=== PATIENT | male | born 1955 | race Caucasian/White ===

== ENCOUNTER 2017-07-08 09:36 | Emergency (ER) | payer OTHER, SELFPAY ==
[2017-07-08 09:37] VITALS: BP 140/77; PULSE 91; RESP 17; TEMP 36.9; O2SAT 95; BMI 25.0
--- NOTE | 2017-07-08 09:54 | ED.VISSUMM ---
- ER Visit Summary Date of Service: 07/08/17 Chief Complaint: [Swelling to right side of face] History of Present Illness: The patient is a 62 M [presents to the emergency department with complaint of for 5 day history of swelling to the right side of his face. Patient does have a easton and states that initially he started with what he thought was a pimple. Patient tried to express it and since that time is had just small amount of drainage from the wound. Yesterday started having increased swelling and today presents for evaluation. Patient's had no fevers.] Physical Examination: [HEENT-PERRLA, EOMI. Cranial nerves II through XII grossly intact. TMs clear. Mucous membranes moist. No adenopathy. Patient has right-sided swelling to his cheek an area approximately 3 x 2 cm with surrounding erythema. Area is slightly firm without fluctuance. Central portion is excoriated and small amount of serous material is oozing. Cardiovascular-regular rate and rhythm without murmur or ectopy Lungs-clear to auscultation, chest wall stable without crepitus or subcu emphysema Abdomen-normoactive bowel sounds, soft, nontender, no rebound or rigidity, no peritoneal signs. Extremities-intact ?4, normal range of motion, normal pulses, atraumatic] Test Results: [None indicated] Emergency Department Course and Treatment: [I offered to attempt an incision and drainage although given that this area is not very fluctuant I thought it may be more of an inflammatory process at this point however the patient did want me to attempt I&D the suspected early abscess. The area was cleansed with an alcohol prep and a 18-gauge needle was used to stab and then in size the suspected abscess with only small amount of blood extruding despite significant pressure am unable to obtain any significant purulence.] Treatment Plan: [Patient will be started on Keflex and Bactrim and advised to follow-up with ENT on-call Dr. Scottie Espinoza within the next 3-5 days. Patient to return if fever, increased swelling, or condition should worsen in any way.] Disposition: [Discharged to home in stable condition.] Impression: [Right sided facial cellulitis/early abscess] This note was generated with [employer] software. It may contain incorrect words, spelling, and punctuation that were not noted in review of the chart prior to signing ED Disposition - Plan for ED Patient: Chief Complaint: Abscess Referrals: Kavitha Tidwell MD [Primary Care Provider] -
--- NOTE | 2017-07-08 09:58 | ED.DEP ---
ED Disposition - Plan for ED Patient: Chief Complaint: Abscess Instructions: ED Cellulitis Facial, ED Abscess IandD Prescriptions: Cephalexin [Keflex] 500 mg PO Q6 #40 cap Smz/Tmp Ds [Bactrim Ds] 2 tab PO BID #28 tab Referrals: Kavitha Tidwell MD [Primary Care Provider] - Scottie Espinoza MD [STAFF PHYSICIAN] - 3-5 Days
[2017-07-08] MEDS: Cephalexin 250 MG Capsule 500 MG PO (10:09)
[2017-07-08] MEDS: Smz/Tmp Ds Tablet 1 TABLET PO (10:09)
== END 2017-07-08 10:14 | disposition home or self-care (01) ==
LOC: ED 09:58
PROVIDERS: Emergency Provider Emergency Medicine; Family Provider Internal Medicine; PCP Internal Medicine
DX: L02.01 Cutaneous abscess of face (principal); L03.211 Cellulitis of face; Z72.0 Tobacco use
CPT/HCPCS: 10060; 99283

== ENCOUNTER 2017-08-23 09:38 | Emergency (ER) | payer OTHER, SELFPAY ==
[2017-08-23 09:39] VITALS: BP 143/76; PULSE 76; RESP 17; TEMP 36.8; O2SAT 96; BMI 24.9
--- NOTE | 2017-08-23 10:14 | ED.VISSUMM ---
- ER Visit Summary Date of Service: 08/23/17 Chief Complaint: Pain and swelling. History of Present Illness: The patient is a 62 M Coumadin for a blood clot in his heart. Patient states he is right-hand dominant. For the last 2-3 days she had atraumatic right wrist pain and swelling. No history of gout. No history of fever. No trauma. Denies any redness. He [facility] They did x-rays which showed degenerative changes but no acute process. They did I did not actually see the films. He did not want additional x-rays taken. The Coumadin level which is 3.1 and adjusted his Coumadin to decrease his level. He says never had anything like this before. 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 Physical Examination: Stable afebrile. He is in no acute distress. HEENT exam unremarkable. Neck nontender. Lungs clear to auscultation bilaterally. Heart regular rhythm no murmur. Abdomen soft nontender. Extremities moving all 4. Neurovascular intact. Specifically right shoulder right elbow nontender nonswollen normal range of motion. His right wrist distal forearm is symmetrically swollen. There is no redness or warmth. He is a strong radial pulse. He is able to wiggle his fingers. There is swelling also on his right hand. He has increased pain in his right wrist with range of motion. There is no signs of a septic joint other than the pain. There is no epitrochlear or axillary lymphadenopathy. There is no signs of compartment syndrome. No signs of trauma. Neurologic exam is normal. Test Results: Ordered from the [facility] states he has degenerative changes of his right wrist but no fracture or dislocation. Again I did not see the films myself. Emergency Department Course and Treatment: She was placed in a AP splint to immobilize his right wrist. No continue to ice and elevate. Prednisone for inflammation. Clinically he has never had gout that is a possibility. Treatment Plan: Prednisone 40 g a day for 10 days. Ice and elevate. Close follow-up to ensure this is improving. And to ensure there is no signs of infection develop. Disposition: Discharge Impression: Traumatic right wrist pain and swelling secondary to arthritis. Anticoagulated on Coumadin. Forearm AP splint made by ER physician. This note was generated with [employer] dictation software. It may contain incorrect words, spelling, and punctuation that were not noted in review of the chart prior to signing ED Disposition - Plan for ED Patient: Chief Complaint: Upper Extremity Injury Referrals: Kavitha Tidwell MD [Primary Care Provider] -
--- NOTE | 2017-08-23 10:19 | ED.DEP ---
ED Disposition - Plan for ED Patient: Disposition: Home or Assisted Living Chief Complaint: Upper Extremity Injury Prescriptions: Prednisone [Deltasone] 40 mg PO DAILY 9 Days tab Referrals: Kavitha Tidwell MD [Primary Care Provider] - 3-5 Days Additional Instructions: Ice and elevate right wrist to decrease inflammation and pain. Prednisone 40 mg once a day for the next 9 days she worked already given a dose today in the ER. Call and follow-up with Dr. Tidwell this week to have your wrist rechecked. Return to ER immediately if you develop a fever or redness. Loosen the Basil wrap as needed if it feels too tight.
[2017-08-23] MEDS: predniSONE 20 MG Tablet 40 MG PO (10:21)
== END 2017-08-23 10:37 | disposition home or self-care (01) ==
PROVIDERS: Emergency Provider Emergency Medicine; Family Provider Internal Medicine; PCP Internal Medicine
DX: M19.131 Post-traumatic osteoarthritis, right wrist (principal); M25.531 Pain in right wrist; M25.431 Effusion, right wrist; I25.2 Old myocardial infarction; Z86.79 Personal history of other diseases of the circulatory system; Z72.0 Tobacco use; Z79.01 Long term (current) use of anticoagulants; Z79.82 Long term (current) use of aspirin; Z79.899 Other long term (current) drug therapy
CPT/HCPCS: 29125; 99282

== ENCOUNTER 2017-10-16 12:50 | Emergency (ER) | payer OTHER, SELFPAY ==
--- NOTE | 2017-10-16 12:50 | DT_ITS ---
This patient was seen during an EMR downtime October 11, 2017 - October 18, 2017. This patient may have a combination of paper and electronic documentation or all paper documentation. All documentation is viewable within the e-chart portion of [facility] for each patient visit.
--- NOTE | 2017-10-16 13:00 | RAD_ITS ---
STUDY: X-RAY - PELVIS AND RIGHT HIP REASON FOR EXAM: Male, 59 years old. Unable to bear weight. Pain TECHNIQUE: Radiological exam, hip, unilateral, with pelvis when performed; 2 or 3 views. COMPARISON: None. FINDINGS: No definite evidence for an acute fracture. Degenerative changes in the sacroiliac joints. Degenerative changes in the lower lumbar spine. Bony pelvic ring appears intact. Pelvic phleboliths. Superior and inferior pubic rami are intact IMPRESSION: No evidence for acute fractures seen Electronically Signed: Randall Piedra, at 14:04 EDT Tel , Service support , RAD/Hip 2-3 Views with Pelvis
== END 2017-10-16 14:40 | disposition home or self-care (01) ==
LOC: ED 10-17 13:26
PROVIDERS: Emergency Provider Emergency Medicine; Family Provider Internal Medicine; PCP Internal Medicine
DX: M79.651 Pain in right thigh (principal); S79.921A Unspecified injury of right thigh, initial encounter; I25.2 Old myocardial infarction; Z79.01 Long term (current) use of anticoagulants; Z79.899 Other long term (current) drug therapy; X58.XXXA Exposure to other specified factors, initial encounter; Y93.89 Activity, other specified; Y92.89 Other specified places as the place of occurrence of the external cause; Y99.8 Other external cause status
CPT/HCPCS: 73502; 99283

== ENCOUNTER 2017-11-23 06:59 | Day surgery (SDC) | payer OTHER, SELFPAY ==
[2017-11-22 09:06] VITALS: BMI 24.8
[2017-11-23 07:16] LABS: Prothrombin Time Fingerstick 11.3 SEC (11.9-14.4)
--- NOTE | 2017-11-23 08:53 | CASEMGMT ---
Addendum entered by Kyle Matamoros 11/23/17 08:58: Addendum- [facility] also [facility]. Original Note: Insurance review for [facility] using [employer] Website and PPO designation per card. [facility], [facility], [facility], [facility], [facility], [facility] ([facility]), [facility].
--- NOTE | 2017-11-23 08:56 | CL.D_ITS ---
Patient Name: JANE KIM Study Date: 11/23/2017 Performing: Roger Lyons MD Ht: 70.07 inches 178 cm : 1955 Wt: 171.96 lbs 78 kg Age: 62 Gender: male BSA: 1.96 PROCEDURE(S) PERFORMED [id number] CLINICAL PROFILE AND INDICATIONS Indications: Suspected CAD, Cardiomyopathy, LV Dysfunction Heart Failure: NYHA Class: 1, Newly Diagnosed: Yes, Heart Failure Type: Systolic Stress/Imaging Stress Test w/SPECT MPI: Yes Result: Positive Intermediate RiskStress Test with SP ECT MPI: Positive Intermediate Risk Angina Classification Anginal Classification w/in 2 Weeks: No symptoms CAD Presentations: No Sxs, no angina. Comorbidities/Risk Factors: Current/Recent Smoker (< 1year) Hypertension Dyslipidemia CONCLUSIONS RECOMMENDATIONS ASA Indefinitely Management as per referring Director Of Neurology Surgery consult for coronary revascularization Will d/w Dr Lawrence DESCRIPTION OF PROCEDURE The patient arrived to the procedure lab. The risks and benefits of the procedure as well as a full d escription of our services here and current unavailability of surgical backup were fully explained to the patient and/or their significant other prior to the catheterization. The Timeout was completed, verifying the correct patient and procedure. The patient's procedural site was prepped and draped in the usual fashion. Local anesthetic was given subcutaneously to right groin region with Lidocaine 2%. Using a modified Seldinger technique, arterial access was obtained via the right femoral artery, a 4 Fr sheath was inserted Left Coronary Artery selective angiography was performed in multiple views us ing a 4 Fr. JL5 catheter. Right Coronary Artery selective angiography was then performed in multiple views using a 4 Fr. 3DRC catheter.The arterial sheath was pulled and manual compression applied until hemostasis is achieved. CORONARY ANGIOGRAPHY DOMINANCE: Right Dominant LEFT HEART ASSESSMENT Left Ventricular Ejection Fraction: Not assessed LV wall motion not assessed LEFT MAIN: Angiographically normal LEFT ANTERIOR DECENDING ARTERY: MID LAD: 75 % Stenosis CIRCUMFLEX ARTERY: PROX CIRC: 85 % Stenosis RIGHT CORONARY ARTERY: MID RCA: 99 % Stenosis COLLATERAL FLOW: Collateral flow from Left to Right COMPLICATIONS No Complications PROCEDURE MEDICATIONS Baby Aspirin (81mg) 1 Tabs PO @ 11/23/2017 08:25:47 IV Bolus: .9 NaCl ml total 11/23/2017 08:42:48 SUMMARY OF HEMODYNAMIC DATA Time AIR REST ECG 07:32:09 AO 99/56 (74) SA 08:42:37 Signed By Roger Lyons MD On 11/23/2017 08:55:59 Roger Lyons MD
== END 2017-11-23 13:30 ==
PROVIDERS: Family Provider Internal Medicine; PCP Internal Medicine; Visit Provider Internal Medicine Cardiovascular Disease
DX: I25.5 Ischemic cardiomyopathy (principal); I51.9 Heart disease, unspecified; I25.10 Atherosclerotic heart disease of native coronary artery without angina pectoris; I10 Essential (primary) hypertension; E78.5 Hyperlipidemia, unspecified; I25.2 Old myocardial infarction; F17.210 Nicotine dependence, cigarettes, uncomplicated; Z79.01 Long term (current) use of anticoagulants; Z79.82 Long term (current) use of aspirin; Z79.899 Other long term (current) drug therapy
CPT/HCPCS: 36416; 85610; 93454; J7040; Q9967; C1769; C1894

== ENCOUNTER → 2018-03-15 08:17 | Outpatient (CLI) | payer OTHER, SELFPAY ==
--- NOTE | 2018-03-15 09:56 | PCM.CR.ITP ---
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 Maintain the individual as the primary focus of care. 2. To improve the patient's quality of life. 3. Identification of cardiac risk factors and provide cardiac risk factor management. 4. Enhance the psychosocial status of the patient. 5. Reconditioning enough to allow the patient to resume customary activities. 6. Control symptoms of cardiac disease Scale for measuring improvement of personal goals: Enter appropriate number in Comments. 2 = Unchanged. 3 = Slightly Better. 4 = Moderate Improvement. 5 = Met my Goal Personal Goals: Initial Assessment: Improve energy level, Get back to work, or to resume activities faster, Improve muscle strength and endurance, Control risk factors (learn risk factor modification) Exercise - Initial Assessment - Visit Date of Eval: 03/15/18 - Starting CR on 03/21/2018 Session #:: 0 - Stages of Change Stages of Change:: Contemplate - Exercise Prescription Mode:: Treadmill, Airdyne, NuStep Angina with exercise?: No Target Heart Rate:: [id number] - Hypertension Do any of the following apply?: No Resting Blood Pressure:: 100/50 - Intervention Home Exercise/Activity Goal:: Moderate Exercise 30 min/day x 5 days/wk - Education Goals:: Warm-up, RPE SAHIL Scale, S/S, Safe Exercise, Self-Monitoring - Exercise Program Goals Exercise Program Goals: Aerobic Activity >30 min Nutrition - Initial Assessment - Program Goals Nutrition Program Goals: LDL <70. Total Cholesterol <200. HDL >45. Triglycerides <150. HgbA1C <7%. BMI <25 - Visit Date of Assessment:: 03/15/18 - Stages of Change Stages of Change:: Contemplate - Diabetes Diabetes:: No - Weight Management Height: 5 ft 10 in Weight:: 169 lb Body Fat %:: 24.2 - Intervention Referral to dietitian:: No Referral to Diabetic Clinic:: No Will attend diet classes:: Yes - Education Gave educational materials for:: Healthy eating Tobacco - Initial Assessment - Program Goals Tobacco Program Goals: Complete smoking cessation. Attend education classes. Improve Knowledge Test score - Stage of Change Stages of Change:: Contemplate - Learning Barriers Learning Barriers: Vision, Cognitive - difficulty understanding medical terminology - Family Support Do you have family support?: Yes - Tobacco Use Tobacco Use: Cigarettes How many cigarettes do you smoke per day?: 20 - NO desire to quit; nobody's business if I smoke or don't smoke after 50 years. Years Smokin Do you use smokeless tobacco?: No - Intervention Smoking Cessation Referral:: No - Patient refused Individual Education/Counseling:: No Education Schedule Given:: Yes - Education Gave educational material for:: Tobacco triggers, Coronary artery disease, Risk factors, Sexuality, Medical compliance, Cardiac A&P, Angina signs & symptoms Psychosocial - Initial Assess - Target Goals Target Goals: Assess presence or absence of depression. Using a valid screening tool, maximizes coping skills. Positive support system - Stages of Change Stages of Change:: Contemplate - Psychosocial Test Tool Used:: HANDS Depression Questionnaire - Intervention PS - Interventions: Yes Attend Stress Management Classes, No Referral to Mental Health, No Referral to [facility] Case Management, No Referral to Physician, No Uses Stress Management Skills - Education Gave educational materials for:: Coping techniques, Signs & symptoms of depression, Stress management, Relaxation techniques - Patient/Program Goal Preventative Medication(s):: Aspirin, Clopidogrel, Beta yun - Assistive Devices Assistive Devices:: None Fall Risk Assessed:: Yes Patient Health Questionnaire Initial Assessment 1. Little interest or pleasure in doing things: Not at all 2. Feeling down, depressed, or hopeless: Not at all 3. Trouble falling or staying asleep, or sleeping too much: More than half the days 4. Feeling tired or having little energy: Several days 5. Poor appetite or overeating: Not at all 6. Feeling bad about yourself -- or that you are a failure or have let yourself or your family down: Not at all 7. Trouble concentrating on things, such as reading the newspaper or watching television: Not at all 8. Moving or speaking so slowly that other people could have noticed. Or the opposite - being so fidgety or restless that you have been moving around a lot more than usual: Not at all 9. Thoughts that you would be better off , or of hurting yourself in some way: Not at all How difficult have these problems made it for you to do your work, take care of things at home, or get along with other people?: Not difficult at all Total Score: 3 MIGEL-Q SV Test - Statements CAD is a disease of the arteries in the heart: I Don't Know Examples of risk factors for heart disease: I Don't Know Angina is chest pain or discomfort: I Don't Know The benefits of resistance training include: True Eating more meat and dairy products: I Don't Know Anti-platelet medications such as aspirin are important: True The only effective way to manage stress: False An exercise warm-up slowly increases heart rate: I Don't Know Prepared, processed foods usually have high sodium: True Depression is common after a heart attack: I Don't Know The statin medications lower cholesterol: I Don't Know To control blood pressure, lower the amount of sodium: I Don't Know If someone gets chest discomfort during walking: False Transfats are partially hydrogenated vegetable oils: I Don't Know Sleep apnea that is not treated increases the risk: I Don't Know To control cholesterol, one should become a vegetarian: I Don't Know Someone knows if he/she is exercising at the right level: True Diabetes cannot be prevented with exercise & health eating: False Stress is a large risk for heart attack: True A diet that can help lower blood pressure is rich in: I Don't Know - Total Score Total Correct Responses: 8 Self-Efficacy Initial Assessment We would like to know how confident you are in doing certain activities. Please select your confidence level for:: Select your confidence level for the following using the scale 1-10 where 1 is not at all confident and 10 is totally confident. Your score is the average of all 6 responses. Fatigue: How confident are you that you can keep the fatigue caused by your disease from interfering with the things you want to do? Select Number: 6 Physical Discomfort or Pain: How confident are you that you can keep the physical discomfort or pain of your disease from interfering with the things you want to do? Select Number: 9 Emotional Distress: How confident are you that you can keep the emotional distress caused by your disease from interfering with the things you want to do? Select Number: 9 Other Symptoms or Health Problems: How confident are you that you can keep other symptoms or health problems from interfering with the things you want to do? Select Number: 9 Different Tasks and Activities: How confident are you that you can do the different tasks and activities needed to manage your health condition so as to reduce your need to see a doctor? Select Number: 7 Medication: How confident are you that you can do things other than just taking medication to reduce how much your illness affects your everyday life? Select Number: 10 Total Score:: 8 Nutrition Survey - Nutrition Survey Instructions Scoring Instructions: Scoring is as follows: Yes = 1 points. No = 0 point. Patient score that is >/=12 is considered to be at potential nutritional risk and could benefit from a referral to a registered dietitian. - Nutrition Survey Initial Have you lost >10 lbs over the past 2 months without trying?: No Are you following a special diet at home for diabetes, low fat, or low salt?: No Are you interested in meeting with a dietitian for help understanding your diet?: Yes Do you eat less than 3 meals a day?: Yes Do you eat fatty meats (la, sausage, ribs, etc), fried foods, desserts, large amounts of salad dressings, margarine, butter, or cheese most days?: No Do you have food allergies? [Enter types in comment field]: No Do you eat in restaurants more than 3 times a week?: Yes Do you season food with salt, seasoning salt, or garlic salt?: No Do you used canned, boxed, frozen meals, or soups, seasoning packets?: Yes Total Score:: 4
--- NOTE | 2018-03-15 09:57 | PCM.CR.HP2 ---
CR - History & Physical - General Arrival date:: 03/15/18 Arrival time:: 09:30 Date of Referral:: 03/08/18 Date of CR Evaluation:: 03/15/18 Referring Physician: cali Primary Diagnosis: CABG - History of Present Cardiac Event Onset Date: Enter Onset Date of cardiac illnesses in Comment field below Coronary Artery Bypass Graft:: Yes - 01/25/2018 @ [facility] Interventions with present event:: heart cath, echocardiogram, Coronary artery bypass - Medications Home Medications: Ambulatory Orders Medication Instructions Recorded atorvastatin 40 mg tablet 40 mg PO DAILY 03/07/18 metoprolol tartrate 50 mg tablet 50 mg PO BID 03/07/18 aspirin 81 mg chewable tablet 162 mg PO QHS tab 03/08/18 - Allergies Allergies/Adverse Reactions: Allergies No Known Allergies Allergy (Verified 03/08/18 08:51) - Sleep Disorder Evaluation Hx of Sleep Apnea: No Do you snore loudly (louder than talking or can be heard through closed doors)?: No Do you often feel tired/ fatigued/ sleepy during daytime?: Yes Has anyone observed you stop breathing during sleep?: No History of Hypertension (for STOP score): No STOP Results: Negative Advanced Directives - Advanced Directives Power of Student Financial Aid Manager: Yes - sister in law Chiquita Franco. Living Will: No Advance Directives Information Provided: No - not interested Advance Directives on File: No DNR Order?:: No - MOLST See MOLST form: No Past Medical History - Past Medical Illness Medical History: Past Medical History (Last Updated 03/08/18 @ 08:56 by RELL Dowling) Hyperlipidemia (Chronic) E78.5 Leg edema (Chronic) R60.0 History of tobacco abuse (Chronic) Z87.891 Ischemic cardiomyopathy (Chronic) I25.5 EF 35-40% per echo done @ [facility]07/11/2017; 50% per pre-op EFRAIN done @ [facility] 01/25/18 History of DE (myocardial infarction) (Chronic) I25.2 Left ventricular scar, markie infart ischemia, left ventricular thrombus per echo 12/15/2017 @ [facility] Atherosclerotic heart disease of [place] coronary artery without angina pectoris (Chronic) I25.10 MARTINES to LAD, free JANEEN to PDA, SVG to Diagonal, SVG to OM, SVG to right Posterior lateral per Dr. Augustin [facility] - Past Surgical History Surgical History: Past Surgical History (Last Reviewed 03/08/18 @ 08:40 by Taty Montoya) S/P CABG x 5 (Chronic) Onset Date: 01/25/18 Z95.1 MARTINES to LAD, free JANEEN to PDA, SVG to Diagonal, SVG to OM, SVG to right Posterior lateral per Dr. Augustin NINA History of colonoscopy with polypectomy Onset Date: 05/15/03 Z98.890, Z86.[address] Dillon History of right inguinal hernia repair Onset Date: 03/23/16 Z98.890, Z87.[address] Dillon Incarcerated right inguinal hernia (Resolved) K40.30 Surgical History: herniorrhaphy - right inguinal x 2, - - facial surgery summer, amputated left ring finger 1993 - Family History Summary Family History: Family History (Last Reviewed 03/08/18 @ 08:40 by Taty Montoya) Brother CAD (coronary artery disease) Brother CAD (coronary artery disease) Mother Cancer Father Cancer Sister Cancer Social History - Smoking History Smoking Status: Current every day smoker Years Smokin Packs Smoked per Day: 1 Hx Smoking Cessation Date: Been smoking 50 years, no body's business if I smoke or quit. 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 Left click = Reports ([place]) Review of Present Symptoms: Reports: Shortness of Breath with Exertion - depends on what I am doing, occasionally get short of breath. Frustrated because noone has told me waht I can do or not do since my surgery., Operative Discomfort, Fatigue, Appetite - Normal, Sleep - Normal - varies, sometimes awake after 3-4 hours of sleep thatn can be wide awake.. Denies: Dizziness/Lightheadedness - Pain Pain Level: 2/10 - morning getting up chest incision feels 100% by the end of the day can be a lttile ache level of 1-2 pain scale. Risk Factor Assessment - Chief Complaint Chief Complaint: Patient is a 62/male of Dr. Roger Lyons who presents to cardiac rehab today following a recent CABG on 01/25/2018 at [facility]. He previously had a nuclear stress test which sugested a large infarct with ischemia, an echocardiogram at the time indicated an EF of 35-40% which is now back to a normal of 58% post bypass. - Vital Signs Temperature: 98.7 F Respiratory Rate: 16 Pulse Ox: 95 Blood Pressure: 100/50 Nailbeds:: pink,tar/nicotine stained - Pulse Pulse Rate: 44 Pulse Rhythm: Regular - Hypertension Blood Pressure Sitting - Left Arm: 100/50 - Obesity Height: 5 ft 10 in Weight:: 169 lb Weight in Pounds: 169.0 lbs Weight Source: Standing Scale Body Mass Index (BMI): 24.2 Nutritional Referral for Obesity: No - Physical Inactivity Physical Inactivity: None - hasn't done - Risk Stratification Risk Guidelines: Lowest Risk: Risk Factor for Diabetes, Risk Factor for Obesity, Risk Factor for Hypertension, Risk Factor for Sedentary Lifestyle, Risk Factor for Depression, Moderate Risk: Risk Factor for Dyslipidemia, Highest Risk: Risk Factor for Smoking - For Smoking Smoking Risk Guidelines: Smoking Low Risk: None or quit greater than 6 months ago. Smoking Moderate Risk: Smoker or quit 6 months or less ago. Smoking High Risk: Smoker - For Dyslipidemia Dyslipidemia Risk Guidelines: Low Risk: Moderate Risk: High Risk: 15-25% fat 25.1-29% fat >/= 30% fat. <7% sat fat 7-9% sat fat >9% sat fat. <150 mg chol 150-299 mg chol >/= 300 mg chol. LDL <100 LDL 100-129 LDL >/= 130. Chol/HDL ratio <5.0 Chol/HDL ratio 5.0-6.0 Chol/HDL ratio >6.0. Triglycerides <100 Triglycerides 100-149 Triglycerides >/= 150 - For Diabetes Mellitus Diabetes Risk Guidelines: Diabetes Low Risk: HgA1c <6.5% and/or FBG <120. Diabetes Moderate Risk: HgA1c 6.6-7.9% and/or FBG 120-180. Diabetes High Risk: HgA1c >/= 8% and/or FBG >180 - For Obesity/Overweight Obesity/Overweight Risk Guidelines: Obesity Low Risk: BMI <25.0. Obesity Moderate Risk: BMI 25-29.9. Obesity High Risk: BMI >/= 30.0 - For Hypertension Hypertension Risk Guidelines: Hypertension Low Risk: Systolic <120 and Diastolic <80. Hypertension Moderate Risk: Systolic 120-139 and Diastolic 80-89. Hypertension High Risk: Systolic >/= 140 and Diastolic >/= 90 - For Sedentary Lifestyle Sedentary Lifestyle Risk Guidelines: Sedentary Lifestyle Low Risk: >/= 1,500 kcal/week. Sedentary Lifestyle Moderate Risk: 700-1,499 kcal/week. Sedentary Lifestyle High Risk: < 700 kcal/week - For Depression Depression Risk Guidelines: Depression Low Risk: Not clinically depressed. Depression Moderate Risk: Mildly depressed. Depression High Risk: Clinically depressed - Family History Family History: Family History (Last Reviewed 03/08/18 @ 08:40 by Taty Montoya) Brother CAD (coronary artery disease) Brother CAD (coronary artery disease) Mother Cancer Father Cancer Sister Cancer Motivation - Motivation to Participate On a scale of 1 to 10, how prepared are you to commit to attending program?: 7 - angry, frustrated. if what I have to do its what I will do. What do you see as barriers to successfully being able to complete the program?: none What do you see as the benefits of succesfully completing the program? In other words, what do you hope to get out of participating in the program?: being able to do what I did before, Are there issues you are dealing with that will interfere with completing the program?: no Do you have a spouse or signficant other, family or friends who will help support you to complete the program?: yes
--- NOTE | 2018-03-15 10:02 | CR.HP_ITS ---
CR - History & Physical - General Arrival date:: 03/15/18 Arrival time:: 09:30 Date of Referral:: 03/08/18 Date of CR Evaluation:: 03/15/18 Referring Physician: cali Primary Diagnosis: CABG - History of Present Cardiac Event Onset Date: Enter Onset Date of cardiac illnesses in Comment field below Coronary Artery Bypass Graft:: Yes - 01/25/2018 @ [facility] Interventions with present event:: heart cath, echocardiogram, Coronary artery bypass - Medications Home Medications: Ambulatory Orders Medication Instructions Recorded atorvastatin 40 mg tablet 40 mg PO DAILY 03/07/18 metoprolol tartrate 50 mg tablet 50 mg PO BID 03/07/18 aspirin 81 mg chewable tablet 162 mg PO QHS tab 03/08/18 - Allergies Allergies/Adverse Reactions: Allergies No Known Allergies Allergy (Verified 03/08/18 08:51) - Sleep Disorder Evaluation Hx of Sleep Apnea: No Do you snore loudly (louder than talking or can be heard through closed doors)?: No Do you often feel tired/ fatigued/ sleepy during daytime?: Yes Has anyone observed you stop breathing during sleep?: No History of Hypertension (for STOP score): No STOP Results: Negative Advanced Directives - Advanced Directives Power of Lead Database Administrator: Yes - sister in law Chiquita Franco. Living Will: No Advance Directives Information Provided: No - not interested Advance Directives on File: No DNR Order?:: No - MOLST See MOLST form: No Past Medical History - Past Medical Illness Medical History: Past Medical History (Last Updated 03/08/18 @ 08:56 by RELL Dowling) Hyperlipidemia (Chronic) E78.5 Leg edema (Chronic) R60.0 History of tobacco abuse (Chronic) Z87.891 Ischemic cardiomyopathy (Chronic) I25.5 EF 35-40% per echo done @ [facility]07/11/2017; 50% per pre-op EFRAIN done @ [facility] 01/25/18 History of [place] (myocardial infarction) (Chronic) I25.2 Left ventricular scar, markie infart ischemia, left ventricular thrombus per echo 12/15/2017 @ [facility] Atherosclerotic heart disease of [place] coronary artery without angina pectoris (Chronic) I25.10 MARTINES to LAD, free JANEEN to PDA, SVG to Diagonal, SVG to OM, SVG to right Posterior lateral per Dr. Augustin [facility] - Past Surgical History Surgical History: Past Surgical History (Last Reviewed 03/08/18 @ 08:40 by Taty Montoya) S/P CABG x 5 (Chronic) Onset Date: 01/25/18 Z95.1 MARTINES to LAD, free JANEEN to PDA, SVG to Diagonal, SVG to OM, SVG to right Posterior lateral per Dr. Augustin NINA History of colonoscopy with polypectomy Onset Date: 05/15/03 Z98.890, Z86.[address] Dillon History of right inguinal hernia repair Onset Date: 03/23/16 Z98.890, Z87.[address] Dillon Incarcerated right inguinal hernia (Resolved) K40.30 Surgical History: herniorrhaphy - right inguinal x 2, - - facial surgery summer, amputated left ring finger 1993 - Family History Summary Family History: Family History (Last Reviewed 03/08/18 @ 08:40 by Taty Montoya) Brother CAD (coronary artery disease) Brother CAD (coronary artery disease) Mother Cancer Father Cancer Sister Cancer Social History - Smoking History Smoking Status: Current every day smoker Years Smokin Packs Smoked per Day: 1 Hx Smoking Cessation Date: Been smoking 50 years, no body's business if I smoke or quit. 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 Left click = Reports ([place]) Review of Present Symptoms: Reports: Shortness of Breath with Exertion - depends on what I am doing, occasionally get short of breath. Frustrated because noone has told me waht I can do or not do since my surgery., Operative Discomfort, Fatigue, Appetite - Normal, Sleep - Normal - varies, sometimes awake after 3-4 hours of sleep thatn can be wide awake.. Denies: Dizziness/Lightheadedness - Pain Pain Level: 2/10 - morning getting up chest incision feels 100% by the end of the day can be a lttile ache level of 1-2 pain scale. Risk Factor Assessment - Chief Complaint Chief Complaint: Patient is a 62/male of Dr. Roger Lyons who presents to cardiac rehab today following a recent CABG on 01/25/2018 at [facility]. He previously had a nuclear stress test which sugested a large infarct with ischemia, an echocardiogram at the time indicated an EF of 35-40% which is now back to a normal of 58% post bypass. - Vital Signs Temperature: 98.7 F Respiratory Rate: 16 Pulse Ox: 95 Blood Pressure: 100/50 Nailbeds:: pink,tar/nicotine stained - Pulse Pulse Rate: 44 Pulse Rhythm: Regular - Hypertension Blood Pressure Sitting - Left Arm: 100/50 - Obesity Height: 5 ft 10 in Weight:: 169 lb Weight in Pounds: 169.0 lbs Weight Source: Standing Scale Body Mass Index (BMI): 24.2 Nutritional Referral for Obesity: No - Physical Inactivity Physical Inactivity: None - hasn't done - Risk Stratification Risk Guidelines: Lowest Risk: Risk Factor for Diabetes, Risk Factor for Obesity, Risk Factor for Hypertension, Risk Factor for Sedentary Lifestyle, Risk Factor for Depression, Moderate Risk: Risk Factor for Dyslipidemia, Highest Risk: Risk Factor for Smoking - For Smoking Smoking Risk Guidelines: Smoking Low Risk: None or quit greater than 6 months ago. Smoking Moderate Risk: Smoker or quit 6 months or less ago. Smoking High Risk: Smoker - For Dyslipidemia Dyslipidemia Risk Guidelines: Low Risk: Moderate Risk: High Risk: 15-25% fat 25.1-29% fat >/= 30% fat. <7% sat fat 7-9% sat fat >9% sat fat. <150 mg chol 150-299 mg chol >/= 300 mg chol. LDL <100 LDL 100-129 LDL >/= 130. Chol/HDL ratio <5.0 Chol/HDL ratio 5.0-6.0 Chol/HDL ratio >6.0. Triglycerides <100 Triglycerides 100-149 Triglycerides >/= 150 - For Diabetes Mellitus Diabetes Risk Guidelines: Diabetes Low Risk: HgA1c <6.5% and/or FBG <120. Diabetes Moderate Risk: HgA1c 6.6-7.9% and/or FBG 120-180. Diabetes High Risk: HgA1c >/= 8% and/or FBG >180 - For Obesity/Overweight Obesity/Overweight Risk Guidelines: Obesity Low Risk: BMI <25.0. Obesity Moderate Risk: BMI 25-29.9. Obesity High Risk: BMI >/= 30.0 - For Hypertension Hypertension Risk Guidelines: Hypertension Low Risk: Systolic <120 and Diastolic <80. Hypertension Moderate Risk: Systolic 120-139 and Diastolic 80-89. Hypertension High Risk: Systolic >/= 140 and Diastolic >/= 90 - For Sedentary Lifestyle Sedentary Lifestyle Risk Guidelines: Sedentary Lifestyle Low Risk: >/= 1,500 kcal/week. Sedentary Lifestyle Moderate Risk: 700-1,499 kcal/week. Sedentary Lifestyle High Risk: < 700 kcal/week - For Depression Depression Risk Guidelines: Depression Low Risk: Not clinically depressed. Depression Moderate Risk: Mildly depressed. Depression High Risk: Clinically depressed - Family History Family History: Family History (Last Reviewed 03/08/18 @ 08:40 by Taty Montoya) Brother CAD (coronary artery disease) Brother CAD (coronary artery disease) Mother Cancer Father Cancer Sister Cancer Motivation - Motivation to Participate On a scale of 1 to 10, how prepared are you to commit to attending program?: 7 - angry, frustrated. if what I have to do its what I will do. What do you see as barriers to successfully being able to complete the program?: none What do you see as the benefits of succesfully completing the program? In other words, what do you hope to get out of participating in the program?: being able to do what I did before, Are there issues you are dealing with that will interfere with completing the program?: no Do you have a spouse or signficant other, family or friends who will help support you to complete the program?: yes
[2018-03-15 10:41] VITALS: BP 100/50; PULSE 44; RESP 16; TEMP 37.1; O2SAT 95; BMI 24.2
[2018-03-15 10:57] VITALS: BP 100/50
== END ==
PROVIDERS: Family Provider Internal Medicine; PCP Internal Medicine; Referring Provider Internal Medicine Cardiovascular Disease; Visit Provider Internal Medicine Cardiovascular Disease
DX: Z95.1 Presence of aortocoronary bypass graft (principal)

== ENCOUNTER 2018-04-08 08:00 | Outpatient (RCR) | payer OTHER, SELFPAY | END 2018-04-08 23:59 | LOC: CR 08:00 | PROVIDERS: Family Provider Internal Medicine; PCP Internal Medicine; Referring Provider Internal Medicine Cardiovascular Disease; Visit Provider Internal Medicine Cardiovascular Disease | DX: I25.2 Old myocardial infarction (principal); Z95.1 Presence of aortocoronary bypass graft | CPT/HCPCS: 93798 ==

== ENCOUNTER → 2018-04-18 09:05 | Outpatient (CLI) | payer OTHER, SELFPAY ==
[2018-03-15 10:41] VITALS: BMI 24.2
[2018-04-18 10:59] LABS: AST(SGOT) 19 U/L (15-37); Alanine Aminotransfer ALT/SGPT 25 U/L (16-61); Albumin, Serum 3.6 g/dL (3.2-5.0); Alkaline Phosphatase 88 U/L (45-117); Bilirubin, Direct 0.16 mg/dL (0.00-0.30); Cholesterol 122 mg/dL (200); Globulin 3.3 g/dL (2.2-4.2); High Density Lipoprotein 42 mg/dL; Protein, Total 6.9 g/dL (6.4-8.2); Triglycerides 76 mg/dL; Very Low Density Lipoprotein 15 mg/dL (5-40)
== END ==
PROVIDERS: Family Provider Internal Medicine; PCP Internal Medicine; Visit Provider Physician Assistant Medical
DX: I25.10 Atherosclerotic heart disease of native coronary artery without angina pectoris (principal); E78.00 Pure hypercholesterolemia, unspecified
CPT/HCPCS: 36415; 80061; 80076

== ENCOUNTER 2018-05-04 08:00 | Outpatient (RCR) | payer OTHER, SELFPAY ==
[2018-03-15 10:41] VITALS: BMI 24.2
== END 2018-05-09 23:59 ==
LOC: CR 08:00
PROVIDERS: Family Provider Internal Medicine; PCP Internal Medicine; Referring Provider Internal Medicine Cardiovascular Disease; Visit Provider Internal Medicine Cardiovascular Disease
DX: I25.2 Old myocardial infarction (principal); Z95.1 Presence of aortocoronary bypass graft
CPT/HCPCS: 93798

== ENCOUNTER 2018-08-02 11:54 | Emergency (ER) | payer OTHER, SELFPAY ==
[2018-04-21 11:24] VITALS: BMI 24.7
[2018-08-02 11:55] VITALS: BP 153/87; PULSE 69; RESP 20; TEMP 36.6; O2SAT 99; BMI 26.2
--- NOTE | 2018-08-02 12:03 | EKG12_ITS ---
Test Reason : SOB Blood Pressure : / mmHG Vent. Rate : 068 BPM Atrial Rate : 068 BPM P-R Int : 202 ms QRS Dur : 088 ms QT Int : 400 ms P-R-T Axes : 044 -08 055 degrees QTc Int : 425 ms Normal sinus rhythm Cannot rule out Inferior infarct , age undetermined Abnormal ECG Confirmed by JORGE A PALMER, KASSANDRA ([id number]), editorial clerk MIKE ALATORRE ([id number]) on 08/04/2018 12:48:26 PM Referred By: MARY Confirmed By:KASSANDRA JULES MD
--- NOTE | 2018-08-02 12:05 | ED.VISSUMM ---
- ER Visit Summary Date of Service: 08/02/18 Chief Complaint: Cough, shortness of breath History of Present Illness: The patient is a 63 M with long-standing history of smoking and 5 vessel bypass in January presents with cough and shortness of breath. Patient states over the past 3 days, he had a cough with some scant productive sputum. She is also been feeling dyspneic. He denies orthopnea or leg swelling. He denies any fevers or chills. He states that he has had pelvic this before when he had fluid on my lungs. He states that he has been on Lasix intermittently since the surgery. He denies leg swelling. He denies any recent sick contacts. He has not found anything has improved the symptoms. Physical Examination: Vital signs reviewed General: Well-nourished, well-developed Head: Normocephalic, atraumatic Eyes: Pupils equal and reactive, extraocular muscles intact Neck, supple, no lymphadenopathy Heart: Regular rate and rhythm Respiratory: No distress, scant wheezes in the bases Abdomen: Soft, nontender, nondistended, no peritoneal signs Back: Nontender Extremities: Nontender, no edema, no cords Skin: Normal color no rash Neuro: Alert and oriented, no focal or lateralizing deficits Test Results: [] Emergency Department Course and Treatment: Patient presents to the emergency department cough and dyspnea. EKG was obtained. It was sinus rhythm without acute ischemia. He had the symptoms for 3 days. X-ray shows no evidence of volume overload, but there is scant questionable early infiltrate in the left retrocardiac area. Blood counts were unremarkable. EKG was unremarkable. Cardiac enzymes are normal. With the breathing treatment, the patient's aeration is improved. At this time, I do feel that he safe for outpatient therapy. He is not hypoxic. He has no tachypnea. Doxycycline and prednisone. He is counseled concerning symptoms and reasons to return. He will be discharged home. Treatment Plan: [] Disposition: Discharge Impression: 1. Acute bronchitis This note was generated with [employer] dictation software. It may contain incorrect words, spelling, and punctuation that were not noted in review of the chart prior to signing ED Disposition - Plan for ED Patient: Instructions: ED Upper Resp Infec Abx Tx Prescriptions: Albuterol Inhaler [Ventolin Hfa] 2 puff INHALATION Q4H PRN PRN #1 inhaler PRN Reason: Wheezing Prednisone [Deltasone] 40 mg PO DAILY #10 tab Doxycycline 100 mg PO BID #20 cap Referrals: NOT,DEFINED [NON-STAFF] -
[2018-08-02 12:15] VITALS: BP 128/81; PULSE 68; RESP 24; O2SAT 96
[2018-08-02 12:16] VITALS: O2SAT 96
[2018-08-02] MEDS: Ipratropium/Albuterol Sulfate 3 ML AMPUL.NEB INHALATION (12:23)
[2018-08-02 12:24] VITALS: PULSE 65; RESP 20
--- NOTE | 2018-08-02 12:25 | RAD_ITS ---
STUDY: X-RAY CHEST REASON FOR EXAM: Male, 63 years old. Chest pain with persistent cough. TECHNIQUE: PA and lateral chest COMPARISON: March 23, 2016. FINDINGS: Median sternotomy and CABG. Visible in the lateral view only there is slightly increased conspicuity of the pulmonary interstitium overlying the lower thoracic vertebral bodies and the posterior lower lobe, possibly normal bronchovascular markings, not a dense infiltrate. Lungs otherwise clear. Normal cardiomediastinal silhouette, fredo and pleural margins. No acute osseous or upper abdominal process. RAD/Chest PA and Lateral IMPRESSION: Questionable subsegmental infiltrate posterior inferior lung, indeterminate side. Seen on the lateral view Correlate clinically for any symptoms of lower lobe pneumonia. [facility]rientos images saved to the PACS archive. Electronically Signed: Blake Gardner MD at 12:50 EDT Tel , Service support ,
[2018-08-02 12:39] LABS: Absolute Lymphocyte Count 2.05 X10^3/ul (0.83-4.51); Absolute Neutrophil Count 5.6 X10^3/uL (2.0-7.7); Basophil# 0.05 X10^3/uL; Basophil% 0.6 % (0-1); Eosinophil# 0.26 X10^3/uL; Eosinophils% 2.9 % (0-5); Hematocrit 39.9 % (40-54); Hemoglobin 13.9 g/dl (13.0-16.5); Lymphocyte # 2.05 X10^3/ul (4.0); Lymphocyte % 22.6 % (19-41); Mean Corp Hgb Conc 34.8 g/gl (32-36); Mean Corpuscular Hgb 30.4 pg (27.0-32.0); Mean Corpuscular Volume 87.3 fL (80-94); Mean Platelet Vol. 9.5 fl (6.2-12.0); Monocyte# 0.97 X10^3/uL; Monocyte% 10.7 % (0-10); Neutrophil # 5.59 X10^3/uL (2.7-7.7); Neutrophil % 61.3 % (47-70); Platelet Count 169 K/mm3 (150-450); RBC Distribution Width CV 13.4 % (11.6-14.6); RBC Distribution Width SD 42.4 fl (35.1-43.9); Red Blood Count 4.57 M/mm3 (4.6-6.2); White Blood Count 9.1 K/mm3 (4.4-11.0)
[2018-08-02 12:43] LABS: POSITIVE COUNT NO; POSITIVE DIFFERENTIAL NO; POSITIVE MORPHOLOGY NO
[2018-08-02 12:53] LABS: Anion Gap 7 (5-15); BUN 15 mg/dL (7-18); BUN/Creat Ratio 18.5 RATIO (10-20); Calcium,Total 8.9 mg/dL (8.5-10.1); Chloride 107 mmol/L (98-107); Creatinine, Serum 0.81 mg/dL (0.70-1.30); EST Glomerular Filtration Rate 102 mL/min (>60); Est Glom Filt Rate - Afr Amer 123 mL/min (>60); Estimated Creatinine Clearance 95.13 ml/min; Glucose 130 mg/dL (74-106); Potassium 3.8 mmol/L (3.5-5.1); Sodium Level 140 mmol/L (136-145)
[2018-08-02 13:07] LABS: BNP,B-Type NATRIURETIC PEPTIDE 72.4 pg/mL (0-100)
[2018-08-02 13:24] VITALS: BP 117/80; PULSE 79; RESP 18; O2SAT 98
== END 2018-08-02 13:26 | disposition home or self-care (01) ==
LOC: ED 12:11
PROVIDERS: Emergency Provider Emergency Medicine
DX: J20.9 Acute bronchitis, unspecified (principal); J18.9 Pneumonia, unspecified organism; R06.00 Dyspnea, unspecified; I25.10 Atherosclerotic heart disease of native coronary artery without angina pectoris; J44.9 Chronic obstructive pulmonary disease, unspecified; Z95.1 Presence of aortocoronary bypass graft; Z72.0 Tobacco use; Z79.82 Long term (current) use of aspirin
CPT/HCPCS: 71046; 80048; 83880; 84484; 85025; 93005; 94640; 99284; A4216

== ENCOUNTER → 2018-11-14 | Outpatient (CLI) | payer OTHER, SELFPAY ==
[2018-11-14 15:13] LABS: AST(SGOT) 22 U/L (15-37); Alanine Aminotransfer ALT/SGPT 26 U/L (16-61); Albumin, Serum 3.6 g/dL (3.2-5.0); Alkaline Phosphatase 99 U/L (45-117); Bilirubin, Direct 0.13 mg/dL (0.00-0.30); Cholesterol 116 mg/dL (200); Globulin 3.2 g/dL (2.2-4.2); High Density Lipoprotein 37 mg/dL; Protein, Total 6.8 g/dL (6.4-8.2); Triglycerides 104 mg/dL; Very Low Density Lipoprotein 21 mg/dL (5-40)
== END | disposition home or self-care (01) ==
LOC: LAB 13:25
PROVIDERS: Physician Assistant Medical; Referring Provider Internal Medicine Cardiovascular Disease; Visit Provider Internal Medicine Cardiovascular Disease
DX: E78.5 Hyperlipidemia, unspecified (principal)
CPT/HCPCS: 36415; 80061; 80076

== ENCOUNTER → 2018-12-01 | Outpatient (CLI) | payer OTHER, SELFPAY ==
[2018-11-14 14:19] VITALS: BMI 24.8
--- NOTE | 2018-12-01 12:38 | ECHOCS_ITS ---
Reason For Study: CAD Procedure This was a 2D Doppler, Color Flow transthoracic echocardiogram. Exam performed in department. Left Ventricle Normal size and thickness. The estimated ejection fraction is 60 %. Stage 1 diastolic dysfunction. Anterior [place] : Mildly hypokinetic. Right Ventricle Normal size and thickness. Normal systolic function. Atria Normal left atrium. Normal right atrium. Hypermobile atrial septum. Bubble contrast study negative for right to left interatrial shunt. Mitral Valve The mitral valve is structurally normal. No prolapse or stenosis seen. Mild (1+) posteriorly directed mitral valve insufficiency. Tricuspid Valve Normal tricuspid valve. Trivial tricuspid valve insufficiency. Right ventricular systolic pressure estimated to be 34 mmHg. Aortic Valve Trisinus/trileaflet aortic valve. Normal aortic valve. Pulmonic Valve Normal pulmonic valve. Mild (1+) pulmonic valve insufficiency. Great Vessels Normal aortic root. Normal arch. Normal inferior vena cava. Inferior vena cava collapse with sniff. Pericardium/Pleural No pericardial effusion. Medication 22 gauge I.V. with prn adaptor inserted into right arm. Performed a rapid injection of agitated mix of 9 cc saline and 1cc air to assess for atrial septal defect. Diluted definity 6ml given slow IV push to enhance endocardial definition. MMode/2D Measurements & Calculations LVIDd: 4.8 cm IVSd: 1.1 cm Ao root diam: 3.7 cm LVIDs: 3.2 cm LVPWd: 1.1 cm RVDd: 3.7 cm FS: 33.9 % LAV(MOD-bp): 41.2 ml LA A4 area: 14.4 cm2 LA dimension(2D): 4.0 cm LAV(MOD-bp) Indexed: 21.0 ml/m2 LAV(MOD-sp2): 54.9 ml LAV(MOD-sp4): 29.7 ml RA A4 area: 19.1 cm2 Doppler Measurements & Calculations MV E max junaid: 88.0 cm/sec Lat Peak E' Junaid: 10.4 cm/sec Med Peak E' Junaid: 6.5 cm/sec MV A max junaid: 88.0 cm/sec E/E' lat: 8.5 E/E' med: 13.5 MV E/A: 1.0 Ao V2 max: 103.4 cm/sec LV V1 max: 83.0 cm/sec PA V2 max: 79.7 cm/sec Ao max P.3 mmHg LV V1 max P.8 mmHg TR max junaid: 268.5 cm/sec TR max P.8 mmHg Interpretation Summary The estimated ejection fraction is 60 %. Stage 1 diastolic dysfunction. Anterior [place] : Mildly hypokinetic Hypermobile atrial septum. Bubble contrast study negative for right to left interatrial shunt. Mild (1+) posteriorly directed mitral valve insufficiency. Trivial tricuspid valve insufficiency. Right ventricular systolic pressure estimated to be 34 mmHg. The study was technically difficult. There is no comparison study available. Contrast injection was performed. Ordering Physician: Roger Lyons Referring Physician: Kavitha Tidwell M.D. Performed By: Darcie Gutierrez RDCS
== END | disposition home or self-care (01) ==
LOC: CVS 12:36
PROVIDERS: Family Provider Internal Medicine; PCP Internal Medicine; Referring Provider Internal Medicine Cardiovascular Disease; Visit Provider Internal Medicine Cardiovascular Disease
DX: I25.10 Atherosclerotic heart disease of native coronary artery without angina pectoris (principal); I25.5 Ischemic cardiomyopathy; I25.2 Old myocardial infarction; Z95.1 Presence of aortocoronary bypass graft
CPT/HCPCS: 0399T; 93306; Q9957; A4216; C8929

== ENCOUNTER 2019-01-02 12:06 | Day surgery (SDC) | payer OTHER, SELFPAY ==
[2018-11-14 14:19] VITALS: BMI 24.8
--- NOTE | 2019-01-01 20:33 | PCM.HP.BLA ---
History and Physical Date of Admission: 01/02/19 HISTORY AND PHYSICAL ? Amador Franco 1955 ? REFERRING PHYSICIAN: Kavitha Tidwell MD ? CHIEF COMPLAINT: colon consult ? HPI: The patient is a 63 year old male referred for endoscopy. Amador notes no colon complaints. Patient denies any change in bowel habits, weight changes, blood in stools, black tarry stools or abdominal pain. Denies family history of colon issues. The patient notes no upper GI complaints. ? Amador has undergone prior endoscopy in 2003 with removal of adenomatous polyp at that time. ? Patient's past medical history is significant for past MA, s/p CABG x5, coronary artery disease, bradycardia, chronic systolic CHF, ischemic cardiomyopathy, tobacco use. Patient follows with Dr. Tidwell for his chronic medical conditions. Denies chest pain, shortness of breath or recent hospitalizations. Denies problems with sedation in the past. ?? PAST?MEDICAL?HISTORY ? Bradycardia ? ? CAD (coronary artery disease) ? ? Dizziness ? ? Dizziness ? ? Dyspnea ? ? Fatigue ? ? Hx of CABG 01/25/2018 x 2 ? Limb swelling ? ? MA (myocardial infarction) (HCC) ? ? Smoker ? PAST?SURGICAL?HISTORY ? COLONOSCOPY & POLYPECTOMY 05/15/03 ? [place] - tubular adenoma ? INGUINAL HERNIA REPAIR HX Right 03/23/16 ? PAST SURGICAL HISTORY OF 01/25/2018 ? CABG x5 ? CURRENT?MEDICATIONS aspirin 81 mg chewable tablet Take 1 tablet by mouth once daily. albuterol HFA (VENTOLIN HFA) 90 mcg/actuation inhaler Inhale 2 Puffs as instructed every 4 hours as needed for Wheezing/Shortness of Breath. acetaminophen (TYLENOL) 325 mg tablet Take 2 tablets by mouth every 6 hours as needed. atorvastatin (LIPITOR) 40 mg tablet Take 1 tablet by mouth daily at bedtime. metoprolol tartrate, short acting, (LOPRESSOR) 50 mg tablet Take 1 tablet by mouth every 12 hours. ? ? ALLERGIES: Patient has no known allergies. ? PERSONAL HISTORY: Marital status: Single Tobacco Use Smoking status: Current Some Day Smoker Packs/day: 1.00 Years: 40.00 Pack years: 40 Types: Cigarettes ? FAMILY?HISTORY ? Cancer Mother ? ? Cancer Father ? ? Cancer Sister? stomach ? Heart Brother? brothers x2 ? REVIEW OF SYSTEMS: General: The patient denies fatigue, denies weight loss, denies weight gain, denies feeling hot, and denies feelings of cold. Eyes: The patient denies glaucoma, denies eye injury/surgery, does not wear glasses or contacts. Ear/Nose/Throat: The patient denies allergies, denies hayfever, denies ear infections, and denies bloody noses. Cardiovascular: The patient denies chest pain, denies heart disease, denies high blood pressure,denies cardiac stent, denies prior heart attack, denies irregular heart beat, denies high cholesterol, denies poor circulation, denies heart failure, other cardiac issues, denies claudication, denies cold feet, denies peripheral arterial stent. Respiratory: The patient denies tuberculosis, denies pneumonia, denies frequent cough, denies pulmonary embolism, denies shortness of breath, and denies coughing up blood. Gastrointestinal: The patient denies difficulty swallowing, denies acid reflux, denies ulcers, denies vomiting, denies jaundice/hepatitis, denies gallbladder problems, denies black or tarry stools, denies hemorrhoids, denies bleeding from rectum, denies diverticulitis, denies constipation, denies diarrhea, denies loss of stool control, and denies hernias. Kidney/Bladder: The patient denies kidney stones, denies urine infections, and denies bloody urine. Skin: The patient denies a history of skin cancer, denies bleeding/changing moles, and denies a history of skin rash. Neurologic: The patient denies a history of epilepsy/convulsions, denies headaches, denies head/spinal injuries, and denies stroke/TIA. Psychiatric: The patient denies psychiatric medications, denies depression, and denies voices, denies substance abuse. Endocrine: The patient denies thyroid disorders, denies diabetes, and denies hormonal problems. Hematologic: The patient denies a history of bruising, denies bleeding, and denies anemia, denies blood clots. Infections: The patient denies a history of measles and mumps, denies rheumatic fever, and denies sexually transmitted diseases. Musculoskeletal: The patient denies back pain/injury, denies back problems, denies sciatica, denies knee/foot trouble, denies arthritis, or denies gout. ? ? PHYSICAL EXAMINATION: ? General: The patient is 63 year old male, well nourished, well hydrated in no acute distress. The patient is oriented to time, place, and person. ? VITALS: Blood pressure 138/68, pulse 71, temperature 36.4 ?C (97.5 ?F), temperature source Temporal Artery, resp. rate 16, height 177.8 cm (5' 10), weight 78.5 kg (173 lb), SpO2 97 %. Body mass index is 24.82 kg/m?. ? HEENT: Normal cephalic, ataumatic, pupils are equally round, sclera are anicteric, mucous membranes are moist, oropharynx is clear. Neck has no masses, asymmetry or lymphadenopathy. ? Respiratory: Clear to auscultation and percussion. Normal respiratory excursion and pattern. ? Cardiac: Examination is regular rate and rhythm. Normal S1/S2 ? Abdominal exam: Soft, nontender, with no palpable masses. No hepatosplenomegaly. No palpable hernias. ? Extremities: no clubbing, cyanosis or edema. No adenopathy. ? ? ? IMPRESSION: encounter for screening colonoscopy ? PLAN: I have reviewed my findings with the surgeon. Will plan for lower endoscopy. We discussed the risks and benefits of the planned endoscopy. I have informed the patient that complications can occur including failure to complete the endoscopy and perforation. The patient had the opportunity to ask questions concerning the planned endoscopy. My staff has also explained the procedure to the patient in understandable terms and has given the patient printed material concerning the procedure. The patient freely consents to surgery. ? I plan to use Golytely bowel preparation. He is to continue all of his regular medications for the procedure ? The patient has medical comorbidities for which we will plan for the procedure to be performed under Monitored Anesthetic Care. ? Patient verbalized understanding of all above and agreed with the plan. ? ? Diagnoses: (Z12.11) Encounter for screening for malignant neoplasm of colon (primary encounter diagnosis) (Z95.1) S/P CABG x 5 (I25.2) History of MA (myocardial infarction) (Z86.79) History of chronic heart failure ? ? Patricia Lugo PA-C
[2019-01-02 12:29] VITALS: BP 125/76; PULSE 68; RESP 18; TEMP 36.5; O2SAT 95; BMI 23.8
[2019-01-02] MEDS: Lactated Ringers 1,000 ML 75 ML IV (12:42)
--- NOTE | 2019-01-02 13:30 | COLBX_PTH ---
PATIENT: JANE KIM LOC: EN U#:[id number] AGE/SX: 63/M ROOM: RE01/02/[address]: Dr. Clarita Randall MD : 1955 BED: DIS: 01/02/2019 SPEC #: [id number] RECD: 01/02/19 14:53 STATUS: PRIYA REQ #: [id number] MEAGAN: 01/02/19 13:[address]: Clarita Randall DEPT: SURGICAL PATHOLOGY RECD BY: Eduar Alvarez ENTERED: 01/03/19 14:05 SP TYPE: COLON BX OTHR DR: Dr. Kavitha Tidwell MD Tissues: A - COLON BIOPSY B - Transverse colon C - Transverse colon Procedures: Surgery Specimen Level IV HEADER OPERATION: Colonoscopy (MAC) PRE-OP DIAGNOSIS: Screening TISSUE SUBMITTED: A. biopsies of hepatic flexure polyps, B. Biopsies of transverse colon polyps, C. Biopsies of transverse colon polyps and polypectomy MICROSCOPIC DIAGNOSIS A.Colonic polyps at hepatic flexure, biopsy: Fragments of tubular adenoma. B.Transverse colon polyps, biopsy: Fragments of tubular adenoma. C.Transverse colon polyps, biopsy: Fragments of tubular adenoma. AM:esperanza 01/04/19 MICROSCOPIC DESCRIPTION Slides are reviewed. GROSS DESCRIPTION A.Received is one container labeled with the patient name and designated biopsy of hepatic flexure. The specimen consists of multiple irregular fragments of light rosenberg soft tissue that in aggregate measure 1.8 x 0.5 x 0.1 cm. The specimen is totally submitted in one cassette. B.Received is one container labeled with the patient name and designated biopsy of transverse colon polyp. The specimen consists of multiple irregular fragments of light rosenberg soft tissue that in aggregate measure 0.3 x 0.3 x 0.1 cm. The specimen is totally submitted in one cassette. C. Received is one container labeled with the patient name and designated biopsy of transverse colon polyp. The specimen consists of multiple fragments of rosenberg soft tissue mixed with fecal material that in aggregate measure 2.5 x 0.6 x 0.2 cm. The specimen is totally submitted in one cassette. /LEON:esperanza 01/03/19 TC: 5 CPT: 77694 x3
[2019-01-02 14:38] VITALS: BP 125/76; BP 96/61; PULSE 69; RESP 16; TEMP 37.2; O2SAT 96
--- NOTE | 2019-01-02 14:40 | OP.ENDO_ITS ---
01/02/2019 Kavitha Tidwell [address] [place] [address] Re : Colonoscopy procedure for Amador Franco Dear Dr. Tidwell This procedure was performed on Wednesday, January 02, 2019. My impressions and recommendations are as follows: Impressions : - Diverticulosis in the sigmoid colon. - Non-bleeding internal hemorrhoids. - Three 5 mm polyps at the hepatic flexure, removed with a cold biopsy forceps. Resected and retrieved. - Nine 5 to 15 mm polyps in the transverse colon, removed with a hot snare. Resected and retrieved. Recommendations : - Repeat colonoscopy date to be determined after pending pathology results are reviewed for surveillance based on pathology results. - My office will telephone with pathology results in 1-2 weeks - Continue present medications. My findings are described in the full procedure note, which is enclosed. If I can be of further assistance, please feel free to contact me at Doctor phone number(s): , Work: . Sincerely, MD Clarita Olson MD 01/02/2019 2:40:06 PM This report has been signed electronically.
[2019-01-02 14:45] VITALS: BP 103/63; BP 125/76; PULSE 62; RESP 16; O2SAT 96
[2019-01-02 14:50] VITALS: BP 103/66; BP 125/76; PULSE 63; RESP 16; O2SAT 96
[2019-01-02 14:54] VITALS: BP 106/70; BP 125/76; PULSE 59; RESP 16; TEMP 36.8; O2SAT 97
[2019-01-02 15:05] VITALS: BP 125/76
== END 2019-01-02 15:18 | disposition home or self-care (01) ==
LOC: EN 12:07 → AC 12:08
PROVIDERS: Family Provider Internal Medicine; PCP Internal Medicine; Referring Provider Internal Medicine; Visit Provider Surgery
PROC: 0DJD8ZZ Inspection of Lower Intestinal Tract, Via Natural or Artificial Opening Endoscopic (ICD-10-PCS; CPT 45378; principal; 2019-01-02 13:25)
DX: Z12.11 Encounter for screening for malignant neoplasm of colon (principal); D12.3 Benign neoplasm of transverse colon; K57.30 Diverticulosis of large intestine without perforation or abscess without bleeding; K64.8 Other hemorrhoids; I25.2 Old myocardial infarction; I50.22 Chronic systolic (congestive) heart failure; I25.5 Ischemic cardiomyopathy; I25.10 Atherosclerotic heart disease of native coronary artery without angina pectoris; F17.210 Nicotine dependence, cigarettes, uncomplicated; Z95.1 Presence of aortocoronary bypass graft; Z79.82 Long term (current) use of aspirin; Z79.899 Other long term (current) drug therapy
CPT/HCPCS: 45380; 88305; J7120; J2405

== ENCOUNTER 2019-03-13 04:23 | Inpatient (IN) | payer OTHER, SELFPAY ==
[2019-03-13] VITALS (8 sets, daily range): BP systolic 125–142; BP diastolic 64–85; PULSE 62–96; RESP 16–20; TEMP 36.4–37.4; O2SAT 95–98; BMI 24.6; BMI 24.0; BMI 24.1
--- NOTE | 2019-03-13 04:35 | CT_ITS ---
STUDY: CT ABDOMEN AND PELVIS WITH CONTRAST REASON FOR EXAM: Male, 63 years old. Abdominal pain RADIATION DOSAGE (If Supplied By Facility): CTDIvol = ( 16.16 ) mGy, DLP = ( 847.70 ) mGycm TECHNIQUE: Transaxial images were obtained from the dome of the diaphragm to the symphysis pubis without oral contrast. IV 100mL [id number]-300 100ML was administered. Sagittal and coronal images were reconstructed. Individualized dose optimization techniques were used for this CT. COMPARISON: None. FINDINGS: The visualized portions of the heart are within normal limits. Normal liver. There is significant distention gallbladder. There are multiple gallstones.. Normal spleen. There is 1.4 cm hypodensity in the region of the uncinate process of the pancreas and duodenum. Normal bilateral adrenal glands. Normal right kidney. Normal left kidney. There is a small hiatal hernia. There are sternal wires from prior cardiothoracic surgery. There are mild hypoventilatory changes within the lung bases. Normal small intestine. There are scattered colonic diverticula most significant within the sigmoid colon. There is sigmoid colon wall thickening. There are no adjacent inflammatory changes. The appendix is visualized and appears normal. Normal abdominal aorta. Normal inferior vena cava. Normal retroperitoneum. There is stranding adjacent to the right groin and within the inguinal canal. There are mild degenerative changes of the SI joints. There are osteophytes, sclerosis and subchondral geodes. Normal abdominal wall. There is lumbar spinal levoscoliosis multilevel significant degenerative changes most severe at L2-L3. CT/Abdomen/Pelvis W IV Cont ONLY IMPRESSION: Significantly distended gallbladder, multiple gallstones suspicious for acute cholecystitis findings should be correlated with clinical history, physical exam findings and right upper quadrant ultrasound to exclude acute cholecystitis 1.4 cm hypodensity in the region of the uncinate process of the pancreas adjacent to the duodenum. This is suspicious for malignant pancreatic mass. The finding less likely to represent volume averaging with the duodenum or duodenal diverticulum. Necrotic lymph node is less likely. Multiphase thin section CT exam of the pancreas with intravenous and oral contrast would be recommended to further evaluate this finding Sigmoid colon diverticulosis no evidence for acute diverticulitis, there is mild wall thickening most likely due to the chronic diverticulosis follow-up colonoscopy is recommended to exclude pathologic wall thickening Small hiatal hernia Prior cardiothoracic surgery Findings secondary to prior right inguinal hernia surgery Bilateral sacroiliitis The results were called to and discussed with Physician: Dr. Santosh Hernandez immediately following mild review at approximately 6:27 AM 03/13/2019. N.B. : The above information has been verbally conveyed by Hai Mello to Dr. Santosh Hernandez;[id number], on 03/13/2019 06:30:55 (ET). Electronically Signed: Hai Mello, at 6:38 EST Tel , Service support ,
--- NOTE | 2019-03-13 04:36 | ED.DCSUM_ITS ---
- ER Visit Summary Date of Service: 03/13/19 Chief Complaint: Abdominal pain History of Present Illness: The patient is a 63 M history of prior CAD, GA, hypertension high cholesterol with cardiomyopathy with prior CABG, hernia repair and colonoscopy. Patient states on Wednesday evening he started developing a bdominal pain. He denied nausea and dry heaves. No melena. No diarrhea. Some mild constipation. No dysuria or fever. No trauma. No chest pain. No shortness of breath. No back pain. Physical Examination: Older male vital signs are stable. He is afebrile. He is actively nauseated. HEENT exam unremarkable neck nontender no lymphadenopathy. Lungs clear to auscultation. Heart regular rhythm no murmur. Abdomen is soft. Is not epigastric tenderness. No rebound, guarding or rigidity. No hernias or masses. No signs of obstruction. Both the right upper right lower quadrants are unremarkable. I do not feel any pulsatile mass. Positive bowel sounds. Patient is moving all 4 extremities. Neurovascular intact. Calves are nontender. Normal motor strength of the upper and lower extremities. Back nontender. Neurologically is awake and alert. Test Results: CBC shows an elevated white blood cell count 23,000. Normal hemoglobin 14. Chemistries normal. Normal creatinine gap. Liver enzymes normal. Lipase normal. UA normal. Troponin normal. EKG sinus rhythm rate of 64 no acute signs of ischemia. Due to his pain and elevated white count of CT abdomen pelvis was obtained with IV contrast which shows acute multiple gallbladder with stones. Distention of the gallbladder consistent with cholecystitis. There is also a questionable pancreatic mass. This could not be completely just defined at this time and will need additional imaging. I did discuss this with the radiologist. Emergency Department Course and Treatment: Older male with abdominal pain. Treated with IV morphine and Zofran. IV fluids. Screening labs and a CAT scan to be obtained. He was treated with a second dose of morphine and Zofran. Started on IV Zosyn for acute cholecystitis. Treatment Plan: Patient recently had endoscopy done by Dr. Clarita Randall, general surgery from the [facility]. I spoke with her, went over the case and she will admit the patient. Disposition: admission Impression: Acute abdominal pain secondary to acute cholecystitis with gallstones Leukocytosis Rule out pancreatic mass This note was generated with sabio labsation software. It may contain incorrect words, spelling, and punctuation that were not noted in review of the chart prior to signing ED Disposition - Plan for ED Patient: Referrals: Kavitha Tidwell MD [Primary Care Provider] -
--- NOTE | 2019-03-13 04:38 | EKG12_ITS ---
Test Reason : ABD PAIN Blood Pressure : / mmHG Vent. Rate : 064 BPM Atrial Rate : 064 BPM P-R Int : 198 ms QRS Dur : 084 ms QT Int : 420 ms P-R-T Axes : 033 -07 039 degrees QTc Int : 433 ms Normal sinus rhythm Normal ECG Confirmed by EMILIANO PALMER, DMITRI ([id number]), commissioning editor MIKE ALATORRE ([id number]) on 03/15/2019 10:59:22 AM Referred By: MAAME Confirmed By:DMITRI CUMMINGS MD
[2019-03-13] MEDS: 0.9% Normal Saline 1,000 ML 1000 ML IV (04:45)
[2019-03-13] MEDS: Ondansetron 4 MG/2 ML Vial IV ×2 (04:46→06:22)
[2019-03-13] MEDS: Morphine 4 MG/ML Syringe IV ×3 (04:46→09:04)
[2019-03-13 04:50] LABS: Differential Indicated MANUAL DIFF; Hematocrit 41.3 % (40-54); Mean Corp Hgb Conc 33.9 g/dL (32-36); Mean Corpuscular Hgb 29.8 pg (27.0-32.0); Mean Corpuscular Volume 87.9 fL (80-94); Mean Platelet Vol. 9.5 fl (6.2-12.0); POSITIVE COUNT YES; POSITIVE DIFFERENTIAL YES; POSITIVE MORPHOLOGY YES; Platelet Count 180 K/mm3 (150-450); RBC Distribution Width CV 13.2 % (11.6-14.6)
[2019-03-13 04:52] LABS: Bacteria 0 SEEN /hpf (None Seen); Red Blood Cells-Urine 0 SEEN /hpf (0-5); White Blood Cells 0 SEEN /hpf (0-5)
[2019-03-13 04:53] LABS: Color, Urine Yellow (Yellow); Glucose, Dipstick Normal (Normal); Ketone-Dipstick 5 mg/dl (Negative); Leukocyte Esterase-Dipstick Negative /ul (Negative); Nitrite-Dipstick Negative (Negative); Occult Blood-Urine 10 /ul (Negative); Protein-Dipstick Negative (Negative); Specific Gravity, Urine 1.025 (1.002-1.030); Urine Bilirubin Dipstick Negative (Negative); Urine Clarity Sl. Cloudy (Clear); Urine Urobilinogen 1 mg/dl (Normal)
[2019-03-13 05:05] LABS: AST(SGOT) 22 U/L (15-37); Alanine Aminotransfer ALT/SGPT 27 U/L (16-61); Albumin, Serum 3.7 g/dL (3.2-5.0); Alkaline Phosphatase 96 U/L (45-117); Anion Gap 8 (5-15); BUN 19 mg/dL (7-18); Bilirubin, Direct 0.17 mg/dL (0.00-0.30); Calcium,Total 8.9 mg/dL (8.5-10.1); Chloride 105 mmol/L (98-107); EST Glomerular Filtration Rate 90 mL/min (>60); Est Glom Filt Rate - Afr Amer 108 mL/min (>60); Estimated Creatinine Clearance 85.62 ml/min; Globulin 3.7 g/dL (2.2-4.2); Glucose 151 mg/dL (74-106); Lipase 131 U/L (73-393); Potassium 4.4 mmol/L (3.5-5.1); Protein, Total 7.4 g/dL (6.4-8.2); Sodium Level 138 mmol/L (136-145)
[2019-03-13 05:06] LABS: Mucous, Urine 3+ /hpf (<or=2+); Squamous Epithelial Cells - UA 5-10 SEEN /hpf (0-5)
[2019-03-13 05:17] LABS: Absolute Lymphocyte Count 2.99 X10^3/uL (0.83-4.51); Lymphocyte 13 % (19-41); Lymphocyte # 2.99 X10^3/ul (4.0); Metamyelocyte 2 % (0-1); Monocyte 9 % (0-10); Myelocyte 1 (0-0); Neutrophil-Band 2 % (0-5); Neutrophil-Segmented 73 % (47-70); Platelet Estimate ADEQUATE (ADEQ); Reactive Lymphocyte 2+; Red Cell Morphology NORM C+C NORMAL (NORM C&C); Total Cells Counted 100 (MANUAL DIFF)
[2019-03-13 05:18] LABS: Absolute Neutrophil Count 17.3 X10^3/uL (2.0-7.7); Neutrophil # 17.25 X10^3/uL (2.7-7.7)
--- NOTE | 2019-03-13 07:39 | NURSING ---
MED SURG DR ALLEN CHOLELITHIASIS, ABD PAIN
[2019-03-13] MEDS: 0.9% Normal Saline 1,000 ML 75 ML IV (08:57)
--- NOTE | 2019-03-13 10:02 | CON.PCM_ITS ---
Problem List (1) Acute calculous cholecystitis Status: Acute (2) Hyperlipidemia Status: Chronic Qualifiers: (3) History of tobacco abuse Status: Chronic (4) Ischemic cardiomyopathy Status: Chronic Comment: EF 35-40% per echo done @ [facility]07/11/2017; 50% per pre-op EFRAIN done @ [facility] 01/25/18 (5) Atherosclerotic heart disease of [place] coronary artery without angina pectoris Status: Chronic Qualifiers: Comment: MARTINES to LAD, free JANEEN to PDA, SVG to Diagonal, SVG to OM, SVG to right Posterior lateral per Dr. Charli TALAMANTES (6) S/P CABG x 5 Status: Chronic Comment: MARTINES to LAD, free JANEEN to PDA, SVG to Diagonal, SVG to OM, SVG to right Posterior lateral per Dr. Charli TALAMANTES Reason for Consult Date of Consultation: 03/13/19 Reason for Consultation: Abdominal pain, preoperative medical consultation. History of Present Illness: The patient is a 63 year old M patient with past medical history as mentioned above presented to the emergency room because of abdominal pain. His illness started last night while he was asleep, woke up complaining of abdominal pain, generalized abdominal pain, dull aching pain, 9 out of 10 in severity, associated with nausea and vomiting and without aggravating or relieving factors. Initially Pain was tolerable but got worse and he decided to come to the emergency department. He denies fever or chills. He denied chest pain or shortness of breath. In the emergency department, his vital signs were stable, was afebrile. Routine blood work was remarkable for significant leukocytosis, otherwise unremarkable. LFT and lipase were normal. EKG revealed normal sinus rhythm, normal GA interval, normal QRS, normal QTC, no acute ischemic changes. Troponin was negative. Urinalysis revealed dark urine, no evidence of infection. CT scan abdomen and pelvis with IV contrast revealed significantly distended gallbladder with multiple gallstones, there is 1.4 cm hypodensity in the region of the uncinate process of the pancreas. He was admitted by general surgery for laparoscopic cholecystectomy. Past Medical History Past Medical History (Chronic Problems): Chronic Problems (Last Reviewed 11/14/18 @ 08:25 by Taty Montoya) Hyperlipidemia (Chronic) History of tobacco abuse (Chronic) Ischemic cardiomyopathy (Chronic) EF 35-40% per echo done @ [facility]07/11/2017; 50% per pre-op EFRAIN done @ [facility] 01/25/18 History of ID (myocardial infarction) (Chronic) Left ventricular scar, markie infart ischemia, left ventricular thrombus per echo 12/15/2017 @ [facility] Atherosclerotic heart disease of [place] coronary artery without angina pectoris (Chronic) MARTINES to LAD, free JANEEN to PDA, SVG to Diagonal, SVG to OM, SVG to right Post erior lateral per Dr. 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 Augustin [facility] Medical History: Medical History (Last Reviewed 11/14/18 @ 08:25 by Taty Montoya) Hyperlipidemia (Chronic) E78.5 History of tobacco abuse (Chronic) Z87.891 Ischemic cardiomyopathy (Chronic) I25.5 EF 35-40% per echo done @ [facility]07/11/2017; 50% per pre-op EFRAIN done @ [facility] 01/25/18 History of ID (myocardial infarction) (Chronic) I25.2 Left ventricular scar, markie infart ischemia, left ventricular thrombus per echo 12/15/2017 @ [facility] Atherosclerotic heart disease of [place] coronary artery without angina pectoris (Chronic) I25.10 MARTINES to LAD, free JANEEN to PDA, SVG to Diagonal, SVG to OM, SVG to right Posterior lateral per Dr. Charli TALAMANTES Allergies No Known Allergies Allergy (Verified 03/13/19 04:27) Home Medications: Ambulatory Orders Medication Instructions Recorded metoprolol tartrate 50 mg tablet 50 mg PO BID #180 tab 03/29/18 atorvastatin 40 mg tablet 40 mg PO DAILY #90 tab 04/21/18 aspirin 81 mg chewable tablet 81 mg PO QHS tab 11/14/18 Surgical History: Surgical History (Last Reviewed 11/14/18 @ 08:25 by Taty Montoya) S/P CABG x 5 (Chronic) Onset Date: 01/25/18 Z95.1 MARTINES to LAD, free JANEEN to PDA, SVG to Diagonal, SVG to OM, SVG to right Posterior lateral per Dr. Augustin NINA History of colonoscopy with polypectomy Onset Date: 05/15/03 Z98.890, Z86.[address] Dillon History of right inguinal hernia repair Onset Date: 03/23/16 Z98.890, Z87.[address] Dillon Incarcerated right inguinal hernia (Inactive) K40.30 Surgical History: coronary bypass surgery, herniorrhaphy - right inguinal x 2, - - facial surgery summer, amputated left ring finger 1993 Psychiatric History: No pertinent psych hx Lives: Spouse/ Significant Other Smoking Status: Current every day smoker Tobacco Use: Cigars Alcohol: None Drugs: None - *Family History Maternal Family History: Family History (Last Reviewed 11/14/18 @ 08:25 by Taty Montoya) Brother CAD (coronary artery disease) Brother CAD (coronary artery disease) Mother Cancer Father Cancer Sister Cancer Paternal Family History: Family History (Last Reviewed 11/14/18 @ 08:25 by Taty Montoya) Brother CAD (coronary artery disease) Brother CAD (coronary artery disease) Mother Cancer Father Cancer Sister Cancer Review of Systems Constitutional: Denies: Anorexia, Chills, Fever, Weakness Eyes: Denies: Blurred vision, Double vision, Drainage, Redness HEENT: Denies: Difficulty Hearing, Ear Pain, Eye Pain, Nasal Congestion, Sore Throat Cardiovascular: Denies: Chest Pain, Chest Pressure, Heaviness, Light Headedness, Palpitations, Syncope Respiratory: Reports: Cough. Denies: Pleuritic Pain, Shortness of Breath, Sputum production, Wheezing Gastrointestinal: Reports: Constipation, Nausea, Vomiting. Denies: Abdominal Pain, Diarrhea, Hematochezia, Melena Genitourinary: Denies: Dysuria, Frequency, Hematuria Musculoskeletal: Denies: Arm Pain, Back Pain, Foot Pain Skin: Denies: Dryness, Jaundice, Rash Neurological: Denies: Balance problems, Double vision, Change in Speech, Confusion, Incoordination, Numbness, Tingling Psychiatric: Denies: Anxiety, Depression Endocrine: Denies: Change in Body Habitus, Polydipsia, Polyuria Patient Problems: Active and Suspected Problems (Last Updated 03/13/19 @ 10:08 by Dany Gomez MD) Acute calculous cholecystitis (Acute) - Physical Exam Vitals/I&O's: Vital Signs Temp Pulse Resp BP Pulse Ox 97.6 F L 67 18 130/73 H 97 03/13/19 08:26 03/13/19 08:26 03/13/19 08:26 03/13/19 08:26 03/13/19 08:26 Oxygen Delivery Method Room Air Weight: 167 lb 15.876 oz Body Mass Index (BMI) 24.0 Intake and Output for Last 24 Hours 03/12/19 03/12/19 03/13/19 00:59 23:59 23:59 Intake Total 1100 / 1100 Balance 1100 1099 General: Alert, Oriented x3, Cooperative, No apparent distress HEENT: Atraumatic, PERRLA, EOMI, Normocephalic Oral: Moist Mucosa, No Gingival or Mucosal Lesions/ Ulcerations Neck: Supple, No JVD, Negative Carotid Bruits, Trachea Midline, Thyroid Normal Size and Texture Lungs: Clear to auscultation, No wheeze, No rales, Diminished, Rhonchi Cardiovascular: Regular rate, Regular Rhythm, Normal S1, Normal S2, No murmurs, PMI Normal Abdomen: Bowel Sounds Present, No Hepato-splenomegaly, Distended, Tender - No guarding or rigidity, minimal right upper quadrant tenderness. Extremities: No clubbing, No cyanosis, No edema Skin: No rashes, No breakdown Lymphatic: No Cervical, Supraclavicular, or Inguinal Adenopathy Neurological: Cranial nerves II-XII grossly intact, Motor Exam 5/5 strength throughout Psych/Mental Status: Normal Affect, Appropriate, Alert and oriented to time, place, person, mood and affect Laboratory Results 03/13/19 04:40: WBC 23.0 H, RBC 4.70, Hgb 14.0, Hct 41.3, MCV 87.9, MCH 29.8, MCHC 33.9, RDW Std Deviation 43.0, RDW Coeff of Jluis 13.2, Plt Count 180, MPV 9.5, Neut % (Auto) Not Reportable, Absolute Neuts (auto) 17.3 H, Absolute Lymphs (auto) 2.99, Total Counted 100, Neutrophils % (Manual) 73 H, Band Neutrophils % 2, Lymphocytes % (Manual) 13 L, Monocytes % (Manual) 9, Metamyelocytes % 2 H, Myelocytes % 1 H, Diff Path Review May foll, Reactive Lymphocytes 2+, Platelet Estimate ADEQUATE, RBC Morphology NORM C+C 03/13/19 04:40: Sodium 138, Potassium 4.4, Chloride 105, Carbon Dioxide 25.0, Anion Gap 8, BUN 19 H, Creatinine 0.90, Estim Creat Clear Calc 85.62, Est GFR (MDRD) Af Amer 108, Est GFR (MDRD) Non-Af 90, BUN/Creatinine Ratio 21.0 H, Glucose 151 H, Calcium 8.9, Total Bilirubin 0.60, Direct Bilirubin 0.17, AST 22, ALT 27, Alkaline Phosphatase 96, Troponin I < 0.015, Total Protein 7.4, Albumin 3.7, Globulin 3.7, Lipase 131 03/13/19 04:45: Urine Color Yellow, Urine Clarity Sl. Cloudy, Urine pH 5.0, Ur Specific [place] 1.025, Urine Protein Negative, Urine Glucose (UA) Normal, Urine Ketones 5 H, Urine Occult Blood 10 H, Urine Nitrite Negative, Urine Bilirubin Negative, Urine Urobilinogen 1 H, Ur Leukocyte Esterase Negative, Urine RBC 0 SEEN, Urine WBC 0 SEEN, Ur Squamous Epith Cells 5-10 SEEN, Urine Bacteria 0 SEEN, Urine Mucus 3+ Clinical Impression(s) from Imaging Studies Abdomen/Pelvis CT 03/13/19 04:35 IMPRESSION: Significantly distended gallbladder, multiple gallstones suspicious for acute cholecystitis findings should be correlated with clinical history, physical exam findings and right upper quadrant ultrasound to exclude acute cholecystitis 1.4 cm hypodensity in the region of the uncinate process of the pancreas adjacent to the duodenum. This is suspicious for malignant pancreatic mass. The finding less likely to represent volume averaging with the duodenum or duodenal diverticulum. Necrotic lymph node is less likely. Multiphase thin section CT exam of the pancreas with intravenous and oral contrast would be recommended to further evaluate this finding Sigmoid colon diverticulosis no evidence for acute diverticulitis, there is mild wall thickening most likely due to the chronic diverticulosis follow-up colonoscopy is recommended to exclude pathologic wall thickening Small hiatal hernia Prior cardiothoracic surgery Findings secondary to prior right inguinal hernia surgery Bilateral sacroiliitis The results were called to and discussed with Physician: Dr. Santosh Hernandez immediately following mild review at approximately 6:27 AM 03/13/2019. N.B. : The above information has been verbally conveyed by Hai Mello to Dr. Santosh Hernandez;[id number], on 03/13/2019 06:30:55 (ET). Electronically Signed: Hai Mello, at 6:38 EST Tel , Service support , Current Medications Sodium Chloride () 1,000 mls @ 100 mls/hr IV .Q10H ALLISON Last Admin: 03/13/19 08:57 Dose: 75 mls/hr Documented by: Cefotetan Disodium 1 gm/ (Sodium Chloride) 50 mls @ 100 mls/hr IV Q12 ALLISON Sodium Chloride () 250 mls @ 15 mls/hr IV .[id number] PRN PRN Reason: Saline Flush Morphine Sulfate () 4 mg IV Q1H PRN PRN PRN Reason: Pain Score 6-10/10 Last Admin: 03/13/19 09:04 Dose: 4 mg Documented by: Ondansetron HCl (Zofran) 4 mg IV Q8 PRN PRN Reason: NAUSEA/VOMITING Sodium Chloride () 10 - 40 ml IV UD PRN PRN Reason: SALINE FLUSH Assessment/Plan All Active Problems (Last Updated 03/13/19 @ 10:08 by Dany Gomez MD) Acute calculous cholecystitis (Acute) This is a 63 years old male patient presented to the emergency room because of abdominal pain and he was found to have acute calculus cholecystitis admitted by general surgery for laparoscopic cholecystectomy and I am seeing this patient in consultation for preoperative medical evaluation and management. #1 acute calculus cholecystitis: CT scan abdomen reviewed as above. LFT and lipase were normal. No evidence of sepsis or severe sepsis. Vital signs are stable. Patient started on IV cefotetan, IV fluids and antiemetics as well as IV morphine PRN for pain. General surgery on the case. Plan: Increase IV fluids, start IV Pepcid, recommend repeat CBC and BMP tomorrow morning. #2 preoperative evaluation: 63 years old male patient with history of CAD status post CABG, hyperlipidemia, ischemic cardiomyopathy and tobacco abuse. He lives at home with girlfriend, active doing his daily activities without restrictions. He complains of chronic smoking cough, no chest pain or shortness of breath. EKG revealed normal sinus rhythm, normal QRS, normal QTC, no acute ischemic changes. Based on his age, functional status, past medical history and serum creatinine, his estimated risk for perioperative myocardial infarction or cardiac arrest is 0.13%. He is at low to moderate risk for surgery at this time and I would recommend chest x-ray and then we can proceed with surgery. No indication for further work-up. #3 CAD status post CABG: Stable, no complaints. EKG was unremarkable, troponin is negative. 2D echocardiogram on November, revealed ejection fraction of 60% as mentioned below. Plan to hold aspirin and statins, recommend to continue metoprolol. #4 ischemic cardiomyopathy: Clinically stable, compensated. No evidence of acute CHF. Ejection fraction was 35 to 40% on echocardiogram done at [facility] on July,. Patient had 2D echocardiogram on November, that revealed ejection fraction 60%, stage I diastolic dysfunction, RVSP of 34. Ejection fraction improved. Plan to continue beta-blockers for now. #5 hyperlipidemia: Hold statins. #6 tobacco abuse: NicoDerm patch if desired. #7 DVT prophylaxis: Recommend subcu Lovenox after surgery. This note was generated with [employer] dictation software. It may contain incorrect words, spelling, and punctuation that were not noted in checking the note before signing. Code Visit Inpatient E&M: 62465 Init Hosp L2
--- NOTE | 2019-03-13 10:17 | RAD_ITS ---
STUDY: X-RAY CHEST REASON FOR EXAM: Male, 63 years old. Preoperative evaluation. Cough. TECHNIQUE: PA and lateral views of the chest. COMPARISON: Comparison is made with prior study of August 02, 2018. FINDINGS: There now is evidence of mild degree of increased markings at the left lung base suggestive of either linear atelectasis and/or scarring There is no demonstrated pleural abnormality. Sternal cerclage wires and vascular clips are present from a prior sternotomy and coronary artery bypass graft procedure (CABG). Normal mediastinum and fredo. Normal visualized pulmonary arteries. There is atherosclerotic tortuosity of the aortic arch and descending thoracic aorta. Normal visualized thoracic spine. Normal visualized ribs, clavicles, and shoulders. I suspect an hiatal hernia. RAD/Chest PA and Lateral IMPRESSION: Mild degree of increased markings at the left lung base suggestive of underlying atelectasis and/or scarring. Electronically Signed: Haroon Watts, at 11:20 EST , Service support ,
--- NOTE | 2019-03-13 11:23 | HP.PCM_ITS ---
History and Physical Date of Admission: 03/13/19 Amador Franco 1955 ? PRIMARY PHYSICIAN: Kavitha Tidwell MD ? CHIEF COMPLAINT: abdominal pain ? HPI: The patient is a 63 year old male presents with abdominal pain. He states that he has had intermittent twinges of pain for years, but yesterday, had developed severe abdominal pain, and lasted to this morning. Had episode of nausea and emesis. Presented to the ED. Found to have a WBC of 23K. CT scan revealed distended gallbladder with stones. Denies icterus or jaundice. No gallbladder disease known in family. LFTs normal. ? ? PAST?MEDICAL?HISTORY ? Bradycardia ? ? CAD (coronary artery disease) ? ? Dizziness ? ? Dizziness ? ? Dyspnea ? ? Fatigue ? ? Hx of CABG 01/25/2018 ? x 2 ? Limb swelling ? ? SC (myocardial infarction) (HCC) ? ? Smoker ? ? PAST?SURGICAL?HISTORY ? COLONOSCOPY & POLYPECTOMY ? 05/15/03 ? Santana - tubular adenoma ? INGUINAL HERNIA REPAIR HX Right 03/23/16 ? PAST SURGICAL HISTORY OF ? 01/25/2018 ? CABG x5 ? CURRENT?MEDICATIONS aspirin 81 mg chewable tablet Take 1 tablet by mouth once daily. albuterol HFA (VENTOLIN HFA) 90 mcg/actuation inhaler Inhale 2 Puffs as instructed every 4 hours as needed for Wheezing/Shortness of Breath. acetaminophen (TYLENOL) 325 mg tablet Take 2 tablets by mouth every 6 hours as needed. atorvastatin (LIPITOR) 40 mg tablet Take 1 tablet by mouth daily at bedtime. metoprolol tartrate, short acting, (LOPRESSOR) 50 mg tablet Take 1 tablet by mouth every 12 hours. ? ? ALLERGIES: Patient has no known allergies. ? PERSONAL HISTORY: SOCIAL?HISTORY Social History Socioeconomic History Marital status: Single Occupational History Not on file Tobacco Use Smoking status: Current Some Day Smoker Packs/day: 1.00 Years: 40.00 Pack years: 40 Types: Cigarettes Alcohol use: No Drug use: No ? FAMILY HISTORY: ? Cancer Mother ? ? Cancer Father ? ? Cancer Sister ? ? stomach ? Heart Brother? brothers x2 ? REVIEW OF SYSTEMS: General: The patient denies fatigue, denies weight loss, denies weight gain, denies feeling hot, and denies feelings of cold. Eyes: The patient denies glaucoma, denies eye injury/surgery, does not wear glasses or contacts. Ear/Nose/Throat: The patient denies allergies, denies hayfever, denies ear infections, and denies bloody noses. Cardiovascular: The patient denies chest pain, denies heart disease, denies high blood pressure,denies cardiac stent, denies prior heart attack, denies irregular heart beat, denies high cholesterol, denies poor circulation, denies heart failure, other cardiac issues, denies claudication, denies cold feet, denies peripheral arterial stent. Respiratory: The patient denies tuberculosis, denies pneumonia, denies frequent cough, denies pulmonary embolism, denies shortness of breath, and denies coughing up blood. Gastrointestinal: The patient denies difficulty swallowing, denies acid reflux, denies ulcers, denies vomiting, denies jaundice/hepatitis, denies gallbladder problems, denies black or tarry stools, denies hemorrhoids, denies bleeding from rectum, denies diverticulitis, denies constipation, denies diarrhea, denies loss of stool control, and denies hernias. Kidney/Bladder: The patient denies kidney stones, denies urine infections, and denies bloody urine. Skin: The patient denies a history of skin cancer, denies bleeding/changing moles, and denies a history of skin rash. Neurologic: The patient denies a history of epilepsy/convulsions, denies headaches, denies head/spinal injuries, and denies stroke/TIA. Psychiatric: The patient denies psychiatric medications, denies depression, and denies voices, denies substance abuse. Endocrine: The patient denies thyroid disorders, denies diabetes, and denies hormonal problems. Hematologic: The patient denies a history of bruising, denies bleeding, and denies anemia, denies blood clots. Infections: The patient denies a history of measles and mumps, denies rheumatic fever, and denies sexually transmitted diseases. Musculoskeletal: The patient denies back pain/injury, denies back problems, denies sciatica, denies knee/foot trouble, denies arthritis, or denies gout. ?? PHYSICAL EXAMINATION: General: The patient is 63 year old male, well nourished, well hydrated in no acute distress. The patient is oriented to time, place, and person. VITALS: Blood pressure 142/85, pulse 71, temperature 97.5 ?F, resp. rate 16, height 177.8 cm (5' 10), weight 78.5 kg (173 lb), SpO2 97 %. Body mass index is 24.82 kg/m?. HEENT: Normal cephalic, atraumatic, pupils are equally round, sclera are anicteric, mucous membranes are moist, oropharynx is clear. Neck has no masses, asymmetry or lymphadenopathy. Respiratory: Clear to auscultation and percussion. Normal respiratory excursion and pattern. Cardiac: Examination is regular rate and rhythm. Normal S1/S2 Abdominal exam: Soft, tender throughout but mostly in the right upper quadrant - no peritoneal signs with no palpable masses. No hepatosplenomegaly. No palpable hernias. Extremities: no clubbing, cyanosis or edema. No adenopathy. LABORATORY VALUES: As Noted RADIOLOGIC STUDIES: As Noted ? IMPRESSION: cholelithiasis, right sided abdominal pain ? PLAN: I have reviewed my findings with the patient. I have offered laparoscopic cholecystectomy, possible cholangiograms. I have explained the procedure to the patient. I have counseled the patient as to the risks of the procedure, including but not limited to: infection, bleeding, injury to any blood vessels/nerves, scar tissue, injury to any intrabdominal organs, injury to kidney/ureters, injury to bowel/bladder, injury to the common bile duct/biliary tree, bile leakage, intraabdominal abscess/bleeding, hernias at incisional sites, wound infections, possible open procedure, complications of anesthesia, postoperative p neumonia/cardiac problems/blood clots etc. the patient understands. The patient wishes to proceed. I have answered all questions to the patient?s satisfaction and the patient has no further questions.
--- NOTE | 2019-03-13 14:05 | CPS ---
PATIENT REFUSED INCENTIVE SPIROMETRY.
[2019-03-13] MEDS: 0.9% Saline Lock 10 ML Syringe IV (20:50)
[2019-03-13] MEDS: 0.9% Normal Saline 1,000 ML 100 ML IV (20:50)
[2019-03-13] MEDS: Famotidine 200 MG/20 ML MDV 20 MG in 0.9% Normal Saline (Pres. free 8 ML 300 MG IV (22:47)
[2019-03-13] MEDS: Metoprolol Tartrate 50 MG Tablet PO (22:48)
[2019-03-14] VITALS (18 sets, daily range): BP systolic 104–128; BP diastolic 55–72; PULSE 80–88; RESP 14–24; TEMP 36.7–37.4; O2SAT 91–96; BMI 24.1
[2019-03-14] MEDS: Morphine 4 MG/ML Syringe IV ×4 (01:36→23:36)
[2019-03-14 05:29] LABS: Hematocrit 40.7 % (40-54); Hemoglobin 13.2 g/dL (13.0-16.5); Mean Corp Hgb Conc 32.4 g/dL (32-36); Mean Corpuscular Hgb 29.5 pg (27.0-32.0); Mean Corpuscular Volume 91.1 fL (80-94); POSITIVE COUNT YES; POSITIVE DIFFERENTIAL YES; POSITIVE MORPHOLOGY YES; Platelet Count 169 K/mm3 (150-450); RBC Distribution Width CV 13.5 % (11.6-14.6); RBC Distribution Width SD 44.9 fl (35.1-43.9); Red Blood Count 4.47 M/mm3 (4.6-6.2)
--- NOTE | 2019-03-14 06:00 | EKG12_ITS ---
Test Reason : AM Blood Pressure : / mmHG Vent. Rate : 086 BPM Atrial Rate : 086 BPM P-R Int : 180 ms QRS Dur : 086 ms QT Int : 376 ms P-R-T Axes : 004 -08 016 degrees QTc Int : 449 ms Normal sinus rhythm Normal ECG Confirmed by EMILIANO PALMER, DMITRI ([id number]), news video editor MIKE ALATORRE ([id number]) on 03/15/2019 11:24:45 AM Referred By: Confirmed By:DMITRI CUMMINGS MD
[2019-03-14 06:05] LABS: Differential Indicated MANUAL DIFF; White Blood Count 51.6 K/mm3 (4.4-11.0)
[2019-03-14 06:36] LABS: Lymphocyte 7 % (19-41); Metamyelocyte 1 % (0-1); Monocyte 5 % (0-10); Neutrophil-Band 4 % (0-5); Neutrophil-Segmented 83 % (47-70); Red Cell Morphology NORM C+C NORMAL (NORM C&C); Total Cells Counted 100 (MANUAL DIFF)
[2019-03-14 06:37] LABS: Platelet Estimate ADEQUATE (ADEQ); Platelet Morphology LARGE
[2019-03-14 06:39] LABS: Absolute Lymphocyte Count 3.61 X10^3/uL (0.83-4.51); Absolute Neutrophil Count 44.9 X10^3/uL (2.0-7.7)
--- NOTE | 2019-03-14 07:15 | NURSING ---
TAKE OUT WAITRESS advised me that pt wanted pain meds but when I entered room he was sleeping. Not disturbed.
[2019-03-14] MEDS: 0.9% Normal Saline 1,000 ML 100 ML IV (07:47)
--- NOTE | 2019-03-14 08:05 | RAD_ITS ---
STUDY: X-RAY CHEST REASON FOR EXAM: Male, 63 years old. Shortness of breath and dyspnea. TECHNIQUE: Single AP portable view of the chest. COMPARISON: Comparison is made with prior study of March 13, 2019. FINDINGS: Stable mild increased markings at the left lung base suggestive of linear atelectasis. There is no demonstrated pleural abnormality. Sternal cerclage wires and vascular clips are present from a prior sternotomy and coronary artery bypass graft procedure (CABG). Normal mediastinum and fredo. Normal visualized pulmonary arteries. There is atherosclerotic tortuosity of the aortic arch and descending thoracic aorta. Normal visualized thoracic spine. Normal visualized ribs, clavicles, and shoulders. Hiatal hernia. RAD/Chest 1 View (Portable) IMPRESSION: Stable mild increased markings at the left lung base suggestive of linear atelectasis. Electronically Signed: Haroon Watts, at 9:40 EST , Service support ,
--- NOTE | 2019-03-14 08:30 | PN_ITS ---
Patient Problems: Active and Suspected Problems (Last Updated 03/13/19 @ 10:08 by Dany Gomez MD) Acute calculous cholecystitis (Acute) Subjective: Seen and examined. Patient has right upper quadrant abdominal pain and has reflex pain on right lower chest on deep inspiration. Not able to take deep inspiration because of pain. Denies high-grade fever, chills or sleeping at home. During hospital stay, T- max 99.3 Fahrenheit. No reflex tachycardia, heart rate in 80s was in 90s last night. Mild tachypnea, respiratory rate 24, pulse ox 96% on 2 L of oxygen. Chest x-ray shows mild left lung base underlying atelectasis and/or/scarring. Lab work today shows significant increase in leukocytosis 51.6 thousand with left shift, neutrophils 83%, lymphocytes 7. Platelet count 169,000. Chest x-ray portable ordered. Antibiotic broadened to IV Zosyn. DC C 4010. Vitals/I&O's: Vital Signs Temp Pulse Resp BP Pulse Ox 98.9 F 84 24 H 123/66 H 96 03/14/19 07:35 03/14/19 07:35 03/14/19 07:35 03/14/19 07:35 03/14/19 07:35 Oxygen Flow Rate (L/min) 1 Oxygen Delivery Method Nasal Cannula Weight: 167 lb 15.876 oz Body Mass Index (BMI) 24.0 Intake and Output for Last 24 Hours 03/12/19 03/13/19 03/14/19 23:59 23:59 23:59 Intake Total 2423.33 / 2423.33 786.67 / 786.67 Output Total 700 / 700 Balance 2423.33 / 2023.33 86.67 / 86.67 General: Alert, Oriented x3, Cooperative HEENT: Atraumatic, PERRLA, EOMI, Normocephalic Neck: Supple, No JVD, Negative Carotid Bruits, Negative Hepatojugular Reflux Lungs: Clear to auscultation, No rhonchi, No wheeze, No rales, Diminished - Entry diminished in right lung base. Cardiovascular: Regular rate, Regular Rhythm, Normal S1, Normal S2, No murmurs Abdomen: Bowel Sounds Present, Soft, Hypoactive Bowel Sounds, Tender - Tenderness in right upper quadrant Extremities: No edema, Capillary Refill Less than 3 Seconds Skin: No rashes, No breakdown Musculoskeletal: No Tenderness to Palpation of Joints or Extremities Neurological: Cranial nerves II-XII grossly intact Psych/Mental Status: Normal Affect, Appropriate Laboratory Results 03/14/19 05:00: WBC 51.6 H*, RBC 4.47 L, Hgb 13.2, Hct 40.7, MCV 91.1, MCH 29.5, MCHC 32.4, RDW Std Deviation 44.9 H, RDW Coeff of Jluis 13.5, Plt Count 169, MPV 10.0, Neut % (Auto) Not Reportable, Absolute Neuts (auto) 44.9 H, Absolute Lymphs (auto) 3.61, Total Counted 100, Neutrophils % (Manual) 83 H, Band Neutrophils % 4, Lymphocytes % (Manual) 7 L, Monocytes % (Manual) 5, Metamyelocytes % 1, Diff Path Review September, Platelet Estimate ADEQUATE, Plt Morphology Comment LARGE, RBC Morphology NORM C+C 03/14/19 05:00: CA 19-9 Antigen Pending Current Medications Albuterol Sulfate (Ventolin Aerosols) 2.5 mg INHALATION Q4H PRN PRN PRN Reason: Shortness of breath, wheezing Sodium Chloride () 1,000 mls @ 100 mls/hr IV .Q10H [facility] Last Admin: 03/14/19 07:47 Dose: 100 mls/hr Documented by: Sodium Chloride () 250 mls @ 15 mls/hr IV .[id number] PRN PRN Reason: Saline Flush Famotidine 20 mg/ Sodium (Chloride) 10 mls @ 300 mls/hr IV Q12 [facility] Last Infusion: 03/13/19 22:57 Dose: Infused Documented by: Piperacillin Sod/Tazobactam (Sod 3.375 gm/ Sodium Chloride) 50 mls @ 12.5 mls /hr IV Q8 [facility] Magnesium Hydroxide (Milk Of Magnesia) 30 ml PO DAILY PRN PRN PRN Reason: CONSTIPATION Metoprolol Tartrate (Lopressor (Beta Alpesh)) 50 mg PO BID [facility] Last Admin: 03/13/19 22:48 Dose: 50 mg Documented by: Morphine Sulfate () 4 mg IV Q1H PRN PRN PRN Reason: Pain Score 6-10/10 Last Admin: 03/14/19 07:53 Dose: 4 mg Documented by: Ondansetron HCl (Zofran) 4 mg IV Q8 PRN PRN Reason: NAUSEA/VOMITING Sodium Chloride () 10 - 40 ml IV UD PRN PRN Reason: SALINE FLUSH Last Admin: 03/13/19 20:50 Dose: 10 ml Documented by: STROKE Vital Signs/Narrative: Vital Signs Temp Pulse Resp BP Pulse Ox 03/14/19 07:35 98.9 F 84 24 H 123/66 H 96 03/14/19 04:53 24 H 93 03/14/19 04:43 98.4 F 88 24 H 128/64 H 93 Medical Necessity - Tobacco Use Smoking Status: Current every day smoker Tobacco Use: Cigars Assessment/Plan All Active Problems (Last Updated 03/13/19 @ 10:08 by Dany Gomez MD) Acute calculous cholecystitis (Acute) This is a 63 years old male patient came to ER for abdominal pain and found to have acute calculus cholecystitis admitted by general surgery for laparoscopic cholecystectomy. #1 acute calculus cholecystitis: On 03/14: CT scan abdomen reviewed as above. No fever or chills. During hospital stay, T-max 99.3 Fahrenheit. No reflex tachycardia, heart rate in 80s was in 90s last night. Mild tachypnea, respiratory rate 24, pulse ox 96% on 2 L of oxygen. There is significant increase in WBC count from 23,000 to 51,000 more than 50%. IV antibiotic is broadened to IV Zosyn. Discontinue Cefotetan although it has good coverage against gram-negative aerobic and anaerobic bacteria and some gram-positive bacteria. Repeat chest x-ray ordered and reported as stable mild increased markings at left lung space similar to previous chest x-ray suggestive of linear atelectasis. LFT and lipase were normal. No evidence of sepsis or severe sepsis. Vital signs are stable. I think overall leukocytosis probably reflection from acute cholecystitis. Patient is still has pain which gets better with IV analgesics. Patient is scheduled for surgery, cholecystectomy with intraoperative cholangiogram. #2 Perioperative evaluation and management: EKG revealed normal sinus rhythm, normal QRS, normal QTC, no acute ischemic changes. Based on his age, functional status, past medical history and serum creatinine, his estimated risk for perioperative myocardial infarction or cardiac arrest is 0.13%. Patient is at low to moderate perioperative risk for surgery. No indication for further work- up. #3 CAD status post CABG: Stable, no complaints. EKG was unremarkable, troponin is negative. 2D echocardiogram on November, revealed ejection fraction of 60% as mentioned below. Plan to hold aspirin and statins, recommend to continue metoprolol. 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 No evidence of acute CHF. Ejection fraction was 35 to 40% on echocardiogram done at [facility] on July,. Patient had 2D echocardiogram on November, that revealed ejection fraction 60%, stage I diastolic dysfunction, RVSP of 34. Ejection fraction imp roved. Plan to continue beta-blockers for now. #5 hyperlipidemia: Hold statins. #6 tobacco abuse: NicoDerm patch #7 DVT prophylaxis: Recommend subcu Lovenox after surgery. Denies high-grade fever, chills or sleeping at home. Chest x-ray shows mild left lung base underlying atelectasis and/or/scarring. Lab work today shows significant increase in leukocytosis 51.6 thousand with left shift, neutrophils 83%, lymphocytes 7. Platelet count 169,000. Chest x-ray portable ordered. Antibiotic broadened to IV Zosyn. DC C 3691. Code Visit Inpatient E&M: 58638 Subs Hosp L3
[2019-03-14] MEDS: Famotidine 200 MG/20 ML MDV 20 MG in 0.9% Normal Saline (Pres. free 8 ML 300 MG IV ×2 (09:24→21:42)
[2019-03-14] MEDS: Metoprolol Tartrate 50 MG Tablet PO ×2 (09:26→21:43)
--- NOTE | 2019-03-14 10:40 | CASEMGMT ---
RN CM Face to Face with patient for initial transition planning/care coordination assessment. RN CM introduced self and role at [facility]. Patient lying in bed, alert and oriented. Patient willing to participate in assessment and is able to answer all questions appropriately. Care providers, pharmacy, and demographics verified. Patient wishes to discharge home, denies need for home health at this time. Patient states he has no further needs or concerns at this time. CM to follow for discharge planning needs that may arise. PCP: Yaw Specialists: Eloy pathology secretary/transcriptionist Preferred Pharmacy: [facility] Insurance: [employer] Prescription Benefit: Yes Living Will/HPOA: yes, SOFIA Franco LNOK: Sister Living Arrangements: Patient lives with friend in 2 story home with bed and bath on first floor. Patient is independent at home. Transportation: self/friend DME/HHC: Patient states he has cane, crutches, and walker. Patient denies HHC at this time. Disposition Plan: Patient to discharge home with family support and follow-up plans in place. Mulu BASSETT, RN, CM
[2019-03-14 12:41] LABS: Pathologist Review Reviewed
[2019-03-14 12:45] LABS: Pathologist Review Reviewed
--- NOTE | 2019-03-14 14:48 | OP.PCM_ITS ---
Report of Operation Date of Procedure: 03/14/19 Pre-Operative Diagnosis: cholelithiasis, cholecystitis, leukocytosis Post-Operative Diagnosis: cholelithiasis with obstruction (hydrops), acute on chronic cholecystitis, fatty liver changes Surgery/Procedure Performed:: laparoscopic cholecystectomy Description of Surgical Findings:: severe acute on chronic cholecystitis with obstruction of gallbladder from cholelithiasis, could not identify area of triangle of Calot due to severe inflammation workers compensation manager: Donald Leal Type of Anesthesia:: General Anesthesiologist: Marsha Staples Specimen's removed: gallbladder and contents Drains: 15 Fr round drain in gallbladder fossa Estimated Blood Loss (mL): 40 ml Fluids Replaced: see anesthesia note Description of Procedure: After informed consent was given, the patient was brought to the Operating Room. Appropriate time out protocol was followed. He was then placed in the supine position. The patient was then placed under general endotracheal anesthesia. The abdomen was then prepped with a sterile surgical skin preparation and sterile surgical drapes were placed. The periumbilical skin fold was grasped with penetrating clamps and the skin and subcutaneous tissues were infiltrated with local anesthetic A skin incision was then made with a 15 blade scalpel. The anterior abdominal wall was elevated and a Veress needle was carefully inserted into the intraabdominal cavity. It was checked to be in the proper position with a normal saline drop test. A CO2 pneumoperitoneum was then created. Once this was achieved, then the Veress needle was removed and an 11mm trocar was placed in its stead. A 10mm laparoscope was then inserted into the trocar and careful attention was directed to the intraabdominal contents. There was no evidence of injury to any intraabdominal organs from insertion of the Veress needle or the trocar. Under direct visualization, a 5mm subxiphoid trocar and two lateral 5mm right subcostal trocars were placed. The skin and subcutaneous tissues at these sites were infiltrated with local anesthetic with epinephrine prior to placement of these trocars. Attention was then directed to the right upper quadrant of the abdomen. The gallbladder was grossly distended and the mejia were edematous. There was surrounding inflammation and adherent omentum that was inflamed. There was surrounding inflammatory fluid. The gallbladder contents were aspirated via needle aspiration and there was clear fluid noted, consistent with hydrops. There were several large stones noted. Graspers were placed in the lateral trocars to grasp the distal aspect of the gallbladder and direct it cephalad and to grasp the gallbladder laterally and direct it laterally. Dissection then began on the proximal gallbladder trying to identify the triangle of Calot. However, due to the dense inflamed tissues in this area, the area of the triangle of Calot could not be dissected to delineate the structures. There was also a large amount of inflammatory bleeding. Despite numerous attempts to identify the cystic duct and/or cystic artery, this was precluded by the amount of dense inflammatory tissue and inflammatory oozing. Therefore the gallbladder was opened to better delineate the structures. The gallbladder stones were then brought out and later placed in an Endobag to be removed from the intraabdominal cavity. The gallbladder was transected and from the liver bed using electrocautery. It was then placed in an Endobag and removed from the intraabdominal cavity. The area was then vigorously irrigated with normal saline and all irrigant was aspirated out. Any bleeding was controlled with hemoclips. The mucosa of the open proximal end of the gallbladder was then cauterized with electrocautery. It was carefully examined to determine if there were any retained gallbladder stones and none was found. A 15 Fr round drain was then brought in the intraabdominal cavity via one of the lateral trocars and the drainage bed was placed in the gallbladder fossa. Hilary and surgicel was applied to the surgically dissected area to cover the inflamed tissues. No active bleeding or bile leak was noted at time of removal of the trocars. The remainder of the abdomen was grossly normal. The CO2 was released and all trocars removed intact. The periumbilical fascia was approximated with a [id number] 0 vicryl suture. The drain was sutured to the skin using nylon suture. All skin incision were closed with 4-0 monocryl in a subdermal fashion. Cavilol and Steristrips were used to reinforce the skin closure. Sterile dressings were applied to all wounds. The patient was extubated and brought to the Recovery Room in stable condition. - Complications none noted - Admit VTE Documentation VTE Present on Admission: Yes VTE Mechan Device Prophylaxis: SCD's
--- NOTE | 2019-03-14 15:00 | GALL_PTH ---
PATIENT: JANE KIM LOC: MS3 U#:[id number] AGE/SX: 63/M ROOM: MS318 RE03/13/[address]: Dr. Jose Antonio Arnold MD : 1955 BED: 1 DIS: 03/17/2019 SPEC #: [id number] RECD: 03/15/19 08:31 STATUS: PRIYA RENigel #: [id number] MEAGAN: 03/14/19 15:[address]: Clarita Randall DEPT: SURGICAL PATHOLOGY RECD BY: Eduar Alvarez ENTERED: 03/15/19 09:42 SP TYPE: YUMI JO DR: MD Dr. Kavitha Chadwick MD Dr. Prakash Chand, MD Tissues: Gallbladder, NOS Procedures: Surgery Specimen Level III HEADER OPERATION: Laparoscopic cholecystectomy PRE-OP DIAGNOSIS: Cholelithiasis, cholecystitis, leukocytosis TISSUE SUBMITTED: Gallbladder MICROSCOPIC DIAGNOSIS Gallbladder, cholecystectomy: Acute and chronic hemorrhagic and ulcerated cholecystitis and cholelithiasis. Reactive epithelial changes. LEON:alysha 03/16/19 MICROSCOPIC DESCRIPTION Slides are reviewed. GROSS DESCRIPTION Received is one container labeled with the patient's name and designated gallbladder. The specimen consists of a previously opened gallbladder measuring 10 cm in length and up to 5 cm in width. No obvious cystic duct is identified. Present in the gallbladder and also in the container are multiple, multifaceted brownish-black stones measuring in aggregate 7 x 7 x 3 cm and 1 to 2 cm in greatest dimension. The gallbladder contains a small amount of blood clots. The mucosa is congested and hemorrhagic. The gallbladder wall measures up to 0.5 cm in thickness. A focal area shows increased amount of subserosal fat. Oleo Hasher And Renderer sections from the gallbladder are submitted in one cassette. / LEON:alysha 03/15/19 TC:2 CPT: 25048
[2019-03-14] MEDS: Lactated Ringers 1,000 ML 100 ML IV ×2 (15:45→17:07)
[2019-03-14] MEDS: Bupiv/Epi 0.25% 30 ML Vial (16:41)
[2019-03-14] MEDS: 0.9% Saline Lock 10 ML Syringe IV (21:47)
[2019-03-15] VITALS (7 sets, daily range): BP systolic 106–116; BP diastolic 54–64; PULSE 69–77; RESP 16–18; TEMP 36.7–37; O2SAT 94–98
[2019-03-15] MEDS: Morphine 4 MG/ML Syringe IV ×3 (04:35→20:40)
[2019-03-15] MEDS: Lactated Ringers 1,000 ML 100 ML IV ×2 (05:50→12:32)
[2019-03-15] MEDS: 0.9% Saline Lock 10 ML Syringe IV (05:55)
--- NOTE | 2019-03-15 07:34 | PN_ITS ---
Patient Problems: Active and Suspected Problems (Last Updated 03/13/19 @ 10:08 by Dany Gomez MD) Acute calculous cholecystitis (Acute) Subjective: Patient did not had fever, T-max 99.4 yesterday evening. No tachycardia or hypotension. No tachypnea or hypoxia. Operative note reviewed. Severe acute on chronic cholecystitis with obstruction of gallbladder from cholelithiasis, hydrops complicated with severe inflammation and dense adhesion. Patient has ARIES drain with 50 mL serosanguineous fluid. Vitals/I&O's: Vital Signs Temp Pulse Resp BP Pulse Ox 98.4 F 77 18 106/55 L 94 03/15/19 04:54 03/15/19 04:54 03/15/19 04:54 03/15/19 04:54 03/15/19 04:54 Oxygen Flow Rate (L/min) 2 Oxygen Delivery Method Nasal Cannula Weight: 167 lb 15.876 oz Body Mass Index (BMI) 24.0 Intake and Output for Last 24 Hours 03/13/19 03/14/19 03/15/19 23:59 23:59 23:59 Intake Total 2423.33 / 2423.33 2909.67 / 3029.67 1355.25 / 1355.25 Output Total 1260 / 1690 710 / 710 Balance 2423.33 / 2023.33 1649.67 / 1339.67 645.25 / 645.25 General: Alert, Oriented x3, Cooperative HEENT: Atraumatic, PERRLA, EOMI, Normocephalic Neck: Supple, No JVD, Negative Carotid Bruits Lungs: Clear to auscultation, Normal air movement, No rhonchi, No wheeze, No rales Cardiovascular: Regular rate, Regular Rhythm, Normal S1, Normal S2, No murmurs Abdomen: Bowel Sounds Present, Soft, Non-Distended, - - Mild tenderness over operative region, expected. Patient passed flatus. Extremities: No edema, Capillary Refill Less than 3 Seconds Skin: No rashes, No breakdown Musculoskeletal: No Tenderness to Palpation of Joints or Extremities, Arthritic Changes Neurological: Cranial nerves II-XII grossly intact, Deep Tendon Reflexes 2+/4 and Symmetrical, Neuro grossly intact Psych/Mental Status: Normal Affect, Appropriate Laboratory Results 03/13/19 04:40: Diff Path Review Reviewed 03/14/19 05:00: Diff Path Review Reviewed Current Medications Albuterol Sulfate (Ventolin Aerosols) 2.5 mg INHALATION Q4H PRN PRN PRN Reason: Shortness of breath, wheezing Sodium Chloride () 250 mls @ 15 mls/hr IV .[id number] PRN PRN Reason: Saline Flush Last Infusion: 03/15/19 05:55 Dose: 0 mls/hr Documented by: Famotidine 20 mg/ Sodium (Chloride) 10 mls @ 300 mls/hr IV Q12 [facility] Last Infusion: 03/14/19 21:44 Dose: Infused Documented by: Piperacillin Sod/Tazobactam (Sod 3.375 gm/ Sodium Chloride) 50 mls @ 12.5 mls/hr IV Q8 [facility] Last Admin: 03/15/19 05:49 Dose: 12.5 mls/hr Documented by: Lactated Ringer's () 1,000 mls @ 100 mls/hr IV .Q10H [facility] Last Admin: 03/15/19 05:50 Dose: 100 mls/hr Documented by: Magnesium Hydroxide (Milk Of Magnesia) 30 ml PO DAILY PRN PRN PRN Reason: CONSTIPATION Metoprolol Tartrate (Lopressor (Beta Alpesh)) 50 mg PO BID [facility] Last Admin: 03/14/19 21:43 Dose: 50 mg Documented by: Morphine Sulfate () 4 mg IV Q1H PRN PRN PRN Reason: Pain Score 6-10/10 Last Admin: 03/15/19 04:35 Dose: 4 mg Documented by: Ondansetron HCl (Zofran) 4 mg IV Q8 PRN PRN Reason: NAUSEA/VOMITING Sodium Chloride () 10 - 40 ml IV UD PRN PRN Reason: SALINE FLUSH Last Admin: 03/15/19 05:55 Dose: 10 ml Documented by: STROKE Vital Signs/Narrative: Vital Signs Temp Pulse Resp BP Pulse Ox 03/15/19 04:54 98.4 F 77 18 106/55 L 94 Medical Necessity - Tobacco Use Smoking Status: Current every day smoker Tobacco Use: Cigars Assessment/Plan All Active Problems (Last Updated 03/13/19 @ 10:08 by Dany Gomez MD) Acute calculous cholecystitis (Acute) This is a 63 years old male patient came to ER for abdominal pain and found to have acute calculus cholecystitis admitted by general surgery for laparoscopic cholecystectomy. #1 Severe acute on chronic cholecystitis with obstruction of gallbladder from cholelithiasis, hydrops; complicated with severe inflammation and dense adhesion. On 03/14: CT scan abdomen reviewed as above. No fever or chills. During hospital stay, T-max 99.3 Fahrenheit. No reflex tachycardia, heart rate in 80s was in 90s last night. Mild tachypnea, respiratory rate 24, pulse ox 96% on 2 L of oxygen. There is significant increase in WBC count from 23,000 to 51,000 more than 50%. IV antibiotic is broadened to IV Zosyn. Discontinue Cefotetan although it has good coverage against gram-negative aerobic and anaerobic bacteria and some gram-positive bacteria. Repeat chest x-ray ordered and reported as stable mild increased markings at left lung space similar to previous chest x-ray suggestive of linear atelectasis. LFT and lipase were normal. No evidence of sepsis or severe sepsis. Vital signs are stable. I think overall leukocytosis probably reflection from acute cholecystitis. Patient is still has pain which gets better with IV analgesics. Patient is scheduled for surgery, cholecystectomy with intraoperative cholangiogram. 03/15/2019: Leukocytosis has improved. No systemic symptoms or signs of severe sepsis. Continue IV antibiotic, Zosyn. Incentive spirometry and walking. PT and OT. LFT shows mild elevation in transaminases. Total bili normal. Alkaline phosphatase 83. #2 Perioperative evaluation and management: EKG revealed normal sinus rhythm, normal QRS, normal QTC, no acute ischemic changes. Based on his age, functional status, past medical history and serum creatinine, his estimated risk for perioperative myocardial infarction or cardiac arrest is 0.13%. Patient is at low to moderate perioperative risk for surgery. No indication for further work- up. 03/15/2019: Postop PT and OT and chest physiotherapy #3 CAD status post CABG: Stable, no complaints. EKG was unremarkable, troponin is negative. 2D echocardiogram on November, revealed ejection fraction of 60% as mentioned below. Plan to hold aspirin and statins, recommend to continue metoprolol. 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 No evidence of acute CHF. Ejection fraction was 35 to 40% on echocardiogram done at [facility] on July,. Patient had 2D echocardiogram on November, that revealed ejection fraction 60%, stage I diastolic dysfunction, RVSP of 34. Ejection fraction improved. Plan to continue beta-blockers for now. #5 hyperlipidemia: Hold statins. #6 tobacco abuse: NicoDerm patch #7 DVT prophylaxis: Recommend subcu Lovenox after surgery. Denies high-grade fever, chills or sleeping at home. Chest x-ray shows mild left lung base underlying atelectasis and/or/scarring. Code Visit Inpatient E&M: 13525 Subs Hosp L2
[2019-03-15 08:29] LABS: Hematocrit 33.7 % (40-54); Hemoglobin 11.3 g/dL (13.0-16.5); Mean Corp Hgb Conc 33.5 g/dL (32-36); Mean Corpuscular Hgb 29.9 pg (27.0-32.0); Mean Corpuscular Volume 89.2 fL (80-94); Mean Platelet Vol. 9.6 fl (6.2-12.0); POSITIVE COUNT YES; POSITIVE DIFFERENTIAL YES; POSITIVE MORPHOLOGY YES; Platelet Count 146 K/mm3 (150-450); RBC Distribution Width CV 13.5 % (11.6-14.6); Red Blood Count 3.78 M/mm3 (4.6-6.2)
[2019-03-15 08:32] LABS: Differential Indicated MANUAL DIFF; White Blood Count 48.3 K/mm3 (4.4-11.0)
[2019-03-15 09:00] LABS: ALB/GLOB Ratio 0.7 RATIO (0.9-2.4); AST(SGOT) 56 U/L (15-37); Alanine Aminotransfer ALT/SGPT 62 U/L (16-61); Albumin, Serum 2.4 g/dL (3.2-5.0); Alkaline Phosphatase 83 U/L (45-117); Anion Gap 7 (5-15); BUN 18 mg/dL (7-18); Calcium,Total 8.4 mg/dL (8.5-10.1); Chloride 106 mmol/L (98-107); Creatinine, Serum 0.75 mg/dL (0.70-1.30); EST Glomerular Filtration Rate 111 mL/min (>60); Est Glom Filt Rate - Afr Amer 134 mL/min (>60); Estimated Creatinine Clearance 102.74 ml/min; Globulin 3.4 g/dL (2.2-4.2); Glucose 147 mg/dL (74-106); Protein, Total 5.8 g/dL (6.4-8.2); Sodium Level 138 mmol/L (136-145)
[2019-03-15 09:14] LABS: Lymphocyte 7 % (19-41); Monocyte 6 % (0-10); Myelocyte 2 (0-0); Neutrophil-Segmented 85 % (47-70); Platelet Estimate SLT DEC (ADEQ); Red Cell Morphology NORM C+C NORMAL (NORM C&C); Total Cells Counted 100 (MANUAL DIFF)
[2019-03-15 09:15] LABS: Absolute Neutrophil Count 41.1 X10^3/uL (2.0-7.7)
[2019-03-15] MEDS: Metoprolol Tartrate 50 MG Tablet PO ×2 (09:28→22:26)
[2019-03-15] MEDS: Famotidine 200 MG/20 ML MDV 20 MG in 0.9% Normal Saline (Pres. free 8 ML 300 MG IV ×2 (09:31→22:26)
--- NOTE | 2019-03-15 10:50 | PCM.PN.SRG ---
Patient Problems: Active and Suspected Problems (Last Updated 03/13/19 @ 10:08 by Dany Gomez MD) Acute calculous cholecystitis (Acute) Subjective: Patient awake and resting comfortably in bed at time of visit. Notes still quite tender, but improved overall abdominal symptoms since surgery, feels less bloated. Denies fever or nausea overnight. Has been up to and from bathroom a few times, has an incentive spirometer but has not been using as it hurts to take a deep breath. - Physical Exam Vitals/I&O's: Vital Signs Temp Pulse Resp BP Pulse Ox 98.0 F 74 18 107/60 95 03/15/19 09:30 03/15/19 09:30 03/15/19 09:30 03/15/19 09:30 03/15/19 09:30 Oxygen Flow Rate (L/min) 2 Oxygen Delivery Method Room Air Weight: 167 lb 15.876 oz Body Mass Index (BMI) 24.0 Intake and Output for Last 24 Hours 03/13/19 03/14/19 03/15/19 23:59 23:59 23:59 Intake Total 2423.33 / 2423.33 2909.67 / 3029.67 1415.25 / 1415.25 Output Total 1260 / 1690 710 / 710 Balance 2423.33 / 2023.33 1649.67 / 1339.67 705.25 / 705.25 General: Alert, Oriented x3, Cooperative, No apparent distress HEENT: Atraumatic Lungs: Clear to auscultation Cardiovascular: Regular rate, Regular Rhythm Abdomen: Bowel Sounds Present - few, Tender - mild diffuse TTP worse over RUQ, no rebound or guarding, - - dressings c/d/i, ARIES drain in place with bloody serosanguinous output present in bulb Skin: No rashes, No breakdown Laboratory Results 03/13/19 04:40: Diff Path Review Reviewed 03/14/19 05:00: Diff Path Review Reviewed 03/15/19 08:10: WBC 48.3 H*, RBC 3.78 L, Hgb 11.3 L, Hct 33.7 L, MCV 89.2, MCH 29.9, MCHC 33.5, RDW Std Deviation 44.0 H, RDW Coeff of Jluis 13.5, Plt Count 146 L, MPV 9.6, Neut % (Auto) Not Reportable, Absolute Neuts (auto) 41.1 H, Absolute Lymphs (auto) 3.40, Total Counted 100, Neutrophils % (Manual) 85 H, Lymphocytes % (Manual) 7 L, Monocytes % (Manual) 6, Myelocytes % 2 H, Diff Path Review September, Platelet Estimate SLT DEC, RBC Morphology NORM C+C 03/15/19 08:10: Sodium 138, Potassium 4.0, Chloride 106, Carbon Dioxide 25.0, Anion Gap 7, BUN 18, Creatinine 0.75, Estim Creat Clear Calc 102.74, Est GFR (MDRD) Af Amer 134, Est GFR (MDRD) Non-Af 111, BUN/Creatinine Ratio 24.0 H, Glucose 147 H, Calcium 8.4 L, Total Bilirubin 0.70, AST 56 H, ALT 62 H, Alkaline Phosphatase 83, Total Protein 5.8 L, Albumin 2.4 L, Globulin 3.4, Albumin/Globulin Ratio 0.7 L Current Medications Albuterol Sulfate (Ventolin Aerosols) 2.5 mg INHALATION Q4H PRN PRN PRN Reason: Shortness of breath, wheezing Sodium Chloride () 250 mls @ 15 mls/hr IV .[id number] PRN PRN Reason: Saline Flush Last Infusion: 03/15/19 09:40 Dose: 15 mls/hr Documented by: Famotidine 20 mg/ Sodium (Chloride) 10 mls @ 300 mls/hr IV Q12 [facility] Last Infusion: 03/15/19 09:33 Dose: Infused Documented by: Piperacillin Sod/Tazobactam (Sod 3.375 gm/ Sodium Chloride) 50 mls @ 12.5 mls/hr IV Q8 [facility] Last Infusion: 03/15/19 09:49 Dose: Infused Documented by: Lactated Ringer's () 1,000 mls @ 100 mls/hr IV .Q10H [facility] Last Admin: 03/15/19 05:50 Dose: 100 mls/hr Documented by: Magnesium Hydroxide (Milk Of Magnesia) 30 ml PO DAILY PRN PRN PRN Reason: CONSTIPATION Metoprolol Tartrate (Lopressor (Beta Alpesh)) 50 mg PO BID [facility] Last Admin: 03/15/19 09:28 Dose: 50 mg Documented by: Morphine Sulfate () 4 mg IV Q1H PRN PRN PRN Reason: Pain Score 6-10/10 Last Admin: 03/15/19 04:35 Dose: 4 mg Documented by: Ondansetron HCl (Zofran) 4 mg IV Q8 PRN PRN Reason: NAUSEA/VOMITING Sodium Chloride () 10 - 40 ml IV UD PRN PRN Reason: SALINE FLUSH Last Admin: 03/15/19 05:55 Dose: 10 ml Documented by: Medical Necessity - Tobacco Use Smoking Status: Current every day smoker Tobacco Use: Cigars Assessment/Plan All Active Problems (Last Updated 03/13/19 @ 10:08 by Dany Gomez MD) Acute calculous cholecystitis (Acute) POD#1 s/p laparoscopic cholecystectomy for acute on chronic cholecystitis with cholelithiasis and gallbladder hydrops, leukocytosis I have reviewed my findings with Dr. Randall, who also participated in development of the following plan Reviewed importance of ambulation and incentive spirometer use with patient, will plan to increase both ambulation and IS today Continue to monitor labs, continue IV fluids and antibiotics
[2019-03-15 11:56] LABS: Carbohydrate AG 19-9 27 U/mL (0-35)
[2019-03-15] MEDS: 0.9% Normal Saline 1,000 ML 100 ML IV (17:57)
[2019-03-16] VITALS (7 sets, daily range): BP systolic 126–146; BP diastolic 71–83; PULSE 80–90; RESP 16–24; TEMP 37.4–38; O2SAT 92–95
[2019-03-16] MEDS: 0.9% Normal Saline 1,000 ML 100 ML IV ×3 (05:30→23:36)
[2019-03-16 06:35] LABS: Hematocrit 32.8 % (40-54); Hemoglobin 10.8 g/dL (13.0-16.5); Mean Corp Hgb Conc 32.9 g/dL (32-36); Mean Corpuscular Hgb 29.4 pg (27.0-32.0); Mean Corpuscular Volume 89.4 fL (80-94); Mean Platelet Vol. 9.6 fl (6.2-12.0); POSITIVE COUNT YES; POSITIVE DIFFERENTIAL YES; POSITIVE MORPHOLOGY YES; Platelet Count 153 K/mm3 (150-450); RBC Distribution Width CV 13.6 % (11.6-14.6); RBC Distribution Width SD 44.3 fl (35.1-43.9); Red Blood Count 3.67 M/mm3 (4.6-6.2)
[2019-03-16 06:38] LABS: Differential Indicated MANUAL DIFF; White Blood Count 36.4 K/mm3 (4.4-11.0)
[2019-03-16 07:19] LABS: Lymphocyte 5 % (19-41); Metamyelocyte 2 % (0-1); Monocyte 5 % (0-10); Myelocyte 1 (0-0); Neutrophil-Band 3 % (0-5); Neutrophil-Segmented 84 % (47-70); Red Cell Morphology NORM C+C NORMAL (NORM C&C); Total Cells Counted 100 (MANUAL DIFF)
[2019-03-16 07:20] LABS: Platelet Estimate ADEQUATE (ADEQ)
[2019-03-16 07:21] LABS: Absolute Lymphocyte Count 1.82 X10^3/uL (0.83-4.51); Absolute Neutrophil Count 21.7 X10^3/uL (2.0-7.7)
--- NOTE | 2019-03-16 08:09 | PCM.PN.SRG ---
Patient Problems: Active and Suspected Problems (Last Updated 03/13/19 @ 10:08 by Dany Gomez MD) Acute calculous cholecystitis (Acute) Subjective: patient has not passed flatus, some abdominal pain - suspect gas pains, decreased output per ARIES - Physical Exam Vitals/I&O's: Vital Signs Temp Pulse Resp BP Pulse Ox 99.3 F H 80 16 126/71 H 92 03/16/19 02:45 03/16/19 02:45 03/16/19 02:45 03/16/19 02:45 03/16/19 02:45 Oxygen Flow Rate (L/min) 2 Oxygen Delivery Method Room Air Weight: 76.2 kg Body Mass Index (BMI) 24.0 Intake and Output for Last 24 Hours 03/14/19 03/15/19 03/16/19 23:59 23:59 23:59 Intake Total 2909.67 / 3029.67 3463.67 / 3463.67 1155 / 1155 Output Total 1260 / 1690 2025 / 2400 850 / 850 Balance 1649.67 / 1339.67 1438.67 / 1063.67 305 / 305 General: Alert, Oriented x3 Oral: Moist Mucosa Neck: Supple Lungs: Normal air movement Abdomen: Soft, - - dressings intact Laboratory Results 03/14/19 05:00: CA 19-9 Antigen 27 03/15/19 08:10: WBC 48.3 H*, RBC 3.78 L, Hgb 11.3 L, Hct 33.7 L, MCV 89.2, MCH 29.9, MCHC 33.5, RDW Std Deviation 44.0 H, RDW Coeff of Jluis 13.5, Plt Count 146 L, MPV 9.6, Neut % (Auto) Not Reportable, Absolute Neuts (auto) 41.1 H, Absolute Lymphs (auto) 3.40, Total Counted 100, Neutrophils % (Manual) 85 H, Lymphocytes % (Manual) 7 L, Monocytes % (Manual) 6, Myelocytes % 2 H, Diff Path Review September, Platelet Estimate SLT DEC, RBC Morphology NORM C+C 03/15/19 08:10: Sodium 138, Potassium 4.0, Chloride 106, Carbon Dioxide 25.0, Anion Gap 7, BUN 18, Creatinine 0.75, Estim Creat Clear Calc 102.74, Est GFR (MDRD) Af Amer 134, Est GFR (MDRD) Non-Af 111, BUN/Creatinine Ratio 24.0 H, Glucose 147 H, Calcium 8.4 L, Total Bilirubin 0.70, AST 56 H, ALT 62 H, Alkaline Phosphatase 83, Total Protein 5.8 L, Albumin 2.4 L, Globulin 3.4, Albumin/Globulin Ratio 0.7 L 03/16/19 06:20: WBC 36.4 H*, RBC 3.67 L, Hgb 10.8 L, Hct 32.8 L, MCV 89.4, MCH 29.4, MCHC 32.9, RDW Std Deviation 44.3 H, RDW Coeff of Jluis 13.6, Plt Count 153, MPV 9.6, Neut % (Auto) Not Reportable, Absolute Neuts (auto) 21.7 H, Absolute Lymphs (auto) 1.82, Total Counted 100, Neutrophils % (Manual) 84 H, Band Neutrophils % 3, Lymphocytes % (Manual) 5 L, Monocytes % (Manual) 5, Metamyelocytes % 2 H, Myelocytes % 1 H, Diff Path Review September, Platelet Estimate ADEQUATE, RBC Morphology NORM C+C Current Medications Albuterol Sulfate (Ventolin Aerosols) 2.5 mg INHALATION Q4H PRN PRN PRN Reason: Shortness of breath, wheezing Sodium Chloride () 250 mls @ 15 mls/hr IV .[id number] PRN PRN Reason: Saline Flush Last Infusion: 03/16/19 05:31 Dose: 0 mls/hr Documented by: Famotidine 20 mg/ Sodium (Chloride) 10 mls @ 300 mls/hr IV Q12 [facility] Last Infusion: 03/15/19 22:28 Dose: Infused Documented by: Piperacillin Sod/Tazobactam (Sod 3.375 gm/ Sodium Chloride) 50 mls @ 12.5 mls/hr IV Q8 [facility] Last Admin: 03/16/19 05:30 Dose: 12.5 mls/hr Documented by: Sodium Chloride () 1,000 mls @ 100 mls/hr IV .Q10H [facility] Last Admin: 03/16/19 05:30 Dose: 100 mls/hr Documented by: Magnesium Hydroxide (Milk Of Magnesia) 30 ml PO DAILY PRN PRN PRN Reason: CONSTIPATION Metoprolol Tartrate (Lopressor (Beta Alpesh)) 50 mg PO BID [facility] Last Admin: 03/15/19 22:26 Dose: 50 mg Documented by: Morphine Sulfate () 4 mg IV Q1H PRN PRN PRN Reason: Pain Score 6-10/10 Last Admin: 03/15/19 20:40 Dose: 4 mg Documented by: Ondansetron HCl (Zofran) 4 mg IV Q8 PRN PRN Reason: NAUSEA/VOMITING Sodium Chloride () 10 - 40 ml IV UD PRN PRN Reason: SALINE FLUSH Last Admin: 03/15/19 05:55 Dose: 10 ml Documented by: Medical Necessity - Tobacco Use Smoking Status: Current every day smoker Tobacco Use: Cigars Assessment/Plan All Active Problems (Last Updated 03/13/19 @ 10:08 by Dany Gomez MD) Acute calculous cholecystitis (Acute) Impression: POD#2 s/p laparoscopic cholecystectomy Plan: when passing flatus - the patient can be advanced to regular diet and be d/c'd to home with drain and oral antibiotics and oral pain meds encouraged ambulation and incentive spirometry
[2019-03-16] MEDS: Morphine 4 MG/ML Syringe IV ×4 (09:05→23:36)
[2019-03-16] MEDS: 0.9% Saline Lock 10 ML Syringe IV ×4 (09:05→18:29)
[2019-03-16] MEDS: Famotidine 200 MG/20 ML MDV 20 MG in 0.9% Normal Saline (Pres. free 8 ML 300 MG IV ×2 (09:54→21:54)
[2019-03-16] MEDS: Metoprolol Tartrate 50 MG Tablet PO ×2 (09:55→21:52)
--- NOTE | 2019-03-16 10:19 | PN_ITS ---
Patient Problems: Active and Suspected Problems (Last Updated 03/13/19 @ 10:08 by Dany Gomez MD) Acute calculous cholecystitis (Acute) Subjective: Patient did not had good flatus but has passed few bubbles as per the patient's WORD. No bowel movement. Patient has mild cough. Low-grade temperature 99.8 F. Patient is advised incentive spirometry and flutter VALVE. Portable chest x-ray ordered. Patient already on broad-spectrum antibiotic IV Zosyn. Vitals/I&O's: Vital Signs Temp Pulse Resp BP Pulse Ox 99.8 F H 84 18 133/83 H 95 03/16/19 08:57 03/16/19 09:55 03/16/19 08:57 03/16/19 08:57 03/16/19 08:57 Oxygen Flow Rate (L/min) 2 Oxygen Delivery Method Room Air Weight: 167 lb 15.876 oz Body Mass Index (BMI) 24.0 Intake and Output for Last 24 Hours 03/14/19 03/15/19 03/16/19 23:59 23:59 23:59 Intake Total 2909.67 / 3029.67 3463.67 / 3463.67 1220.75 / 1220.75 Output Total 1260 / 1690 2025 / 2400 850 / 850 Balance 1649.67 / 1339.67 1438.67 / 1063.67 370.75 / 370.75 General: Alert, Oriented x3, Cooperative HEENT: Atraumatic, PERRLA, EOMI, Normocephalic Neck: Supple, No JVD, Negative Carotid Bruits Lungs: No rhonchi, No wheeze, No rales, Diminished - Air entry diminished in right lung base Cardiovascular: Regular rate, No murmurs Abdomen: Bowel Sounds Present, Soft, Hypoactive Bowel Sounds, - - Mild distention present. Tenderness present over operative region. AIRES drain only 25 mL serosanguineous over 24 hours Extremities: No edema, Capillary Refill Less than 3 Seconds Skin: No rashes, No breakdown Musculoskeletal: No Tenderness to Palpation of Joints or Extremities, Arthritic Changes Neurological: Cranial nerves II-XII grossly intact, Deep Tendon Reflexes 2+/4 and Symmetrical, Neuro grossly intact Psych/Mental Status: Normal Affect, Appropriate Laboratory Results 03/14/19 05:00: CA 19-9 Antigen 27 03/16/19 06:20: WBC 36.4 H*, RBC 3.67 L, Hgb 10.8 L, Hct 32.8 L, MCV 89.4, MCH 29.4, MCHC 32.9, RDW Std Deviation 44.3 H, RDW Coeff of Jluis 13.6, Plt Count 153, MPV 9.6, Neut % (Auto) Not Reportable, Absolute Neuts (auto) 21.7 H, Absolute Lymphs (auto) 1.82, Total Counted 100, Neutrophils % (Manual) 84 H, Band Neutrophils % 3, Lymphocytes % (Manual) 5 L, Monocytes % (Manual) 5, Metamyelocytes % 2 H, Myelocytes % 1 H, Diff Path Review September, Platelet Estimate ADEQUATE, RBC Morphology NORM C+C Current Medications Albuterol Sulfate (Ventolin Aerosols) 2.5 mg INHALATION Q4H PRN PRN PRN Reason: Shortness of breath, wheezing Sodium Chloride () 250 mls @ 15 mls/hr IV .[id number] PRN PRN Reason: Saline Flush Last Infusion: 03/16/19 09:53 Dose: 0 mls/hr Documented by: Famotidine 20 mg/ Sodium (Chloride) 10 mls @ 300 mls/hr IV Q12 [facility] Last Infusion: 03/16/19 09:56 Dose: Infused Documented by: Piperacillin Sod/Tazobactam (Sod 3.375 gm/ Sodium Chloride) 50 mls @ 12.5 mls/hr IV Q8 [facility] Last Infusion: 03/16/19 09:30 Dose: Infused Documented by: Sodium Chloride () 1,000 mls @ 100 mls/hr IV .Q10H [facility] Last Admin: 03/16/19 05:30 Dose: 100 mls/hr Documented by: Magnesium Hydroxide (Milk Of Magnesia) 30 ml PO DAILY PRN PRN PRN Reason: CONSTIPATION Metoprolol Tartrate (Lopressor (Beta Alpesh)) 50 mg PO BID [facility] Last Admin: 03/16/19 09:55 Dose: 50 mg Documented by: Morphine Sulfate () 4 mg IV Q1H PRN PRN PRN Reason: Pain Score 6-10/10 Last Admin: 03/16/19 09:05 Dose: 4 mg Documented by: Ondansetron HCl (Zofran) 4 mg IV Q8 PRN PRN Reason: NAUSEA/VOMITING Sodium Chloride () 10 - 40 ml IV UD PRN PRN Reason: SALINE FLUSH Last Admin: 03/16/19 09:55 Dose: 10 ml Documented by: BARBARA Vital Signs/Narrative: Vital Signs Temp Pulse Resp BP Pulse Ox 03/16/19 09:55 84 03/16/19 08:57 99.8 F H 86 18 133/83 H 95 Medical Necessity - Tobacco Use Smoking Status: Current every day smoker Tobacco Use: Cigars Assessment/Plan All Active Problems (Last Updated 03/13/19 @ 10:08 by Dany Gomez MD) Acute calculous cholecystitis (Acute) This is a 63 years old male patient came to ER for abdominal pain and found to have acute calculus cholecystitis admitted by general surgery for laparoscopic cholecystectomy. #1 Severe acute on chronic cholecystitis with obstruction of gallbladder from cholelithiasis, hydrops; complicated with severe inflammation and dense adhesion. On 03/14: CT scan abdomen reviewed as above. No fever or chills. During hospital stay, T-max 99.3 Fahrenheit. No reflex tachycardia, heart rate in 80s was in 90s last night. Mild tachypnea, respiratory rate 24, pulse ox 96% on 2 L of oxygen. There is significant increase in WBC count from 23,000 to 51,000 more than 50%. IV antibiotic is broadened to IV Zosyn. Discontinue Cefotetan although it has good coverage against gram-negative aerobic and anaerobic bacteria and some gram-positive bacteria. Repeat chest x-ray ordered and reported as stable mild increased markings at left lung space similar to previ ous chest x-ray suggestive of linear atelectasis. LFT and lipase were normal. No evidence of sepsis or severe sepsis. Vital signs are stable. I think overall leukocytosis probably reflection from acute cholecystitis. Patient is still has pain which gets better with IV analgesics. Patient is scheduled for surgery, cholecystectomy with intraoperative cholangiogram. 03/15/2019: Leukocytosis has improved. No systemic symptoms or signs of severe sepsis. Continue IV antibiotic, Zosyn. Incentive spirometry and walking. PT and OT. LFT shows mild elevation in transaminases. Total bili normal. Alkaline phosphatase 83. 03/16/2019: Low-grade fever T-max 99.8 Fahrenheit. No associated tachycardia heart rate in 80s. Hemodynamically stable. Patient is on IV Zosyn. Patient is motivated to use incentive spirometry, chest physiotherapy/flutter valve. Earlier chest x-ray shows left lung base atelectasis. Repeat chest x-ray ordered. #2 Perioperative evaluation and management: EKG revealed normal sinus rhythm, normal QRS, normal QTC, no acute ischemic changes. Based on his age, functional status, past medical history and serum creatinine, his estimated risk for perioperative myocardial infarction or cardiac arrest is 0.13%. Patient is at low to moderate perioperative risk for surgery. No indication for further work- up. 03/15/2019: Postop PT and OT and chest physiotherapy Continue PT and OT. #3 CAD status post CABG: Stable, no complaints. EKG was unremarkable, troponin is negative. 2D echocardiogram on November, revealed ejection fraction of 60% as mentioned below. Plan to hold aspirin and statins, recommend to continue metoprolol. 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 No evidence of acute CHF. Ejection fraction was 35 to 40% on echocardiogram done at [facility] on July,. Patient had 2D echocardiogram on November, that revealed ejection fraction 60%, stage I diastolic dysfunction, RVSP of 34. Ejection fraction improved. Plan to continue beta-blockers for now. #5 hyperlipidemia: Hold statins. #6 tobacco abuse: NicoDerm patch #7 DVT prophylaxis: Recommend subcu Lovenox after surgery. Denies high-grade fever, chills or sleeping at home. Chest x-ray shows mild left lung base underlying atelectasis and/or/scarring. Code Visit Inpatient E&M: 74749 [facility] Hosp L3
[2019-03-16 11:16] LABS: Pathologist Review Reviewed
[2019-03-16 11:18] LABS: Pathologist Review Reviewed
--- NOTE | 2019-03-16 11:45 | RAD_ITS ---
STUDY: X-RAY CHEST REASON FOR EXAM: Male, 63 years old. Chest pain. Recent cholangiogram. TECHNIQUE: Single AP portable view of the chest. COMPARISON: Comparison is made with prior examination dated March 14, 2019. FINDINGS: Since prior study, there has been mild progression of the infiltrate and/or atelectasis in the posterior medial segment of the left lower lobe. There is no demonstrated pleural abnormality. Sternal cerclage wires and vascular clips are present from a prior sternotomy and coronary artery bypass graft procedure (CABG). Normal mediastinum and fredo. Normal visualized pulmonary arteries. Normal visualized aortic arch and descending thoracic aorta. Normal visualized thoracic spine. Normal visualized ribs, clavicles, and shoulders. There is no demonstrated abnormality of the visualized soft tissue structures of the upper abdomen. RAD/Chest 1 View (Portable) IMPRESSION: Slight progression in the left basilar infiltrate and/or atelectasis. Further follow-up is recommended. Electronically Signed: Haroon Watts, at 13:58 EST , Service support ,
[2019-03-17 03:41] VITALS: BP 141/80; PULSE 84; RESP 22; TEMP 37.2; O2SAT 93
[2019-03-17 06:46] LABS: Hematocrit 32.9 % (40-54); Hemoglobin 11.1 g/dL (13.0-16.5); Mean Corp Hgb Conc 33.7 g/dL (32-36); Mean Corpuscular Hgb 29.1 pg (27.0-32.0); Mean Corpuscular Volume 86.4 fL (80-94); Mean Platelet Vol. 9.4 fl (6.2-12.0); POSITIVE COUNT YES; POSITIVE DIFFERENTIAL YES; POSITIVE MORPHOLOGY YES; Platelet Count 142 K/mm3 (150-450); RBC Distribution Width CV 13.4 % (11.6-14.6); RBC Distribution Width SD 42.5 fl (35.1-43.9); Red Blood Count 3.81 M/mm3 (4.6-6.2); White Blood Count 27.2 K/mm3 (4.4-11.0)
[2019-03-17 06:55] LABS: Differential Indicated MANUAL DIFF
[2019-03-17 07:00] LABS: Anion Gap 10 (5-15); BUN 10 mg/dL (7-18); BUN/Creat Ratio 17.5 RATIO (10-20); Calcium,Total 7.9 mg/dL (8.5-10.1); Chloride 102 mmol/L (98-107); Creatinine, Serum 0.57 mg/dL (0.70-1.30); EST Glomerular Filtration Rate 152 mL/min (>60); Est Glom Filt Rate - Afr Amer 184 mL/min (>60); Estimated Creatinine Clearance 135.19 ml/min; Glucose 100 mg/dL (74-106); Potassium 3.5 mmol/L (3.5-5.1); Sodium Level 134 mmol/L (136-145)
[2019-03-17 07:32] LABS: Neutrophil-Band 4 % (0-5); Neutrophil-Segmented 83 % (47-70); Total Cells Counted 100 (MANUAL DIFF)
[2019-03-17 07:33] LABS: Eosinophil 1 % (0-5); Lymphocyte 4 % (19-41); Metamyelocyte 1 % (0-1); Monocyte 6 % (0-10); Myelocyte 1 (0-0); Platelet Estimate SLT DEC (ADEQ); Red Cell Morphology NORM C+C NORMAL (NORM C&C)
[2019-03-17 07:34] LABS: Absolute Lymphocyte Count 1.09 X10^3/uL (0.83-4.51); Absolute Neutrophil Count 23.7 X10^3/uL (2.0-7.7)
[2019-03-17 08:48] VITALS: BP 139/79; PULSE 88; RESP 18; TEMP 37.4; O2SAT 95
[2019-03-17 09:20] VITALS: BP 139/79; PULSE 88
[2019-03-17] MEDS: Metoprolol Tartrate 50 MG Tablet PO (09:20)
[2019-03-17] MEDS: Famotidine 20 MG Tablet PO (09:22)
[2019-03-17] MEDS: 0.9% Normal Saline 1,000 ML 100 ML IV (09:26)
--- NOTE | 2019-03-17 10:14 | PCM.PN.SRG ---
Patient Problems: Active and Suspected Problems (Last Updated 03/13/19 @ 10:08 by Dany Gomez MD) Acute calculous cholecystitis (Acute) Subjective: patient tolerating diet ARIES output < 60 ml /day, removed without difficulty ready to go home - Physical Exam Vitals/I&O's: Vital Signs Temp Pulse Resp BP Pulse Ox 99.3 F H 88 18 139/79 H 95 03/17/19 08:48 03/17/19 09:20 03/17/19 08:48 03/17/19 09:20 03/17/19 08:48 Oxygen Flow Rate (L/min) 2 Oxygen Delivery Method Room Air Weight: 76.2 kg Body Mass Index (BMI) 24.0 Intake and Output for Last 24 Hours 03/15/19 03/16/19 03/17/19 23:59 23:59 23:59 Intake Total 3463.67 / 3463.67 3824.25 / 3824.25 1154.08 / 1154.08 Output Total 2025 / 2400 2669 / 2669 935 / 935 Balance 1438.67 / 1063.67 1155.25 / 1155.25 219.08 / 219.08 General: Alert, Oriented x3 Oral: Moist Mucosa Neck: Supple Lungs: Normal air movement Abdomen: Bowel Sounds Present, Soft, - - wounds clean and dry Laboratory Results 03/15/19 08:10: Diff Path Review Reviewed 03/16/19 06:20: Diff Path Review Reviewed 03/17/19 06:30: WBC 27.2 H, RBC 3.81 L, Hgb 11.1 L, Hct 32.9 L, MCV 86.4, MCH 29.1, MCHC 33.7, RDW Std Deviation 42.5, RDW Coeff of Jluis 13.4, Plt Count 142 L, MPV 9.4, Neut % (Auto) Not Reportable, Absolute Neuts (auto) 23.7 H, Absolute Lymphs (auto) 1.09, Total Counted 100, Neutrophils % (Manual) 83 H, Band Neutrophils % 4, Lymphocytes % (Manual) 4 L, Monocytes % (Manual) 6, Eosinophils % (Manual) 1, Metamyelocytes % 1, Myelocytes % 1 H, Diff Path Review May , Platelet Estimate SLT DEC, RBC Morphology NORM C+C 03/17/19 06:30: Sodium 134 L, Potassium 3.5, Chloride 102, Carbon Dioxide 22.0, Anion Gap 10, BUN 10, Creatinine 0.57 L, Estim Creat Clear Calc 135.19, Est GFR (MDRD) Af Amer 184, Est GFR (MDRD) Non-Af 152, BUN/Creatinine Ratio 17.5, Glucose 100, Calcium 7.9 L Current Medications Albuterol Sulfate (Ventolin Aerosols) 2.5 mg INHALATION Q4H PRN PRN PRN Reason: Shortness of breath, wheezing Famotidine (Pepcid) 20 mg PO Q12 [facility] Last Admin: 03/17/19 09:22 Dose: 20 mg Documented by: Sodium Chloride () 250 mls @ 15 mls/hr IV .[id number] PRN PRN Reason: Saline Flush Last Infusion: 03/17/19 05:57 Dose: 0 mls/hr Documented by: Piperacillin Sod/Tazobactam (Sod 3.375 gm/ Sodium Chloride) 50 mls @ 12.5 mls/hr IV Q8 [facility] Last Admin: 03/17/19 05:57 Dose: 12.5 mls/hr Documented by: Sodium Chloride () 1,000 mls @ 100 mls/hr IV .Q10H [facility] Last Admin: 03/17/19 09:26 Dose: 100 mls/hr Documented by: Magnesium Hydroxide (Milk Of Magnesia) 30 ml PO DAILY PRN PRN PRN Reason: CONSTIPATION Metoprolol Tartrate (Lopressor (Beta Alpesh)) 50 mg PO BID [facility] Last Admin: 03/17/19 09:20 Dose: 50 mg Documented by: Morphine Sulfate () 4 mg IV Q1H PRN PRN PRN Reason: Pain Score 6-10/10 Last Admin: 03/16/19 23:36 Dose: 4 mg Documented by: Ondansetron HCl (Zofran) 4 mg IV Q8 PRN PRN Reason: NAUSEA/VOMITING Potassium Chloride (K-Dur) 40 meq PO Q3H [facility] Stop: 03/17/19 11:16 Last Admin: 03/17/19 09:18 Dose: 40 meq Documented by: Sodium Chloride () 10 - 40 ml IV UD PRN PRN Reason: SALINE FLUSH Last Admin: 03/16/19 18:29 Dose: 10 ml Documented by: Medical Necessity - Tobacco Use Smoking Status: Current every day smoker Tobacco Use: Cigars Assessment/Plan All Active Problems (Last Updated 03/13/19 @ 10:08 by Dany Gomez MD) Acute calculous cholecystitis (Acute) Impression: POD#3 s/p laparoscopic cholecystectomy Plan: d/c to home on vicodin encouraged ambulation and incentive spirometry
--- NOTE | 2019-03-17 10:18 | PCM.DC.GB ---
Discharge Diet: No Restrictions Discharge Activity: Return to Normal Activity, May not drive while taking narcotic pain medications. Lifting Restrictions: no lifting greater than 20 pounds for two weeks Call your doctor if your incision/area has: Continuous Slow Oozing, Foul Smelling Discharge Additional Dressing/Incision Instructions:: Leave dressings intact. May get wet in shower. Do not soak - no tub baths/swimming Allergies/Adverse Reactions: Allergies No Known Allergies Allergy (Verified 03/13/19 04:27) Medications to take at Discharge metoprolol tartrate 50 mg tablet 50 mg PO BID #180 tab 03/29/18 atorvastatin 40 mg tablet 40 mg PO DAILY #90 tab 04/21/18 aspirin 81 mg chewable tablet 81 mg PO QHS tab 11/14/18 Amoxicillin/Potassium Clav [Augmentin 875-125 Tablet] 1 ea PO BID 5 Days #10 tab 03/17/19 Hydrocodone Bitart/Apap 5-325 [[place]elhard 5MG-325MG] 1 tab PO Q8H PRN PRN 4 Days #10 tab 03/17/19 The following prescriptions were given: Amoxicillin/Potassium Clav [Augmentin 875-125 Tablet] 1 ea PO BID 5 Days #10 tab Prescription Printed Hydrocodone Bitart/Apap 5-325 [[place]el[place] 5MG-325MG] 1 tab PO Q8H PRN PRN 4 Days #10 tab PRN Reason: Pain Prescription Printed Primary Care Physician: Kavitha Tidwell MD [Primary Care Provider] - Test Results: Test results from this visit will be discussed in further detail at your follow-up appointment, if applicable. Please Follow Up With: Clarita Randall MD - call When: to be seen next week, call for time and date, thank you
--- NOTE | 2019-03-17 13:14 | PCM.PN.HOSP ---
Subjective: Patient had low-grade temperature last night, T-max 100.4 about 7 PM. In the morning 99 Fahrenheit. No tachycardia. Leukocytosis improving. On IV antibiotic Zosyn. Vitals/I&O's: Vital Signs Temp Pulse Resp BP Pulse Ox 99.3 F H 88 18 139/79 H 95 03/17/19 08:48 03/17/19 09:20 03/17/19 08:48 03/17/19 09:20 03/17/19 08:48 Oxygen Flow Rate (L/min) 2 Oxygen Delivery Method Room Air Weight: 167 lb 15.876 oz Body Mass Index (BMI) 24.0 Intake and Output for Last 24 Hours 03/15/19 03/16/19 03/17/19 23:59 23:59 23:59 Intake Total 3463.67 / 3463.67 3824.25 / 3824.25 1376.50 / 1376.50 Output Total 2025 / 2400 2669 / 2669 1535 / 1535 Balance 1438.67 / 1063.67 1155.25 / 1155.25 -158.50 / -158.50 General: Alert, Oriented x3, Cooperative HEENT: Atraumatic, PERRLA, EOMI, Normocephalic Neck: Supple, No JVD, Negative Carotid Bruits Lungs: Clear to auscultation, No rhonchi, No wheeze, No rales, Diminished - Air entry diminished in bilateral lung bases Cardiovascular: Regular rate, Regular Rhythm, Normal S1, Normal S2, No murmurs Abdomen: Bowel Sounds Present, Soft, Hypoactive Bowel Sounds, - - Mild tenderness present over right upper quadrant although improving. Extremities: No edema, Capillary Refill Less than 3 Seconds Skin: No rashes, No breakdown Musculoskeletal: No Tenderness to Palpation of Joints or Extremities, Arthritic Changes Neurological: Cranial nerves II-XII grossly intact, Deep Tendon Reflexes 2+/4 and Symmetrical Psych/Mental Status: Normal Affect, Appropriate Laboratory Results 03/17/19 06:30: WBC 27.2 H, RBC 3.81 L, Hgb 11.1 L, Hct 32.9 L, MCV 86.4, MCH 29.1, MCHC 33.7, RDW Std Deviation 42.5, RDW Coeff of Jluis 13.4, Plt Count 142 L, MPV 9.4, Neut % (Auto) Not Reportable, Absolute Neuts (auto) 23.7 H, Absolute Lymphs (auto) 1.09, Total Counted 100, Neutrophils % (Manual) 83 H, Band Neutrophils % 4, Lymphocytes % (Manual) 4 L, Monocytes % (Manual) 6, Eosinophils % (Manual) 1, Metamyelocytes % 1, Myelocytes % 1 H, Diff Path Review May , Platelet Estimate SLT DEC, RBC Morphology NORM C+C 03/17/19 06:30: Sodium 134 L, Potassium 3.5, Chloride 102, Carbon Dioxide 22.0, Anion Gap 10, BUN 10, Creatinine 0.57 L, Estim Creat Clear Calc 135.19, Est GFR (MDRD) Af Amer 184, Est GFR (MDRD) Non-Af 152, BUN/Creatinine Ratio 17.5, Glucose 100, Calcium 7.9 L STROKE Vital Signs/Narrative: Vital Signs Pulse BP 03/17/19 09:20 88 139/79 H Medical Necessity - Tobacco Use Smoking Status: Current every day smoker Tobacco Use: Cigars Assessment/Plan All Active Problems (Last Updated 03/13/19 @ 10:08 by aDny Gomez MD) Acute calculous cholecystitis (Acute) This is a 63 years old male patient came to ER for abdominal pain and found to have acute calculus cholecystitis admitted by general surgery for laparoscopic cholecystectomy. #1 Severe acute on chronic cholecystitis with obstruction of gallbladder from cholelithiasis, hydrops; complicated with severe inflammation and dense adhesion. On 03/14: CT scan abdomen reviewed as above. No fever or chills. During hospital stay, T-max 99.3 Fahrenheit. No reflex tachycardia, heart rate in 80s was in 90s last night. Mild tachypnea, respiratory rate 24, pulse ox 96% on 2 L of oxygen. There is significant increase in WBC count from 23,000 to 51,000 more than 50%. IV antibiotic is broadened to IV Zosyn. Discontinue Cefotetan although it has good coverage against gram-negative aerobic and anaerobic bacteria and some gram-positive bacteria. Repeat chest x-ray ordered and reported as stable mild increased markings at left lung space similar to previous chest x-ray suggestive of linear atelectasis. LFT and lipase were normal. No evidence of sepsis or severe sepsis. Vital signs are stable. I think overall leukocytosis probably reflection from acute cholecystitis. Patient is still has pain which gets better with IV analgesics. Patient is scheduled for surgery, cholecystectomy with intraoperative cholangiogram. 03/15/2019: Leukocytosis has improved. No systemic symptoms or signs of severe sepsis. Continue IV antibiotic, Zosyn. Incentive spirometry and walking. PT and OT. LFT shows mild elevation in transaminases. Total bili normal. Alkaline phosphatase 83. 03/16/2019: Low-grade fever T-max 99.8 Fahrenheit. No associated tachycardia heart rate in 80s. Hemodynamically stable. Patient is on IV Zosyn. Patient is motivated to use incentive spirometry, chest physiotherapy/flutter valve. Earlier chest x-ray shows left lung base atelectasis. Repeat chest x-ray ordered. 03/17/2019. Repeat chest x-ray reviewed. Shows mild increase in the atelectasis of left lung base as compared to previous x-ray. He has mild limitations in the right lung base although not reported. I agree with continuation of antibiotic. ARIES drain less than 60 mL and was removed. Patient is being discharged on Augmentin and Vicodin. Patient was advised incentive spirometry and chest physiotherapy. #2 Perioperative evaluation and management: EKG revealed normal sinus rhythm, normal QRS, normal QTC, no acute ischemic changes. Based on his age, functional status, past medical history and serum creatinine, his estimated risk for perioperative myocardial infarction or cardiac arrest is 0.13%. Patient is at low to moderate perioperative risk for surgery. 03/15/2019: Postop PT and OT and chest physiotherapy Continue PT and OT. #3 CAD status post CABG: Stable, no complaints. EKG was unremarkable, troponin is negative. 2D echocardiogram on November, revealed ejection fraction of 60% as mentioned below. Plan to hold aspirin and statins, recommend to continue metoprolol. 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 No evidence of acute CHF. Ejection fraction was 35 to 40% on echocardiogram done at [facility] on July,. Patient had 2D echocardiogram on November, that revealed ejection fraction 60%, stage I diastolic dysfunction, RVSP of 34. Ejection fraction improved. Plan to continue beta-blockers for now. #5 hyperlipidemia: Hold statins. #6 tobacco abuse: NicoDerm patch #7 DVT prophylaxis: On Lovenox. Code Visit Inpatient E&M: 18726 Subs Hosp L2
--- NOTE | 2019-03-20 15:44 | CASEMGMT ---
UZAIR RUBI Discharge Follow-up Phone Call: CANDICERolando: Shanna Strata: 4 Call Date: 03/20/19 Discharge Date: 03/17/19 Time of Call: 1545 Duration: 3min Admitting Diagnosis: Cholelithiasis abdominal pain UZAIR RUBI completed follow-up phone call after recent hospitalization. Patient states he is doing better. Patient had no concerns regarding discharge instructions. Patient was able to fill prescriptions without any issues. Patient has number to call surgeon for follow-up appt and plans to call in the morning. Patient denies further questions or needs at this time.
--- NOTE | 2019-03-20 16:41 | PCM.DC.BLA ---
Discharge Summary Date of Admission: 03/13/19 Date of Discharge: 03/17/19 Summary: 63 y/o WM presents with acute cholecystitis. Underwent surgery - 03/14/19 - laparoscopic cholecystectomy with placement of intraabdominal drain. Tolerated surgery well. Postoperative recovery unremarkable. Patient discharged - tolerating regular diet and afebrile, ARIES drain removed prior to discharge. - Physical Exam Vitals/I&O's: Vital Signs Temp Pulse Resp BP Pulse Ox 99.3 F H 88 18 139/79 H 95 03/17/19 08:48 03/17/19 09:20 03/17/19 08:48 03/17/19 09:20 03/17/19 08:48 Oxygen Flow Rate (L/min) 2 Oxygen Delivery Method Room Air Weight: 76.2 kg Body Mass Index (BMI) 24.0
[2019-03-21 10:07] LABS: Pathologist Review Reviewed
== END 2019-03-17 11:20 | disposition home or self-care (01) | DRG 418 ==
LOC: ED 07:24 → MS3 11:07
PROVIDERS: Admitting Provider Surgery; Emergency Provider Emergency Medicine; Family Provider Internal Medicine; PCP Internal Medicine; Visit Provider Internal Medicine
PROC: 0FT44ZZ Resection of Gallbladder, Percutaneous Endoscopic Approach (ICD-10-PCS; CPT 47610; principal; 2019-03-14 14:40)
DX: K80.13 Calculus of gallbladder with acute and chronic cholecystitis with obstruction (principal); K82.1 Hydrops of gallbladder; I50.42 Chronic combined systolic (congestive) and diastolic (congestive) heart failure; I25.2 Old myocardial infarction; I25.10 Atherosclerotic heart disease of native coronary artery without angina pectoris; Z95.1 Presence of aortocoronary bypass graft; K76.0 Fatty (change of) liver, not elsewhere classified; E78.5 Hyperlipidemia, unspecified; I25.5 Ischemic cardiomyopathy; F17.290 Nicotine dependence, other tobacco product, uncomplicated; I11.0 Hypertensive heart disease with heart failure
CPT/HCPCS: 36415; 71045; 71046; 74177; 80048; 80053; 80076; 81001; 83690; 84484; 85025; 86301; 88304; 93005; 99284; 99406; J7030; J7040; J7050; J7120; Q9967; A4216; J2405; J3490

== ENCOUNTER 2019-06-04 16:20 | Inpatient (IN) | payer MEDICARE, MEDICAID, SELFPAY ==
[2019-03-13 08:26] VITALS: BMI 24.0
[2019-06-04] VITALS (11 sets, daily range): BP systolic 107–138; BP diastolic 65–86; PULSE 87–116; RESP 15–22; TEMP 36.1–37.9; O2SAT 94–97; BMI 23.6; BMI 22.1
--- NOTE | 2019-06-04 16:44 | CT_ITS ---
STUDY: CT ABDOMEN AND PELVIS WITH CONTRAST REASON FOR EXAM: Male, 64 years old. ABDOMEN PAIN AND FEVER,WEAKNESS AND ELEVATED WBC --status post recent Whipple procedure for pancreatic cancer. RADIATION DOSAGE (If Supplied By Facility): CTDIvol = ( 16.24 ) mGy, DLP = ( 849.95 ) mGycm TECHNIQUE: Transaxial images were obtained from the dome of the diaphragm to the symphysis pubis with oral contrast. IV 100mL Isovue-300 was administered. Sagittal and coronal images were reconstructed. Individualized dose optimization techniques were used for this CT. COMPARISON: 03/13/2019. FINDINGS: The visualized lung bases are unremarkable. The visualized portions of the heart are within normal limits. Normal liver. Since prior exam patient has had resection of the head of the pancreas and the distal stomach along with the duodenum. There is a gastrojejunostomy. In the right upper quadrant directly under the liver there is a loop of bowel within which there is a 7 cm linear metal density or this could represent a suture line. Several tiny foci of possibly extraluminal air are seen related to these bowel loops in the right upper quadrant. This is probably from recent surgery but perforation cannot be excluded. Gallbladder has been improved. Normal adrenal glands and spleen, with several incidental granulomas. No acute abnormalities of the kidneys. Several bilateral incidental tiny cortical cysts. 2 mm nonobstructing stone of the right lower pole. No hydronephrosis on either side. The remaining stomach and the area of gastrojejunostomy, are unremarkable. There are no dilated loops of bowel or evidence for obstruction. No definite segments of bowel wall thickening. Large bowel has diverticulosis without diverticulitis. Normal appendix. Normal abdominal aorta. Normal inferior vena cava. Normal retroperitoneum. Normal urinary bladder. No evidence for free fluid. No evidence for abscess. Normal abdominal wall. Normal osseous structures. CT/Abdomen/Pelvis WITH Contrast IMPRESSION: No definite acute abnormality status post Whipple procedure although in the right upper quadrant, tiny foci of extraluminal air are seen most likely postsurgical with perforation not excluded. No evidence for bowel obstruction. No evidence for abscess. Electronically Signed: Jose F Limon MD at 19:18 EST , Service support ,
--- NOTE | 2019-06-04 16:45 | ED.VIS.GEN ---
History of Present Illness Chief Complaint: Abd Pain Informant: Patient Onset: Days Narrative: Patient underwent a Whipple procedure on May 18 at [facility] for pancreatic cancer. Patient states that he has had a slight increase in abdominal pain but overall has had no appetite and is not eating or drinking much. Patient believes he is dehydrated. states she noted a fever today of 101.4. Last dose of Tylenol was sometime earlier this morning. Patient has not had URI symptoms or cough. - Past Medical History (1) Pancreatic cancer Status: Chronic (2) Acute calculous cholecystitis Status: Chronic (3) Atherosclerotic heart disease of [place] coronary artery without angina pectoris Status: Chronic Comment: MARTINES to LAD, free JANEEN to PDA, SVG to Diagonal, SVG to OM, SVG to right Posterior lateral per Dr. Augustin [facility] (4) History of RI (myocardial infarction) Status: Chronic Comment: Left ventricular scar, markie infart ischemia, left ventricular thrombus per echo 12/15/2017 @ [facility] (5) History of tobacco abuse Status: Chronic (6) Hyperlipidemia Status: Chronic (7) Ischemic cardiomyopathy Status: Chronic Comment: EF 35-40% per echo done @ [facility]07/11/2017; 50% per pre-op EFRAIN done @ [facility] 01/25/18 (8) S/P CABG x 5 Status: Chronic Comment: MARTINES to LAD, free JANEEN to PDA, SVG to Diagonal, SVG to OM, SVG to right Posterior lateral per Dr. Augustin [facility] Past Medical History - Allergies and Home Meds Allergies/Adverse Reactions: Allergies No Known Allergies Allergy (Verified 03/13/19 04:27) Primary Care Physician: Kavitha Tidwell MD [STAFF PHYSICIAN] - Prior records reviewed: Yes Surgical History: coronary bypass surgery, herniorrhaphy - right inguinal x 2, - - facial surgery summer, amputated left ring finger 1993 Lives: Spouse/ Significant Other Smoking Status: Former smoker Review of Systems General: Reports: Chills, Fever Eyes: Denies: Visual changes - bilaterally ENT: Denies: Bilateral ear pain, Sore throat Cardiovascular: Denies: Chest pain Respiratory: Denies: Dyspnea, Cough Gastrointestinal: Reports: Abdominal pain. Denies: Nausea, Vomiting Genitourinary: Denies: Dysuria Musculoskeletal: Denies: Extremity Pain Skin: Denies: Rash Neurological: Reports: Weakness - Generalized weakness Physical Exam Vital Signs/Narrative: Vital Signs Temp Pulse Resp BP Pulse Ox 06/04/19 16:29 100.3 F H 110 H 18 138/83 H 95 06/04/19 16:22 97 F L 116 H 18 124/77 H 97 Inital Vital Signs reviewed: Yes General: Well nourished, Well developed Head: Normocephalic ENT: Moist mucous membranes Neck: Supple Cardiovascular: Tachycardia Respiratory: No distress, CTA bilaterally Abdomen: Soft, Tender - Appropriate postop tenderness along the midline abdominal surgical wound. No sign of infection., Hypoactive bowel sounds Extremities: Nontender, No edema Skin: Normal color Neurological: Alert, Oriented x3 Psychological: Normal affect Diagnostic/Tx/Re-eval Impressions Abdomen/Pelvis CT 06/04/19 16:44 IMPRESSION: No definite acute abnormality status post Whipple procedure although in the right upper quadrant, tiny foci of extraluminal air are seen most likely postsurgical with perforation not excluded. No evidence for bowel obstruction. No evidence for abscess. Electronically Signed: Jose F Limon MD at 19:18 EST , Service support , Chest X-Ray 06/04/19 20:07 IMPRESSION: No evidence for acute chest disease. Electronically Signed: Jose F Limon MD at 21:28 EST , Service support , 06/04/19 16:44 Abdomen/Pelvis WITH Contrast [CT] Stat 06/04/19 20:07 Chest 1 View (Portable) [RAD] Stat 06/04/19 20:30 Mucosa - Nasopharyngeal Influenza Types A,B Direct FA (GARO) - Final Laboratory Results 06/04/19 06/04/19 06/04/19 16:30 16:30 16:55 WBC 48.7 H* RBC 3.86 L Hgb 11.4 L Hct 34.3 L MCV 88.9 MCH 29.5 MCHC 33.2 RDW Std Deviation 44.9 H RDW Coeff of Jluis 13.9 Plt Count 387 MPV 8.9 Immature Gran % (Auto) TECHNICAL SUPPORT ASSISTANT Neut % (Auto) TECHNICAL SUPPORT ASSISTANT Lymph % (Auto) TECHNICAL SUPPORT ASSISTANT Alfalfa % (Auto) TECHNICAL SUPPORT ASSISTANT Eos % (Auto) TECHNICAL SUPPORT ASSISTANT Baso % (Auto) TECHNICAL SUPPORT ASSISTANT Absolute Neuts (auto) 39.0 H Absolute Lymphs (auto) 3.41 Total Counted TECHNICAL SUPPORT ASSISTANT Neutrophils % (Manual) 70 Band Neutrophils % 10 H Lymphocytes % (Manual) 7 L Monocytes % (Manual) 6 Metamyelocytes % 4 H Myelocytes % 3 H Nucleated RBC % TECHNICAL SUPPORT ASSISTANT Diff Path Review May foll Sodium 133 L Potassium 4.4 Chloride 100 Carbon Dioxide 20.0 L Anion Gap 13 BUN 24 H Creatinine 0.76 Estim Creat Clear Calc 100.05 Est GFR (MDRD) Af Amer 133 Est GFR (MDRD) Non-Af 110 BUN/Creatinine Ratio 31.7 H Glucose 97 Lactic Acid 1.0 Calcium 9.4 Total Bilirubin 0.80 Direct Bilirubin 0.26 AST 51 H ALT 61 Alkaline Phosphatase 281 H Total Protein 7.5 Albumin 3.3 Globulin 4.2 Lipase 96 Urine Color Urine Clarity Urine pH Ur Specific [place] Urine Protein Urine Glucose (UA) Urine Ketones Urine Occult Blood Urine Nitrite Urine Bilirubin Urine Urobilinogen Ur Leukocyte Esterase Urine RBC Urine WBC Ur Squamous Epith Cells Urine Bacteria Hyaline Casts Urine Mucus 06/04/19 18:01 WBC RBC Hgb Hct MCV MCH MCHC RDW Std Deviation RDW Coeff of Jluis Plt Count MPV Immature Gran % (Auto) Neut % (Auto) Lymph % (Auto) Alfalfa % (Auto) Eos % (Auto) Baso % (Auto) Absolute Neuts (auto) Absolute Lymphs (auto) Total Counted Neutrophils % (Manual) Band Neutrophils % Lymphocytes % (Manual) Monocytes % (Manual) Metamyelocytes % Myelocytes % Nucleated RBC % Diff Path Review Sodium Potassium Chloride Carbon Dioxide Anion Gap BUN Creatinine Estim Creat Clear Calc Est GFR (MDRD) Af Amer Est GFR (MDRD) Non-Af BUN/Creatinine Ratio Glucose Lactic Acid Calcium Total Bilirubin Direct Bilirubin AST ALT Alkaline Phosphatase Total Protein Albumin Globulin Lipase Urine Color Yellow Urine Clarity Clear Urine pH 5.0 Ur Specific [place] 1.020 Urine Protein 15 H Urine Glucose (UA) Normal Urine Ketones 150 H Urine Occult Blood 10 H Urine Nitrite Negative Urine Bilirubin Negative Urine Urobilinogen Normal Ur Leukocyte Esterase Negative Urine RBC 0 SEEN Urine WBC 0-5 SEEN Ur Squamous Epith Cells 0-5 SEEN Urine Bacteria RARE Hyaline Casts 0-5 SEEN Urine Mucus RARE - Medical Decision Making Patient is given IV fluid and Tylenol. At this time I do not have a definitive source of infection. I did review his prior records. When he was admitted to this hospital last fall with cholecystitis his white count went up to 51,000. It appears that the last note I can find from [facility] on May 24 he had a white count of 38,000. Patient does have significant leukocytosis at this time at 48,000 with 10 bands. I spoke with Dr. Lucas, on-call for Dr. Sanchez, the patient's surgeon at [facility]. He recommended the patient be admitted for observation, but does not necessarily feel the patient has to come to [facility]. He states as long as the CT scan of the abdomen is okay there is no acute surgical intervention to be performed. He thought the patient should be observed until cultures are returned. He does not necessarily feel the patient requires antibiotics at this time since we do not have a definitive source of infection. ED Disposition - Plan for ED Patient: Disposition: Acute Care Hospital [facility] Diagnosis: Fever, Leukocytosis Referrals: Kavitha Tidwell MD [STAFF PHYSICIAN] -
[2019-06-04] MEDS: 0.9% Normal Saline 1,000 ML 1000 ML IV (16:59)
[2019-06-04 17:05] LABS: Hematocrit 34.3 % (40-54); Hemoglobin 11.4 g/dL (13.0-16.5); Mean Corp Hgb Conc 33.2 g/dL (32-36); Mean Corpuscular Hgb 29.5 pg (27.0-32.0); Mean Corpuscular Volume 88.9 fL (80-94); Mean Platelet Vol. 8.9 fl (6.2-12.0); POSITIVE COUNT YES; POSITIVE DIFFERENTIAL YES; POSITIVE MORPHOLOGY YES; Platelet Count 387 K/mm3 (150-450); RBC Distribution Width CV 13.9 % (11.6-14.6); RBC Distribution Width SD 44.9 fl (35.1-43.9); Red Blood Count 3.86 M/mm3 (4.6-6.2)
[2019-06-04 17:09] LABS: White Blood Count 48.7 K/mm3 (4.4-11.0)
[2019-06-04 17:22] LABS: AST(SGOT) 51 U/L (15-37); Alanine Aminotransfer ALT/SGPT 61 U/L (16-61); Albumin, Serum 3.3 g/dL (3.2-5.0); Alkaline Phosphatase 281 U/L (45-117); Anion Gap 13 (5-15); BUN 24 mg/dL (7-18); BUN/Creat Ratio 31.7 RATIO (10-20); Bilirubin, Direct 0.26 mg/dL (0.00-0.30); Calcium,Total 9.4 mg/dL (8.5-10.1); Chloride 100 mmol/L (98-107); Creatinine, Serum 0.76 mg/dL (0.70-1.30); EST Glomerular Filtration Rate 110 mL/min (>60); Est Glom Filt Rate - Afr Amer 133 mL/min (>60); Estimated Creatinine Clearance 100.05 ml/min; Globulin 4.2 g/dL (2.2-4.2); Glucose 97 mg/dL (74-106); Lipase 96 U/L (73-393); Potassium 4.4 mmol/L (3.5-5.1); Protein, Total 7.5 g/dL (6.4-8.2); Sodium Level 133 mmol/L (136-145)
[2019-06-04] MEDS: 0.9% Normal Saline 1,000 ML 150 ML IV (17:39)
[2019-06-04 17:44] LABS: Differential Indicated MANUAL DIFF
[2019-06-04 17:47] LABS: Neutrophil-Band 10 % (0-5); Neutrophil-Segmented 70 % (47-70)
[2019-06-04 17:48] LABS: Lymphocyte 7 % (19-41); Metamyelocyte 4 % (0-1); Monocyte 6 % (0-10); Myelocyte 3 (0-0)
[2019-06-04 17:49] LABS: Scan Smear per Review Criteria MANUAL DIFF
[2019-06-04 17:51] LABS: Absolute Lymphocyte Count 3.41 X10^3/uL (0.83-4.51)
[2019-06-04 18:09] LABS: Red Blood Cells-Urine 0 SEEN /hpf (0-5)
[2019-06-04 18:23] LABS: Color, Urine Yellow (Yellow); Glucose, Dipstick Normal (Normal); Leukocyte Esterase-Dipstick Negative /ul (Negative); Nitrite-Dipstick Negative (Negative); Occult Blood-Urine 10 /ul (Negative); Protein-Dipstick 15 mg/dl (Negative); Urine Bilirubin Dipstick Negative (Negative); Urine Clarity Clear (Clear); Urine Urobilinogen Normal (Normal)
[2019-06-04 18:29] LABS: Ketone-Dipstick 150 mg/dl (Negative)
[2019-06-04 18:36] LABS: Bacteria RARE /hpf (None Seen); Hyaline Cast 0-5 SEEN /lpf (0-5); Mucous, Urine RARE /hpf (<or=2+); Squamous Epithelial Cells - UA 0-5 SEEN /hpf (0-5); White Blood Cells 0-5 SEEN /hpf (0-5)
--- NOTE | 2019-06-04 20:07 | RAD_ITS ---
STUDY: X-RAY CHEST REASON FOR EXAM: Male, 64 years old. Abdominal pain. Recent abdominal surgeries. Pancreatic cancer. TECHNIQUE: Single AP portable view of the chest. COMPARISON: 03/16/2019. FINDINGS: The lungs are clear and expanded. There is no demonstrated pleural abnormality. Normal size heart. Previous CABG. Normal mediastinum and fredo. Normal visualized pulmonary arteries. Normal visualized aortic arch and descending thoracic aorta. Normal visualized thoracic spine. Normal visualized ribs, clavicles, and shoulders. There is no demonstrated abnormality of the visualized soft tissue structures of the upper abdomen. RAD/Chest 1 View (Portable) IMPRESSION: No evidence for acute chest disease. Electronically Signed: Jose F Limon MD at 21:28 EST , Service support ,
[2019-06-04] MEDS: Acetaminophen 500 MG Tablet 1000 MG PO (20:16)
--- NOTE | 2019-06-04 21:27 | ED.RN ---
SPOKE WITH [facility] IN RADIOLOGY, THEY ARE AWARE OF DELAY IN X-RAY RESULTS. THERE IS A PROBLEM IN RADOSPHERE DR. SANTA AWARE. RN WILL UPDATE FAMILY ON DELAY.
--- NOTE | 2019-06-04 21:50 | PCM.HP.STD ---
Problem List (1) Pancreatic cancer Status: Chronic (2) Fever Status: Acute (3) Leukocytosis Status: Acute (4) Hyperlipidemia Status: Chronic Qualifiers: (5) History of tobacco abuse Status: Chronic (6) Ischemic cardiomyopathy Status: Chronic Comment: EF 35-40% per echo done @ [facility]07/11/2017; 50% per pre-op EFRAIN done @ [facility] 01/25/18 (7) History of [place] (myocardial infarction) Status: Chronic Comment: Left ventricular scar, markie infart ischemia, left ventricular thrombus per echo 12/15/2017 @ [facility] (8) Atherosclerotic heart disease of [place] coronary artery without angina pectoris Status: Chronic Qualifiers: Comment: MARTINES to LAD, free JANEEN to PDA, SVG to Diagonal, SVG to OM, SVG to right Posterior lateral per Dr. Charli TALAMANTES (9) S/P CABG x 5 Status: Chronic Comment: MARTINES to LAD, free JANEEN to PDA, SVG to Diagonal, SVG to OM, SVG to right Posterior lateral per Dr. Charli TALAMANTES History of Present Illness Date of Admission: 06/04/19 Chief Complaint: FATIGUE The patient is a 64 year old M with a significant history of pancreatic cancer status post Whipple procedure on May 18, 2019 at [facility]; CAD status post CABG who presented at the emergency department with fatigue of about 2 days. Associated with his symptoms is malaise; anorexia; insomnia and abdominal pain. Also patient had a fever of 101.4 Fahrenheit at home. At the emergency department his T-max was 100.3 Fahrenheit. Also he had severely elevated white count. Emergency department doctor discussed the case with the surgeon on-call at [facility] who did not feel that patient should be readmitted at the [facility]; but recommended that patient be observed at the hospital without antibiotics. Further, Patient was admitted to our hospital ([facility]) on 03/13/2019 and discharged on 03/17/2019 for acute cholecystitis and he had laparoscopic cholecystectomy at that time. Past Medical History Past Medical History (Chronic Problems): Chronic Problems (Last Reviewed 06/05/19 @ 00:41 by Chance Juarez MD) Pancreatic cancer (Chronic) Hyperlipidemia (Chronic) History of tobacco abuse (Chronic) Ischemic cardiomyopathy (Chronic) EF 35-40% per echo done @ [facility]07/11/2017; 50% per pre-op EFRAIN done @ [facility] 01/25/18 History of [place] (myocardial infarction) (Chronic) Left ventricular scar, markie infart ischemia, left ventricular thrombus per echo 12/15/2017 @ [facility] Atherosclerotic heart disease of [place] coronary artery without angina pectoris (Chronic) MARITNES to LAD, free JANEEN to PDA, SVG to Diagonal, SVG to OM, SVG to right Posterior lateral per Dr. 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 Augustin [facility] Medical History: Medical History (Last Reviewed 06/05/19 @ 02:11 by Chance Juarez MD) Hyperlipidemia (Chronic) E78.5 History of tobacco abuse (Chronic) Z87.891 Ischemic cardiomyopathy (Chronic) I25.5 EF 35-40% per echo done @ [facility]07/11/2017; 50% per pre-op EFRAIN done @ [facility] 01/25/18 History of [place] (myocardial infarction) (Chronic) I25.2 Left ventricular scar, markie infart ischemia, left ventricular thrombus per echo 12/15/2017 @ [facility] Atherosclerotic heart disease of [place] coronary artery without angina pectoris (Chronic) I25.10 MARTINES to LAD, free JANEEN to PDA, SVG to Diagonal, SVG to OM, SVG to right Posterior lateral per Dr. Augustin NINA Allergies No Known Allergies Allergy (Verified 03/13/19 04:27) Home Medications: Ambulatory Orders Medication Instructions Recorded metoprolol tartrate 50 mg tablet 50 mg PO BID #180 tab 03/29/18 aspirin 81 mg chewable tablet 81 mg PO QHS tab 11/14/18 atorvastatin 40 mg tablet 40 mg PO DAILY #90 tab 05/11/19 Acetaminophen [Tylenol Extra 500 mg PO Q6H PRN 06/04/19 Strength] Lipase/Protease/Amylase [Krunal Dr 2 ea PO TIDCM 06/04/19 36,000 Units Capsule] Metformin HCl 500 mg PO BID 06/04/19 Metoclopramide [Reglan] 10 mg PO TID 06/04/19 Pantoprazole Sodium 40 mg PO DAILY 06/04/19 Surgical History: Surgical History (Last Reviewed 06/05/19 @ 02:11 by Chance Juarez MD) S/P CABG x 5 (Chronic) Onset Date: 01/25/18 Z95.1 MARTINES to LAD, free JANEEN to PDA, SVG to Diagonal, SVG to OM, SVG to right Posterior lateral per Dr. Augustin [facility] History of colonoscopy with polypectomy Onset Date: 05/15/03 Z98.890, Z86.[address] Dillon History of right inguinal hernia repair Onset Date: 03/23/16 Z98.890, Z87.[address] Dillon Incarcerated right inguinal hernia (Inactive) K40.30 Surgical History: coronary bypass surgery, herniorrhaphy - right inguinal x 2, - - facial surgery summer, amputated left ring finger 1993 Psychiatric History: No pertinent psych hx Lives: Spouse/ Significant Other Smoking Status: Former smoker - Quit smoker about a week ago Tobacco Use: Cigarettes - *Family History Maternal Family History: Family History (Last Reviewed 06/05/19 @ 02:12 by Chance Juarez MD) Brother CAD (coronary artery disease) Brother CAD (coronary artery disease) Mother Cancer Father Cancer Sister Cancer Review of Systems Constitutional: Reports: Anorexia, Fever, Malaise, Fatigue. Denies: Weight Change HEENT: Denies: Head Aches, Sinus Congestion, Sinus Drainage Cardiovascular: Denies: Chest Pain, Palpitations Respiratory: Denies: Cough, Shortness of breath at rest, Sputum production Gastrointestinal: Reports: Abdominal Pain. Denies: Nausea, Vomiting Genitourinary: Denies: Dysuria Musculoskeletal: Denies: Joint Pain, Joint Tenderness Skin: Denies: Rash, Wounds Neurological: Denies: Numbness, Tingling, Focal weakness Psychiatric: Denies: Anxiety, Depression, Homicidal Ideations, Suicidal Ideations Hematologic/ Lymphatic: Denies: Easy Bruising, Easy Bleeding VTE Information - Inpt Only VTE Present on Admission: No VTE Mechan Device Prophylaxis: None VTE Pharm Prophylaxis ordered?: Yes Patient Problems: Active and Suspected Problems (Last Reviewed 06/05/19 @ 00:41 by Chance Juarez MD) Fever (Acute) Leukocytosis (Acute) - Physical Exam Vitals/I&O's: Vital Signs Temp Pulse Resp BP Pulse Ox 98.6 F 94 16 107/86 H 95 06/04/19 20:18 06/04/19 20:18 06/04/19 20:18 06/04/19 20:18 06/04/19 20:18 Oxygen Delivery Method Room Air Weight: 74.843 kg Body Mass Index (BMI) 23.6 Intake and Output for Last 24 Hours 06/02/19 06/03/19 06/04/19 23:59 23:59 23:59 Intake Total 1000 / 999 Balance 1000 / 999 General: Alert, Oriented x3, Cooperative, - - Looks sick HEENT: Atraumatic, PERRLA, EOMI, Normocephalic Neck: Supple, No JVD, Negative Carotid Bruits Lungs: Rales - mild at right base Cardiovascular: Normal S1, Normal S2, No murmurs, Tachycardic Abdomen: Bowel Sounds Present, Soft, Non Tender, - - Well approximated midline incision with no erythema; tenderness or swelling. Extremities: No edema, Capillary Refill Less than 3 Seconds Skin: No rashes, No breakdown Musculoskeletal: No Tenderness to Palpation of Joints or Extremities Neurological: Cranial nerves II-XII grossly intact Psych/Mental Status: Normal Affect, Appropriate Microbiology Past 72 Hours 06/04/19 20:30 Mucosa - Nasopharyngeal Influenza Types A,B Direct FA ([facility]) - Final Laboratory Results 06/04/19 16:30: WBC 48.7 H*, RBC 3.86 L, Hgb 11.4 L, Hct 34.3 L, MCV 88.9, MCH 29.5, MCHC 33.2, RDW Std Deviation 44.9 H, RDW Coeff of Jluis 13.9, Plt Count 387, MPV 8.9, Immature Gran % (Auto) SPEECH LANG PATH THERAPIST, Neut % (Auto) SPEECH LANG PATH THERAPIST, Lymph % (Auto) SPEECH LANG PATH THERAPIST, Haakon % (Auto) SPEECH LANG PATH THERAPIST, Eos % (Auto) SPEECH LANG PATH THERAPIST, Baso % (Auto) SPEECH LANG PATH THERAPIST, Absolute Neuts (auto) 39.0 H, Absolute Lymphs (auto) 3.41, Total Counted SPEECH LANG PATH THERAPIST, Neutrophils % (Manual) 70, Band Neutrophils % 10 H, Lymphocytes % (Manual) 7 L, Monocytes % (Manual) 6, Metamyelocytes % 4 H, Myelocytes % 3 H, Nucleated RBC % SPEECH LANG PATH THERAPIST, Diff Path Review September06/04/19 16:30: Sodium 133 L, Potassium 4.4, Chloride 100, Carbon Dioxide 20.0 L, Anion Gap 13, BUN 24 H, Creatinine 0.76, Estim Creat Clear Calc 100.05, Est GFR (MDRD) Af Amer 133, Est GFR (MDRD) Non-Af 110, BUN/Creatinine Ratio 31.7 H, Glucose 97, Calcium 9.4, Total Bilirubin 0.80, Direct Bilirubin 0.26, AST 51 H, ALT 61, Alkaline Phosphatase 281 H, Total Protein 7.5, Albumin 3.3, Globulin 4.2, Lipase 96 06/04/19 16:55: Lactic Acid 1.0 06/04/19 18:01: Urine Color Yellow, Urine Clarity Clear, Urine pH 5.0, Ur Specific [place] 1.020, Urine Protein 15 H, Urine Glucose (UA) Normal, Urine Ketones 150 H, Urine Occult Blood 10 H, Urine Nitrite Negative, Urine Bilirubin Negative, Urine Urobilinogen Normal, Ur Leukocyte Esterase Negative, Urine RBC 0 SEEN, Urine WBC 0-5 SEEN, Ur Squamous Epith Cells 0-5 SEEN, Urine Bacteria RARE, Hyaline Casts 0-5 SEEN, Urine Mucus RARE Current Medications Sodium Chloride () 1,000 mls @ 150 mls/hr IV .Q6H40M [facility] Last Admin: 06/04/19 17:39 Dose: 150 mls/hr Documented by: Assessment/Plan All Active Problems (Last Reviewed 06/05/19 @ 00:41 by Chance Juarez MD) Fever (Acute) Leukocytosis (Acute) The patient is a 64 year old M with a significant history of pancreatic cancer status post Whipple procedure on May 18, 2019 at [facility]; CAD status post CABG who presented at the emergency department with fatigue; fever; malaise; anorexia; insomnia; abdominal pain and leukocytosis consistent with acute febrile illness. Acute febrile illness Temperature at home reportedly was 101.4 Fahrenheit. T-max at hospital is 100.3. Blood culture x2 was obtained at the emergency department follow. Influenza screen is unremarkable. Etiology of his symptoms is unclear at this time. Will get a comprehensive respiratory pathogen panel. Abdomen and pelvis CT showed no acute abnormality except tiny foci of extraluminal air most likely postsurgical with perforation not excluded. Patient does not have a toxic abdomen. Chest x-ray was unremarkable. Supportive treatment with IV fluids. Tylenol for fever. Of note patient meets SIRS criteria with tachycardia and leukocytosis. However there is no obvious source of infection at this time to consider patient as septic. His white count in March 2019 when he was admitted for cholecystitis was severely elevated. Trend CBC and BMP Pancreatic cancer status post Whipple procedure/leukocytosis Patient follows up with the [facility]. Will consult Dr. Reyes in the setting of cancer patient with acute illness Creon continued CAD status post CABG Aspirin and Lipitor continued. Metoprolol continued Hypertension On presentation blood pressure was now within goal Metoprolol continued Trend blood pressure and adjust blood pressure medications. GERD Pantoprazole continued DVT prophylaxis Subcutaneous Lovenox Code Visit Inpatient E&M: 65914 Init Hosp L3
[2019-06-05] VITALS (13 sets, daily range): BP systolic 124–147; BP diastolic 42–73; PULSE 89–114; RESP 15–22; TEMP 36.8–38.9; O2SAT 91–96
[2019-06-05] MEDS: 0.9% Normal Saline 1,000 ML 100 ML IV (01:34)
[2019-06-05 05:58] LABS: Hematocrit 29.8 % (40-54); Hemoglobin 9.8 g/dL (13.0-16.5); Mean Corp Hgb Conc 32.9 g/dL (32-36); Mean Corpuscular Hgb 29.3 pg (27.0-32.0); Mean Corpuscular Volume 89.2 fL (80-94); Mean Platelet Vol. 9.1 fl (6.2-12.0); POSITIVE COUNT YES; POSITIVE DIFFERENTIAL YES; POSITIVE MORPHOLOGY YES; Platelet Count 297 K/mm3 (150-450); RBC Distribution Width CV 14.1 % (11.6-14.6); RBC Distribution Width SD 45.7 fl (35.1-43.9); Red Blood Count 3.34 M/mm3 (4.6-6.2)
[2019-06-05 06:08] LABS: Anion Gap 12 (5-15); BUN 15 mg/dL (7-18); BUN/Creat Ratio 26.8 RATIO (10-20); Calcium,Total 8.6 mg/dL (8.5-10.1); Chloride 104 mmol/L (98-107); Creatinine, Serum 0.56 mg/dL (0.70-1.30); EST Glomerular Filtration Rate 156 mL/min (>60); Est Glom Filt Rate - Afr Amer 189 mL/min (>60); Estimated Creatinine Clearance 130.02 ml/min; Glucose 71 mg/dL (74-106); Potassium 3.7 mmol/L (3.5-5.1); Sodium Level 135 mmol/L (136-145)
[2019-06-05] MEDS: Metoclopramide 10 MG Tablet PO ×2 (06:16→13:03)
[2019-06-05 06:21] LABS: White Blood Count 35.7 K/mm3 (4.4-11.0)
[2019-06-05 06:22] LABS: Differential Indicated MANUAL DIFF
[2019-06-05 06:46] LABS: Bedside Glucose 68 mg/dL (70-110)
[2019-06-05] MEDS: Dextrose 10%-Water 250 ML 999 ML IV (07:10)
--- NOTE | 2019-06-05 07:13 | PN_ITS ---
Patient Problems: Active and Suspected Problems (Last Reviewed 06/05/19 @ 02:11 by Chance Juarez MD) Fever (Acute) Leukocytosis (Acute) Subjective: Patient seated upright in the bed, fatigued and ill-appearing, recent bout of emesis but no specific nausea prior to this but states that he has been intolerant of oral intake nearly since surgery with poor appetite but no specific nausea or emesis prior. Patient notes ongoing generalized abdominal discomfort following operative intervention but no new severe discomfort, diste ntion, change in bowel or bladder patterns. Patient denies any recent URI-like symptoms except mild rhinorrhea x24 hours but no other additional complaints. Patient remains febrile, tachycardic, worse with any activity. Discussed plan of care with recent review of imaging with general surgery and given status recommendation for transfer back to [facility] to which patient is amenable. Patient denies fevers, chills, nausea, chest pain or dyspnea. Objective: Physical Examination: General: awake, alert, oriented x 3 and cooperative, seated upright in the bed, fatigued and ill-appearing, no acute distress. Skin: normal color, turgor, no icterus, cyanosis. HEENT: AT/NC, EOMI, PERRLA, dry MM. Lungs: Diminished breath sounds bases, moderate effort, no obvious rales, rhonchi or wheezing. Heart: Tachycardic with regular rhythm; no gallop, rub audible. Abdomen: soft, mild generalized discomfort with palpation, status post recent Whipple, midline incision appears clean/dry/intact, ND, mildly distant normal BS. Extremities: no cyanosis, clubbing, or edema. Neurological: patient awake, alert, oriented x 3; cognitive function intact; pupils equally reactive to light and accomodation; cranial nerves II-XII grossly normal, moving all 4 extremities, no focal deficits, strength moderately to severely global decrease secondary to acute presentation. Psychiatric: affect appears fatigued, ill-appearing, no acute evidence of depressive or anxiety feelings. Vitals/I&O's: Vital Signs Temp Pulse Resp BP Pulse Ox 98.3 F 89 15 126/70 H 95 06/05/19 04:29 06/05/19 05:00 06/05/19 04:47 06/05/19 04:29 06/05/19 04:47 Oxygen Delivery Method Room Air Weight: 154 lb 1.65 oz Body Mass Index (BMI) 22.1 Intake and Output for Last 24 Hours 06/03/19 06/04/19 06/05/19 23:59 23:59 23:59 Intake Total 1000 / 1050 1100 / 1100 Balance 1000 / 1050 1100 / 1100 Microbiology Past 72 Hours 06/04/19 20:30 Mucosa - Nasopharyngeal Influenza Types A,B Direct FA ([facility]) - Final Laboratory Results 06/04/19 16:30: WBC 48.7 H*, RBC 3.86 L, Hgb 11.4 L, Hct 34.3 L, MCV 88.9, MCH 29.5, MCHC 33.2, RDW Std Deviation 44.9 H, RDW Coeff of Jluis 13.9, Plt Count 387, MPV 8.9, Immature Gran % (Auto) ZINC FURNACE CHARGER, Neut % (Auto) ZINC FURNACE CHARGER, Lymph % (Auto) ZINC FURNACE CHARGER, Garvin % (Auto) ZINC FURNACE CHARGER, Eos % (Auto) ZINC FURNACE CHARGER, Baso % (Auto) ZINC FURNACE CHARGER, Absolute Neuts (auto) 39.0 H, Absolute Lymphs (auto) 3.41, Total Counted ZINC FURNACE CHARGER, Neutrophils % (Manual) 70, Band Neutrophils % 10 H, Lymphocytes % (Manual) 7 L, Monocytes % (Manual) 6, Metamyelocytes % 4 H, Myelocytes % 3 H, Nucleated RBC % ZINC FURNACE CHARGER, Diff Path Review September06/04/19 16:30: Sodium 133 L, Potassium 4.4, Chloride 100, Carbon Dioxide 20.0 L , Anion Gap 13, BUN 24 H, Creatinine 0.76, Estim Creat Clear Calc 100.05, Est GFR (MDRD) Af Amer 133, Est GFR (MDRD) Non-Af 110, BUN/Creatinine Ratio 31.7 H, Glucose 97, Calcium 9.4, Total Bilirubin 0.80, Direct Bilirubin 0.26, AST 51 H, ALT 61, Alkaline Phosphatase 281 H, Total Protein 7.5, Albumin 3.3, Globulin 4.2, Lipase 96 06/04/19 16:55: Lactic Acid 1.0 06/04/19 18:01: Urine Color Yellow, Urine Clarity Clear, Urine pH 5.0, Ur Specific [place] 1.020, Urine Protein 15 H, Urine Glucose (UA) Normal, Urine Ketones 150 H, Urine Occult Blood 10 H, Urine Nitrite Negative, Urine Bilirubin Negative, Urine Urobilinogen Normal, Ur Leukocyte Esterase Negative, Urine RBC 0 SEEN, Urine WBC 0-5 SEEN, Ur Squamous Epith Cells 0-5 SEEN, Urine Bacteria RARE, Hyaline Casts 0-5 SEEN, Urine Mucus RARE 06/05/19 05:06: WBC 35.7 H*, RBC 3.34 L, Hgb 9.8 L, Hct 29.8 L, MCV 89.2, MCH 29.3, MCHC 32.9, RDW Std Deviation 45.7 H, RDW Coeff of Jluis 14.1, Plt Count 297, MPV 9.1, Neut % (Auto) Not Reportable, Absolute Neuts (auto) Pending 06/05/19 05:06: Sodium 135 L, Potassium 3.7, Chloride 104, Carbon Dioxide 19.0 L , Anion Gap 12, BUN 15, Creatinine 0.56 L, Estim Creat Clear Calc 130.02, Est GFR (MDRD) Af Amer 189, Est GFR (MDRD) Non-Af 156, BUN/Creatinine Ratio 26.8 H, Glucose 71 L, Calcium 8.6 06/05/19 06:41: POC Glucose 68 L Current Medications Acetaminophen (Tylenol) 650 mg PO Q6H PRN PRN PRN Reason: Pain Score 1-3/Temp > 100.7 F Aspirin (Aspirin, Baby) 81 mg PO QHS [facility] Atorvastatin Calcium (Lipitor) 40 mg PO QHS [facility] Enoxaparin Sodium (Lovenox) 40 mg SC DAILY [facility] Glucagon () 1 mg IM .X1 PRN PRN Reason: Hypoglycemia Sodium Chloride () 1,000 mls @ 100 mls/hr IV .Q10H [facility] Stop: 06/06/19 06:20 Last Admin: 06/05/19 01:34 Dose: 100 mls/hr Documented by: Dextrose (Dextrose 10%-Water) 250 mls @ 999 mls/hr IV .Q16M PRN; Protocol PRN Reason: HYPOGLYCEMIA Last Admin: 06/05/19 07:10 Dose: 999 mls/hr Documented by: Insulin Human Lispro (Humalog Kwikpen (Bkc)) 0 unit SC ACHS [facility]; Protocol Metoclopramide HCl (Reglan) 10 mg PO TIDAC [facility] Last Admin: 06/05/19 06:16 Dose: 10 mg Documented by: Metoprolol Tartrate (Lopressor (Beta Alpesh)) 50 mg PO BID [facility] Ondansetron HCl (Zofran) 4 mg IV Q8H PRN PRN PRN Reason: NAUSEA/VOMITING Pancrelipase (Creon Dr 24,000 Unit Capsule) 2 capsule PO TIDCM [facility] Pancrelipase (Creon Dr 12,000 Unit Capsule) 2 capsule PO TIDCM [facility] Pantoprazole Sodium (Protonix) 40 mg PO DAILY [facility] Senna/Docusate Sodium (Senokot-S, Luz Maria-Colace) 2 tablet PO BID PRN PRN PRN Reason: Constipation Sodium Chloride () 10 - 40 ml IV UD PRN PRN Reason: SALINE FLUSH STROKE Vital Signs/Narrative: Vital Signs Temp Pulse Resp BP Pulse Ox 06/05/19 05:00 89 06/05/19 04:47 15 95 06/05/19 04:29 98.3 F 90 15 126/70 H 95 Medical Necessity - Tobacco Use Smoking Status: Former smoker - Quit smoker about a week ago Tobacco Use: Cigarettes Assessment/Plan All Active Problems (Last Reviewed 06/05/19 @ 02:11 by Chance Juarez MD) Fever (Acute) Leukocytosis (Acute) The patient is a 64 y/o M w/ PMHx: Chronic normocytic anemia, CAD s/p CABG x 5, HTN, HLD, Ischemic Cardiomyopathy, Former Tobacco use, GERD, Diabetes mellitus unclear type, Pancreatic Cancer s/p Whipple 05/18/2019 at [facility] who presents to the [facility] ED on 06/04/19 with history of worsening fatigue, malaise x 2 days with now onset fever. 1. SIRS, Unclear Etiology: ED presentation w/ T 100.3, tachycardic, WBC elevation although chronic component, Bld Cx x 2 pending, respiratory viral panel pending, CXR without acute findings, CT A/P w/ no definitive acute abnormality status post Whipple although noted right upper quadrant with tiny foci of extraluminal air likely secondary to postsurgical changes with no evidence of bowel obstruction or abscess, UA unremarkable, rapid influenza negative, respiratory viral panel negative, continue to monitor, maintained on IVFs as poor oral intake, Dr. Reyes consulted, pending. Given ongoing tachycardia, elevated WBC with left shift and ill-appearing will initiate vancomycin and Zosyn therapy, reviewed CT abdomen and pelvis with general surgeon with his recommendation to transfer back to [facility] with no obvious acute finding but cannot specifically find the commented on tiny foci of extraluminal air but does note proximal thickening up to the stomach which is not commented on in the radiology read either. Additionally will obtain repeat chest x-ray PA and lateral given overnight hydration. 2. Pancreatic cancer status post Whipple with chronic leukocytosis: Admission CBC w/ WBC 48.7, 06/05/19 repeat WBC 35.7, has been trending up per review since 03/2019, CT A/P w/ no definitive acute abnormality status post Whipple although noted right upper quadrant with tiny foci of extraluminal air likely secondary to postsurgical changes with no evidence of bowel obstruction or abscess, mag and phos requested, continued on creon, Dr. Reyes consulted. 3. Malnutrition, Severe Protein Calorie: s/p surgical intervention recently as noted, poor oral intake, nutrition consulted. 4. Diabetes mellitus unclear type w/ Hypoglycemia: Recent whipple, unclear if onset following or prior, will investigate, holding metformin which would lead to believe diabetic prior, currently low BS, transition to NS w/ D5, continue to monitor, given poor intake, transition to a 6 hour accu check w/ ISS. 5. Chronic normocytic anemia: Admission Hgb 11.4, repeat 06/05/19 9.8 following hydration, continue to trend. 6. Hyponatremia, mild, hypovolemic: Admission Na 133, likely hypovolemic, given recent poor oral intake, hydration continued, repeat 06/05/19 Na 135. 7. History of [place], Ischemic Cardiomyopathy, CAD: s/p CABG x 5, EF 35-40% ECHO [facility] 07/11/2017, 50% per pre-op EFRAIN [facility] 01/25/18, maintain on asa, statin, metoprolol regimen. 8. Hypertension: Continue home regimen including metoprolol, PRN hydralazine. 9. Hyperlipidemia: Continue home statin regimen. 10. GERD: Maintain on PPI. 11. DVT prophylaxis: SCDs, lovenox. Code Visit Inpatient E&M: 50902 [facility] Hosp L3
[2019-06-05 07:41] LABS: Lymphocyte 4 % (19-41); Metamyelocyte 19 % (0-1); Monocyte 12 % (0-10); Myelocyte 8 (0-0); Neutrophil-Band 9 % (0-5); Neutrophil-Segmented 48 % (47-70); Total Cells Counted 100 (MANUAL DIFF)
[2019-06-05 07:43] LABS: Neutrophil # 20.35 X10^3/uL (2.7-7.7)
[2019-06-05 07:44] LABS: Absolute Lymphocyte Count 1.43 X10^3/uL (0.83-4.51); Absolute Neutrophil Count 20.4 X10^3/uL (2.0-7.7); Lymphocyte # 1.43 X10^3/ul (4.0); Platelet Estimate ADEQUATE (ADEQ)
[2019-06-05 08:05] LABS: Magnesium 1.8 mg/dL (1.6-2.6); Phosphorus 3.1 mg/dL (2.5-4.9)
[2019-06-05] MEDS: Dextrose 5%/0.9% NaCl 1,000 ML 100 ML IV (09:24)
[2019-06-05] MEDS: Metoprolol Tartrate 50 MG Tablet PO (09:27)
[2019-06-05] MEDS: Enoxaparin 40 MG/0.4 ML Syringe SC (09:29)
[2019-06-05] MEDS: Pantoprazole Sodium 40 MG Tablet PO (09:30)
[2019-06-05] MEDS: Acetaminophen 325 MG Tablet 650 MG PO ×2 (09:30→15:38)
--- NOTE | 2019-06-05 10:05 | CASEMGMT ---
RN CM Face to Face with patient for initial transition planning/care coordination assessment. RN CM introduced self and role at [facility]. Patient lying in bed, alert and oriented. Patient willing to participate in assessment and is able to answer all questions appropriately. Care providers, pharmacy, and demographics verified. Patient wishes to discharge home, denies need for home health at this time. Patient states he has no further needs or concerns at this time. CM to follow for discharge planning needs that may arise. PCP: [facility] Specialists: Daniel, oncologist; Eloy dirt bike racer Preferred Pharmacy: [facility] Pres[facility] Benefit: yes Living Will/HPOA: yes, sister in law, Chiquita Franco LNOK: sister in law Living Arrangements: Patient lives with girlfriend in 2 story home. Patient states he is independent at home. Transportation: sister in law DME/HHC: patient states he has walker, cane, and crutches at home. Patient denies HHC at this time. Disposition Plan: Patient to discharge home with family support and follow-up plans in place. Mulu BASSETT, RN, CM
--- NOTE | 2019-06-05 10:50 | RAD_ITS ---
STUDY: X-RAY CHEST REASON FOR EXAM: Male, 64 years old. Fever TECHNIQUE: PA and lateral views of the chest. COMPARISON: Comparison is made with prior study dated June 04, 2019. FINDINGS: EKG electrode are seen. The lungs are clear and expanded. There is no demonstrated pleural abnormality. Sternal cerclage wires and vascular clips are present from a prior sternotomy and coronary artery bypass graft procedure (CABG). Normal mediastinum and fredo. Normal visualized pulmonary arteries. There is atherosclerotic tortuosity of the aortic arch and descending thoracic aorta. Normal visualized thoracic spine. Normal visualized ribs, clavicles, and shoulders. Small hiatal hernia. RAD/Chest PA and Lateral IMPRESSION: No acute abnormality is seen. Electronically Signed: Haroon Watts, at 12:52 EST , Service support ,
--- NOTE | 2019-06-05 11:18 | PCM.RX.CS ---
Consult Pharmacy has been consulted to manage selected antiobiotic: Vancomycin Type of Consult: New start Suspected Infection: Sepsis Prior Doses of Antibiotics Received/Current Regimen: ZERO Labs: Sodium 135 mmol/L (136-145) L 06/05/19 05:06 Potassium 3.7 mmol/L (3.5-5.1) 06/05/19 05:06 Chloride 104 mmol/L (98-107) 06/05/19 05:06 Carbon Dioxide 19.0 mmol/L (21.0-32.0) L 06/05/19 05:06 Anion Gap 12 (5-15) 06/05/19 05:06 BUN 15 mg/dL (7-18) 06/05/19 05:06 Creatinine 0.56 mg/dL (0.70-1.30) L 06/05/19 05:06 Est GFR (MDRD) Af Amer 189 mL/min (>60) 06/05/19 05:06 Est GFR (MDRD) Non-Af 156 mL/min (>60) 06/05/19 05:06 BUN/Creatinine Ratio 26.8 RATIO (10-20) H 06/05/19 05:06 Glucose 71 mg/dL (74-106) L 06/05/19 05:06 CHECK TROUGH VANCO LEVEL PRIOR TO 4TH DOSE AT 1100 ON 04/06/2020 Microbiology: Microbiology 06/04/19 20:30 Interface Orders Respiratory Panel (PCR) - Final 06/04/19 20:30 Mucosa - Nasopharyngeal Influenza Types A,B Direct FA ([facility]) - Final Weight used for dosin kg Estimated Creatinine Clearance: 130 Goal Trough: 15-20 mcg/mL - VANCOMYCIN 1 GRAM IVPB Q8H, TROUGH LEVEL ORDERED 30 MIN PRIOR TO 4TH DOSE Pharmacy Plan for Drug Dosing: Pharmacy Service will continue to monitor and adjust dosing as required.
--- NOTE | 2019-06-05 11:40 | DS.PCM_ITS ---
Discharge Date and Diagnosis - Problem List Patient Problems: Active and Suspected Problems (Last Reviewed 06/05/19 @ 02:11 by Chance Juarez MD) Fever (Acute) Leukocytosis (Acute) Date of Admission: 06/04/19 Date of Discharge: 06/05/19 - Primary Discharge Diagnosis Active and Suspected Problems (Last Reviewed 06/05/19 @ 02:11 by Chance Juarez MD) 1. SIRS, Unclear Etiology 2. Pancreatic cancer status post Whipple with anorexia, nausea and emesis x1 since operative intervention 3. Malnutrition, Severe Protein Calorie 4. Diabetes mellitus unclear type w/ Hypoglycemia 5. Chronic normocytic anemia 6. Hyponatremia, mild, hypovolemic 7. History of VA, Ischemic Cardiomyopathy, CAD 8. Hypertension 9. Hyperlipidemia 10. 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 Augustin [facility] S/P CABG x 5 (Chronic 01/25/18) MARTINES to LAD, free JANEEN to PDA, SVG to Diagonal, SVG to OM, SVG to right Posterior lateral per Dr. Augustin [facility] Hospital Course and Treatment Imaging Results: 06/05/19 10:50 CXR [Chest PA and Lateral] [RAD] Stat Discussed case with general surgeon, Dr. Grady with review of imaging and given current presentation recommended transferring patient back to [facility]. Operations: None Procedures: EKG Summary of Care Provided: The patient is a 64 y/o M w/ PMHx: Chronic normocytic anemia, CAD s/p CABG x 5, HTN, HLD, Ischemic Cardiomyopathy, Former Tobacco use, GERD, Diabetes mellitus unclear type, Pancreatic Cancer s/p Whipple 05/18/2019 at [facility] who presented to the [facility] ED on 06/04/19 with history of worsening fatigue, malaise x 2 days with onset fever. ED presentation w/ T 100.3, tachycardic, WBC elevation although chronic component, Bld Cx x 2 pending, respiratory viral panel pending, CXR without acute findings, CT A/P w/ no definitive acute abnormality status post Whipple although noted right upper quadrant with tiny foci of extraluminal air likely secondary to postsurgical changes with no evidence of bowel obstruction or abscess, UA unremarkable, rapid influenza negative, respiratory viral panel negative, continued to monitor, maintained on IVFs as poor oral intake w/ D5NS given concurrent hypoglycemia, Dr. Reyes consulted, pending at requested discharge to [facility]. Given ongoing tachycardia, elevated WBC with left shift and ill-appearing, initiated IV vancomycin and Zosyn therapy, reviewed CT abdomen and pelvis with general surgeon with his recommendation to transfer back to [facility] with no obvious acute finding but cannot specifically find the commented on tiny foci of extraluminal air but does note proximal thickening up to the stomach which is not commented on in the radiology read either. Additionally repeated chest x-ray PA and lateral given overnight hydration. Given patient history of recent metformin start with hypoglycemia which was recently reportedly started suspect may need to remain off this agent especially given status post Whipple was discussed with him and noted that this would be evaluated at the [facility] following his transfer as well. Astrid ent discharged to [facility] once bed obtained. Patient Problems: Active and Suspected Problems (Last Reviewed 06/05/19 @ 02:11 by Chance Juarez MD) Fever (Acute) Leukocytosis (Acute) - Physical Exam Vitals/I&O's: Vital Signs Temp Pulse Resp BP Pulse Ox 100 F H 114 H 16 147/42 H 93 06/05/19 09:33 06/05/19 09:33 06/05/19 09:33 06/05/19 09:33 06/05/19 11:31 Oxygen Delivery Method Room Air Weight: 154 lb 1.65 oz Body Mass Index (BMI) 22.1 Intake and Output for Last 24 Hours 06/03/19 06/04/19 06/05/19 23:59 23:59 23:59 Intake Total 1000 / 1050 1350 / 1350 Balance 1000 / 1050 1350 / 1350 Microbiology Past 72 Hours 06/04/19 20:30 Interface Orders Respiratory Panel (PCR) - Final 06/04/19 20:30 Mucosa - Nasopharyngeal Influenza Types A,B Direct FA (GARO) - Final Laboratory Results 06/04/19 16:30: WBC 48.7 H*, RBC 3.86 L, Hgb 11.4 L, Hct 34.3 L, MCV 88.9, MCH 29.5, MCHC 33.2, RDW Std Deviation 44.9 H, RDW Coeff of Jluis 13.9, Plt Count 387, MPV 8.9, Immature Gran % (Auto) TIN POT OPERATOR, Neut % (Auto) TIN POT OPERATOR, Lymph % (Auto) TIN POT OPERATOR, Caroline % (Auto) TIN POT OPERATOR, Eos % (Auto) TIN POT OPERATOR, Baso % (Auto) TIN POT OPERATOR, Absolute Neuts (auto) 39.0 H, Absolute Lymphs (auto) 3.41, Total Counted TIN POT OPERATOR, Neutrophils % (Manual) 70, Band Neutrophils % 10 H, Lymphocytes % (Manual) 7 L, Monocytes % (Manual) 6, Metamyelocytes % 4 H, Myelocytes % 3 H, Nucleated RBC % TIN POT OPERATOR, Diff Path Review September06/04/19 16:30: Sodium 133 L, Potassium 4.4, Chloride 100, Carbon Dioxide 20.0 L , Anion Gap 13, BUN 24 H, Creatinine 0.76, Estim Creat Clear Calc 100.05, Est GFR (MDRD) Af Amer 133, Est GFR (MDRD) Non-Af 110, BUN/Creatinine Ratio 31.7 H, Glucose 97, Calcium 9.4, Total Bilirubin 0.80, Direct Bilirubin 0.26, AST 51 H, ALT 61, Alkaline Phosphatase 281 H, Total Protein 7.5, Albumin 3.3, Globulin 4.2, Lipase 96 06/04/19 16:55: Lactic Acid 1.0 06/04/19 18:01: Urine Color Yellow, Urine Clarity Clear, Urine pH 5.0, Ur Specific Early 1.020, Urine Protein 15 H, Urine Glucose (UA) Normal, Urine Ketones 150 H, Urine Occult Blood 10 H, Urine Nitrite Negative, Urine Bilirubin Negative, Urine Urobilinogen Normal, Ur Leukocyte Esterase Negative, Urine RBC 0 SEEN, Urine WBC 0-5 SEEN, Ur Squamous Epith Cells 0-5 SEEN, Urine Bacteria RARE, Hyaline Casts 0-5 SEEN, Urine Mucus RARE 06/05/19 05:06: WBC 35.7 H*, RBC 3.34 L, Hgb 9.8 L, Hct 29.8 L, MCV 89.2, MCH 29.3, MCHC 32.9, RDW Std Deviation 45.7 H, RDW Coeff of Jluis 14.1, Plt Count 297, MPV 9.1, Neut % (Auto) Not Reportable, Absolute Neuts (auto) 20.4 H, Absolute Lymphs (auto) 1.43, Total Counted 100, Neutrophils % (Manual) 48, Band Neutrophils % 9 H, Lymphocytes % (Manual) 4 L, Monocytes % (Manual) 12 H, Metamyelocytes % 19 H, Myelocytes % 8 H, Diff Path Review September, Platelet Estimate ADEQUATE 06/05/19 05:06: Sodium 135 L, Potassium 3.7, Chloride 104, Carbon Dioxide 19.0 L , Anion Gap 12, BUN 15, Creatinine 0.56 L, Estim Creat Clear Calc 130.02, Est GFR (MDRD) Af Amer 189, Est GFR (MDRD) Non-Af 156, BUN/Creatinine Ratio 26.8 H, Glucose 71 L, Calcium 8.6 06/05/19 05:06: Phosphorus 3.1, Magnesium 1.8 06/05/19 06:41: POC Glucose 68 L Current Medications Acetaminophen (Tylenol) 650 mg PO Q6H PRN PRN PRN Reason: Pain Score 1-3/Temp > 100.7 F Last Admin: 06/05/19 09:30 Dose: 650 mg Documented by: Aspirin (Aspirin, Baby) 81 mg PO QHS [facility] Atorvastatin Calcium (Lipitor) 40 mg PO QHS [facility] Enoxaparin Sodium (Lovenox) 40 mg SC DAILY [facility] Last Admin: 06/05/19 09:29 Dose: 40 mg Documented by: Glucagon () 1 mg IM .X1 PRN PRN Reason: Hypoglycemia Dextrose/Sodium Chloride (Dextrose 5%/0.9% Nacl) 1,000 mls @ 100 mls/hr IV .Q10H [facility] Last Admin: 06/05/19 09:24 Dose: 100 mls/hr Documented by: Vancomycin IV Pharmacy to Dose (1 ea/ Sodium Chloride) 500 mls @ 250 mls/hr IV X1 PRN; Protocol Piperacillin Sod/Tazobactam (Sod 3.375 gm/ Sodium Chloride) 50 mls @ 12.5 mls/hr IV Q8 [facility] Vancomycin HCl (Vancomycin) 1,000 mg in 200 mls @ 200 mls/hr IV Q8H [facility] Insulin Human Lispro (Humalog Kwikpen (Bkc)) 0 unit SC Q6 [facility]; Protocol Metoclopramide HCl (Reglan) 10 mg PO TIDAC [facility] Last Admin: 06/05/19 06:16 Dose: 10 mg Documented by: Metoprolol Tartrate (Lopressor (Beta Alpesh)) 50 mg PO BID [facility] Last Admin: 06/05/19 09:27 Dose: 50 mg Documented by: Ondansetron HCl (Zofran) 4 mg IV Q8H PRN PRN PRN Reason: NAUSEA/VOMITING Pancrelipase (Krunal Alanis 24,000 Unit Capsule) 2 capsule PO TIDCM [facility] Last Admin: 06/05/19 09:26 Dose: Not Given Documented by: Pancrelipase (Krnual Alanis 12,000 Unit Capsule) 2 capsule PO TIDCM [facility] Last Admin: 06/05/19 09:26 Dose: Not Given Documented by: Pantoprazole Sodium (Protonix) 40 mg PO DAILY [facility] Last Admin: 06/05/19 09:30 Dose: 40 mg Documented by: Senna/Docusate Sodium (Senokot-S, Luz Maria-Colace) 2 tablet PO BID PRN PRN PRN Reason: Constipation Sodium Chloride () 10 - 40 ml IV UD PRN PRN Reason: SALINE FLUSH Home Medications: Medications to take at Discharge metoprolol tartrate 50 mg tablet 50 mg PO BID #180 tab 03/29/18 aspirin 81 mg chewable tablet 81 mg PO QHS tab 11/14/18 atorvastatin 40 mg tablet 40 mg PO DAILY #90 tab 05/11/19 Acetaminophen [Tylenol Extra Strength] 500 mg PO Q6H PRN 06/04/19 Lipase/Protease/Amylase [Creon Dr 36,000 Units Capsule] 2 ea PO TIDCM 06/04/19 Metformin HCl 500 mg PO BID 06/04/19 Metoclopramide [Reglan] 10 mg PO TID 06/04/19 Pantoprazole Sodium 40 mg PO DAILY 06/04/19 Primary Care Physician: Kavitha Tidwell MD [STAFF PHYSICIAN] - Disposition: Acute care Hospital Minutes spent on discharge:: 40 Patient Condition:: Guarded Medical Necessity - Tobacco Use Smoking Status: Former smoker - Quit smoker about a week ago Tobacco Use: Cigarettes Meaningful Use Info Meaningful Use Diagnoses (Choose all that apply): None applicable Code Visit Inpatient E&M: 79903 Disch Hosp
--- NOTE | 2019-06-05 11:46 | NURSING ---
per pt home meds were given to his sister to take home.
[2019-06-05] MEDS: 0.9% Saline Lock 10 ML Syringe IV ×3 (12:12→18:09)
[2019-06-05] MEDS: Vancomycin IV 1,000 MG/200 ML BAG 200 MG IV (12:13)
[2019-06-05 12:26] LABS: Bedside Glucose 98 mg/dL (70-110)
[2019-06-05] MEDS: 0.9% Normal Saline 1,000 ML 999 ML IV (12:26)
[2019-06-05 12:29] LABS: Pathologist Review Reviewed
[2019-06-05 12:34] LABS: Pathologist Review Reviewed
--- NOTE | 2019-06-05 15:35 | NURSING ---
report given to [facility]- rn to rn report
[2019-06-05] MEDS: Ondansetron 4 MG/2 ML Vial IV (15:39)
[2019-06-05 17:06] LABS: Bedside Glucose 113 mg/dL (70-110)
[2019-06-05] MEDS: proMETHazine 25 MG/ML Syringe 6.25 MG IV (18:09)
== END 2019-06-05 18:20 | disposition short-term general hospital (02) | DRG 814 ==
LOC: ED 22:01 → MS3 23:25
PROVIDERS: Admitting Provider Hospitalist; Emergency Provider Emergency Medicine; PCP Family Medicine; Visit Provider Family Medicine
DX: D72.829 Elevated white blood cell count, unspecified (principal); E43 Unspecified severe protein-calorie malnutrition; R65.10 Systemic inflammatory response syndrome (SIRS) of non-infectious origin without acute organ dysfunction; C25.9 Malignant neoplasm of pancreas, unspecified; E87.1 Hypo-osmolality and hyponatremia; R50.9 Fever, unspecified; R11.2 Nausea with vomiting, unspecified; E11.649 Type 2 diabetes mellitus with hypoglycemia without coma; D64.9 Anemia, unspecified; E86.1 Hypovolemia; E78.5 Hyperlipidemia, unspecified; I10 Essential (primary) hypertension; K21.9 Gastro-esophageal reflux disease without esophagitis; I25.2 Old myocardial infarction; I25.10 Atherosclerotic heart disease of native coronary artery without angina pectoris; I25.5 Ischemic cardiomyopathy; Z68.22 Body mass index [BMI] 22.0-22.9, adult; Z87.891 Personal history of nicotine dependence; Z90.411 Acquired partial absence of pancreas; Z98.890 Other specified postprocedural states
CPT/HCPCS: 36415; 71045; 71046; 74177; 80048; 80076; 81001; 82962; 83605; 83690; 83735; 84100; 85025; 87040; 87076; 87633; 87804; 97162; 97166; 97802; 99285; 99406; J7030; Q9967; A4216; J2405

== ENCOUNTER 2019-06-13 11:10 | Emergency (ER) | payer MEDICARE, MEDICAID, SELFPAY ==
[2019-06-04 23:14] VITALS: BMI 22.1
[2019-06-13] VITALS (7 sets, daily range): BP systolic 95–116; BP diastolic 61–83; PULSE 81–96; RESP 15–22; TEMP 36.7–36.9; O2SAT 93–98; BMI 22.2
--- NOTE | 2019-06-13 11:27 | EKG12_ITS ---
Test Reason : DIZZY Blood Pressure : / mmHG Vent. Rate : 089 BPM Atrial Rate : 089 BPM P-R Int : 180 ms QRS Dur : 088 ms QT Int : 380 ms P-R-T Axes : 000 -03 022 degrees QTc Int : 462 ms Normal sinus rhythm Normal ECG Confirmed by LISA HILLS ([id number]), associate editor ARPAN BOLES ([id number]) on 06/16/2019 9:39:57 AM Referred By: JOSSELYN Confirmed By:LISA HILLS
[2019-06-13] MEDS: 0.9% Normal Saline 1,000 ML 1000 ML IV (12:04)
[2019-06-13] MEDS: Ondansetron 4 MG/2 ML Vial IV (12:05)
[2019-06-13 12:26] LABS: Hematocrit 27.3 % (40-54); Hemoglobin 8.9 g/dL (13.0-16.5); Mean Corp Hgb Conc 32.6 g/dL (32-36); Mean Corpuscular Hgb 28.7 pg (27.0-32.0); Mean Corpuscular Volume 88.1 fL (80-94); Mean Platelet Vol. 9.2 fl (6.2-12.0); POSITIVE COUNT YES; POSITIVE DIFFERENTIAL YES; POSITIVE MORPHOLOGY YES; Platelet Count 258 K/mm3 (150-450); RBC Distribution Width CV 14.6 % (11.6-14.6); White Blood Count 84.3 K/mm3 (4.4-11.0)
[2019-06-13 12:30] LABS: Differential Indicated MANUAL DIFF
[2019-06-13 12:43] LABS: ALB/GLOB Ratio 0.6 RATIO (0.9-2.4); AST(SGOT) 89 U/L (15-37); Alanine Aminotransfer ALT/SGPT 95 U/L (16-61); Albumin, Serum 2.7 g/dL (3.2-5.0); Alkaline Phosphatase 583 U/L (45-117); Anion Gap 8 (5-15); BUN 20 mg/dL (7-18); BUN/Creat Ratio 28.2 RATIO (10-20); Chloride 100 mmol/L (98-107); Creatinine, Serum 0.71 mg/dL (0.70-1.30); EST Glomerular Filtration Rate 119 mL/min (>60); Est Glom Filt Rate - Afr Amer 143 mL/min (>60); Estimated Creatinine Clearance 103.15 ml/min; Globulin 4.3 g/dL (2.2-4.2); Glucose 118 mg/dL (74-106); Potassium 3.7 mmol/L (3.5-5.1); Sodium Level 132 mmol/L (136-145)
[2019-06-13 12:54] LABS: Lactic Acid 1.1 mmol/L (0.4-1.9)
[2019-06-13 13:02] LABS: Lymphocyte 9 % (19-41); Metamyelocyte 9 % (0-1); Monocyte 2 % (0-10); Neutrophil-Band 2 % (0-5); Neutrophil-Segmented 78 % (47-70); Platelet Estimate ADEQUATE (ADEQ); Red Cell Morphology NORM C+C NORMAL (NORM C&C); Total Cells Counted 100 (MANUAL DIFF)
[2019-06-13 13:03] LABS: Absolute Neutrophil Count 67.4 X10^3/uL (2.0-7.7); Neutrophil # 67.44 X10^3/uL (2.7-7.7)
[2019-06-13 14:42] LABS: Lipase 82 U/L (73-393)
--- NOTE | 2019-06-13 14:48 | CT_ITS ---
We are attempting to reach an attending provider to discuss findings. An addendum with communication details will be sent when the communication is complete. STUDY: CT ABDOMEN AND PELVIS WITH CONTRAST REASON FOR EXAM: Male, 64 years old. ABDOMINAL PAIN X 2 DAYS. PANCREATIC CANCER WITH WHIPPLE PROCEDURE 05/18/19 RADIATION DOSAGE (If Supplied By Facility): CTDIvol = ( 11.12 ) mGy, DLP = ( 801.61 ) mGycm TECHNIQUE: Transaxial images were obtained from the dome of the diaphragm to the symphysis pubis without oral contrast. Oral; IV Gastrografin and 100mL Isovue-300 was administered. Sagittal and coronal images were reconstructed. Individualized dose optimization techniques were used for this CT. COMPARISON: 06/04/2019 and 03/13/2019. FINDINGS: The visualized lung bases are unremarkable. The visualized portions of the heart are within normal limits. Normal liver. There are surgical clips in the gallbladder fossa consistent with a prior cholecystectomy. There is a benign calcified granuloma of the spleen. The patient is status post Whipple procedure. There may be residual heterogeneous attenuation soft tissue density anterior to the IVC in the region of the uncinate process best seen series 2 image 51. Normal bilateral adrenal glands. Normal right kidney. Normal left kidney. Nonspecific wall thickening is noted at the gastric outlet. There is a reidentified linear density within a loop of bowel in the right upper quadrant which may represent a stent or other hardware. There are multiple colonic diverticula consistent with diverticulosis. There is non-visualization of the appendix. Normal abdominal aorta. Normal inferior vena cava. Prominent appearance of mesenteric fat with apparent mass effect and associated coarse peripheral calcification in the right lower quadrant is similar to prior. Normal urinary bladder. Normal visualized prostate gland. There is a right-sided inguinal hernia containing adipose tissue. Normal osseous structures. CT/Abdomen/Pelvis WITH Contrast IMPRESSION: Status post Whipple. Reidentified linear hardware within bowel in the right upper quadrant may represent a stent. Correlate with surgical history. Residual heterogeneous attenuation soft tissue density anterior to the IVC in the region of the uncinate process. Which may represent a resected portion of the previously described pancreatic lesion. Prominent heterogeneous fat with apparent mass effect in the right lower quadrant may be further assessed with a dedicated MRI. No focal abscess is identified. Electronically Signed: Malik Owen, at 17:59 EST Tel , Service support ,
--- NOTE | 2019-06-13 15:33 | ED.DCSUM_ITS ---
- ER Visit Summary Date of Service: 06/13/19 Chief Complaint: [Not feeling well] History of Present Illness: The patient is a 64 M [presents to the emergency department stating that he is not been feeling well for several days. Patient complains of nausea and vomiting and not being able to keep anything down. He denies any diarrhea. Patient does complain of some abdominal pain today that is just kind of diffuse. Patient states that he has been sneezing but not really coughing. Has had low-grade fever yesterday up to 100.9. Patient denies any chest pain or shortness of breath. Patient currently is being treated for pancreatic cancer and had a Whipple procedure May 18 at [facility]. P atient's had prior cholecystectomy. Patient's had prior 5 vessel CABG.] Patient states that he has had elevated white blood cell counts but no etiology has been found for this. Apparently was referred to follow-up with oncology locally Dr. Guille Reyes. Physical Examination: [HEENT-PERRLA, EOMI. Cranial nerves II through XII grossly intact. TMs clear. Mucous membranes moist. No adenopathy. Cardiovascular-regular rate and rhythm without murmur or ectopy Lungs-clear to auscultation, chest wall stable without crepitus or subcu emphysema Abdomen-normoactive bowel sounds, soft, nontender, no rebound or rigidity, no peritoneal signs. Extremities-intact ?4, normal range of motion, normal pulses, atraumatic] Test Results: [EKG obtained arrival shows sinus rhythm with a ventricular rate of 89 bpm with no acute ST segment changes. CBC with differential showed a white count of 84,000, hemoglobin 8.9, hematocrit 27, platelet 258. Chemistries unremarkable. LFTs showed a direct bili of 0.6, alk phos of 583, ALT of 95, AST of 89. Lipase was normal. Lactate was 1.1. CT scan of the abdomen pelvis with IV and p.o. contrast ordered and pending] Emergency Department Course and Treatment: [] Treatment Plan: [Pending results of CT scan. Care of patient turned over to evening physician awaiting final disposition] Disposition: [Pending] Impression: [Leukocytosis Vomiting Abdominal pain] This note was generated with Mysterio dictation software. It may contain incorrect words, spelling, and punctuation that were not noted in review of the chart prior to signing ED Disposition - Plan for ED Patient: Referrals: Hector Fong MD [Primary Care Provider] -
[2019-06-13] MEDS: 0.9% Normal Saline 1,000 ML 150 ML IV (15:57)
[2019-06-13] MEDS: Sodium Chloride 0.65% 1 SPRAY SPRAY.BTL 2 SPRAY NASAL (17:57)
--- NOTE | 2019-06-13 18:46 | ED.RN ---
per dr. velazco, it is ok to complete sepsis screen.
[2019-06-14 13:17] LABS: Pathologist Review Reviewed
== END 2019-06-13 21:15 | disposition short-term general hospital (02) ==
LOC: ED 11:48
PROVIDERS: Emergency Provider Emergency Medicine; PCP Family Medicine
DX: D72.829 Elevated white blood cell count, unspecified (principal); I25.10 Atherosclerotic heart disease of native coronary artery without angina pectoris; I42.9 Cardiomyopathy, unspecified; I25.2 Old myocardial infarction; C25.9 Malignant neoplasm of pancreas, unspecified; E78.5 Hyperlipidemia, unspecified; R11.2 Nausea with vomiting, unspecified; Z98.890 Other specified postprocedural states; Z79.899 Other long term (current) drug therapy; Z79.84 Long term (current) use of oral hypoglycemic drugs
CPT/HCPCS: 74177; 80053; 80076; 83605; 83690; 84484; 85025; 93005; 96361; 96374; 99285; J7030; Q9967; A4216; J2405

== ENCOUNTER 2019-06-29 12:52 | Emergency (ER) | payer MEDICARE, MEDICAID, SELFPAY ==
[2019-06-13 11:13] VITALS: BMI 22.2
[2019-06-29 12:53] VITALS: BP 124/67; PULSE 138; RESP 18; TEMP 37.4; O2SAT 96; BMI 20.3
[2019-06-29 13:14] VITALS: BP 104/55; PULSE 127; RESP 55; O2SAT 95
--- NOTE | 2019-06-29 13:30 | CT_ITS ---
STUDY: CT ABDOMEN AND PELVIS WITHOUT CONTRAST REASON FOR EXAM: Male, 64 years old. N/V, RECENT WHIPPLE PROCEDURE-PANCREATIC CA RADIATION DOSAGE (If Supplied By Facility): CTDIvol = ( 7.91 ) mGy, DLP = ( 399.63 ) mGycm TECHNIQUE: Transaxial images were obtained from the dome of the diaphragm to the symphysis pubis without oral contrast, and without intravenous contrast. Sagittal and coronal images were reconstructed. Individualized dose optimization techniques were used for this CT. COMPARISON: Comparison is made with prior examination dated June 13, 2019. FINDINGS: Stable minimal increased markings at the right lung base suggestive of atelectasis. The patient is status post CABG. A nasogastric tube is seen within the distal esophagus and fundal portion of the stomach. Normal liver. There are surgical clips in the gallbladder fossa consistent with a prior cholecystectomy. There is moderate splenomegaly. Scattered calcified splenic granulomas. The patient is status post Whipple procedure. A linear density seen in the region of the gallbladder fossa and head of the pancreas at the operative site. This may represent post operative drainage catheter or stent. Stable nodular densities in the peripancreatic fat and anterior to the aorta suggestive of a lymphadenopathy. Normal bilateral adrenal glands. Normal right kidney. Normal left kidney. There is a small hiatal hernia. Normal small intestine. There are multiple colonic diverticula consistent with diverticulosis. The appendix is visualized and appears normal. There is diffuse atherosclerotic calcification of the abdominal aorta, without a demonstrated aneurysm. Normal inferior vena cava. Normal retroperitoneum. Normal urinary bladder. Normal abdominal wall. There are diffuse degenerative changes of the visualized lumbar spine. CT/Abdomen/Pelvis without Cont IMPRESSION: Status post Whipple procedure. Postoperative changes are seen in the right upper quadrant with a drainage catheter and/or stent. Splenomegaly. Findings suggestive of adenopathy in the region of the pancreatic bed. Electronically Signed: Haroon Watts, at 14:42 EST , Service support ,
--- NOTE | 2019-06-29 13:30 | EKG12_ITS ---
Test Reason : Blood Pressure : / mmHG Vent. Rate : 122 BPM Atrial Rate : 122 BPM P-R Int : 162 ms QRS Dur : 084 ms QT Int : 314 ms P-R-T Axes : -03 001 037 degrees QTc Int : 447 ms Sinus tachycardia Cannot rule out Inferior infarct , age undetermined Abnormal ECG Confirmed by ERIK PALMER, ELIDA ([id number]), health editor MIKE ALATORRE ([id number]) on 07/03/2019 2:19:05 PM Referred By: REZA Confirmed By:FANI VALENCIA MD
--- NOTE | 2019-06-29 13:44 | ED.DCSUM_ITS ---
History of Present Illness Chief Complaint: Nausea/Vomiting Informant: Patient, Family Onset: Month(s) Maximum Severity: Mild Narrative: The patient presents with family complaining of protracted nausea and vomiting when he tries to take liquids or any of his oral medications. He is status post a Whipple procedure done at [facility] May 18 related to pancreatic head cancer. Family reports that the procedure went well he does not require chemoradiation therapy during his evaluation at [facility] he was found to have some type of leukemia and he was prescribed an oral medication to take at home but he cannot take that medication because he has persistent vomiting if he takes anything by mouth The patient has been readmitted to [facility] 2 times since his initial May 18 surgery for the intractable nausea and vomiting, he has had his EGD procedures other tests and NG tube placed via EGD into his duodenum and per the family the surgical team there reports that his postsurgical care is appropriate and there is no complications or no obvious reason that he persistent having vomiting, He was found to have what they were described as some type of a hematoma under his right lung and he is currently on Lovenox, he received 63 cc/h x 24 hours a day of tube feeds which he tolerates without difficulty with no vomiting his urine and bowel habits have been unremarkable It is only when he takes anything by mouth that he vomits, he was at [facility] in [place] yesterday was told his care will be transferred to the Dr. Guidry oncology [facility] Past Medical History - Allergies and Home Meds Allergies/Adverse Reactions: Allergies No Known Allergies Allergy (Verified 06/29/19 12:56) Primary Care Physician: Hector Fong MD [Primary Care Provider] - Past Medical History: - - As above and includes recent Whipple procedure for pancreatic head tumor recent diagnosis of chronic leukemia Surgical History: coronary bypass surgery, herniorrhaphy - right inguinal x 2, - - facial surgery summer, amputated left ring finger 1993 Smoking Status: Former smoker Review of Systems General: Denies: Chills, Fever, Sweats Eyes: Denies: Visual changes - bilaterally, Diplopia ENT: Denies: Rhinorrhea, Sore throat Cardiovascular: Denies: Chest pain, Palpitations Respiratory: Denies: Dyspnea, Cough, Dyspnea on exertion Gastrointestinal: Reports: Vomiting. Denies: Abdominal pain, Nausea, Diarrhea, Melena, Hematochezia Genitourinary: Denies: Dysuria, Hematuria, Frequency Musculoskeletal: Denies: Back pain, Extremity Pain Skin: Denies: Rash, Wounds Neurological: Denies: Headache, Weakness, Numbness Physical Exam Vital Signs/Narrative: Vital Signs Temp Pulse Resp BP Pulse Ox 06/29/19 13:14 127 H 55 H 104/55 L 95 06/29/19 12:53 99.4 F H 138 H 18 124/67 H 96 General: Well nourished, Well developed, No Acute Distress Head: Normocephalic, Atraumatic Eyes: Perrl, EOMI ENT: Moist mucous membranes, No rhinorrhea Neck: Supple, Nontender Cardiovascular: Regular rate, Regular rhythm, No murmurs Respiratory: No distress, CTA bilaterally, Chest nontender Abdomen: Soft, Nontender, Nondistended, Normal bowel sounds, - - Have an NG tube in place his abdomen is soft nontender Back: Nontender, Normal Inspection Extremities: Nontender, No edema Skin: Normal color, No rash Neurological: Alert, Oriented x3, Cranial nerves II-XII grossly intact, Normal Strength, Normal Sensation Psychological: Normal affect, Normal Mood Diagnostic/Tx/Re-eval - Medical Decision Making Patient has a tachycardia here of 120 he is resting company in the bed per the family he has been receiving tube feedings as above 24 hours a day, he has not been ill except when he tries to eat or drink and this is an ongoing condition that is postoperative but may actually have been going on prior to the surgery, he has had multiple postoperative admissions and evaluations by his surgical tea m for this condition His EKG shows a sinus tachycardia at 120 no acute injury pattern intervals normal, I spoke with Dr. Amy Butcher [facility] oncology, discussed case in detail with Dr. hdz he was aware that the patient was going to have a Whipple but was not aware of many of the details as above This time IV fluid screening labs CT The patient screening labs are generally unremarkable stable for him his sodium is 127 CT abdomen pelvis showed nothing acute postsurgical changes still is reports, the patient is remained hemodynamically stable in the emergency department he received IV fluids, again we did discuss the case with Dr. amy Butcher oncology discussed case the and his family and patient we discussed admitting him here to [facility] transferring him back to [facility] versus outpatient management Did receive IV fluid The patient and family did not wish to be transferred to [facility] for admission, they did not wish to be admitted here at this facility, they preferred outpatient management, the reports she is able to manage his free fluid intake by adjusting the amount of free fluid he receives via his tube feedings and she will keep all of his outpatient appointments and return for change in symptoms she will also try to advance his diet as tolerated with soft foods per instructions she was given by his surgeons Home stable declined admission Final impression status post Whipple procedure, chronic leukemia, postoperative nausea and vomiting, hyponatremia ED Disposition - Plan for ED Patient: Diagnosis: Pancreatic cancer Referrals: Hector Fong MD [Primary Care Provider] -
[2019-06-29 13:56] VITALS: BP 110/65; PULSE 119; RESP 24; TEMP 37.6; O2SAT 94
[2019-06-29] MEDS: 0.9% Normal Saline 1,000 ML 125 ML IV (13:58)
[2019-06-29] MEDS: Ondansetron 4 MG/2 ML Vial IV (13:59)
[2019-06-29] MEDS: morphine 8 MG/ML Syringe IV (14:02)
[2019-06-29 14:23] LABS: AST(SGOT) 84 U/L (15-37); Alanine Aminotransfer ALT/SGPT 90 U/L (16-61); Albumin, Serum 2.3 g/dL (3.2-5.0); Alkaline Phosphatase 452 U/L (45-117); Anion Gap 6 (5-15); BUN 14 mg/dL (7-18); BUN/Creat Ratio 21.8 RATIO (10-20); Bilirubin, Direct 0.71 mg/dL (0.00-0.30); Calcium,Total 8.4 mg/dL (8.5-10.1); Chloride 96 mmol/L (98-107); Creatinine, Serum 0.64 mg/dL (0.70-1.30); EST Glomerular Filtration Rate 133 mL/min (>60); Est Glom Filt Rate - Afr Amer 161 mL/min (>60); Estimated Creatinine Clearance 104.83 ml/min; Globulin 5.2 g/dL (2.2-4.2); Glucose 124 mg/dL (74-106); Lipase 86 U/L (73-393); Potassium 4.6 mmol/L (3.5-5.1); Protein, Total 7.5 g/dL (6.4-8.2); Sodium Level 127 mmol/L (136-145)
[2019-06-29 14:25] LABS: Hemoglobin 8.2 g/dL (13.0-16.5); Mean Corp Hgb Conc 32.8 g/dL (32-36); Mean Corpuscular Hgb 28.2 pg (27.0-32.0); Mean Corpuscular Volume 85.9 fL (80-94); Mean Platelet Vol. 9.6 fl (6.2-12.0); POSITIVE COUNT YES; POSITIVE DIFFERENTIAL YES; POSITIVE MORPHOLOGY YES; Platelet Count 169 K/mm3 (150-450); RBC Distribution Width CV 15.7 % (11.6-14.6); RBC Distribution Width SD 49.1 fl (35.1-43.9); Red Blood Count 2.91 M/mm3 (4.6-6.2); White Blood Count 40.5 K/mm3 (4.4-11.0)
[2019-06-29 14:34] LABS: Differential Indicated MANUAL DIFF
[2019-06-29 14:47] VITALS: BP 123/67; PULSE 111; RESP 22; TEMP 37.5; O2SAT 93
[2019-06-29 15:00] VITALS: BP 114/66; PULSE 104; RESP 18; TEMP 37.3; O2SAT 94
[2019-06-29 15:15] LABS: Lymphocyte 4 % (19-41); Metamyelocyte 4 % (0-1); Monocyte 1 % (0-10); Neutrophil-Band 4 % (0-5); Neutrophil-Segmented 87 % (47-70); Total Cells Counted 100 (MANUAL DIFF)
[2019-06-29 15:16] LABS: Absolute Neutrophil Count 37.2 X10^3/uL (2.0-7.7); Hypochromasia 1+; Platelet Estimate ADEQUATE (ADEQ); Red Cell Morphology N CYTIC NORMAL (NORM C&C)
[2019-06-29 16:23] VITALS: BP 125/64; PULSE 100; RESP 18; O2SAT 95
[2019-06-30 14:55] LABS: Pathologist Review Reviewed
== END 2019-06-29 16:24 | disposition home or self-care (01) ==
LOC: ED 13:51
PROVIDERS: Emergency Provider Emergency Medicine; PCP Family Medicine
DX: C25.9 Malignant neoplasm of pancreas, unspecified (principal); Z87.891 Personal history of nicotine dependence; Z79.01 Long term (current) use of anticoagulants; Z79.899 Other long term (current) drug therapy
CPT/HCPCS: 74176; 80048; 80076; 83690; 85025; 93005; 96361; 96374; 96375; 99283; J7030; A4216; J2405

== ENCOUNTER 2019-07-01 09:22 | Inpatient (IN) | payer MEDICARE, MEDICAID, SELFPAY ==
[2019-07-01] VITALS (11 sets, daily range): BP systolic 106–122; BP diastolic 57–71; PULSE 88–109; RESP 16–19; TEMP 37–37.6; O2SAT 93–97; BMI 21.4; BMI 21.5
--- NOTE | 2019-07-01 10:01 | EKG12_ITS ---
Test Reason : Blood Pressure : / mmHG Vent. Rate : 108 BPM Atrial Rate : 108 BPM P-R Int : 168 ms QRS Dur : 082 ms QT Int : 328 ms P-R-T Axes : -03 010 057 degrees QTc Int : 439 ms Sinus tachycardia with occasional Premature ventricular complexes Otherwise normal ECG Confirmed by ERIK PALMER, ELIDA ([id number]), film and video editor MIKE ALATORRE ([id number]) on 07/03/2019 2:12:21 PM Referred By: Samira Gonzalez Confirmed By:FANI VALENCIA MD
[2019-07-01 10:20] LABS: Hematocrit 24.6 % (40-54); Mean Corp Hgb Conc 32.5 g/dL (32-36); Mean Corpuscular Hgb 28.2 pg (27.0-32.0); Mean Corpuscular Volume 86.6 fL (80-94); Mean Platelet Vol. 9.3 fl (6.2-12.0); POSITIVE COUNT YES; POSITIVE DIFFERENTIAL YES; POSITIVE MORPHOLOGY YES; Platelet Count 173 K/mm3 (150-450); RBC Distribution Width CV 15.8 % (11.6-14.6); RBC Distribution Width SD 49.4 fl (35.1-43.9); Red Blood Count 2.84 M/mm3 (4.6-6.2)
[2019-07-01 10:23] LABS: Differential Indicated MANUAL DIFF; White Blood Count 31.7 K/mm3 (4.4-11.0)
[2019-07-01 10:36] LABS: Lymphocyte 5 % (19-41); Metamyelocyte 2 % (0-1); Monocyte 4 % (0-10); Myelocyte 6 (0-0); Neutrophil-Band 4 % (0-5); Neutrophil-Segmented 79 % (47-70); Total Cells Counted 100 (MANUAL DIFF)
[2019-07-01 10:37] LABS: Platelet Estimate ADEQUATE (ADEQ); Red Cell Morphology NORM C+C NORMAL (NORM C&C)
[2019-07-01 10:38] LABS: Absolute Lymphocyte Count 1.59 X10^3/uL (0.83-4.51); Absolute Neutrophil Count 25.7 X10^3/uL (2.0-7.7)
[2019-07-01 10:40] LABS: ALB/GLOB Ratio 0.4 RATIO (0.9-2.4); AST(SGOT) 86 U/L (15-37); Alanine Aminotransfer ALT/SGPT 105 U/L (16-61); Albumin, Serum 2.2 g/dL (3.2-5.0); Alkaline Phosphatase 396 U/L (45-117); Anion Gap 7 (5-15); BUN 14 mg/dL (7-18); BUN/Creat Ratio 25.6 RATIO (10-20); Calcium,Total 8.1 mg/dL (8.5-10.1); Chloride 94 mmol/L (98-107); Creatinine, Serum 0.55 mg/dL (0.70-1.30); EST Glomerular Filtration Rate 160 mL/min (>60); Est Glom Filt Rate - Afr Amer 193 mL/min (>60); Estimated Creatinine Clearance 120.27 ml/min; Globulin 5.2 g/dL (2.2-4.2); Glucose 125 mg/dL (74-106); Lipase 148 U/L (73-393); Potassium 4.5 mmol/L (3.5-5.1); Protein, Total 7.4 g/dL (6.4-8.2); Sodium Level 127 mmol/L (136-145)
--- NOTE | 2019-07-01 10:50 | NURSING ---
lab called with a critical result on the pt. WBC is 31.7
[2019-07-01 10:57] LABS: Lactic Acid 1.1 mmol/L (0.4-1.9)
[2019-07-01] MEDS: Ondansetron 4 MG/2 ML Vial IV ×2 (10:57→12:52)
[2019-07-01] MEDS: 0.9% Normal Saline 1,000 ML 1000 ML IV (10:57)
--- NOTE | 2019-07-01 12:35 | RAD_ITS ---
STUDY: X-RAY - ABDOMEN/PELVIS REASON FOR EXAM: Male, 64 years old. VOMITTING TECHNIQUE: Single AP view of the abdomen / pelvis. COMPARISON: 06/29/2019 FINDINGS: Enteric tube extends the left upper abdomen, stable since CT 07/01/2019. No dilated loops of air-filled small bowel. Moderate fecal retention throughout the colon. Operative linear stent identified in the right upper abdomen, stable. There is no demonstrated free abdominal air. The visualized liver, spleen and kidneys are grossly normal in size and morphology. Normal soft tissue structures. There are diffuse degenerative changes of the visualized lumbar spine. RAD/Abdomen Single View (Portable) IMPRESSION: Nonobstructive bowel gas pattern. Stable position of enteric tube. Electronically Signed: Romario Lee MD (Brooks) at 18:54 EST , Service support ,
--- NOTE | 2019-07-01 12:36 | ED.DCSUM_ITS ---
- ER Visit Summary Date of Service: 07/01/19 Chief Complaint: [Nausea and vomiting] History of Present Illness: The patient is a 64 M [presents to the emergency department with nausea and vomiting that worsened again yesterday although he has had issues since May 18 when he had a Whipple procedure for pancreatic cancer done at the [facility]. Patient also with history of coronary artery disease as well as elevated cholesterol and history of cardiomyopathy. Patient states that he was seen in the emergency department here 2 days ago for the same complaint and had blood work and a CT scan of the abdomen and pelvis that was unremarkable. Patient states that he went home and then started having severe nausea and vomited throughout the night last night about 12 times. Patient was sent home with antiemetic suppositories. Patient is generally feeling weak. He denies any fevers currently although he states he had a fever couple of days ago up to 102. Patient denies urinary symptoms. She has had prior cholecystectomy. Patient's had prior CABG.] Patient also recently diagnosed with leukemia and scheduled to follow-up with Dr. Guille Reyes regarding this. Physical Examination: [HEENT-PERRLA, EOMI. Cranial nerves II through XII grossly intact. TMs clear. Mucous membranes dry. No adenopathy. Cardiovascular-regular rate and rhythm without murmur or ectopy Lungs-clear to auscultation, chest wall stable without crepitus or subcu emphysema Abdomen-normoactive bowel sounds, soft, nontender, no rebound or rigidity, no peritoneal signs. Extremities-intact ?4, normal range of motion, normal pulses, atraumatic] Test Results: [EKG obtained arrival shows sinus rhythm with a ventricular rate of 108 bpm with no acute ST segment changes. CBC with differential showed a white count of 31.7, hemoglobin 8, hematocrit 24.6, platelets 173. Chemistry showed a sodium of 127, potassium 4.5, chloride 94, CO2 26, glucose 125, BUN 14 and creatinine 0.55. Troponin is less than 0.015. LFTs similar to prior with an alk phos of 396, ALT of 105, AST of 86, lipase of 148. KUB ordered and pending.] Emergency Department Course and Treatment: [He had an IV line established and he was ordered a liter normal same fluid bolus. Patient was given Zofran 4 mg IV followed by another 4 mg IV for continued nausea.] Case was discussed with hospitalist will evaluate patient for admission. I did discuss case also with Dr. Clarita Randall who is on for general surgery at the request of the hospitalist. Treatment Plan: [Admit] Disposition: [Admit] Impression: [Intractable nausea and vomiting Generalized weakness] This note was generated with [email or web address]roppy) dictation software. It may contain incorrect words, spelling, and punctuation that were not noted in review of the chart prior to signing ED Disposition - Plan for ED Patient: Referrals: Hector Fong MD [Primary Care Provider] -
--- NOTE | 2019-07-01 12:41 | PCM.HP.STD ---
Problem List (1) Nausea and vomiting Status: Acute Qualifiers: Vomiting type: unspecified Vomiting Intractability: intractable Qualified Code(s): R11.2 - Nausea with vomiting, unspecified (2) Pancreatic cancer Status: Chronic Qualifiers: Pancreatic malignancy location: unspecified Qualified Code(s): C25.9 - Malignant neoplasm of pancreas, unspecified (3) Hyperlipidemia Status: Chronic Qualifiers: Hyperlipidemia type: unspecified Qualified Code(s): E78.5 - Hyperlipidemia, unspecified (4) Ischemic cardiomyopathy Status: Chronic Comment: EF 35-40% per echo done @ [facility]07/11/2017; 50% per pre-op EFRAIN done @ [facility] 01/25/18 (5) Atherosclerotic heart disease of [place] coronary artery without angina pectoris Status: Chronic Qualifiers: [place] vs. transplanted heart: unspecified whether [place] or transplanted heart Qualified Code(s): I25.10 - Atherosclerotic heart disease of [place] coronary artery without angina pectoris Comment: MARTINES to LAD, free JANEEN to PDA, SVG to Diagonal, SVG to OM, SVG to right Posterior lateral per Dr. Charli TALAMANTES (6) S/P CABG x 5 Status: Chronic Comment: MARTINES to LAD, free JANEEN to PDA, SVG to Diagonal, SVG to OM, SVG to right Posterior lateral per Dr. Charli TALAMANTES History of Present Illness Date of Admission: 07/01/19 Chief Complaint: Intractable nausea and vomiting The patient is a 64 year old M with past medical history of pancreatic cancer status post Whipple's procedure, severe malnutrition status post CorPak tube feeds, newly diagnosed with leukemia who comes in with intractable nausea and vomiting. 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 He has been in our ER frequently. CT scan of abdomen/pelvis on 06/29/19 showed some adenopathy in peripancreatic fat and anterior to aorta. Patient has tube feeds via corpak. His family requests for discharge for subacute rehab. Patient complains of no discomfort with nausea. Denies any diarrhea. Has any fever chills or chest pain. Vitals in the ED showed temperature of 98.6F, heart rate 102, blood pressure 113/70, respiratory 16, SPO2 was 97% on room air. BC count is 31.7, hemoglobin is 8.0, platelet count of 173, with neutrophilia, sodium 127, potassium 4.5, chloride 94, BUN 14, creatinine 0.55, AST 86, ALT 105, ALP 397. KUB of the abdomen was pending at time of discharge. Past Medical History Past Medical History (Chronic Problems): Chronic Problems (Last Reviewed 06/05/19 @ 02:[address] Chance Juarez MD) Pancreatic cancer (Chronic) Hyperlipidemia (Chronic) History of tobacco abuse (Chronic) Ischemic cardiomyopathy (Chronic) EF 35-40% per echo done @ [facility]07/11/2017; 50% per pre-op EFRAIN done @ [facility] 01/25/18 History of TN (myocardial infarction) (Chronic) Left ventricular scar, markie infart ischemia, left ventricular thrombus per echo 12/15/2017 @ [facility] Atherosclerotic heart disease of [place] coronary artery without angina pectoris (Chronic) MARTINES to LAD, free JANEEN to PDA, SVG to Diagonal, SVG to OM, SVG to right Posterior lateral per Dr. Augustin [facility] S/P CABG x 5 (Chronic 01/25/18) MARTINES to LAD, free JANEEN to PDA, SVG to Diagonal, SVG to OM, SVG to right Posterior lateral per Dr. Augustin [facility] Medical History: Medical History (Last Reviewed 06/05/19 @ 02:[address] Chance Juarez MD) Hyperlipidemia (Chronic) E78.5 History of tobacco abuse (Chronic) Z87.891 Ischemic cardiomyopathy (Chronic) I25.5 EF 35-40% per echo done @ [facility]07/11/2017; 50% per pre-op EFRAIN done @ [facility] 01/25/18 History of TN (myocardial infarction) (Chronic) I25.2 Left ventricular scar, markie infart ischemia, left ventricular thrombus per echo 12/15/2017 @ [facility] Atherosclerotic heart disease of [place] coronary artery without angina pectoris (Chronic) I25.10 MARTINES to LAD, free JANEEN to PDA, SVG to Diagonal, SVG to OM, SVG to right Posterior lateral per Dr. Augustin [facility] Allergies No Known Allergies Allergy (Verified 07/01/19 09:23) Home Medications: Ambulatory Orders Medication Instructions Recorded metoprolol tartrate 50 mg tablet 50 mg PO BID #180 tab 03/29/18 aspirin 81 mg chewable tablet 81 mg PO DAILY tab 11/14/18 Acetaminophen [Tylenol Extra 650 mg PO Q4H PRN PRN 06/04/19 Strength] Lipase/Protease/Amylase [Krunal Alanis 2 ea PO TIDCM 06/04/19 36,000 Units Capsule] Metformin HCl 500 mg PO BID 06/04/19 Pantoprazole Sodium 40 mg PO DAILY 06/04/19 Ondansetron [Ondansetron Odt] 4 mg PO Q6H PRN PRN 06/13/19 Atorvastatin Calcium [Lipitor] 40 mg PO QHS 06/29/19 Dasatinib [Sprycel] 100 mg PO DAILY 06/29/19 Enoxaparin Sodium [Lovenox] 80 mg SQ BID 06/29/19 Famotidine [Pepcid] 20 mg PO DAILY 06/29/19 Nutritional Supplement [Nutren 1.5] 63 mls GT CONT 06/29/19 Surgical History: Surgical History (Last Reviewed 06/05/19 @ 02:[address] Chance Juarez MD) S/P CABG x 5 (Chronic) Onset Date: 01/25/18 Z95.1 MARTINES to LAD, free JANEEN to PDA, SVG to Diagonal, SVG to OM, SVG to right Posterior lateral per Dr. Augustin [facility] History of colonoscopy with polypectomy Onset Date: 05/15/03 Z98.890, Z86.[address] Dillon History of right inguinal hernia repair Onset Date: 03/23/16 Z98.890, Z87.[address] Dillon Incarcerated right inguinal hernia (Inactive) K40.30 Surgical History: coronary bypass surgery, herniorrhaphy - right inguinal x 2, - - facial surgery summer , amputated left ring finger 1993 Psychiatric History: No pertinent psych hx Lives: Spouse/ Significant Other Smoking Status: Former smoker Tobacco Use: Non-smoker Alcohol: None Drugs: None - *Family History Maternal Family History: Family History (Last Reviewed 06/05/19 @ 02:[address] Chance Juarez MD) Brother CAD (coronary artery disease) Brother CAD (coronary artery disease) Mother Cancer Father Cancer Sister Cancer History Items: No pertinent history Paternal Family History: Family History (Last Reviewed 06/05/19 @ 02:[address] Chnace Juarez MD) Brother CAD (coronary artery disease) Brother CAD (coronary artery disease) Mother Cancer Father Cancer Sister Cancer History Items: No pertinent history Review of Systems Constitutional: Reports: Anorexia, Malaise, Weakness, Fatigue. Denies: Chills, Fever, Weight Change Eyes: Denies: Blurred vision, Cataracts, Pain, Redness, Vision Change HEENT: Denies: Difficulty Hearing, Head Aches, Hearing Changes, Sinus Congestion, Sinus Drainage Cardiovascular: Denies: Chest Pain, Claudication, Orthopnea, Palpitations, Paroxysmal Noc. Dyspnea Respiratory: Denies: Cough, Shortness of breath at rest, Shortness of breath upon exertion, Sputum production Gastrointestinal: Reports: Abdominal Pain, Dyspepsia, Nausea, Vomiting. Denies: Hematemesis, Hematochezia Genitourinary: Denies: Dysuria, Frequency, Incontinence, Nocturia Musculoskeletal: Denies: Joint Pain, Joint stiffness, Joint swelling, Joint Tenderness Skin: Denies: Rash, Wounds Neurological: Denies: Difficulty swallowing, Focal weakness, Numbness, Tingling Psychiatric: Denies: Anxiety, Depression, Homicidal Ideations, Suicidal Ideations Hematologic/ Lymphatic: Denies: Easy Bruising, Easy Bleeding VTE Information - Inpt Only VTE Present on Admission: No VTE Pharm Prophylaxis ordered?: Yes Patient Problems: Active and Suspected Problems (Last Reviewed 06/05/19 @ 02:[address] Chance Juarez MD) Nausea and vomiting (Acute) - Physical Exam Vitals/I&O's: Vital Signs Temp Pulse Resp BP Pulse Ox 98.6 F 106 H 19 H 122/71 H 95 07/01/19 09:23 07/01/19 10:59 07/01/19 10:59 07/01/19 10:59 07/01/19 10:59 Oxygen Delivery Method Room Air Weight: 63.503 kg Body Mass Index (BMI) 20.0 General: Alert, Oriented x3, Cooperative, No apparent distress, - - s/p Corpak tube HEENT: Atraumatic, PERRLA, EOMI, Normocephalic Oral: Moist Mucosa Neck: Supple Lungs: Clear to auscultation, Normal air movement Cardiovascular: Regular rate, Regular Rhythm, Normal S1, Normal S2, No murmurs Abdomen: Bowel Sounds Present, Soft, Non Tender, Non-Distended, No Hepato-splenomegaly Extremities: No edema Skin: No rashes, No breakdown Musculoskeletal: No Tenderness to Palpation of Joints or Extremities Lymphatic: No Cervical, Supraclavicular, or Inguinal Adenopathy Neurological: Cranial nerves II-XII grossly intact, Neuro grossly intact Psych/Mental Status: Normal Affect, Appropriate Laboratory Results 07/01/19 10:11: WBC 31.7 H*, RBC 2.84 L, Hgb 8.0 L, Hct 24.6 L, MCV 86.6, MCH 28.2, MCHC 32.5, RDW Std Deviation 49.4 H, RDW Coeff of Jluis 15.8 H, Plt Count 173, MPV 9.3, Neut % (Auto) Not Reportable, Absolute Neuts (auto) 25.7 H, Absolute Lymphs (auto) 1.59, Total Counted 100, Neutrophils % (Manual) 79 H, Band Neutrophils % 4, Lymphocytes % (Manual) 5 L, Monocytes % (Manual) 4, Metamyelocytes % 2 H, Myelocytes % 6 H, Diff Path Review September, Platelet Estimate ADEQUATE, RBC Morphology NORM C+C 07/01/19 10:11: Sodium 127 L, Potassium 4.5, Chloride 94 L, Carbon Dioxide 26.0, Anion Gap 7, BUN 14, Creatinine 0.55 L, Estim Creat Clear Calc 120.27, Est GFR (MDRD) Af Amer 193, Est GFR (MDRD) Non-Af 160, BUN/Creatinine Ratio 25.6 H, Glucose 125 H, Calcium 8.1 L, Total Bilirubin 1.00, AST 86 H, ALT 105 H, Alkaline Phosphatase 396 H, Troponin I < 0.015, Total Protein 7.4, Albumin 2.2 L, Globulin 5.2 H, Albumin/Globulin Ratio 0.4 L, Lipase 148 07/01/19 10:11: Lactic Acid 1.1 Assessment/Plan All Active Problems (Last Reviewed 06/05/19 @ 02:[address] Chance Juarez MD) Fever (Acute) Leukocytosis (Acute) Nausea and vomiting (Acute) 64 year old M with past medical history of pancreatic cancer status post Whipple's procedure, severe malnutrition status post CorPak tube feeds, newly diagnosed with leukemia who comes in with intractable nausea and vomiting. 1. Intractable nausea and vomiting, unclear etiology, status post recent Whipple procedure in May 2019, status post CorPak Would admit for symptomatic control, IV emetics, decrease rate of flow for tube feeds Suppository for constipation 2. Dehydration secondary to #1, will continue on IV fluids, repeat blood work in a.m. 3. Debility related to #1 and concurrent comorbidities, patient request for discharge to subacute rehab, PT/OT to evaluate Social work is consulted 4. Recently diagnosed CML, not on treatment, will consult oncology 5. Pancreatic CA status post Whipple's procedure, outpatient follow-up with oncology 6. Anemia of chronic disease, hemoglobin is stable, will transfuse when hemoglobin is less than 7 7. DVT Prophylaxis on Lovenox subcu Code Visit Inpatient E&M: 24791 Init Hosp L3
--- NOTE | 2019-07-01 13:39 | NURSING ---
pt states it has been close to 2 weeks since he has taken any home medication.
--- NOTE | 2019-07-01 14:14 | CM.ED ---
Social Work Consult: Skilled Nursing Placement Informant: Dr. Gonzalez Per Dr. Gonzalez, patient being admitted for halfway placement due being unable to care for self in the community per patient [id number], Chiquita. Met with patient in room. Introduced self as well as child welfare social worker role. Patient agreeable to speak with this child welfare social worker. This child welfare social worker broached topic of halfway placement, patient stating to be agreeable to halfway placement. Patient stating to believe that patient needs to go to the halfway because there is nothing more the doctors can do. This child welfare social worker then broached topic of hospice services for patient, patient responding by stating I am not dying. Patient then clarifying to need halfway placement to have further medical management. Patient currently with an NG tube and is stating to have had the NG tube for awhile. Patient stating to live at home with girlfriend, Leticia Warren. Patient stating that patient is able to care for self at home but that Leticia does help some. Patient stating that patient [id number], Chiquita Franco is Health Care Power of Tool Crib Manager. Health Care Power of corporate associate attorney paperwork is noted to be on file and this child welfare social worker confirmed that Chiquita Franco is listed as patient agent. Patient agreeable to this child welfare social worker calling Chiquita. Patient presenting as tired and disengaged in conversation with this child welfare social worker. This child welfare social worker providing patient with list of halfway facilities in the area and encouraged patient to look over list to decided where patient would like to discharge to. Patient voicing understanding. This child welfare social worker thanking patient for being open to speaking with child welfare social worker. Telephone call to Chiquita, no answer. Voicemail left. Lisa ORTIZ, YAO
[2019-07-01] MEDS: Metoprolol Tartrate 50 MG Tablet PO ×2 (15:08→22:24)
[2019-07-01] MEDS: Enoxaparin 80 MG/0.8 ML Syringe SC ×2 (15:09→22:23)
[2019-07-01 15:21] LABS: Bedside Glucose 122 mg/dL (70-110)
--- NOTE | 2019-07-01 15:56 | CASEMGMT ---
Social Work Telephone call from patient [id number], Chiquita (HCPOA). Chiquita stating to believe that patient is not taking care of self at home. Chiquita stating that patient has not taken medication for the pat 2 weeks. Chiquita stating that patient girlfriend, that patient lives with has had two strokes and has a hard time helping. Chiquita stating that patient recently saw Dr. Fong and Dr. Fong recommended Palliative Care or residential placement. This social worker health services explaining to Chiquita that patient could have both Palliative Care and residential placement. Chiquita stating that first choice for residential would be the [facility] and second would be [place]. Chiquita planning to go over nursing homes with patient this evening and is aware that a list was provided for patient. Chiquita aware that it is patient choice on where patient would like to discharge to, if patient qualifies. Patient pending therapy evaluation. Will continue to follow as needed, Lisa ORTIZ, YAO
[2019-07-01] MEDS: Bisacodyl 10 MG Suppository RECTAL (16:48)
[2019-07-01] MEDS: Creon 24,000 unit DR Capsule 3 CAP PO (16:50)
[2019-07-01] MEDS: Metoclopramide 10 MG/2 ML Vial 5 MG IV ×2 (17:38→23:24)
[2019-07-01 17:45] LABS: Bedside Glucose 118 mg/dL (70-110)
[2019-07-01] MEDS: proCHLORPERazine 10 MG/2 ML Vial 5 MG IV (19:59)
[2019-07-01] MEDS: Magnesium Hydroxide 30 ML UDC PO (20:00)
[2019-07-01] MEDS: 0.9% Saline Lock 10 ML Syringe IV ×2 (20:00→23:24)
[2019-07-01] MEDS: Atorvastatin Calcium 40 MG Tablet PO (22:23)
[2019-07-01 23:36] LABS: Bedside Glucose 112 mg/dL (70-110)
[2019-07-02] VITALS (13 sets, daily range): BP systolic 112–120; BP diastolic 64–82; PULSE 94–124; RESP 16–18; TEMP 37.2–37.7; O2SAT 94–97; BMI 21.3
[2019-07-02] MEDS: Metoclopramide 10 MG/2 ML Vial 5 MG IV (04:59)
[2019-07-02] MEDS: 0.9% Saline Lock 10 ML Syringe IV ×3 (04:59→22:27)
[2019-07-02 05:10] LABS: Bedside Glucose 137 mg/dL (70-110)
[2019-07-02 06:14] LABS: Hematocrit 23.1 % (40-54); Hemoglobin 7.5 g/dL (13.0-16.5); Mean Corp Hgb Conc 32.5 g/dL (32-36); Mean Corpuscular Hgb 28.5 pg (27.0-32.0); Mean Corpuscular Volume 87.8 fL (80-94); Mean Platelet Vol. 9.4 fl (6.2-12.0); POSITIVE COUNT YES; POSITIVE DIFFERENTIAL YES; POSITIVE MORPHOLOGY YES; Platelet Count 178 K/mm3 (150-450); RBC Distribution Width CV 15.6 % (11.6-14.6); RBC Distribution Width SD 49.4 fl (35.1-43.9); Red Blood Count 2.63 M/mm3 (4.6-6.2); White Blood Count 29.5 K/mm3 (4.4-11.0)
[2019-07-02 06:20] LABS: Differential Indicated MANUAL DIFF
[2019-07-02 06:42] LABS: ALB/GLOB Ratio 0.4 RATIO (0.9-2.4); AST(SGOT) 97 U/L (15-37); Alanine Aminotransfer ALT/SGPT 108 U/L (16-61); Albumin, Serum 1.9 g/dL (3.2-5.0); Alkaline Phosphatase 363 U/L (45-117); Anion Gap 7 (5-15); BUN 12 mg/dL (7-18); BUN/Creat Ratio 22.8 RATIO (10-20); Calcium,Total 7.7 mg/dL (8.5-10.1); Chloride 97 mmol/L (98-107); Creatinine, Serum 0.53 mg/dL (0.70-1.30); EST Glomerular Filtration Rate 167 mL/min (>60); Est Glom Filt Rate - Afr Amer 202 mL/min (>60); Estimated Creatinine Clearance 132.67 ml/min; Globulin 4.9 g/dL (2.2-4.2); Glucose 134 mg/dL (74-106); Potassium 4.5 mmol/L (3.5-5.1); Protein, Total 6.8 g/dL (6.4-8.2); Sodium Level 127 mmol/L (136-145)
[2019-07-02 06:55] LABS: Lymphocyte 5 % (19-41); Metamyelocyte 1 % (0-1); Monocyte 1 % (0-10); Myelocyte 1 (0-0); Neutrophil # 27.14 X10^3/uL (2.7-7.7); Neutrophil-Band 3 % (0-5); Neutrophil-Segmented 89 % (47-70); Platelet Estimate ADEQUATE (ADEQ); Red Cell Morphology NORM C+C NORMAL (NORM C&C); Total Cells Counted 100 (MANUAL DIFF)
[2019-07-02 06:56] LABS: Absolute Lymphocyte Count 1.48 X10^3/uL (0.83-4.51); Absolute Neutrophil Count 27.1 X10^3/uL (2.0-7.7); Lymphocyte # 1.48 X10^3/ul (4.0)
[2019-07-02] MEDS: Creon 24,000 unit DR Capsule 3 CAP PO (08:25)
[2019-07-02] MEDS: Aspirin 81 MG TAB.CHEW PO (08:25)
[2019-07-02] MEDS: Enoxaparin 80 MG/0.8 ML Syringe SC ×2 (08:25→22:26)
[2019-07-02] MEDS: Metoprolol Tartrate 50 MG Tablet PO ×2 (08:31→22:25)
--- NOTE | 2019-07-02 14:42 | PCM.NTREPORT ---
Nutrition Therapy Report - History Nutrition Services has been consulted to:: Manage enteral nutrition Current diet / nutrition support order:: Osmolite 1.2 at rate of 40 ml/hr via DobHoff w/ 100ml flush 4x/day providing 1,152 romero, 53 g protein, 1,187ml total fluid per day. Pt on Regular PO diet. - Anthropometric Measurements Height:: 5 ft 10 in Weight:: 67.5 kg Body Mass Index (BMI):: 21.3 - Relevant Labs Relevant Labs:: WBC 29.5 K/mm3 (4.4-11.0) H 07/02/19 05:51 RBC 2.63 M/mm3 (4.6-6.2) L 07/02/19 05:51 Hgb 7.5 g/dL (13.0-16.5) L 07/02/19 05:51 Hct 23.1 % (40-54) L 07/02/19 05:51 RDW Std Deviation 49.4 fl (35.1-43.9) H 07/02/19 05:51 RDW Coeff of Jluis 15.6 % (11.6-14.6) H 07/02/19 05:51 Absolute Neuts (auto) 27.1 X10^3/uL (2.0-7.7) H 07/02/19 05:51 Neutrophils % (Manual) 89 % (47-70) H 07/02/19 05:51 Lymphocytes % (Manual) 5 % (19-41) L 07/02/19 05:51 Metamyelocytes % 2 % (0-1) H 07/01/19 10:11 Myelocytes % 1 (0-0) H 07/02/19 05:51 Sodium 127 mmol/L (136-145) L 07/02/19 05:51 Chloride 97 mmol/L (98-107) L 07/02/19 05:51 Creatinine 0.53 mg/dL (0.70-1.30) L 07/02/19 05:51 BUN/Creatinine Ratio 22.8 RATIO (10-20) H 07/02/19 05:51 Glucose 134 mg/dL (74-106) H 07/02/19 05:51 Calcium 7.7 mg/dL (8.5-10.1) L 07/02/19 05:51 Total Bilirubin 1.10 mg/dL (0.20-1.00) H 07/02/19 05:51 AST 97 U/L (15-37) H 07/02/19 05:51 ALT 108 U/L (16-61) H 07/02/19 05:51 Alkaline Phosphatase 363 U/L (45-117) H 07/02/19 05:51 Albumin 1.9 g/dL (3.2-5.0) L 07/02/19 05:51 Globulin 4.9 g/dL (2.2-4.2) H 07/02/19 05:51 Albumin/Globulin Ratio 0.4 RATIO (0.9-2.4) L 07/02/19 05:51 - Assessment Food / Nutrition-Related History:: Per EMR pt s/p whipple procedure May 18, 2019. Pt recieving TF Nutren 1.5 via DobHoff per pt home med list. RDN spoke w/ pt who reports he does not know the name of his TF formula or the rate he is typically on at home. Pt current TF ordered Osmolite 1.2 at rate of 40 ml/hr w/ 100ml flush 4x/day. Pt report wt loss x 1 month after sx w/ UBW 120 lbs- question pt wt recall accuracy. Per EMR pt wt 154.1 lbs 06/05/19, 168.0 lbs 03/16/19- CBW 149.9 lbs indicating wt loss of 18.1lb/10.77% wt loss x 3 months (severe, significant for malnutrition). NFPA pt w/ s/s of moderate muscle and fat wasting significant for malnutrition; temporal region scooping/depression (severe), orbital region somewhat hollow look (moderate), clavicle bone region protruding (moderate), dorsal hand interosseous muscle slightly depressed (moderate). Pt experencing N/V since May 18 per pt. Pt notes typically no PO intake at home relying on TF. Pt w/ hx of poor PO intake per previous admissions. - Nutrition Diagnosis Problem / Etiology / Signs & Symptoms (PES):: Per ASPEN guidelines severe malnutrition in the context of chronic illness related to altered GI function as evidenced by wt loss of 10.77% x 3 months, NFPA pt with scooping/depression of temporal region , orbital region hollow look, clavicle bone region protruding, dorsal hand interosseous muscle slightly depressed. Evidence of Malnutrition Exists:: Yes - Nutrition Intervention Nutrition Prescription:: Estimated Nutrition Needs: [id number] calories, 60-70g protein. - Food / Nutrient Delivery Interventions Summary of nutrition intervention:: Pt currently on Nutren 1.5 at home. Rec formula change to comparable product Jevity 1.5 via DobHoff. See recommendations below. Spoke w/ RN UZAIR Magana to request TF formula change. Nutrition support ordered as / adjusted to:: Pt currently on Nutren 1.5 at home. Rec formula change to comparable product Jevity 1.5 via DobHoff at goal rate of 50ml/hr w/ 160 ml flush every 5 hours to provide 1800 calories, 77 g protein, 1712 ml total. Would intitate TFat 20ml/hr and increase by 20 ml every 8 hours as pt tolerate until goal rate is achieved. Rec continue Regular diet as pt tolerates, pt notes no PO intake at home and relying on TF to meet nutrition needs. [ End ] Nutrition education provided?: No - MNT Monitoring Further MNT monitoring and evaluation required?: Yes MNT Follow-up in:: 3-5 days
[2019-07-02] MEDS: proCHLORPERazine 10 MG/2 ML Vial 5 MG IV ×2 (16:23→22:26)
[2019-07-02] MEDS: Ondansetron 4 MG/2 ML Vial IV (17:24)
--- NOTE | 2019-07-02 17:30 | PCM.PN.HOSP ---
Patient Problems: Active and Suspected Problems (Last Reviewed 06/05/19 @ 02:[address] Chance Juarez MD) Nausea and vomiting (Acute) Reason for Visit: Follow-up on intractable nausea and vomiting. Subjective: Patient was seen and examined. He feels improved. No more nausea or vomiting. Has had multiple bowel movement. Objective: Physical exam: General: Alert, Oriented x3, Cooperative, No apparent distress, - - s/p Corpak tube HEENT: Atraumatic, PERRLA, EOMI, Normocephalic Oral: Moist Mucosa Neck: Supple Lungs: Clear to auscultation, Normal air movement Cardiovascular: Regular rate, Regular Rhythm, Normal S1, Normal S2, No murmurs Abdomen: Bowel Sounds Present, Soft, Non Tender, Non-Distended, No Hepato-splenomegaly Extremities: No edema Skin: No rashes, No breakdown Musculoskeletal: No Tenderness to Palpation of Joints or Extremities Lymphatic: No Cervical, Supraclavicular, or Inguinal Adenopathy Neurological: Cranial nerves II-XII grossly intact, Neuro grossly intact Psych/Mental Status: Normal Affect, Appropriate Vitals/I&O's: Vital Signs Temp Pulse Resp BP Pulse Ox 99.0 F 100 18 115/82 H 97 07/02/19 14:00 07/02/19 14:00 07/02/19 14:00 07/02/19 14:00 07/02/19 14:00 Oxygen Delivery Method Room Air Weight: 67.5 kg Body Mass Index (BMI) 21.3 Intake and Output for Last 24 Hours 06/30/19 07/01/19 07/02/19 23:59 23:59 23:59 Intake Total 1250 / 1250 3128.33 / 3128.33 Output Total 600 / 600 Balance 1250 / 1250 2528.33 / 2528.33 Laboratory Results 07/01/19 17:38: POC Glucose 118 H 07/01/19 23:26: POC Glucose 112 H 07/02/19 05:04: POC Glucose 137 H 07/02/19 05:51: WBC 29.5 H, RBC 2.63 L, Hgb 7.5 L, Hct 23.1 L, MCV 87.8, MCH 28.5, MCHC 32.5, RDW Std Deviation 49.4 H, RDW Coeff of Jluis 15.6 H, Plt Count 178, MPV 9.4, Neut % (Auto) Not Reportable, Absolute Neuts (auto) 27.1 H, Absolute Lymphs (auto) 1.48, Total Counted 100, Neutrophils % (Manual) 89 H, Band Neutrophils % 3, Lymphocytes % (Manual) 5 L, Monocytes % (Manual) 1, Metamyelocytes % 1, Myelocytes % 1 H, Diff Path Review September, Platelet Estimate ADEQUATE, RBC Morphology NORM C+C 07/02/19 05:51: Sodium 127 L, Potassium 4.5, Chloride 97 L, Carbon Dioxide 23.0, Anion Gap 7, BUN 12, Creatinine 0.53 L, Estim Creat Clear Calc 132.67, Est GFR (MDRD) Af Amer 202, Est GFR (MDRD) Non-Af 167, BUN/Creatinine Ratio 22.8 H, Glucose 134 H, Calcium 7.7 L, Total Bilirubin 1.10 H, AST 97 H, ALT 108 H, Alkaline Phosphatase 363 H, Total Protein 6.8, Albumin 1.9 L, Globulin 4.9 H, Albumin/Globulin Ratio 0.4 L Current Medications Acetaminophen (Tylenol) 650 mg PO Q6H PRN PRN PRN Reason: Pain Score 1-10/Temp > 100.7 F Albuterol Sulfate (Ventolin Aerosols) 2.5 mg INHALATION Q2H PRN PRN PRN Reason: Shortness of Breath/Wheezing Aspirin (Aspirin, Baby) 81 mg PO DAILYCM [facility] Last Admin: 07/02/19 08:25 Dose: 81 mg Documented by: Atorvastatin Calcium (Lipitor) 40 mg PO QHS [facility] Last Admin: 07/01/19 22:23 Dose: 40 mg Documented by: Enoxaparin Sodium (Lovenox) 80 mg SC BID [facility] Last Admin: 07/02/19 08:25 Dose: 80 mg Documented by: Glucagon () 1 mg IM .X1 PRN PRN Reason: Hypoglycemia Nutritional Formula (Osmolite 1.2) 1,000 mls @ 40 mls/hr GT .Q25H [facility] Last Admin: 07/02/19 12:11 Dose: 40 mls/hr Documented by: Dextrose (Dextrose 10%-Water) 250 mls @ 999 mls/hr IV .Q16M PRN; Protocol PRN Reason: HYPOGLYCEMIA Insulin Human Lispro (Humalog Dwainepen (Bkc)) 0 unit SC Q6 [facility]; Protocol Last Admin: 07/02/19 12:10 Dose: Not Given Documented by: Metoprolol Tartrate (Lopressor (Beta Alpesh)) 50 mg PO BID [facility] Last Admin: 07/02/19 08:31 Dose: 50 mg Documented by: Morphine Sulfate () 2 mg IV Q3H PRN PRN PRN Reason: Pain Score 6-10/10 Ondansetron HCl (Zofran) 4 mg IV Q8H PRN PRN PRN Reason: NAUSEA/VOMITING Last Admin: 07/02/19 17:24 Dose: 4 mg Documented by: Pancrelipase (Krunal Alanis 24,000 Unit Capsule) 3 capsule PO TIDCM [facility] Last Admin: 07/02/19 12:10 Dose: 3 capsule Documented by: Prochlorperazine Edisylate (Compazine Iv) 5 mg IV Q6H PRN PRN PRN Reason: NAUSEA/VOMITING Last Admin: 07/02/19 16:23 Dose: 5 mg Documented by: Sodium Chloride () 10 - 40 ml IV UD PRN PRN Reason: SALINE FLUSH Last Admin: 07/02/19 17:25 Dose: 10 ml Documented by: STROKE Vital Signs/Narrative: Vital Signs Temp Pulse Resp BP Pulse Ox 07/02/19 14:00 99.0 F 100 18 115/82 H 97 Medical Necessity - Tobacco Use Smoking Status: Former smoker Tobacco Use: Non-smoker Assessment/Plan All Active Problems (Last Reviewed 06/05/19 @ 02:[address] Chance Juarez MD) Fever (Acute) Leukocytosis (Acute) Nausea and vomiting (Acute) 64 year old M with past medical history of pancreatic cancer status post Whipple's procedure, severe malnutrition status post CorPak tube feeds, newly diagnosed with leukemia who comes in with intractable nausea and vomiting. 1. Intractable nausea and vomiting, unclear etiology, status post recent Whipple procedure in May 2019, status post CorPak, improved Will continue symptomatic care with IV emetics 2. Dehydration secondary to #1, resolved, s/p IVF, now on tube feeds 3. Debility related to #1 and concurrent comorbidities, discharge [facility] pending Patient is eligible for palliative care in the halfway 4. 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 Pancreatic CA status post Whipple's procedure, outpatient follow-up with oncology 6. Anemia of chronic disease, hemoglobin is stable, will check iron profile Hb is currently will transfuse when hemoglobin is less than 7 7. DVT Prophylaxis on Lovenox subcu 8. Disposition: Discharge to SNF when med is available. Code Visit Inpatient E&M: 88448 Subs Hosp L2
[2019-07-02 17:57] LABS: Iron 18 ug/dL (65-175); Iron Binding Capacity,Total 287 ug/dL (250-450); PERCENT IRON SATURATION 6.3 % (15.0-55.0)
[2019-07-02 19:00] LABS: Bedside Glucose 119 mg/dL (70-110)
[2019-07-02] MEDS: Acetaminophen 325 MG Tablet 650 MG PO (22:25)
[2019-07-02] MEDS: Atorvastatin Calcium 40 MG Tablet PO (22:26)
[2019-07-02 22:50] LABS: Bedside Glucose 114 mg/dL (70-110)
[2019-07-03] VITALS (14 sets, daily range): BP systolic 106–118; BP diastolic 60–76; PULSE 95–114; RESP 18–22; TEMP 36.1–38.1; O2SAT 94–97
[2019-07-03] MEDS: Jevity 1.5 1,000 ML 50 ML GT ×2 (02:05→15:39)
[2019-07-03] MEDS: Ondansetron 4 MG/2 ML Vial IV (05:29)
[2019-07-03] MEDS: 0.9% Saline Lock 10 ML Syringe IV ×4 (05:29→19:33)
--- NOTE | 2019-07-03 05:30 | NURSING ---
pt asked for tube feed to be stopped due to nausea. tf stopped at this time
[2019-07-03 05:40] LABS: Bedside Glucose 163 mg/dL (70-110)
[2019-07-03 06:20] LABS: Hematocrit 23.6 % (40-54); Hemoglobin 7.6 g/dL (13.0-16.5); Mean Corp Hgb Conc 32.2 g/dL (32-36); Mean Corpuscular Hgb 27.7 pg (27.0-32.0); Mean Corpuscular Volume 86.1 fL (80-94); Mean Platelet Vol. 9.2 fl (6.2-12.0); POSITIVE COUNT YES; POSITIVE MORPHOLOGY YES; Platelet Count 167 K/mm3 (150-450); RBC Distribution Width CV 15.6 % (11.6-14.6); RBC Distribution Width SD 48.4 fl (35.1-43.9); Red Blood Count 2.74 M/mm3 (4.6-6.2); White Blood Count 20.5 K/mm3 (4.4-11.0)
[2019-07-03 06:25] LABS: Differential Indicated MANUAL DIFF
[2019-07-03 06:48] LABS: ALB/GLOB Ratio 0.4 RATIO (0.9-2.4); AST(SGOT) 79 U/L (15-37); Alanine Aminotransfer ALT/SGPT 102 U/L (16-61); Albumin, Serum 1.9 g/dL (3.2-5.0); Alkaline Phosphatase 355 U/L (45-117); Anion Gap 6 (5-15); BUN 11 mg/dL (7-18); BUN/Creat Ratio 20.9 RATIO (10-20); Calcium,Total 8.1 mg/dL (8.5-10.1); Chloride 96 mmol/L (98-107); Creatinine, Serum 0.53 mg/dL (0.70-1.30); EST Glomerular Filtration Rate 167 mL/min (>60); Est Glom Filt Rate - Afr Amer 202 mL/min (>60); Estimated Creatinine Clearance 132.67 ml/min; Glucose 157 mg/dL (74-106); Magnesium 2.1 mg/dL (1.6-2.6); Protein, Total 6.9 g/dL (6.4-8.2); Sodium Level 127 mmol/L (136-145)
[2019-07-03 07:10] LABS: Lymphocyte 1 % (19-41); Metamyelocyte 2 % (0-1); Monocyte 2 % (0-10); Neutrophil-Band 5 % (0-5); Neutrophil-Segmented 90 % (47-70); Platelet Estimate ADEQUATE (ADEQ); Red Cell Morphology NORM C+C NORMAL (NORM C&C); Total Cells Counted 100 (MANUAL DIFF)
[2019-07-03 07:11] LABS: Absolute Lymphocyte Count 0.21 X10^3/uL (0.83-4.51); Lymphocyte # 0.21 X10^3/ul (4.0)
[2019-07-03 07:12] LABS: Absolute Neutrophil Count 19.5 X10^3/uL (2.0-7.7); Neutrophil # 19.47 X10^3/uL (2.7-7.7)
[2019-07-03] MEDS: proCHLORPERazine 10 MG/2 ML Vial 5 MG IV ×2 (07:58→19:32)
--- NOTE | 2019-07-03 08:00 | CON.PCM_ITS ---
Problem List (1) Nausea and vomiting Status: Acute Qualifiers: Vomiting type: unspecified Vomiting Intractability: intractable Qualified Code(s): R11.2 - Nausea with vomiting, unspecified Comment: Intolerance to tube feeding (2) Chronic myelogenous leukemia (CML), [id number] Status: Chronic Qualifiers: Leukemia Active/Remission status: without remission Qualified Code(s): C92.10 - Chronic myeloid leukemia, BCR/ABL-positive, not having achieved remission Comment: Recently diagnosed (3) Pancreatic cancer Status: Chronic Qualifiers: Pancreatic malignancy location: head of pancreas Qualified Code(s): C25.0 - Malignant neoplasm of head of pancreas Comment: Low-grade neuroendocrine carcinoma; status post Whipple (4) Iron deficiency anemia due to dietary causes Status: Chronic Comment: Blood loss from recent surgery (5) Thrombosis, portal vein Status: Acute - Consult Date of Consult: 07/03/19 Consult patient requested by Dr. Cortes regarding patient with intractable nausea; pancreatic NEC; status post Whipple; recently diagnosed chronic myelogenous leukemia. My final recommendation will be communicated by electronic medical records - Reason for Consult History of Present Illness Date of Admission: 07/01/19 Chief Complaint: Intractable nausea and vomiting The patient is a 64 year old M with past medical history of pancreatic neuroendocrine cancer; status post Whipple's procedure, severe malnutrition status post CorPak tube feeds since discharge from the [facility]. He was also newly diagnosed with chronic myelogenous leukemia. He presented with intractable nausea and vomiting last weekend. He has been in our ER frequently. CT scan of abdomen/pelvis on 06/29/19 showed some adenopathy in peripancreatic fat and anterior to aorta. Patient has tube feeds via corpak. He has infrequent bowel movement last movement was 2 days ago. Patient complains of no discomfort/abdominal pain with nausea. Denies any diarrhea. Has any fever chills or chest pain shortness of breath. Vitals in the ED showed temperature of 98.6F, heart rate 102, blood pressure 113/70, respiratory 16, SPO2 was 97% on room air. BC count is 31.7, hemoglobin is 8.0, platelet count of 173, with neutrophilia, sodium 127, potassium 4.5, chloride 94, BUN 14, creatinine 0.55, AST 86, ALT 105, ALP 397. KUB of the abdomen no obstructive bowel patterns. Since his admission, patient had try multiple formula restarting tube feeding with recurrent nausea each time after tube feeding was started. He denies any fever, chills or diaphoresis. Past medical history significant for ischemic cardiomyopathy, and iron deficiency anemia. Past Medical History Past Medical History (Chronic Problems): Chronic Problems (Last Reviewed 06/05/19 @ 02:[address] Chance Juarez MD) Pancreatic cancer (Chronic) Hyperlipidemia (Chronic) History of tobacco abuse (Chronic) Ischemic cardiomyopathy (Chronic) EF 35-40% per echo done @ [facility]07/11/2017; 50% per pre-op EFRAIN done @ [facility] 01/25/18 History of [place] (myocardial infarction) (Chronic) Left ventricular scar, markie infart ischemia, left ventricular thrombus per echo 12/15/2017 @ [facility] Atherosclerotic heart disease of [place] coronary artery without angina pectoris (Chronic) MARTINES to LAD, free JANEEN to PDA, SVG to Diagonal, SVG to OM, SVG to right Posterior lateral per Dr. 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 Augustin [facility] Medical History: Medical History (Last Reviewed 06/05/19 @ 02:[address] Chance Juarez MD) Hyperlipidemia (Chronic) E78.5 History of tobacco abuse (Chronic) Z87.891 Ischemic cardiomyopathy (Chronic) I25.5 EF 35-40% per echo done @ [facility]07/11/2017; 50% per pre-op EFRAIN done @ [facility] 01/25/18 History of [place] (myocardial infarction) (Chronic) I25.2 Left ventricular scar, markie infart ischemia, left ventricular thrombus per echo 12/15/2017 @ [facility] Atherosclerotic heart disease of [place] coronary artery without angina pectoris (Chronic) I25.10 MARTINES to LAD, free JANEEN to PDA, SVG to Diagonal, SVG to OM, SVG to right Posterior lateral per Dr. Charli TALAMANTES Allergies No Known Allergies Allergy (Verified 07/01/19 09:23) Home Medications: Ambulatory Orders Medication Instructions Recorded metoprolol tartrate 50 mg tablet 50 mg PO BID #180 tab 03/29/18 aspirin 81 mg chewable tablet 81 mg PO DAILY tab 11/14/18 Acetaminophen [Tylenol Extra 650 mg PO Q4H PRN PRN 06/04/19 Strength] Lipase/Protease/Amylase [Krunal Alanis 2 ea PO TIDCM 06/04/19 36,000 Units Capsule] Metformin HCl 500 mg PO BID 06/04/19 Pantoprazole Sodium 40 mg PO DAILY 06/04/19 Ondansetron [Ondansetron Odt] 4 mg PO Q6H PRN PRN 06/13/19 Atorvastatin Calcium [Lipitor] 40 mg PO QHS 06/29/19 Dasatinib [Sprycel] 100 mg PO DAILY 06/29/19 Enoxaparin Sodium [Lovenox] 80 mg SQ BID 06/29/19 Famotidine [Pepcid] 20 mg PO DAILY 06/29/19 Nutritional Supplement [Nutren 1.5] 63 mls GT CONT 06/29/19 Surgical History: Surgical History (Last Reviewed 06/05/19 @ 02:[address] Chance Juarez MD) S/P CABG x 5 (Chronic) Onset Date: 01/25/18 Z95.1 MARTINES to LAD, free JANEEN to PDA, SVG to Diagonal, SVG to OM, SVG to right Posterior lateral per Dr. Augustin [facility] History of colonoscopy with polypectomy Onset Date: 05/15/03 Z98.890, Z86.[address] Dillon History of right inguinal hernia repair Onset Date: 03/23/16 Z98.890, Z87.[address] Dillon Incarcerated right inguinal hernia (Inactive) K40.30 Surgical History: coronary bypass surgery, herniorrhaphy - right inguinal x 2, - - facial surgery summer , amputated left ring finger 1993 Psychiatric History: No pertinent psych hx Lives: Spouse/ Significant Other Smoking Status: Former smoker Tobacco Use: Non-smoker Alcohol: None Drugs: None - *Family History Maternal Family History: Family History (Last Reviewed 06/05/19 @ 02:[address] Chance Juarez MD) Brother CAD (coronary artery disease) Brother CAD (coronary artery disease) Mother Cancer Father Cancer Sister Cancer History Items: No pertinent history Paternal Family History: Family History (Last Reviewed 01/27/20 @ 02:[address] Chance Juarez MD) Brother CAD (coronary artery disease) Brother CAD (coronary artery disease) Mother Cancer Father Cancer Sister Cancer History Items: No pertinent history Review of Systems Constitutional: Reports: Anorexia, Malaise, Weakness, Fatigue. Denies: Chills, Fever, Weight Change Eyes: Denies: Blurred vision, Cataracts, Pain, Redness, Vision Change HEENT: Denies: Difficulty Hearing, Head Aches, Hearing Changes, Sinus Congestion, Sinus Drainage Cardiovascular: Denies: Chest Pain, Claudication, Orthopnea, Palpitations, Paroxysmal Noc. Dyspnea Respiratory: Denies: Cough, Shortness of breath at rest, Shortness of breath upon exertion, Sputum production Gastrointestinal: Reports: Abdominal Pain, Dyspepsia, Nausea, Vomiting. Denies: Hematemesis, Hematochezia Genitourinary: Denies: Dysuria, Frequency, Incontinence, Nocturia Musculoskeletal: Denies: Joint Pain, Joint stiffness, Joint swelling, Joint Tenderness Skin: Denies: Rash, Wounds Neurological: Denies: Difficulty swallowing, Focal weakness, Numbness, Tingling Psychiatric: Denies: Anxiety, Depression, Homicidal Ideations, Suicidal Ideations Hematologic/ Lymphatic: Denies: Easy Bruising, Easy Bleeding - Physical Exam Vitals/I&O's: Intake and Output for Last 24 Hours 07/01/19 07/02/19 07/03/19 23:59 23:59 23:59 Intake Total 1250 / 1250 3828.33 / 3828.33 450 / 450 Output Total 600 / 600 Balance 1250 / 1250 3228.33 / 3228.33 450 / 450 Last Vital Signs Temp 100 F H 07/03/19 07:51 Pulse 111 H 07/03/19 07:51 Resp 22 H 07/03/19 07:51 BP 111/67 07/03/19 07:51 Pulse Ox 96 07/03/19 07:51 Oxygen Delivery Method Room Air Weight: 63.503 kg Body Mass Index (BMI) 20.0 General: Alert, Oriented x3, Cooperative, No apparent distress, - - s/p Corpak tube; severe malnutrition & cachexia HEENT: Atraumatic, PERRLA, EOMI, Normocephalic Oral: Moist Mucosa Neck: Supple Lungs: Clear to auscultation, Normal air movement Cardiovascular: Regular rate, Regular Rhythm, Normal S1, Normal S2, No murmurs Abdomen: Bowel Sounds Present, Soft, Non Tender, Non-Distended, No Hepato- splenomegaly Extremities: No edema Skin: No rashes, No breakdown Musculoskeletal: No Tenderness to Palpation of Joints or Extremities Lymphatic: No Cervical, Supraclavicular, or Inguinal Adenopathy Neurological: Cranial nerves II-XII grossly intact, Neuro grossly intact Psych/Mental Status: Normal Affect, Appropriate Laboratory Tests Past 24 Hrs 07/02/19 07/03/19 07/03/19 05:51 05:50 05:50 WBC 20.5 H RBC 2.74 L Hgb 7.6 L Hct 23.6 L MCV 86.1 MCH 27.7 MCHC 32.2 RDW Std Deviation 48.4 H RDW Coeff of Jluis 15.6 H Plt Count 167 MPV 9.2 Neut % (Auto) Not Reportable Absolute Neuts (auto) 19.5 H Absolute Lymphs (auto) 0.21 L Total Counted 100 Neutrophils % (Manual) 90 H Band Neutrophils % 5 Lymphocytes % (Manual) 1 L Monocytes % (Manual) 2 Metamyelocytes % 2 H Diff Path Review May foll Platelet Estimate ADEQUATE RBC Morphology NORM C+C Sodium 127 L Potassium 4.0 Chloride 96 L Carbon Dioxide 25.0 Anion Gap 6 BUN 11 Creatinine 0.53 L Estim Creat Clear Calc 132.67 Est GFR (MDRD) Af Amer 202 Est GFR (MDRD) Non-Af 167 BUN/Creatinine Ratio 20.9 H Glucose 157 H Calcium 8.1 L Magnesium 2.1 Iron 18 L TIBC 287 Iron Saturation 6.3 L Total Bilirubin 1.00 AST 79 H ALT 102 H Alkaline Phosphatase 355 H Total Protein 6.9 Albumin 1.9 L Globulin 5.0 H Albumin/Globulin Ratio 0.4 L Assessment/Plan All Active Problems (Last Reviewed 06/05/19 @ 02:[address] Chance Juarez MD) Nausea and vomiting (Acute) Severe protein and caloric malnutrition (chronic) Iron deficiency anemia (chronic) Chronic myelogenous leukemia (chronic) Low-grade neuroendocrine carcinoma of the pancreas; status post Whipple (chronic) Portal vein thrombosis (chronic) Recommendations: -Consult general surgery and palliative care for management of intractable nausea and vomiting -Hold tube feeding for now. -Consider continuous IV infusion of metoclopramide & discontinue Compazine -Continue Zofran 4mg every 6 hours as needed for nausea -Iron sucrose IV infusion for iron deficiency anemia and malabsorption syndrome -Hold treatment for CML at this time until patient is more stable -Continue LMWH for portal vein thrombosis. cc: Dr. Guille Reyes; Dr. Michele Fong; Dr. Samira Cortes; Dr. Aquilino Torres Code Visit Office Visits / Consults: [id number] IP Consult L5
--- NOTE | 2019-07-03 10:01 | CASEMGMT ---
Social Work Note Per stamp machine servicer questions pt has completed HCPOA and provided copy to [facility] and hasn't completed LW. SW reviewed pt's chart. HCPOA found on pt's chart. SW printed copy and placed on pt's chart. Mulu Pienda SHEET FOLDER, BONE PULLER
--- NOTE | 2019-07-03 10:10 | CASEMGMT ---
Social Work Note SHANELL received call from pt's sister in law and HCPOA Chiquita. Chiquita states that pt will need SNF and states her first choices are 1. [facility]. [facility]. [facility]. SW informed Chiquita that this worker will need to speak with pt to confirm that pt is still agreeable to SNF. SW informed Chiquita that once pt gets to SNF pt is able to leave SNF whenever pt wants to. Chiquita states understanding. SW in to speak with pt. SW introduced self and role at [facility]. Pt is alert and orientated x3. Pt confirms he is agreeable to SNF and are agreeable to this worker sending referrals to Chiquita's choices for SNF. Plan: SNF tomorrow pending acceptance Mulu Pineda ROADWAY DESIGNER, CNC SERVICE ENGINEER
[2019-07-03] MEDS: Metoprolol Tartrate 50 MG Tablet PO ×2 (10:16→21:51)
[2019-07-03] MEDS: Enoxaparin 80 MG/0.8 ML Syringe SC ×2 (10:16→21:54)
[2019-07-03 12:01] LABS: Bedside Glucose 104 mg/dL (70-110)
--- NOTE | 2019-07-03 12:40 | CASEMGMT ---
Social Work Note SW received note that pt's family is at [facility] requesting to speak to this worker. SW met with pt's family. Pt's sister in law and HCPOA Chiquita present as long as pt's life long partner, and pt's niece. SW explained Medicare rules and guidelines with pt's family and the goal is to get pt to SNF tomorrow. SW explained that this worker still needs to send referrals. Chiquita states that she spoke with Dr. Vaughan regarding pt's medications and one of his medications are $16,000 a month for his cancer. SW informed Chiquita that pt will likely not be able to take that medication at any SNF. Chiquita states she called Dr. Vaughan's office and explained this and they were agreeable to holding off pt's medications until pt gets out of rehab. SHANELL also explained Palliative and Hospice care. Chiquita agreeable to Palliative Care referral. SHANELL explained that this worker can make Palliative Care referral and they can call Chiquita to discuss options and will likely follow up with pt and Chiquita at SNF. Chiquita states understanding, states that pt always defers decisions to her. SHANELL explained that Palliative Care can be very beneficial to help manage pt's symptoms. Plan: SNF tomorrow pending acceptance Mulu Pineda COUNTY BAILIFF, TITLE INVESTIGATOR
--- NOTE | 2019-07-03 13:43 | CASEMGMT ---
Social Work Pt agreeable to go to SNF at this time for physical rehabilitation prior to restarting treatment regime for cancer. First choice is [facility] and second choice is [facility]. Call placed to Jagruti at [facility] and left requesting she review pt clinicals and let SW know if they can accept pt. Clinical information faxed. Plan: [facility], pending acceptance LAUREL Kent
[2019-07-03 14:00] LABS: Pathologist Review Reviewed
[2019-07-03 14:02] LABS: Pathologist Review Reviewed
[2019-07-03 14:03] LABS: Pathologist Review Reviewed
--- NOTE | 2019-07-03 15:38 | CASEMGMT ---
Social Work Note SW received call from Cal at [facility] asking if pt still smokes. SW in to speak with pt. Pt states he does not still smoke. SHANELL updated Cal at [facility] of this. SHANELL recieved call from Cal at [facility] stating they have concerns with one of pt's medications as it costs $16,000 a month. SHANELL informed Cal that pt's HCPOA was already in contact with Dr. Vaughan's office who was agreeable to having pt stop that current medication. SHANELL updated Cal that pt will not be receiving any chemo/treatment while pt is at SNF getting rehab. Cal states she is still having her DON review referral and will either have her DON let this worker know or she will call this worker first thing tomorrow morning. Plan: SNF tomorrow pending acceptance Mulu Pineda GENERAL II FARMWORKER, HONEYCOMB DECAPPER
--- NOTE | 2019-07-03 16:10 | CASEMGMT ---
Social Work Note SW is leaving for the day, SW will follow up with pt tomorrow regarding Palliative Care. Mulu Pineda INTAKE RN, DRY CLEANING COUNTER CLERK
--- NOTE | 2019-07-03 17:23 | PCM.PN.HOSP ---
Patient Problems: Active and Suspected Problems (Last Reviewed 06/05/19 @ 02:[address] Chance Juarez MD) Nausea and vomiting (Acute) Intolerance to tube feeding Thrombosis, portal vein (Acute) Reason for Visit: Patient is very weak, lethargic and short of breath. Power of assistant prosecuting attorney for health is Ms. Chiquita Ho, patient's [id number]. Vitals/I&O's: Vital Signs Temp Pulse Resp BP Pulse Ox 100.3 F H 103 H 18 106/65 95 07/03/19 14:53 07/03/19 14:53 07/03/19 14:53 07/03/19 14:53 07/03/19 14:53 Oxygen Delivery Method Room Air Weight: 149 lb 7.574 oz Body Mass Index (BMI) 21.3 Intake and Output for Last 24 Hours 07/01/19 07/02/19 07/03/19 23:59 23:59 23:59 Intake Total 1250 / 1250 3828.33 / 3828.33 480 / 480 Output Total 600 / 600 Balance 1250 / 1250 3228.33 / 3228.33 480 / 480 General: Confused, Disoriented, Lethargic HEENT: Atraumatic, PERRLA, EOMI, Normocephalic Oral: - - NG tube Neck: Supple, No JVD, Negative Carotid Bruits Lungs: No rhonchi, No wheeze, No rales, Diminished Cardiovascular: Regular rate, Regular Rhythm, Normal S1, Normal S2, No murmurs Abdomen: Bowel Sounds Present, Soft, Non Tender, Non-Distended Extremities: No edema, Capillary Refill Less than 3 Seconds Skin: No rashes, No breakdown Musculoskeletal: No Tenderness to Palpation of Joints or Extremities, Arthritic Changes, Muscle Wasting Neurological: - - Very lethargic. Psych/Mental Status: Normal Affect, Appropriate Laboratory Results 07/01/19 10:11: Diff Path Review Reviewed 07/02/19 05:51: Diff Path Review Reviewed 07/02/19 05:51: Iron 18 L, TIBC 287, Iron Saturation 6.3 L 07/02/19 17:29: POC Glucose 119 H 07/02/19 22:34: POC Glucose 114 H 07/03/19 05:34: POC Glucose 163 H 07/03/19 05:50: WBC 20.5 H, RBC 2.74 L, Hgb 7.6 L, Hct 23.6 L, MCV 86.1, MCH 27.7, MCHC 32.2, RDW Std Deviation 48.4 H, RDW Coeff of Jluis 15.6 H, Plt Count 167, MPV 9.2, Neut % (Auto) Not Reportable, Absolute Neuts (auto) 19.5 H, Absolute Lymphs (auto) 0.21 L, Total Counted 100, Neutrophils % (Manual) 90 H, Band Neutrophils % 5, Lymphocytes % (Manual) 1 L, Monocytes % (Manual) 2, Metamyelocytes % 2 H, Diff Path Review Reviewed, Platelet Estimate ADEQUATE, RBC Morphology NORM C+C 07/03/19 05:50: Sodium 127 L, Potassium 4.0, Chloride 96 L, Carbon Dioxide 25.0, Anion Gap 6, BUN 11, Creatinine 0.53 L, Estim Creat Clear Calc 132.67, Est GFR (MDRD) Af Amer 202, Est GFR (MDRD) Non-Af 167, BUN/Creatinine Ratio 20.9 H, Glucose 157 H, Calcium 8.1 L, Magnesium 2.1, Total Bilirubin 1.00, AST 79 H, ALT 102 H, Alkaline Phosphatase 355 H, Total Protein 6.9, Albumin 1.9 L, Globulin 5.0 H, Albumin/Globulin Ratio 0.4 L 07/03/19 11:55: POC Glucose 104 Current Medications Acetaminophen (Tylenol) 650 mg PO Q6H PRN PRN PRN Reason: Pain Score 1-10/Temp > 100.7 F Last Admin: 07/02/19 22:25 Dose: 650 mg Documented by: Albuterol Sulfate (Ventolin Aerosols) 2.5 mg INHALATION Q2H PRN PRN PRN Reason: Shortness of Breath/Wheezing Aspirin (Aspirin, Baby) 81 mg PO DAILYCM [facility] Last Admin: 07/03/19 08:38 Dose: Not Given Documented by: Atorvastatin Calcium (Lipitor) 40 mg PO QHS [facility] Last Admin: 07/02/19 22:26 Dose: 40 mg Documented by: Enoxaparin Sodium (Lovenox) 80 mg SC BID [facility] Last Admin: 07/03/19 10:16 Dose: 80 mg Documented by: Glucagon () 1 mg IM .X1 PRN PRN Reason: Hypoglycemia Dextrose (Dextrose 10%-Water) 250 mls @ 999 mls/hr IV .Q16M PRN; Protocol PRN Reason: HYPOGLYCEMIA Enteral Nutritional Formula (Jevity 1.5) 1,000 mls @ 50 mls/hr GT .Q20H ALLISON Last Admin: 07/03/19 15:39 Dose: 50 mls/hr Documented by: Sodium Chloride () 250 mls @ 15 mls/hr IV .[id number] PRN PRN Reason: Saline Flush Sodium Chloride () 250 mls @ 15 mls/hr IV .[id number] PRN PRN Reason: Additional IVPB Infusion Insulin Human Lispro (Humalog Kwikpen (Bkc)) 0 unit SC Q6 ALLISON; Protocol Last Admin: 07/03/19 12:14 Dose: Not Given Documented by: Metoclopramide HCl (Reglan) 5 mg GT Q6 ALLISON Metoprolol Tartrate (Lopressor (Beta Alpesh)) 50 mg PO BID [facility] Last Admin: 07/03/19 10:16 Dose: 50 mg Documented by: Morphine Sulfate () 2 mg IV Q3H PRN PRN PRN Reason: Pain Score 6-10/10 Pancrelipase (Krunal Dr 24,000 Unit Capsule) 3 capsule PO TIDCM [facility] Last Admin: 07/03/19 12:13 Dose: Not Given Documented by: Prochlorperazine Edisylate (Compazine Iv) 5 mg IV Q6H PRN PRN PRN Reason: NAUSEA/VOMITING Last Admin: 07/03/19 07:58 Dose: 5 mg Documented by: Sodium Chloride () 10 - 40 ml IV UD PRN PRN Reason: SALINE FLUSH Last Admin: 07/03/19 14:30 Dose: 10 ml Documented by: STROKE Vital Signs/Narrative: Vital Signs Temp Pulse Resp BP Pulse Ox 07/03/19 14:53 100.3 F H 103 H 18 106/65 95 07/03/19 14:00 100 Medical Necessity - Tobacco Use Smoking Status: Former smoker Tobacco Use: Non-smoker Assessment/Plan All Active Problems (Last Reviewed 06/05/19 @ 02:[address] Chance Juarez MD) Fever (Acute) Leukocytosis (Acute) Nausea and vomiting (Acute) Thrombosis, portal vein (Acute) 64 year old M with past medical history of pancreatic cancer status post Whipple's procedure, severe malnutrition status post CorPak tube feeds, newly diagnosed with leukemia who comes in with intractable nausea and vomiting. 1. Intractable nausea and vomiting, unclear etiology, status post recent Whipple procedure in May 2019, status post CorPak, improved Patient is still has nausea. Started on Reglan 5 mg every 6 hourly with tube feed Jevity. 200 mL every 4 hourly free water push. 2. Dehydration secondary to #1, resolved, s/p IVF, now on tube feeds 3. Debility related to #1 and concurrent comorbidities, discharge to retirement facility pending Patient is eligible for palliative care/hospice care in the custodial 4. 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 Leukocytosis improved to 20.5 thousand. 5. Pancreatic CA status post Whipple's procedure, outpatient follow-up with oncology. Patient is not in good general condition for chemotherapy. 6. 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 Iron profile shows low iron 18, TIBC 297, iron saturation 6.3%. Iron infusion ordered 7. DVT Prophylaxis on Lovenox subcu 8. Disposition: Discharge to SNF when med is available. Code Visit Inpatient E&M: 05192 Subs Hosp L2
[2019-07-03] MEDS: Metoclopramide 5 MG TABLET GT ×2 (18:13→23:29)
[2019-07-03 18:16] LABS: Bedside Glucose 114 mg/dL (70-110)
--- NOTE | 2019-07-03 19:53 | NURSING ---
Pt requested Tube feed be stop at this time d/t nausea. PRN Compazine given
--- NOTE | 2019-07-03 20:30 | NURSING ---
Pt had 50cc emesis. Emesis appeared to be mostly tube feed. Dr. Hays notified. IV fluids restarted
[2019-07-03] MEDS: Atorvastatin Calcium 40 MG Tablet PO (21:51)
[2019-07-03 23:46] LABS: Bedside Glucose 104 mg/dL (70-110)
[2019-07-04] VITALS (17 sets, daily range): BP systolic 97–118; BP diastolic 56–69; PULSE 82–119; RESP 16–20; TEMP -13.2–39.1; O2SAT 94–97
[2019-07-04] MEDS: Acetaminophen 325 MG Tablet 650 MG PO (01:33)
--- NOTE | 2019-07-04 02:10 | NURSING ---
Dr. Hays notified of pt's temp 102.3. Blood cultures X2 ordered
[2019-07-04 03:44] LABS: Anion Gap 10 (5-15); BUN 13 mg/dL (7-18); BUN/Creat Ratio 23.2 RATIO (10-20); Calcium,Total 7.9 mg/dL (8.5-10.1); Chloride 95 mmol/L (98-107); Creatinine, Serum 0.56 mg/dL (0.70-1.30); EST Glomerular Filtration Rate 156 mL/min (>60); Est Glom Filt Rate - Afr Amer 188 mL/min (>60); Estimated Creatinine Clearance 126.12 ml/min; Glucose 107 mg/dL (74-106); Sodium Level 128 mmol/L (136-145)
[2019-07-04] MEDS: Metoclopramide 5 MG TABLET GT ×2 (05:36→12:47)
[2019-07-04 05:56] LABS: Bedside Glucose 120 mg/dL (70-110)
--- NOTE | 2019-07-04 07:38 | RAD_ITS ---
STUDY: X-RAY CHEST REASON FOR EXAM: Male, 64 years old. FEVER, INTRACTABLE NAUSEA, VOMITING TECHNIQUE: Single AP portable view of the chest. COMPARISON: 06/05/2019 FINDINGS: Interval placement of feeding tube with the tip below the diaphragm. Status post median sternotomy. The lungs are clear and expanded. There is no demonstrated pleural abnormality. Normal size heart. Normal mediastinum and fredo. Normal visualized pulmonary arteries. Normal visualized aortic arch and descending thoracic aorta. Normal visualized thoracic spine. Normal visualized ribs, clavicles, and shoulders. There is no demonstrated abnormality of the visualized soft tissue structures of the upper abdomen. RAD/Chest 1 View (Portable) IMPRESSION: 1. Interval placement of feeding tube with the tip below the diaphragm. 2. No active disease. Electronically Signed: Blake Curiel MD at 11:47 EST Tel , Service support ,
--- NOTE | 2019-07-04 09:46 | NURSING ---
Spoke with Zana, pharmacist, and Dr Arnold, pt has been refusing Creon, Zana is checking into an option so pt would/could take the Creon. He will add an edit to the med administration. Pt said he thought could take if the granules are mixed with apple sauce.
--- NOTE | 2019-07-04 10:08 | CASEMGMT ---
Social Work Note SW placed a call to Cal at [facility] and left message asking if she knows yet if they are able to accept pt today. SW waiting for call back. Plan: SNF today pending acceptance Mulu Pineda AIRLINE DISPATCHER, COLLEGE ADMINISTRATOR
[2019-07-04 10:15] LABS: Absolute Lymphocyte Count 0.97 X10^3/uL (0.83-4.51); Absolute Neutrophil Count 18.4 X10^3/uL (2.0-7.7); Basophil# 0.04 X10^3/uL; Basophil% 0.2 % (0-1); Hemoglobin 7.2 g/dL (13.0-16.5); Lymphocyte # 0.97 X10^3/ul (4.0); Lymphocyte % 4.6 % (19-41); Mean Corp Hgb Conc 32.7 g/dL (32-36); Mean Corpuscular Hgb 28.3 pg (27.0-32.0); Mean Corpuscular Volume 86.6 fL (80-94); Mean Platelet Vol. 9.1 fl (6.2-12.0); Monocyte# 0.78 X10^3/uL; Monocyte% 3.7 % (0-10); NRBC Flagged by Analyzer 0 % (0-5); Neutrophil # 18.43 X10^3/uL (2.7-7.7); Neutrophil % 86.7 % (47-70); Platelet Count 173 K/mm3 (150-450); RBC Distribution Width CV 15.4 % (11.6-14.6); RBC Distribution Width SD 48.5 fl (35.1-43.9); Red Blood Count 2.54 M/mm3 (4.6-6.2); White Blood Count 21.2 K/mm3 (4.4-11.0)
[2019-07-04] MEDS: Metoprolol Tartrate 50 MG Tablet PO ×2 (10:27→21:25)
[2019-07-04] MEDS: Enoxaparin 80 MG/0.8 ML Syringe SC ×2 (10:27→21:25)
[2019-07-04] MEDS: 0.9% Saline Lock 10 ML Syringe IV ×2 (10:28→15:37)
--- NOTE | 2019-07-04 10:44 | PCM.HP.ID ---
Problem List (1) Fever Status: Acute Reason for Consult: fever Consulted by: Dr. Arnold History of Present Illness: The patient is a 64 year old M with pancreatic cancer and new dx CML who presented with n/v, not feeling well. Had Whipple at [facility] on 05/18/19, and starting a few days after surgery has had ongoing n/v and intermittent fever. Mild night sweats. No headache, no vision changes, no cough/SOB, no abd pain, no dysuria, no rash, no aches/pain, no swollen lymph nodes. Surgical site has healed well with no drainage. Admitted here at end of May with similar sx, transferred to [facility] on iv abx. After that, no recent abx. Came to ED 06/[address] was done. Readmitted 2 days ago, given fluids, wbc improving, but did have fever to 102.7 last night. Bcx sent. Not started on abx, no complaints this AM. Full ROS Performed and neg except as noted above. - Medical History Past Medical History (Chronic Problems): Chronic Problems (Last Reviewed 06/05/19 @ 02:[address] Chance Juarez MD) Pancreatic cancer (Chronic) Low-grade neuroendocrine carcinoma; status post Whipple Chronic myelogenous leukemia (CML), [id number] (Chronic) Recently diagnosed Iron deficiency anemia due to dietary causes (Chronic) Blood loss from recent surgery Hyperlipidemia (Chronic) History of tobacco abuse (Chronic) Ischemic cardiomyopathy (Chronic) EF 35-40% per echo done @ [facility]07/11/2017; 50% per pre-op EFRAIN done @ [facility] 01/25/18 History of NE (myocardial infarction) (Chronic) Left ventricular scar, markie infart ischemia, left ventricular thrombus per echo 12/15/2017 @ [facility] Atherosclerotic heart disease of [place] coronary artery without angina pectoris (Chronic) MARTINES to LAD, free JANEEN to PDA, SVG to Diagonal, SVG to OM, SVG to right Posterior lateral per Dr. 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 Augustin NINA Allergies/Adverse Reactions: Allergies No Known Allergies Allergy (Verified 07/01/19 09:23) Home Medications: Ambulatory Orders Medication Instructions Recorded metoprolol tartrate 50 mg tablet 50 mg PO BID #180 tab 03/29/18 aspirin 81 mg chewable tablet 81 mg PO DAILY tab 11/14/18 Acetaminophen [Tylenol Extra 650 mg PO Q4H PRN PRN 06/04/19 Strength] Lipase/Protease/Amylase [Krunal Alanis 2 ea PO TIDCM 06/04/19 36,000 Units Capsule] Metformin HCl 500 mg PO BID 06/04/19 Ondansetron [Ondansetron Odt] 4 mg PO Q6H PRN PRN 06/13/19 Atorvastatin Calcium [Lipitor] 40 mg PO QHS 06/29/19 Dasatinib [Sprycel] 100 mg PO DAILY 06/29/19 Enoxaparin Sodium [Lovenox] 60 mg SQ BID 06/29/19 Famotidine [Pepcid] 20 mg PO DAILY 06/29/19 Nutritional Supplement [Nutren 1.5] 63 mls GT CONT 06/29/19 Promethazine HCl [Phenadoz] 12.5 mg RECTAL Q6H PRN PRN 07/01/19 - Social History SMOKING STATUS:: Former smoker Vital Signs Temp Pulse Resp BP Pulse Ox 98.4 F 87 16 97/57 L 97 07/04/19 10:24 07/04/19 10:27 07/04/19 10:24 07/04/19 10:27 07/04/19 10:24 Oxygen Delivery Method Room Air Weight: 66.5 kg Body Mass Index (BMI) 21.3 Laboratory Tests Past 24 Hrs 07/01/19 07/02/19 07/03/19 10:11 05:51 05:50 WBC RBC Hgb Hct MCV MCH MCHC RDW Std Deviation RDW Coeff of Jluis Plt Count MPV Immature Gran % (Auto) Neut % (Auto) Lymph % (Auto) [place] % (Auto) Eos % (Auto) Baso % (Auto) Absolute Neuts (auto) Absolute Lymphs (auto) Nucleated RBC % Diff Path Review Reviewed Reviewed Reviewed Sodium Potassium Chloride Carbon Dioxide Anion Gap BUN Creatinine Estim Creat Clear Calc Est GFR (MDRD) Af Amer Est GFR (MDRD) Non-Af BUN/Creatinine Ratio Glucose Calcium Phosphorus Magnesium Total Bilirubin Direct Bilirubin AST ALT Alkaline Phosphatase Total Protein Albumin Prealbumin 07/04/19 07/04/19 07/04/19 02:41 10:02 10:02 WBC 21.2 H RBC 2.54 L Hgb 7.2 L Hct 22.0 L MCV 86.6 MCH 28.3 MCHC 32.7 RDW Std Deviation 48.5 H RDW Coeff of Jluis 15.4 H Plt Count 173 MPV 9.1 Immature Gran % (Auto) 4.800 H Neut % (Auto) 86.7 H Lymph % (Auto) 4.6 L [place] % (Auto) 3.7 Eos % (Auto) 0.0 Baso % (Auto) 0.2 Absolute Neuts (auto) 18.4 H Absolute Lymphs (auto) 0.97 Nucleated RBC % 0 Diff Path Review Sodium 128 L Potassium 4.0 Chloride 95 L Carbon Dioxide 23.0 Anion Gap 10 BUN 13 Creatinine 0.56 L Estim Creat Clear Calc 126.12 Est GFR (MDRD) Af Amer 188 Est GFR (MDRD) Non-Af 156 BUN/Creatinine Ratio 23.2 H Glucose 107 H Calcium 7.9 L Phosphorus Pending Magnesium Pending Total Bilirubin Pending Direct Bilirubin Pending AST Pending ALT Pending Alkaline Phosphatase Pending Total Protein Pending Albumin Pending Prealbumin Pending - Other Studies Radiology: [] reviewed Other Studies: [] Route of nutrition/ use of supplements: [] Nutritional Intake: [] IV Site: [] Chavez Catheter: [] - Physical Exam General: Alert, Oriented x3, Cooperative, No apparent distress HEENT: Atraumatic, PERRLA, EOMI Neck: Supple, No Nodes Lungs: Clear to auscultation, Normal air movement Cardiovascular: Regular rate, Regular Rhythm, No murmurs Abdomen: Soft, Non Tender, Non-Distended Extremities: No edema Skin: No rashes, Incision - abd incision well healed IV Site: Peripheral, without redness Musculoskeletal: No Tenderness to Palpation of Joints or Extremities Neurological: Cranial nerves II-XII grossly intact - Assessment/Plan Antibiotics: [] Assessment/Plan: [] Active and Suspected Problems (Last Reviewed 06/05/19 @ 02:[address] Chance Juarez MD) Nausea and vomiting (Acute) Intolerance to tube feeding Thrombosis, portal vein (Acute) fever, leukocytosis, tachycardia - wbc improving. 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 Bcx sent, cxr reviewed, will order viral panel and UA/UCx. Given clinical stability, ok to monitor off of abx. Will follow, thank you.
[2019-07-04 10:46] LABS: Color, Urine Yellow (Yellow); Glucose, Dipstick Normal (Normal); Ketone-Dipstick 5 mg/dl (Negative); Leukocyte Esterase-Dipstick 25 /ul (Negative); Nitrite-Dipstick Negative (Negative); Occult Blood-Urine 10 /ul (Negative); Protein-Dipstick 15 mg/dl (Negative); Red Blood Cells-Urine 0 SEEN /hpf (0-5); Specific Gravity, Urine 1.025 (1.002-1.030); Urine Bilirubin Dipstick Negative (Negative); Urine Clarity Clear (Clear); Urine Urobilinogen 4 mg/dl (Normal)
[2019-07-04 10:58] LABS: Bacteria 1+ /hpf (None Seen); Mucous, Urine 2+ /hpf (<or=2+); Squamous Epithelial Cells - UA 0-5 SEEN /hpf (0-5); White Blood Cells 0-5 SEEN /hpf (0-5)
[2019-07-04 11:05] LABS: AST(SGOT) 60 U/L (15-37); Alanine Aminotransfer ALT/SGPT 86 U/L (16-61); Albumin, Serum 1.8 g/dL (3.2-5.0); Alkaline Phosphatase 320 U/L (45-117); Bilirubin, Direct 0.57 mg/dL (0.00-0.30); Globulin 4.9 g/dL (2.2-4.2); Magnesium 2.1 mg/dL (1.6-2.6); Phosphorus 4.3 mg/dL (2.5-4.9); Prealbumin 3.9 mg/dL (20.0-40.0); Protein, Total 6.7 g/dL (6.4-8.2)
[2019-07-04 11:26] LABS: Bedside Glucose 98 mg/dL (70-110)
--- NOTE | 2019-07-04 11:43 | NURSING ---
Call Zana, pharmacist, if it is okay to administer a 1000 cc soap suds enema is pt is receiving lovenox 80 mg bid. He said he would check it out and get back to nurse.
--- NOTE | 2019-07-04 11:56 | CASEMGMT ---
Social Work Note SW received call from Cal at [facility] stating they are able to accept pt. SHANELL spoke with physician, pt is not medically cleared for discharge, pt had fever last night. SHANELL updated Cal that pt is not medically cleared for discharge. SHANELL faxed updated clinicals to [facility]. SW in to update pt on acceptance to [facility] and that pt is able to discharge to [facility] once medically cleared. Pt states understanding. SHANELL also spoke with pt regarding Palliative Care. Pt agreeable to Palliative care and would like his sister in law Chiquita to speak with Palliative. SHANELL placed a call to [facility] and spoke with UZAIR Valverde and provided Palliative Care referral and informed Nicolle that pt is alert and orientated x3 but would like his sister in law, who is HCPOA, to be called regarding referral. SHANELL updated Nicolle that plan is for pt to go to [facility] skilled once medically cleared. SHANELL completed Palliative Care Screening tool, pt scored 6. Plan: [facility] skilled once medically cleared. Palliative Care consulted. Mulu Pineda OIL PROCESS STILLMAN, CIVIL PREPAREDNESS OFFICER
--- NOTE | 2019-07-04 12:05 | NURSING ---
1150 Zana, pharmacist, states no information found about that a soap suds enema would be contraindicated.
--- NOTE | 2019-07-04 13:05 | RAD_ITS ---
STUDY: X-RAY - ABDOMEN/PELVIS REASON FOR EXAM: Male, 64 years old. intractable nausea and vomiting, constipation, looking for ileus, patient is on tube feed TECHNIQUE: AP supine and decubitus views of the abdomen and pelvis. COMPARISON: 07/01/2019 FINDINGS: Normal visualized lung bases. There is an unremarkable bowel gas pattern. There is no demonstrated free abdominal air. The visualized liver, spleen and kidneys are grossly normal in size and morphology. Feeding tube with the tip in the left upper quadrant likely in the body the stomach. Levoscoliosis of lumbar spine with degenerative disc disease. RAD/Abd Inc Decub and/or Erect IMPRESSION: No bowel obstruction or pneumoperitoneum. Electronically Signed: Blake Curiel MD at 13:28 EST Tel , Service support ,
--- NOTE | 2019-07-04 13:54 | PN_ITS ---
Patient Problems: Active and Suspected Problems (Last Reviewed 06/05/19 @ 02:[address] Chance Juarez MD) Nausea and vomiting (Acute) Intolerance to tube feeding Thrombosis, portal vein (Acute) Reason for Visit: Patient had a high fever last night. Leukocytosis. Failure to thrive. Objective: High-grade fever 102.3 about 1:30 AM today. There was a complete tachycardia 107/min. No hypoxia. Patient denies abdominal pain. Denies lower urinary tract symptoms including burning micturition. Patient has constipation has not moved bowel for 3 days. Does not remember about passing flatus. Denies upper respiratory, sinus congestion or sore throat. No shortness of breath, cough or unusual symptoms. Blood cultures have been ordered. UA with urine culture, chest x-ray and abdominal x-ray ordered. Vitals/I&O's: Vital Signs Temp Pulse Resp BP Pulse Ox 98.4 F 87 16 97/57 L 97 07/04/19 10:24 07/04/19 10:27 07/04/19 10:24 07/04/19 10:27 07/04/19 10:24 Oxygen Delivery Method Room Air Weight: 146 lb 9.718 oz Body Mass Index (BMI) 21.3 Intake and Output for Last 24 Hours 07/02/19 07/03/19 07/04/19 23:59 23:59 23:59 Intake Total 3828.33 / 3828.33 640 / 640 1260 / 1260 Output Total 600 / 600 200 / 200 Balance 3228.33 / 3228.33 640 / 640 1060 / 1060 General: Alert, Oriented x3, Cooperative HEENT: Atraumatic, PERRLA, EOMI, Normocephalic Neck: Supple, No JVD, Negative Carotid Bruits Lungs: Clear to auscultation, No rhonchi, No wheeze, No rales, Diminished Cardiovascular: Regular rate, Regular Rhythm, Normal S1, Normal S2, No murmurs Abdomen: Bowel Sounds Present, Soft, Non Tender, Non-Distended, - - NG tube Extremities: No edema, Capillary Refill Less than 3 Seconds Skin: No rashes, No breakdown Musculoskeletal: No Tenderness to Palpation of Joints or Extremities, Arthritic Changes, Muscle Wasting Neurological: Cranial nerves II-XII grossly intact, Deep Tendon Reflexes 2+/4 and Symmetrical, Neuro grossly intact Psych/Mental Status: Normal Affect, Appropriate Laboratory Results 07/01/19 10:11: Diff Path Review Reviewed 07/02/19 05:51: Diff Path Review Reviewed 07/03/19 05:50: Diff Path Review Reviewed 07/03/19 18:10: POC Glucose 114 H 07/03/19 23:36: POC Glucose 104 07/04/19 02:41: Sodium 128 L, Potassium 4.0, Chloride 95 L, Carbon Dioxide 23.0, Anion Gap 10, BUN 13, Creatinine 0.56 L, Estim Creat Clear Calc 126.12, Est GFR (MDRD) Af Amer 188, Est GFR (MDRD) Non-Af 156, BUN/Creatinine Ratio 23.2 H, Glucose 107 H, Calcium 7.9 L 07/04/19 05:41: POC Glucose 120 H 07/04/19 10:02: WBC 21.2 H, RBC 2.54 L, Hgb 7.2 L, Hct 22.0 L, MCV 86.6, MCH 28.3, MCHC 32.7, RDW Std Deviation 48.5 H, RDW Coeff of Jluis 15.4 H, Plt Count 173, MPV 9.1, Immature Gran % (Auto) 4.800 H, Neut % (Auto) 86.7 H, Lymph % (Auto) 4.6 L, [place] % (Auto) 3.7, Eos % (Auto) 0.0, Baso % (Auto) 0.2, Absolute Neuts (auto) 18.4 H, Absolute Lymphs (auto) 0.97, Nucleated RBC % 0 07/04/19 10:02: Phosphorus 4.3, Magnesium 2.1, Total Bilirubin 0.90, Direct Bilirubin 0.57 H, AST 60 H, ALT 86 H, Alkaline Phosphatase 320 H, Total Protein 6.7, Albumin 1.8 L, Globulin 4.9 H, Prealbumin 3.9 L 07/04/19 10:35: Urine Color Yellow, Urine Clarity Clear, Urine pH 5.0, Ur Specific [place] 1.025, Urine Protein 15 H, Urine Glucose (UA) Normal, Urine Ketones 5 H, Urine Occult Blood 10 H, Urine Nitrite Negative, Urine Bilirubin Negative, Urine Urobilinogen 4 H, Ur Leukocyte Esterase 25 H, Urine RBC 0 SEEN, Urine WBC 0-5 SEEN, Ur Squamous Epith Cells 0-5 SEEN, Urine Bacteria 1+, Urine Mucus 2+ 07/04/19 11:17: POC Glucose 98 Current Medications Acetaminophen (Tylenol) 650 mg PO Q6H PRN PRN PRN Reason: Pain Score 1-10/Temp > 100.7 F Last Admin: 07/04/19 01:33 Dose: 650 mg Documented by: Acetaminophen (Tylenol) 650 mg RECTAL Q4H PRN PRN PRN Reason: Pain or Fever Albuterol Sulfate (Ventolin Aerosols) 2.5 mg INHALATION Q2H PRN PRN PRN Reason: Shortness of Breath/Wheezing Atorvastatin Calcium (Lipitor) 40 mg PO QHS [facility] Last Admin: 07/03/19 21:51 Dose: 40 mg Documented by: Enoxaparin Sodium (Lovenox) 80 mg SC BID [facility] Last Admin: 07/04/19 10:27 Dose: 80 mg Documented by: Glucagon () 1 mg IM .X1 PRN PRN Reason: Hypoglycemia Dextrose (Dextrose 10%-Water) 250 mls @ 999 mls/hr IV .Q16M PRN; Protocol PRN Reason: HYPOGLYCEMIA Enteral Nutritional Formula (Jevity 1.5) 1,000 mls @ 50 mls/hr GT .Q20H ALLISON Last Admin: 07/03/19 15:39 Dose: 50 mls/hr Documented by: Sodium Chloride () 250 mls @ 15 mls/hr IV .[id number] PRN PRN Reason: Saline Flush Last Admin: 07/04/19 10:28 Dose: 15 mls/hr Documented by: Sodium Chloride () 250 mls @ 15 mls/hr IV .[id number] PRN PRN Reason: Additional IVPB Infusion Potassium Chloride/Sodium Chloride () 1,000 mls @ 75 mls/hr IV .[id number] ALLISON Stop: 07/04/19 23:24 Last Infusion: 07/04/19 12:06 Dose: Infused Documented by: Insulin Human Lispro (Humalog Kwikpen (Bkc)) 0 unit SC Q6 [facility]; Protocol Last Admin: 07/04/19 12:44 Dose: Not Given Documented by: Metoclopramide HCl (Reglan) 5 mg GT Q6 [facility] Last Admin: 07/04/19 12:47 Dose: 5 mg Documented by: Metoprolol Tartrate (Lopressor (Beta Alpesh)) 50 mg PO BID [facility] Last Admin: 07/04/19 10:27 Dose: 50 mg Documented by: Morphine Sulfate () 2 mg IV Q3H PRN PRN PRN Reason: Pain Score 6-10/10 Ondansetron HCl (Zofran) 8 mg IV Q8H PRN PRN PRN Reason: NAUSEA/VOMITING Pancrelipase (Creon Dr 24,000 Unit Capsule) 3 capsule PO TIDCM [facility] Last Admin: 07/04/19 09:55 Dose: Not Given Documented by: Prochlorperazine Edisylate (Compazine Iv) 5 mg IV Q6H PRN PRN PRN Reason: NAUSEA/VOMITING Last Admin: 07/03/19 19:32 Dose: 5 mg Documented by: Sodium Chloride () 10 - 40 ml IV UD PRN PRN Reason: SALINE FLUSH Last Admin: 07/04/19 10:28 Dose: 10 ml Documented by: STROKE Vital Signs/Narrative: Vital Signs Temp Pulse Resp BP Pulse Ox 07/04/19 10:27 87 97/57 L 07/04/19 10:24 98.4 F 87 16 97/57 L 97 07/04/19 10:13 86 Medical Necessity - Tobacco Use Smoking Status: Former smoker Tobacco Use: Non-smoker Assessment/Plan All Active Problems (Last Reviewed 06/05/19 @ 02:[address] 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 1. Fever of unclear etiology with leukocytosis possible leukemia: Patient ab dominal x-ray shows bowel gas pattern with no radiologic features of bowel obstruction or pneumoperitoneum. UA, chest x-ray are negative. Blood cultures and urine cultures are pending. Respiratory panel pending. 2. Intractable nausea and vomiting, unclear etiology, status post recent Whipple procedure in May 2019, status post CorPak, improved Started on Reglan 5 mg every 6 hourly with tube feed Jevity. 200 mL every 4 hourly free water push. 07/04: As per the nurse, patient had vomiting 1 time yesterday. On Reglan through feeding tube and Zofran 8 mg IV every 8 hourly as needed. 3. Dehydration secondary to #1, resolved, s/p IVF, now on tube feeds 4. Debility related to #1 and concurrent comorbidities, discharge [facility] [place] [facility] pending Patient is eligible for palliative care/hospice care in the longterm 5. 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 Leukocytosis improved to 20.5 thousand. 07/04: Discussed with oncologist. Similar CML is stable. 6. Pancreatic CA status post Whipple's procedure, outpatient follow-up with oncology. Patient is not in good general condition for chemotherapy. 7. 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 Iron profile shows low iron 18, TIBC 297, iron saturation 6.3%. Iron infusion ordered 07/04: Hemoglobin 7.2. On iron infusion. 8. DVT Prophylaxis on Lovenox subcu 9. Disposition: Discharge to SNF when med is available. Advanced directive: Discussed with the patient's [id number] Ms. Chiquita Franco power of divorce attorney of health. Patient clinical updates were given. As per the patient's sister, he has been having frequent ER visits and 3 times admission after Whipple's procedure in [facility] and [facility]. In [facility], as per her they do not manage different than here and do not have particular diagnosis. It seems patient has failure to thrive, poor nutritional status. She asked about IV TPN and was told about central line and its complication and implication including line sepsis and its not the permanent solution Overall, Ms. Porras does not want artificial life support including intubation, TPN, ventilator and/chest compression, BiPAP, vasopressor and central line insertion but okay with oxygen mask. Patient is DNR CC . Total time spent in [id number] encounter in discussion of advanced directive 16 minutes. Laboratory Results 07/03/19 18:10: POC Glucose 114 H 07/03/19 23:36: POC Glucose 104 07/04/19 02:41: Sodium 128 L, Potassium 4.0, Chloride 95 L, Carbon Dioxide 23.0, Anion Gap 10, BUN 13, Creatinine 0.56 L, Estim Creat Clear Calc 126.12, Est GFR (MDRD) Af Amer 188, Est GFR (MDRD) Non-Af 156, BUN/Creatinine Ratio 23.2 H, Glucose 107 H, Calcium 7.9 L 07/04/19 05:41: POC Glucose 120 H 07/04/19 10:02: WBC 21.2 H, RBC 2.54 L, Hgb 7.2 L, Hct 22.0 L, MCV 86.6, MCH 28.3, MCHC 32.7, RDW Std Deviation 48.5 H, RDW Coeff of Jluis 15.4 H, Plt Count 173, MPV 9.1, Immature Gran % (Auto) 4.800 H, Neut % (Auto) 86.7 H, Lymph % (Auto) 4.6 L, [place] % (Auto) 3.7, Eos % (Auto) 0.0, Baso % (Auto) 0.2, Absolute Neuts (auto) 18.4 H, Absolute Lymphs (auto) 0.97, Nucleated RBC % 0 07/04/19 10:02: Phosphorus 4.3, Magnesium 2.1, Total Bilirubin 0.90, Direct Bilirubin 0.57 H, AST 60 H, ALT 86 H, Alkaline Phosphatase 320 H, Total Protein 6.7, Albumin 1.8 L, Globulin 4.9 H, Prealbumin 3.9 L 07/04/19 10:35: Urine Color Yellow, Urine Clarity Clear, Urine pH 5.0, Ur Specific [place] 1.025, Urine Protein 15 H, Urine Glucose (UA) Normal, Urine Ketones 5 H, Urine Occult Blood 10 H, Urine Nitrite Negative, Urine Bilirubin Negative, Urine Urobilinogen 4 H, Ur Leukocyte Esterase 25 H, Urine RBC 0 SEEN, Urine WBC 0-5 SEEN, Ur Squamous Epith Cells 0-5 SEEN, Urine Bacteria 1+, Urine Mucus 2+ 07/04/19 11:17: POC Glucose 98 Clinical Impression(s) from Imaging Studies KUB X-Ray 07/01/19 12:35 IMPRESSION: Nonobstructive bowel gas pattern. Stable position of enteric tube. Electronically Signed: Romario Lee MD ([place]) at 18:54 EST , Service support , Chest X-Ray 07/04/19 07:38 IMPRESSION: 1. Interval placement of feeding tube with the tip below the diaphragm. 2. No active disease. Abdomen X-Ray 07/04/19 13:05 IMPRESSION: No bowel obstruction or pneumoperitoneum. Code Visit Inpatient E&M: 70846 Subs Hosp L3 Procedures: 45988 Advncd Care Plan 30 Min
--- NOTE | 2019-07-04 14:13 | CASEMGMT ---
Social Work Note SW received message from Nicolle at [facility] stating they have a Palliative Care meeting arranged with pt's sister in law Chiquita on July 06 at [facility] as long as pt is at [facility] by then. Nicolle asked to updated when pt discharges from [facility]. Mulu Pineda FORGE SHOP MACHINE REPAIRER, CASUALTY UNDERWRITER
[2019-07-04] MEDS: Jevity 1.5 1,000 ML 30 ML GT (15:33)
[2019-07-04] MEDS: Bisacodyl 10 MG Suppository RECTAL (15:34)
[2019-07-04] MEDS: Polyethylene Glycol 3350 17 GM PACKET GT (15:34)
--- NOTE | 2019-07-04 16:04 | CASEMGMT ---
Social Work Note Pt will now be getting a PICC Line placed and will begin TPN. SHANELL placed a call to Cal at [facility] and left message informing her that pt will now have a PICC line placed and will be getting TPN. SHANELL asked Cal if [facility] is still able to accept pt with PICC and TPN. SHANELL is leaving soon for the day and will follow up with [facility] tomorrow. Mulu Pineda AIRCRAFT CYLINDER MECHANIC, PICKLER HELPER
[2019-07-04] MEDS: Metoclopramide 10 MG/10 ML UDC 5 MG GT (18:34)
[2019-07-04] MEDS: Creon 24,000 unit DR Capsule 3 CAP PO (18:34)
[2019-07-04 18:36] LABS: Bedside Glucose 115 mg/dL (70-110)
[2019-07-04] MEDS: Atorvastatin Calcium 40 MG Tablet PO (21:25)
[2019-07-05] VITALS (15 sets, daily range): BP systolic 96–122; BP diastolic 59–66; PULSE 78–110; RESP 16–24; TEMP 36.5–38.7; O2SAT 93–99; BMI 21.2
[2019-07-05] MEDS: Metoclopramide 10 MG/10 ML UDC 5 MG GT ×5 (00:36→23:56)
[2019-07-05 00:50] LABS: Bedside Glucose 140 mg/dL (70-110)
--- NOTE | 2019-07-05 03:30 | NURSING ---
Pt tolerated Jevity at 30ml/hr x12 hours without N/V/abdominal pain. Jevity increased to 40ml/hr at this time.
[2019-07-05] MEDS: Acetaminophen 325 MG Tablet 650 MG PO ×2 (03:50→17:01)
[2019-07-05 05:46] LABS: Bedside Glucose 165 mg/dL (70-110)
[2019-07-05] MEDS: Insulin Lispro 100 UNIT/ML INSULN.PEN SC ×3 (05:50→23:56)
[2019-07-05 06:37] LABS: Absolute Lymphocyte Count 0.75 X10^3/uL (0.83-4.51); Absolute Neutrophil Count 24.5 X10^3/uL (2.0-7.7); Basophil# 0.04 X10^3/uL; Basophil% 0.1 % (0-1); Hematocrit 21.3 % (40-54); Hemoglobin 6.9 g/dL (13.0-16.5); Lymphocyte # 0.75 X10^3/ul (4.0); Lymphocyte % 2.7 % (19-41); Mean Corp Hgb Conc 32.4 g/dL (32-36); Mean Corpuscular Hgb 28.3 pg (27.0-32.0); Mean Corpuscular Volume 87.3 fL (80-94); Mean Platelet Vol. 9.1 fl (6.2-12.0); Monocyte# 1.08 X10^3/uL; Monocyte% 3.9 % (0-10); NRBC Flagged by Analyzer 0 % (0-5); Neutrophil # 24.51 X10^3/uL (2.7-7.7); Neutrophil % 88.5 % (47-70); POSITIVE DIFFERENTIAL YES; POSITIVE MORPHOLOGY YES; Platelet Count 181 K/mm3 (150-450); RBC Distribution Width CV 15.5 % (11.6-14.6); RBC Distribution Width SD 49.4 fl (35.1-43.9); Red Blood Count 2.44 M/mm3 (4.6-6.2); White Blood Count 27.7 K/mm3 (4.4-11.0)
[2019-07-05 06:38] LABS: Differential Indicated SCAN CRITERIA MET
[2019-07-05 07:01] LABS: AST(SGOT) 63 U/L (15-37); Alanine Aminotransfer ALT/SGPT 81 U/L (16-61); Albumin, Serum 1.8 g/dL (3.2-5.0); Alkaline Phosphatase 346 U/L (45-117); Anion Gap 7 (5-15); BUN 15 mg/dL (7-18); BUN/Creat Ratio 25.3 RATIO (10-20); Bilirubin, Direct 0.61 mg/dL (0.00-0.30); Calcium,Total 7.7 mg/dL (8.5-10.1); Chloride 99 mmol/L (98-107); Creatinine, Serum 0.59 mg/dL (0.70-1.30); EST Glomerular Filtration Rate 146 mL/min (>60); Est Glom Filt Rate - Afr Amer 176 mL/min (>60); Estimated Creatinine Clearance 118.82 ml/min; Globulin 4.7 g/dL (2.2-4.2); Glucose 167 mg/dL (74-106); Potassium 3.9 mmol/L (3.5-5.1); Protein, Total 6.5 g/dL (6.4-8.2); Sodium Level 128 mmol/L (136-145)
[2019-07-05 07:05] LABS: Differential Comment SCANNED
[2019-07-05] MEDS: Creon 24,000 unit DR Capsule 3 CAP PO ×3 (08:26→16:57)
--- NOTE | 2019-07-05 08:49 | PCM.PN.HOSP ---
Patient Problems: Active and Suspected Problems (Last Reviewed 06/05/19 @ 02:[address] Chance Juarez MD) Nausea and vomiting (Acute) Intolerance to tube feeding Thrombosis, portal vein (Acute) Reason for Visit: Intractable nausea and vomiting. Problem with the tube feed, severe protein calorie malnutrition Objective: PICC line was inserted in the left arm yesterday. After discussion with the family, decision made for supplemental TPN on the top of tube feed. Patient has problem with the tube occlusion, vomiting. Discussed with pharmacist and regulatory administrator to calculate for calorie need and TPN formulation. Patient also has constipation. Vitals/I&O's: Vital Signs Temp Pulse Resp BP Pulse Ox 97.8 F 89 18 102/61 96 07/05/19 08:17 07/05/19 08:17 07/05/19 08:17 07/05/19 08:17 07/05/19 08:17 Oxygen Delivery Method Room Air Weight: 148 lb 5.938 oz Body Mass Index (BMI) 21.3 Intake and Output for Last 24 Hours 07/03/19 07/04/19 07/05/19 23:59 23:59 23:59 Intake Total 640 / 640 1741.75 / 1741.75 1291 / 1291 Output Total 200 / 200 Balance 640 / 640 1541.75 / 1541.75 1291 / 1291 General: Alert, Oriented x3, Cooperative, Lethargic HEENT: Atraumatic, PERRLA, EOMI, Normocephalic Oral: Dry Mucosa Neck: Supple, No JVD, Negative Carotid Bruits Lungs: Clear to auscultation, No wheeze, No rales, Diminished Cardiovascular: Regular rate, Regular Rhythm, No murmurs Abdomen: Bowel Sounds Present, Soft, Non Tender, Non-Distended, Hypoactive Bowel Sounds Extremities: No edema, Capillary Refill Less than 3 Seconds Skin: No rashes, No breakdown Musculoskeletal: No Tenderness to Palpation of Joints or Extremities, Arthritic Changes Neurological: Cranial nerves II-XII grossly intact, Neuro grossly intact Psych/Mental Status: Normal Affect, Appropriate Microbiology Past 72 Hours 07/04/19 10:30 Mucosa - Nasopharyngeal Respiratory Panel (PCR) - Final Laboratory Results 07/04/19 10:02: WBC 21.2 H, RBC 2.54 L, Hgb 7.2 L, Hct 22.0 L, MCV 86.6, MCH 28.3, MCHC 32.7, RDW Std Deviation 48.5 H, RDW Coeff of Jluis 15.4 H, Plt Count 173, MPV 9.1, Immature Gran % (Auto) 4.800 H, Neut % (Auto) 86.7 H, Lymph % (Auto) 4.6 L, [place] % (Auto) 3.7, Eos % (Auto) 0.0, Baso % (Auto) 0.2, Absolute Neuts (auto) 18.4 H, Absolute Lymphs (auto) 0.97, Nucleated RBC % 0 07/04/19 10:02: Phosphorus 4.3, Magnesium 2.1, Total Bilirubin 0.90, Direct Bilirubin 0.57 H, AST 60 H, ALT 86 H, Alkaline Phosphatase 320 H, Total Protein 6.7, Albumin 1.8 L, Globulin 4.9 H, Prealbumin 3.9 L 07/04/19 10:35: Urine Color Yellow, Urine Clarity Clear, Urine pH 5.0, Ur Specific [place] 1.025, Urine Protein 15 H, Urine Glucose (UA) Normal, Urine Ketones 5 H, Urine Occult Blood 10 H, Urine Nitrite Negative, Urine Bilirubin Negative, Urine Urobilinogen 4 H, Ur Leukocyte Esterase 25 H, Urine RBC 0 SEEN, Urine WBC 0-5 SEEN, Ur Squamous Epith Cells 0-5 SEEN, Urine Bacteria 1+, Urine Mucus 2+ 07/04/19 11:17: POC Glucose 98 07/04/19 18:27: POC Glucose 115 H 07/05/19 00:35: POC Glucose 140 H 07/05/19 05:38: POC Glucose 165 H 07/05/19 06:10: WBC 27.7 H, RBC 2.44 L, Hgb 6.9 L, Hct 21.3 L, MCV 87.3, MCH 28.3, MCHC 32.4, RDW Std Deviation 49.4 H, RDW Coeff of Jluis 15.5 H, Plt Count 181, MPV 9.1, Immature Gran % (Auto) 4.800 H, Neut % (Auto) 88.5 H, Lymph % (Auto) 2.7 L, [place] % (Auto) 3.9, Eos % (Auto) 0.0, Baso % (Auto) 0.1, Absolute Neuts (auto) 24.5 H, Absolute Lymphs (auto) 0.75 L, Nucleated RBC % 0, Differential Comment SCANNED, Diff Path Review September07/05/19 06:10: Sodium 128 L, Potassium 3.9, Chloride 99, Carbon Dioxide 22.0, Anion Gap 7, BUN 15, Creatinine 0.59 L, Estim Creat Clear Calc 118.82, Est GFR (MDRD) Af Amer 176, Est GFR (MDRD) Non-Af 146, BUN/Creatinine Ratio 25.3 H, Glucose 167 H, Calcium 7.7 L, Total Bilirubin 0.90, Direct Bilirubin 0.61 H, AST 63 H, ALT 81 H, Alkaline Phosphatase 346 H, Total Protein 6.5, Albumin 1.8 L, Globulin 4.7 H Current Medications Acetaminophen (Tylenol) 650 mg PO Q6H PRN PRN PRN Reason: Pain Score 1-10/Temp > 100.7 F Last Admin: 07/05/19 03:50 Dose: 650 mg Documented by: Acetaminophen (Tylenol) 650 mg RECTAL Q4H PRN PRN PRN Reason: Pain or Fever Albuterol Sulfate (Ventolin Aerosols) 2.5 mg INHALATION Q2H PRN PRN PRN Reason: Shortness of Breath/Wheezing Atorvastatin Calcium (Lipitor) 40 mg PO QHS COUNT INCLUDES THE [facility] Last Admin: 07/04/19 21:25 Dose: 40 mg Documented by: Bisacodyl (Dulcolax) 10 mg RECTAL DAILY COUNT INCLUDES THE [facility] Stop: 07/05/19 10:01 Last Admin: 07/04/19 15:34 Dose: 10 mg Documented by: Enoxaparin Sodium (Lovenox) 80 mg SC BID COUNT INCLUDES THE [facility] Last Admin: 07/04/19 21:25 Dose: 80 mg Documented by: Glucagon () 1 mg IM .X1 PRN PRN Reason: Hypoglycemia Dextrose (Dextrose 10%-Water) 250 mls @ 999 mls/hr IV .Q16M PRN; Protocol PRN Reason: HYPOGLYCEMIA Enteral Nutritional Formula (Jevity 1.5) 1,000 mls @ 30 mls/hr GT .[id number] COUNT INCLUDES THE [facility] Last Admin: 07/04/19 15:33 Dose: 30 mls/hr Documented by: Sodium Chloride () 250 mls @ 15 mls/hr IV .[id number] PRN PRN Reason: Saline Flush Last Infusion: 07/04/19 19:00 Dose: 0 mls/hr Documented by: Sodium Chloride () 250 mls @ 15 mls/hr IV .[id number] PRN PRN Reason: Additional IVPB Infusion Potassium Chloride/Sodium Chloride () 1,000 mls @ 50 mls/hr IV .Q20H COUNT INCLUDES THE [facility] Stop: 07/05/19 12:44 Last Admin: 07/04/19 22:21 Dose: Not Given Documented by: Insulin Human Lispro (Humalog Kwikpen (Bkc)) 0 unit SC Q6 ALLISON; Protocol Last Admin: 07/05/19 05:50 Dose: 1 u Documented by: Metoclopramide HCl (Reglan) 5 mg GT Q6 COUNT INCLUDES THE [facility] Last Admin: 07/05/19 05:51 Dose: 5 mg Documented by: Metoprolol Tartrate (Lopressor (Beta Alpesh)) 50 mg PO BID COUNT INCLUDES THE [facility] Last Admin: 07/04/19 21:25 Dose: 50 mg Documented by: Morphine Sulfate () 2 mg IV Q3H PRN PRN PRN Reason: Pain Score 6-10/10 Ondansetron HCl (Zofran) 8 mg IV Q8H PRN PRN PRN Reason: NAUSEA/VOMITING Pancrelipase (Creon Dr 24,000 Unit Capsule) 3 capsule PO TIDCM COUNT INCLUDES THE [facility] Last Admin: 07/05/19 08:26 Dose: 3 capsule Documented by: Polyethylene Glycol (Miralax) 17 gm GT BID COUNT INCLUDES THE [facility] Prochlorperazine Edisylate (Compazine Iv) 5 mg IV Q6H PRN PRN PRN Reason: NAUSEA/VOMITING Last Admin: 07/03/19 19:32 Dose: 5 mg Documented by: Sodium Chloride () 10 - 40 ml IV UD PRN PRN Reason: SALINE FLUSH Last Admin: 07/04/19 15:37 Dose: 30 ml Documented by: STROKE Vital Signs/Narrative: Vital Signs Temp Pulse Resp BP Pulse Ox 07/05/19 08:17 97.8 F 89 18 102/61 96 07/05/19 05:20 98.7 F 100 16 101/64 97 Medical Necessity - Tobacco Use Smoking Status: Former smoker Tobacco Use: Non-smoker Assessment/Plan All Active Problems (Last Reviewed 06/05/19 @ 02:[address] 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 1. Fever of unclear etiology with leukocytosis possible leukemia: Patient abdominal x-ray shows bowel gas pattern with no radiologic features of bowel obstruction or pneumoperitoneum. UA, chest x-ray are negative. 07/05: Blood cultures and urine cultures are negative for 24 hours. Respiratory panel is negative. 2. Intractable nausea and vomiting, unclear etiology, status post recent Whipple procedure in May 2019, status post CorPak, improved Started on Reglan 5 mg every 6 hourly with tube feed Jevity. 200 mL every 4 hourly free water push. 07/04: As per the nurse, patient had vomiting 1 time yesterday. On Reglan through feeding tube and Zofran 8 mg IV every 8 hourly as needed. 07/05: Left arm PICC line. Discussed with pharmacist and regulatory administrator to start on TPN, supplemental to 30 feet. Calculate the total calorie need 3. Debility related to #1 and concurrent comorbidities, discharge to alf facility pending 07/05: Discussed with the patient [id number] Chiquita and longtime friend, Leticia on 07/04 directed with DNR CC arrest. More emphasis on the ADL and nutrition. 5. 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 Leukocytosis improved to 20.5 thousand. 07/04: Discussed with oncologist. Similar CML is stable. 07/05: Leukocytosis worsened. Acute anemia of baseline anemia of chronic disease probably iron deficiency anemia and neoplastic in origin: Intact Venofer for last 2 days. Current hemoglobin 6.9. 1 unit of PRBC to keep hemoglobin more than 7. Oncology follow-up. 6. Pancreatic CA status post Whipple's procedure, outpatient follow-up with oncology. Patient is not in good general condition for chemotherapy. 7. 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 Iron profile shows low iron 18, TIBC 297, iron saturation 6.3%. Iron infusion ordered 07/04: Hemoglobin 7.2. On iron infusion. 8. DVT Prophylaxis on Lovenox subcu 9. Disposition: Discharge to SNF where TPN is accepted. Severe protein calorie malnutrition/cachexia secondary to pancreatic cancer and Whipple surgery: Admission Total time of the visit including total time spent in counseling or coordination of care, (more than 50% of the total time, spent in obtaining medical information from nurses and other ancillary care providers), , review of labs and imaging is 30 minutes Advanced directive: Overall, Ms. Porras and his friend, Mrs. Kelly does not want artificial life support including intubation, TPN, ventilator and/chest compression, BiPAP, vasopressor and central line insertion but okay with oxygen mask. Patient is DNR CC-arrest Microbiology Past 72 Hours 07/04/19 10:30 Mucosa - Nasopharyngeal Respiratory Panel (PCR) - Final Laboratory Results 07/04/19 10:02: WBC 21.2 H, RBC 2.54 L, Hgb 7.2 L, Hct 22.0 L, MCV 86.6, MCH 28.3, MCHC 32.7, RDW Std Deviation 48.5 H, RDW Coeff of Jluis 15.4 H, Plt Count 173, MPV 9.1, Immature Gran % (Auto) 4.800 H, Neut % (Auto) 86.7 H, Lymph % (Auto) 4.6 L, [place] % (Auto) 3.7, Eos % (Auto) 0.0, Baso % (Auto) 0.2, Absolute Neuts (auto) 18.4 H, Absolute Lymphs (auto) 0.97, Nucleated RBC % 0 07/04/19 10:02: Phosphorus 4.3, Magnesium 2.1, Total Bilirubin 0.90, Direct Bilirubin 0.57 H, AST 60 H, ALT 86 H, Alkaline Phosphatase 320 H, Total Protein 6.7, Albumin 1.8 L, Globulin 4.9 H, Prealbumin 3.9 L 07/04/19 10:35: Urine Color Yellow, Urine Clarity Clear, Urine pH 5.0, Ur Specific [place] 1.025, Urine Protein 15 H, Urine Glucose (UA) Normal, Urine Ketones 5 H, Urine Occult Blood 10 H, Urine Nitrite Negative, Urine Bilirubin Negative, Urine Urobilinogen 4 H, Ur Leukocyte Esterase 25 H, Urine RBC 0 SEEN, Urine WBC 0-5 SEEN, Ur Squamous Epith Cells 0-5 SEEN, Urine Bacteria 1+, Urine Mucus 2+ 07/04/19 11:17: POC Glucose 98 07/04/19 18:27: POC Glucose 115 H 07/05/19 00:35: POC Glucose 140 H 07/05/19 05:38: POC Glucose 165 H 07/05/19 06:10: WBC 27.7 H, RBC 2.44 L, Hgb 6.9 L, Hct 21.3 L, MCV 87.3, MCH 28.3, MCHC 32.4, RDW Std Deviation 49.4 H, RDW Coeff of Jluis 15.5 H, Plt Count 181, MPV 9.1, Immature Gran % (Auto) 4.800 H, Neut % (Auto) 88.5 H, Lymph % (Auto) 2.7 L, [place] % (Auto) 3.9, Eos % (Auto) 0.0, Baso % (Auto) 0.1, Absolute Neuts (auto) 24.5 H, Absolute Lymphs (auto) 0.75 L, Nucleated RBC % 0, Differential Comment SCANNED, Diff Path Review May foll 07/05/19 06:10: Sodium 128 L, Potassium 3.9, Chloride 99, Carbon Dioxide 22.0, Anion Gap 7, BUN 15, Creatinine 0.59 L, Estim Creat Clear Calc 118.82, Est GFR (MDRD) Af Amer 176, Est GFR (MDRD) Non-Af 146, BUN/Creatinine Ratio 25.3 H, Glucose 167 H, Calcium 7.7 L, Total Bilirubin 0.90, Direct Bilirubin 0.61 H, AST 63 H, ALT 81 H, Alkaline Phosphatase 346 H, Total Protein 6.5, Albumin 1.8 L, Globulin 4.7 H Clinical Impression(s) from Imaging Studies KUB X-Ray 07/01/19 12:35 IMPRESSION: Nonobstructive bowel gas pattern. Stable position of enteric tube. Electronically Signed: Romario eLe MD (Brooks) at 18:54 EST , Service support , Chest X-Ray 07/04/19 07:38 IMPRESSION: 1. Interval placement of feeding tube with the tip below the diaphragm. 2. No active disease. Abdomen X-Ray 07/04/19 13:05 IMPRESSION: No bowel obstruction or pneumoperitoneum. Code Visit Inpatient E&M: 54986 Subs Hosp L3
--- NOTE | 2019-07-05 09:12 | CASEMGMT ---
Addendum entered by Mulu Pineda 07/05/19 09:38: SHANELL called Chiquita and updated her that since pt is now on TPN, [facility] is not able to accept pt. SW informed Chiquita that this worker will try [facility] and then [facility] as those were her next choices. Chiquita states understanding, is agreeable to this worker trying [facility] or [facility]. Original Note: Social Work Note SW received message from Cal at [facility] stating [facility] doesn't do TPN, pt will not be able to discharge to [facility] with TPN. Per previous notes, pt's HCPOA Chiquita stated [facility] was second choice and then [facility] was third choice. SHANELL placed a call to Isabel at [facility], per Isabel they sometimes will accept pt with TPN and is willing to review referral. SHANELL faxed referral to [facility]. Plan: SNF pending acceptance Mulu Pineda SWIFT TENDER, MEDICAL LEGAL INVESTIGATOR
[2019-07-05] MEDS: Enoxaparin 80 MG/0.8 ML Syringe SC ×2 (10:43→21:38)
[2019-07-05] MEDS: Metoprolol Tartrate 50 MG Tablet PO ×2 (10:43→21:38)
[2019-07-05] MEDS: Polyethylene Glycol 3350 17 GM PACKET GT ×2 (10:44→21:37)
[2019-07-05 10:45] LABS: Pathologist Review Reviewed
--- NOTE | 2019-07-05 11:05 | NURSING ---
ENEMA GIVEN WITH MODERATE RESULTS.
--- NOTE | 2019-07-05 13:00 | CASEMGMT ---
Addendum entered by Mulu Pineda 07/05/19 14:04: SHANELL received call from Isabel at [facility] stating [facility] is able to accept pt and they will just need TPN orders by 1:00pm on day of discharge to get same day delivery of TPN. SHANELL informed Isabel that this worker is not sure when pt will be discharged but will make sure when physician rounds tomorrow to have TPN orders in by 1:00pm. Isabel states understanding. SHANELL placed a call to Chiquita and left message updating her that pt has been accepted to [facility]. Plan: [facility] once medically cleared Original Note: Social Work Note SW updated that Chiquita is requesting to speak to this worker. SW in to speak with Chiquita. SW updated Chiquita that this worker is waiting to hear from [facility] if they are able to accept. SHANELL explained that SNF will have to determine if they can afford TPN as TPN can be expensive. Chiquita became emotional, started crying saying if I knew what being a HCPOA entailed I would've never done it. Pt states I made him (pt) DNRCCA yesterday. SW offered support to Chiquita, provided empathy. SW informed Chiquita that this worker will continue to work on SNF for pt. Chiquita states that she called [facility] and will reschedule appointment. Plan: SNF pending acceptance Mulu Pineda NOVELTY TWISTER OPERATOR, COMPLIANCE SPEC
--- NOTE | 2019-07-05 13:52 | NT.THERAPY_ITS ---
Nutrition Therapy Report - History Nutrition Services has been consulted to:: Manage parenteral nutrition - Anthropometric Measurements Height:: 5 ft 10 in Weight:: 67.3 kg Body Mass Index (BMI):: 21.2 - Relevant Labs Relevant Labs:: WBC 27.7 K/mm3 (4.4-11.0) H 07/05/19 06:10 RBC 2.44 M/mm3 (4.6-6.2) L 07/05/19 06:10 Hgb 6.9 g/dL (13.0-16.5) L 07/05/19 06:10 Hct 21.3 % (40-54) L 07/05/19 06:10 RDW Std Deviation 49.4 fl (35.1-43.9) H 07/05/19 06:10 RDW Coeff of Jluis 15.5 % (11.6-14.6) H 07/05/19 06:10 Immature Gran % (Auto) 4.800 % (0.0-0.9) H 07/05/19 06:10 Neut % (Auto) 88.5 % (47-70) H 07/05/19 06:10 Lymph % (Auto) 2.7 % (19-41) L 07/05/19 06:10 Absolute Neuts (auto) 24.5 X10^3/uL (2.0-7.7) H 07/05/19 06:10 Absolute Lymphs (auto) 0.75 X10^3/uL (0.83-4.51) L 07/05/19 06:10 Neutrophils % (Manual) 90 % (47-70) H 07/03/19 05:50 Lymphocytes % (Manual) 1 % (19-41) L 07/03/19 05:50 Metamyelocytes % 2 % (0-1) H 07/03/19 05:50 Myelocytes % 1 (0-0) H 07/02/19 05:51 Sodium 128 mmol/L (136-145) L 07/05/19 06:10 Chloride 95 mmol/L (98-107) L 07/04/19 02:41 Creatinine 0.59 mg/dL (0.70-1.30) L 07/05/19 06:10 BUN/Creatinine Ratio 25.3 RATIO (10-20) H 07/05/19 06:10 Glucose 167 mg/dL (74-106) H 07/05/19 06:10 Calcium 7.7 mg/dL (8.5-10.1) L 07/05/19 06:10 Iron 18 ug/dL (65-175) L 07/02/19 05:51 Iron Saturation 6.3 % (15.0-55.0) L 07/02/19 05:51 Total Bilirubin 1.10 mg/dL (0.20-1.00) H 07/02/19 05:51 Direct Bilirubin 0.61 mg/dL (0.00-0.30) H 07/05/19 06:10 AST 63 U/L (15-37) H 07/05/19 06:10 ALT 81 U/L (16-61) H 07/05/19 06:10 Alkaline Phosphatase 346 U/L (45-117) H 07/05/19 06:10 Albumin 1.8 g/dL (3.2-5.0) L 07/05/19 06:10 Globulin 4.7 g/dL (2.2-4.2) H 07/05/19 06:10 Albumin/Globulin Ratio 0.4 RATIO (0.9-2.4) L 07/03/19 05:50 Prealbumin 3.9 mg/dL (20.0-40.0) L 07/04/19 10:02 - Assessment Food / Nutrition-Related History:: RDN recieved call from UZAIR Patrick- requesting TPN recommendation in supplementation w/ TF. Pt w/ intractable N/V; per MD pt problem w/ tube occulsion. Pt w/ wt decrease of 0.2 kg since previous review w/ CBW of 67.3 kg. Per RN note pt w/ diarrhea 07/04, normal BM this day. - Nutrition Diagnosis Problem / Etiology / Signs & Symptoms (PES):: Per ASPEN guidelines severe malnutrition in the context of chronic illness related to altered GI function as evidenced by wt loss of 10.77% x 3 months, NFPA pt with scooping/depression of temporal region , orbital region hollow look, clavicle bone region protruding, dorsal hand interosseous muscle slightly depressed. Evidence of Malnutrition Exists:: Yes Severe PCM:: Chronic Illness - Nutrition Intervention Nutrition Prescription:: Estimated pt nutrition needs: 5804-7010 calories, 80- 90g protein - Food / Nutrient Delivery Interventions Summary of nutrition intervention:: Rec order of Daily wts. Will need baseline CMP, CBC w/ differential, lipid profile, liver panel, magnesium, prealbumin, and phosphorous. Nutrition support ordered as / adjusted to:: Spoke w/ pharmacy and confirmed first 24 hour TPN to be 5% AA, 20% dextrose clinimix with electrolyte 42 ml/hr for total of 1 L in the first 24 hrs 10 ml multivitamin, 1 ml trace elements, 1 mg folic acid. 250 ml 20% piggyback infusion on Wednesday, Wednesday, and Wednesday. Would continue TPN 1L/day as ordered if TPN to continue along with TF. If TPN to become exclusive source of nutrition, Rec TPN 2L 5% AA 20% dextrose at goal rate of 84 ml/hr w/ 250 ml of 20% lipids every other day on M,, to provide average daily calories of 1,974 romero, 100 g protein. Which will meet 100% of estimated calorie needs and 118% estimated protein needs. Rec weaning TPN and restarting TF as pt medically able to tolerate once enteral nutrition support is no longer contraindicated. Nutrition education provided?: No - MNT Monitoring Further MNT monitoring and evaluation required?: Yes - Will monitor TPN as intitiated and provide daily recommendation/adjust TPN. MNT Follow-up in:: 1-2 days
--- NOTE | 2019-07-05 15:52 | PN.ID_ITS ---
Patient Problems: Active and Suspected Problems (Last Reviewed 06/05/19 @ 02:[address] Chance Juarez MD) Nausea and vomiting (Acute) Intolerance to tube feeding Thrombosis, portal vein (Acute) Subjective: Feeling the same, no complaints, denies fever, no cough, no SOB, no abd pain, no n/v/d. - Physical Exam Vitals/I&O's: Vital Signs Temp Pulse Resp BP Pulse Ox 100.4 F H 96 16 104/65 93 07/05/19 14:30 07/05/19 14:30 07/05/19 14:30 07/05/19 14:30 07/05/19 14:30 Oxygen Delivery Method Room Air Weight: 67.3 kg Body Mass Index (BMI) 21.2 Intake and Output for Last 24 Hours 07/03/19 07/04/19 07/05/19 23:59 23:59 23:59 Intake Total 640 / 640 1741.75 / 1741.75 2037. / 2036.25 Output Total 200 / 200 Balance 640 / 640 1541.75 / 1541.75 2036. / 2036. General: Alert, Cooperative, No apparent distress Lungs: Clear to auscultation, Normal air movement Cardiovascular: Regular rate, Regular Rhythm Abdomen: Soft, Non Tender, Non-Distended Skin: No rashes Microbiology Past 72 Hours 07/05/19 11:10 Stool Stool Occult Blood (GARO) - Final 07/04/19 10:30 Mucosa - Nasopharyngeal Respiratory Panel (PCR) - Final Laboratory Results 07/04/19 18:27: POC Glucose 115 H 07/05/19 00:35: POC Glucose 140 H 07/05/19 05:38: POC Glucose 165 H 07/05/19 06:10: WBC 27.7 H, RBC 2.44 L, Hgb 6.9 L, Hct 21.3 L, MCV 87.3, MCH 28.3, MCHC 32.4, RDW Std Deviation 49.4 H, RDW Coeff of Jluis 15.5 H, Plt Count 181, MPV 9.1, Immature Gran % (Auto) 4.800 H, Neut % (Auto) 88.5 H, Lymph % (Auto) 2.7 L, [place] % (Auto) 3.9, Eos % (Auto) 0.0, Baso % (Auto) 0.1, Absolute Neuts (auto) 24.5 H, Absolute Lymphs (auto) 0.75 L, Nucleated RBC % 0, Differential Comment SCANNED, Diff Path Review Reviewed 07/05/19 06:10: Sodium 128 L, Potassium 3.9, Chloride 99, Carbon Dioxide 22.0, Anion Gap 7, BUN 15, Creatinine 0.59 L, Estim Creat Clear Calc 118.82, Est GFR (MDRD) Af Amer 176, Est GFR (MDRD) Non-Af 146, BUN/Creatinine Ratio 25.3 H, Glucose 167 H, Calcium 7.7 L, Total Bilirubin 0.90, Direct Bilirubin 0.61 H, AST 63 H, ALT 81 H, Alkaline Phosphatase 346 H, Total Protein 6.5, Albumin 1.8 L, Globulin 4.7 H 07/05/19 08:52: Blood Type A POSITIVE, Antibody Screen NEGATIVE, Crossmatch See Detail Current Medications Acetaminophen (Tylenol) 650 mg PO Q6H PRN PRN PRN Reason: Pain Score 1-10/Temp > 100.7 F Last Admin: 07/05/19 03:50 Dose: 650 mg Documented by: Acetaminophen (Tylenol) 650 mg RECTAL Q4H PRN PRN PRN Reason: Pain or Fever Albuterol Sulfate (Ventolin Aerosols) 2.5 mg INHALATION Q2H PRN PRN PRN Reason: Shortness of Breath/Wheezing Atorvastatin Calcium (Lipitor) 40 mg PO QHS [facility] Last Admin: 07/04/19 21:25 Dose: 40 mg Documented by: Enoxaparin Sodium (Lovenox) 80 mg SC BID [facility] Last Admin: 07/05/19 10:43 Dose: 80 mg Documented by: Glucagon () 1 mg IM .X1 PRN PRN Reason: Hypoglycemia Dextrose (Dextrose 10%-Water) 250 mls @ 999 mls/hr IV .Q16M PRN; Protocol PRN Reason: HYPOGLYCEMIA Enteral Nutritional Formula (Jevity 1.5) 1,000 mls @ 30 mls/hr GT .[id number] [facility] Last Admin: 07/04/19 15:33 Dose: 30 mls/hr Documented by: Sodium Chloride () 250 mls @ 15 mls/hr IV .[id number] PRN PRN Reason: Saline Flush Last Infusion: 07/04/19 19:00 Dose: 0 mls/hr Documented by: Sodium Chloride () 250 mls @ 15 mls/hr IV .[id number] PRN PRN Reason: Additional IVPB Infusion Fat Emulsion Intravenous (Intralipid 20%) 250 mls @ 21 mls/hr IV .[id number] [facility] Stop: 07/06/19 03:54 Multivitamins 10 ml/ Chromium/Copper/Manganese/Seleni/Zn 1 ml/ Folic Acid 1 mg/ Amino Acids/Electrolytes 2,011.2 mls @ 42 mls/hr IV .Q24H [facility] Stop: 07/07/19 15:52 Insulin Human Lispro (Humalog Kwikpen (Bkc)) 0 unit SC Q6 [facility]; Protocol Last Admin: 07/05/19 13:35 Dose: Not Given Documented by: Metoclopramide HCl (Reglan) 5 mg GT Q6 [facility] Last Admin: 07/05/19 13:37 Dose: 5 mg Documented by: Metoprolol Tartrate (Lopressor (Beta Alpesh)) 50 mg PO BID [facility] Last Admin: 07/05/19 10:43 Dose: 50 mg Documented by: Morphine Sulfate () 2 mg IV Q3H PRN PRN PRN Reason: Pain Score 6-10/10 Ondansetron HCl (Zofran) 8 mg IV Q8H PRN PRN PRN Reason: NAUSEA/VOMITING Pancrelipase (Creon Dr 24,000 Unit Capsule) 3 capsule PO TIDCM [facility] Last Admin: 07/05/19 13:37 Dose: 3 capsule Documented by: Polyethylene Glycol (Miralax) 17 gm GT BID [facility] Last Admin: 07/05/19 10:44 Dose: 17 gm Documented by: Prochlorperazine Edisylate (Compazine Iv) 5 mg IV Q6H PRN PRN PRN Reason: NAUSEA/VOMITING Last Admin: 07/03/19 19:32 Dose: 5 mg Documented by: Sodium Chloride () 10 - 40 ml IV UD PRN PRN Reason: SALINE FLUSH Last Admin: 07/04/19 15:37 Dose: 30 ml Documented by: Medical Necessity - Tobacco Use Smoking Status: Former smoker Tobacco Use: Non-smoker Route of nutrition/ use of supplements: [] Nutritional Intake: [] IV Site: [] Chavez Catheter: [] - Assessment/Plan Antibiotics: [] Assessment/Plan: [] Active and Suspected Problems (Last Reviewed 06/05/19 @ 02:[address] Chance Juarez MD) Nausea and vomiting (Acute) Intolerance to tube feeding Thrombosis, portal vein (Acute) fever, leukocytosis, tachycardia - wbc remains elevated. 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 He is asymptomatic. Bcx neg so far cxr reviewed, viral resp pcr panel was neg. Given clinical stability with several weeks of fever, ok to monitor off of abx. Will follow
[2019-07-05] MEDS: Fat Emulsions 20% 250 ML IV (16:51)
[2019-07-05 18:21] LABS: Bedside Glucose 168 mg/dL (70-110)
[2019-07-05] MEDS: Atorvastatin Calcium 40 MG Tablet PO (21:37)
[2019-07-05] MEDS: Jevity 1.5 1,000 ML 30 ML GT (21:38)
[2019-07-05 23:50] LABS: Bedside Glucose 136 mg/dL (70-110)
[2019-07-06] VITALS (13 sets, daily range): BP systolic 107–126; BP diastolic 54–66; PULSE 92–115; RESP 16–28; TEMP 36.9–39.4; O2SAT 94–96; BMI 21.6
[2019-07-06 00:05] LABS: Bedside Glucose 171 mg/dL (70-110)
[2019-07-06] MEDS: Acetaminophen 325 MG Tablet 650 MG PO ×3 (00:09→22:29)
--- NOTE | 2019-07-06 04:20 | NURSING ---
Jevity rate increased to 60ml/hr to meet goal rate. Pt denies N/V throughout the shift.
[2019-07-06] MEDS: 0.9% Saline Lock 10 ML Syringe IV ×2 (05:20→10:46)
[2019-07-06] MEDS: Metoclopramide 10 MG/10 ML UDC 5 MG GT ×3 (05:20→17:36)
[2019-07-06] MEDS: Insulin Lispro 100 UNIT/ML INSULN.PEN SC (05:21)
[2019-07-06 05:51] LABS: Bedside Glucose 157 mg/dL (70-110)
[2019-07-06 06:05] LABS: Absolute Lymphocyte Count 0.72 X10^3/uL (0.83-4.51); Absolute Neutrophil Count 21.5 X10^3/uL (2.0-7.7); Basophil# 0.03 X10^3/uL; Basophil% 0.1 % (0-1); Hematocrit 24.5 % (40-54); Hemoglobin 8.1 g/dL (13.0-16.5); Lymphocyte # 0.72 X10^3/ul (4.0); Mean Corp Hgb Conc 33.1 g/dL (32-36); Mean Corpuscular Hgb 28.5 pg (27.0-32.0); Mean Corpuscular Volume 86.3 fL (80-94); Mean Platelet Vol. 9.4 fl (6.2-12.0); Monocyte# 0.55 X10^3/uL; Monocyte% 2.3 % (0-10); NRBC Flagged by Analyzer 0.1 % (0-5); Neutrophil # 21.47 X10^3/uL (2.7-7.7); Neutrophil % 90.3 % (47-70); POSITIVE DIFFERENTIAL YES; Platelet Count 173 K/mm3 (150-450); RBC Distribution Width CV 15.3 % (11.6-14.6); Red Blood Count 2.84 M/mm3 (4.6-6.2); White Blood Count 23.8 K/mm3 (4.4-11.0)
[2019-07-06 06:09] LABS: Differential Indicated SCAN CRITERIA MET
[2019-07-06 06:31] LABS: AST(SGOT) 71 U/L (15-37); Alanine Aminotransfer ALT/SGPT 85 U/L (16-61); Albumin, Serum 1.8 g/dL (3.2-5.0); Alkaline Phosphatase 413 U/L (45-117); Anion Gap 8 (5-15); BUN 11 mg/dL (7-18); BUN/Creat Ratio 18.8 RATIO (10-20); Bilirubin, Direct 0.73 mg/dL (0.00-0.30); Calcium,Total 7.7 mg/dL (8.5-10.1); Chloride 97 mmol/L (98-107); Creatinine, Serum 0.58 mg/dL (0.70-1.30); EST Glomerular Filtration Rate 148 mL/min (>60); Est Glom Filt Rate - Afr Amer 179 mL/min (>60); Estimated Creatinine Clearance 122.67 ml/min; Globulin 4.8 g/dL (2.2-4.2); Glucose 191 mg/dL (74-106); Potassium 4.1 mmol/L (3.5-5.1); Protein, Total 6.6 g/dL (6.4-8.2); Sodium Level 128 mmol/L (136-145)
[2019-07-06 06:35] LABS: Differential Comment SCANNED; Platelet Estimate ADEQUATE (ADEQ)
--- NOTE | 2019-07-06 07:31 | CT_ITS ---
STUDY: CT ABDOMEN AND PELVIS WITH CONTRAST REASON FOR EXAM: Male, 64 years old. PT STATED INTRACTABLE NAUSEA, RECENT WHIPPLE PROCEDURE, HX OF PANCREATIC CA, LEUKEMIA, CABG, R INGUINAL HERNIA REPAIR, R/O INTRAABDOMINAL ABSCESS RADIATION DOSAGE (If Supplied By Facility): CTDIvol = ( 12.71 ) mGy, DLP = ( 712.87 ) mGycm TECHNIQUE: Transaxial images were obtained from the dome of the diaphragm to the symphysis pubis with oral contrast. IV 100mL Isovue-300 was administered. Sagittal and coronal images were reconstructed. Individualized dose optimization techniques were used for this CT. COMPARISON: None. FINDINGS: The visualized lung bases are unremarkable. The visualized portions of the heart are within normal limits. Intrahepatic biliary ductal dilation is noted. Status post cholecystectomy and Whipple''s procedure. There is mild splenomegaly. Postsurgical changes in the pancreatic head from Whipple''s procedure. There is a linear density within the region of the expected location of the gallbladder. There appears to be an abnormal loop of small bowel in this area. Unsure what this linear density represents possibly a foreign body? Enteric tube is in the stomach with postsurgical changes of the distal stomach. Remainder of the small bowel appears within normal limits. Chronic diverticulosis without evidence of acute diverticulitis. Normal appendix. There appears to be a thrombus within the portal vein compatible with portal venous thrombosis. Normal bilateral adrenal glands. Normal right kidney. Normal left kidney. Small bilateral nonenhancing renal cysts. Normal abdominal aorta. Normal inferior vena cava. Normal retroperitoneum. Normal urinary bladder. Mild ascites fluid in the abdomen and pelvis. Normal abdominal wall. There are diffuse degenerative changes of the visualized lumbar spine. CT/Abdomen/Pelvis WITH Contrast IMPRESSION: 1. Recent Whipple''s procedure with postsurgical changes as detailed above. There is a linear metallic-like density in the expected region of the gallbladder within a abnormal appearing loop of suspected small bowel. This loop of small bowel demonstrates wall thickening and edema. Remainder of the small bowel appears within normal limits. Unsure if this is related to postsurgical change versus retained foreign body. No evidence of abscess collection 2. Portal vein thrombosis is noted. 3. Mild ascites fluid in the abdomen and pelvis 4. Remainder of the small and large bowel is essentially within normal limits. Electronically Signed: Beka Mo DO at 10:50 EST Tel , Service support ,
[2019-07-06] MEDS: Creon 24,000 unit DR Capsule 3 CAP PO ×2 (07:59→12:17)
[2019-07-06] MEDS: 0.9% Normal Saline 1,000 ML 50 ML IV (08:38)
--- NOTE | 2019-07-06 09:40 | NT.THERAPY_ITS ---
Nutrition Therapy Report - History Nutrition Services has been consulted to:: Manage parenteral nutrition, Manage enteral nutrition Current diet / nutrition support order:: Jevity 1.5 via DobHoff, advanced to rate of 60ml/hr w/ 200 ml flush. Pt w/ TPN 5% AA, 20% dextrose clinimix with electrolyte 42 ml/hr for total of 1 L in the first 24 hrs w/ 250 ml 20% piggyback infusion on Wednesday, Wednesday, and Wednesday. - Anthropometric Measurements Height:: 5 ft 10 in Weight:: 68.3 kg Body Mass Index (BMI):: 21.6 - Relevant Labs Relevant Labs:: WBC 23.8 K/mm3 (4.4-11.0) H 07/06/19 05:35 RBC 2.84 M/mm3 (4.6-6.2) L 07/06/19 05:35 Hgb 8.1 g/dL (13.0-16.5) L 07/06/19 05:35 Hct 24.5 % (40-54) L 07/06/19 05:35 RDW Std Deviation 48.0 fl (35.1-43.9) H 07/06/19 05:35 RDW Coeff of Jluis 15.3 % (11.6-14.6) H 07/06/19 05:35 Immature Gran % (Auto) 4.300 % (0.0-0.9) H 07/06/19 05:35 Neut % (Auto) 90.3 % (47-70) H 07/06/19 05:35 Lymph % (Auto) 3.0 % (19-41) L 07/06/19 05:35 Absolute Neuts (auto) 21.5 X10^3/uL (2.0-7.7) H 07/06/19 05:35 Absolute Lymphs (auto) 0.72 X10^3/uL (0.83-4.51) L 07/06/19 05:35 Neutrophils % (Manual) 90 % (47-70) H 07/03/19 05:50 Lymphocytes % (Manual) 1 % (19-41) L 07/03/19 05:50 Metamyelocytes % 2 % (0-1) H 07/03/19 05:50 Myelocytes % 1 (0-0) H 07/02/19 05:51 Sodium 128 mmol/L (136-145) L 07/06/19 05:35 Chloride 97 mmol/L (98-107) L 07/06/19 05:35 Creatinine 0.58 mg/dL (0.70-1.30) L 07/06/19 05:35 BUN/Creatinine Ratio 25.3 RATIO (10-20) H 07/05/19 06:10 Glucose 191 mg/dL (74-106) H 07/06/19 05:35 Calcium 7.7 mg/dL (8.5-10.1) L 07/06/19 05:35 Iron 18 ug/dL (65-175) L 07/02/19 05:51 Iron Saturation 6.3 % (15.0-55.0) L 07/02/19 05:51 Total Bilirubin 1.10 mg/dL (0.20-1.00) H 07/02/19 05:51 Direct Bilirubin 0.73 mg/dL (0.00-0.30) H 07/06/19 05:35 AST 71 U/L (15-37) H 07/06/19 05:35 ALT 85 U/L (16-61) H 07/06/19 05:35 Alkaline Phosphatase 413 U/L (45-117) H 07/06/19 05:35 Albumin 1.8 g/dL (3.2-5.0) L 07/06/19 05:35 Globulin 4.8 g/dL (2.2-4.2) H 07/06/19 05:35 Albumin/Globulin Ratio 0.4 RATIO (0.9-2.4) L 07/03/19 05:50 Prealbumin 3.9 mg/dL (20.0-40.0) L 07/04/19 10:02 - Assessment Food / Nutrition-Related History:: Per RN note pt TF, Jevity 1.5 via DobHoff, advanced to rate of 60ml/hr w/ 200 ml flush. Pt w/ TPN 5% AA, 20% dextrose clinimix with electrolyte 42 ml/hr for total of 1 L in the first 24 hrs w/ 250 ml 20% piggyback infusion on Wednesday, Wednesday, and Wednesday. Per RN note pt w/ no s/s of N/V, pt constipated at this time- received enema 07/05 and stool agent on Emar. Spoke w/ RN Abdiel who report pt blood cultures came back positive & pt undergoing tx. Noted wt increase of 1 kg since previous review, CBW 68.3 kg. - Nutrition Diagnosis Problem / Etiology / Signs & Symptoms (PES):: Per ASPEN guidelines severe malnutrition in the context of chronic illness related to altered GI function as evidenced by wt loss of 10.77% x 3 months, NFPA pt with scooping/depression of temporal region , orbital region hollow look, clavicle bone region protruding, dorsal hand interosseous muscle slightly depressed. Evidence of Malnutrition Exists:: Yes Severe PCM:: Chronic Illness - Nutrition Intervention Nutrition Prescription:: Estimated pt nutrition needs: 3137-7854 calories, 80- 90g protein. - Food / Nutrient Delivery Interventions Summary of nutrition intervention:: 1.) Ideally TF should meet 100% of pts estimated nutrition needs, consider placement of PEG to decrease risk of tube occlusion- Rec weaning TPN and restarting TF as pt medically able to tolerate once enteral nutrition support is no longer contraindicated. IF TF to become exclusive source of nutrition, Rec Jevity 1.5 via DobHoff at goal rate of 50ml/hr w/ 200 ml flush every 5 hours to provide 1800 calories, 77 g protein, 1912 ml total free water per day. Would intitate TF at 20ml/hr and increase by 20 ml every 8 hours as pt tolerate until goal rate is achieved. 2.) If pt to continue supplementation of TPN WITH TF rec TPN to be 5% AA, 20% dextrose clinimix with electrolyte 42 ml/hr for total of 1 L in the first 24 hrs 10 ml multivitamin, 1 ml trace elements, 1 mg folic acid. 250 ml 20% piggyback infusion on Wednesday, Wednesday, and Wednesday. Would continue TPN 1L/day as ordered if TPN to continue along with TF. REC TF: Jevity 1.5 via DobHoff at goal rate of 25 ml/hr w/ 105 ml flush every 5 hours to provide provide 900 romero, 40 g pro, 981ml fluid. TPN & TF to provide together total of 1,994 calories, 90 g protein, 1981 ml fluid per day. 3.)If TPN to become exclusive source of nutrition, Rec TPN 2L 5% AA 20% dextrose at goal rate of 84 ml/hr w/ 250 ml of 20% lipids every other day on M,, to provide average daily calories of 1,974 romero, 100 g protein. Which will meet 100% of estimated calorie needs and 118% estimated protein needs. 4.) If pt to continue TPN: Rec Daily wts. Will need baseline CMP, CBC w/ differential, lipid profile, liver panel, magnesium, prealbumin, and phosphorous. 5.) Nutrition support should meet 100% of pt estimated protein and calorie needs as PO is very negligible if tolerated, rec continue Regular diet for comfort feeds as pt tolerates. Nutrition support ordered as / adjusted to:: If pt to continue supplementation of TPN WITH TF rec TPN to be 5% AA, 20% dextrose clinimix with electrolyte 42 ml/hr for total of 1 L in the first 24 hrs 10 ml multivitamin, 1 ml trace elements, 1 mg folic acid. 250 ml 20% piggyback infusion on Wednesday, Wednesday, and Wednesday. Would continue TPN 1L/day as ordered if TPN to continue along with TF. REC TF: Jevity 1.5 via DobHoff at goal rate of 25 ml/hr w/ 105 ml flush every 5 hours to provide provide 900 romero, 40 g pro, 981ml fluid. TPN & TF to provide together total of 1,994 calories, 90 g protein, 1981 ml fluid per day. Nutrition education provided?: No - MNT Monitoring Further MNT monitoring and evaluation required?: Yes - Will monitor TPN/ TF tolerance & provide daily rec/adjust TPN & TF as indic MNT Follow-up in:: 1-2 days
--- NOTE | 2019-07-06 10:32 | PN.ID_ITS ---
Patient Problems: Active and Suspected Problems (Last Reviewed 06/05/19 @ 02:[address] Chance Juarez MD) Nausea and vomiting (Acute) Intolerance to tube feeding Thrombosis, portal vein (Acute) Subjective: Fever to 102.9 overnight, denies any fever, denies abd pain. - Physical Exam Vitals/I&O's: Vital Signs Temp Pulse Resp BP Pulse Ox 101.3 F H 110 H 18 124/63 H 96 07/06/19 08:00 07/06/19 08:00 07/06/19 08:00 07/06/19 08:00 07/06/19 08:00 Oxygen Delivery Method Room Air Weight: 68.3 kg Body Mass Index (BMI) 21.6 Intake and Output for Last 24 Hours 07/04/19 07/05/19 07/06/19 23:59 23:59 23:59 Intake Total 1741.75 / 1741.75 2837.25 / 4305.25 3485.12 / 3485.12 Output Total 200 / 200 Balance 1541.75 / 1541.75 2837.25 / 4305.25 3485.12 / 3485.12 General: Alert, Cooperative, No apparent distress, - - diaphoretic Lungs: Clear to auscultation, Normal air movement Cardiovascular: Regular rate, Regular Rhythm Abdomen: Soft, Non Tender, Non-Distended Skin: No rashes Microbiology Past 72 Hours 07/04/19 Unknown Urine, Clean Catch Urine Culture - Final Mixed Gram Positive Organisms 07/04/19 02:49 Blood Culture (Wb) - Left Hand Blood Culture - Preliminary 07/04/19 02:41 Blood Culture (Wb) - Anticubital Right Blood Culture - Preliminary 07/05/19 11:10 Stool Stool Occult Blood (GARO) - Final 07/04/19 10:30 Mucosa - Nasopharyngeal Respiratory Panel (PCR) - Final Laboratory Results 07/05/19 06:10: Diff Path Review Reviewed 07/05/19 08:52: Blood Type A POSITIVE, Antibody Screen NEGATIVE, Crossmatch See Detail 07/05/19 13:33: POC Glucose 136 H 07/05/19 18:05: POC Glucose 168 H 07/05/19 23:51: POC Glucose 171 H 07/06/19 05:18: POC Glucose 157 H 07/06/19 05:35: WBC 23.8 H, RBC 2.84 L, Hgb 8.1 L, Hct 24.5 L, MCV 86.3, MCH 28.5, MCHC 33.1, RDW Std Deviation 48.0 H, RDW Coeff of Jluis 15.3 H, Plt Count 173, MPV 9.4, Immature Gran % (Auto) 4.300 H, Neut % (Auto) 90.3 H, Lymph % (Auto) 3.0 L, [place] % (Auto) 2.3, Eos % (Auto) 0.0, Baso % (Auto) 0.1, Absolute Neuts (auto) 21.5 H, Absolute Lymphs (auto) 0.72 L, Nucleated RBC % 0.1, Differential Comment SCANNED, Diff Path Review September larry, Platelet Estimate ADEQUATE 07/06/19 05:35: Sodium 128 L, Potassium 4.1, Chloride 97 L, Carbon Dioxide 23.0, Anion Gap 8, BUN 11, Creatinine 0.58 L, Estim Creat Clear Calc 122.67, Est GFR (MDRD) Af Amer 179, Est GFR (MDRD) Non-Af 148, BUN/Creatinine Ratio 18.8, Glucose 191 H, Calcium 7.7 L, Total Bilirubin 0.90, Direct Bilirubin 0.73 H, AST 71 H, ALT 85 H, Alkaline Phosphatase 413 H, Total Protein 6.6, Albumin 1.8 L, Globulin 4.8 H Current Medications Acetaminophen (Tylenol) 650 mg PO Q6H PRN PRN PRN Reason: Pain Score 1-10/Temp > 100.7 F Last Admin: 07/06/19 08:00 Dose: 650 mg Documented by: Acetaminophen (Tylenol) 650 mg RECTAL Q4H PRN PRN PRN Reason: Pain or Fever Albuterol Sulfate (Ventolin Aerosols) 2.5 mg INHALATION Q2H PRN PRN PRN Reason: Shortness of Breath/Wheezing Atorvastatin Calcium (Lipitor) 40 mg PO QHS [facility] Last Admin: 07/05/19 21:37 Dose: 40 mg Documented by: Enoxaparin Sodium (Lovenox) 80 mg SC BID [facility] Last Admin: 07/05/19 21:38 Dose: 80 mg Documented by: Glucagon () 1 mg IM .X1 PRN PRN Reason: Hypoglycemia Dextrose (Dextrose 10%-Water) 250 mls @ 999 mls/hr IV .Q16M PRN; Protocol PRN Reason: HYPOGLYCEMIA Enteral Nutritional Formula (Jevity 1.5) 1,000 mls @ 30 mls/hr GT .[id number] [facility] Last Admin: 07/05/19 21:38 Dose: 30 mls/hr Documented by: Sodium Chloride () 250 mls @ 15 mls/hr IV .[id number] PRN PRN Reason: Saline Flush Last Infusion: 07/06/19 05:22 Dose: 0 mls/hr Documented by: Sodium Chloride () 250 mls @ 15 mls/hr IV .[id number] PRN PRN Reason: Additional IVPB Infusion Multivitamins 10 ml/ Chromium/Copper/Manganese/Seleni/Zn 1 ml/ Folic Acid 1 mg/ Amino Acids/Electrolytes 2,011.2 mls @ 42 mls/hr IV .Q24H [facility] Stop: 07/07/19 15:52 Last Infusion: 07/06/19 10:09 Dose: 0 mls/hr Documented by: Piperacillin Sod/Tazobactam (Sod 3.375 gm/ Sodium Chloride) 50 mls @ 12.5 mls/hr IV Q8 [facility] Last Infusion: 07/06/19 09:20 Dose: Infused Documented by: Sodium Chloride () 1,000 mls @ 50 mls/hr IV .Q20H [facility] Last Infusion: 07/06/19 10:10 Dose: 0 mls/hr Documented by: Insulin Human Lispro (Humalog Kwikpen (Bkc)) 0 unit SC Q6 [facility]; Protocol Last Admin: 07/06/19 05:21 Dose: 1 u Documented by: Metoclopramide HCl (Reglan) 5 mg GT Q6 [facility] Last Admin: 07/06/19 05:20 Dose: 5 mg Documented by: Metoprolol Tartrate (Lopressor (Beta Alpesh)) 50 mg PO BID [facility] Last Admin: 07/05/19 21:38 Dose: 50 mg Documented by: Morphine Sulfate () 2 mg IV Q3H PRN PRN PRN Reason: Pain Score 6-10/10 Ondansetron HCl (Zofran) 8 mg IV Q8H PRN PRN PRN Reason: NAUSEA/VOMITING Pancrelipase (Creon Dr 24,000 Unit Capsule) 3 capsule PO TIDCM [facility] Last Admin: 07/06/19 07:59 Dose: 3 capsule Documented by: Polyethylene Glycol (Miralax) 17 gm GT BID [facility] Last Admin: 07/05/19 21:37 Dose: 17 gm Documented by: Prochlorperazine Edisylate (Compazine Iv) 5 mg IV Q6H PRN PRN PRN Reason: NAUSEA/VOMITING Last Admin: 07/03/19 19:32 Dose: 5 mg Documented by: Sodium Chloride () 10 - 40 ml IV UD PRN PRN Reason: SALINE FLUSH Last Admin: 07/06/19 05:20 Dose: 10 ml Documented by: Medical Necessity - Tobacco Use Smoking Status: Former smoker Tobacco Use: Non-smoker Route of nutrition/ use of supplements: [] Nutritional Intake: [] IV Site: [] Chavez Catheter: [] - Assessment/Plan Antibiotics: [] Assessment/Plan: [] Active and Suspected Problems (Last Reviewed 06/05/19 @ 02:[address] Chance Juarez MD) Nausea and vomiting (Acute) Intolerance to tube feeding Thrombosis, portal vein (Acute) sepsis due to GNR bacteremia - Growth seen in anaerobic bottles. Zosyn started, agree with abd/pelvis CT. If abscess seen, will need transferred to [facility]. Will follow, d/w Dr. Arnold
[2019-07-06] MEDS: Metoprolol Tartrate 50 MG Tablet PO ×2 (10:45→22:26)
[2019-07-06] MEDS: Enoxaparin 80 MG/0.8 ML Syringe SC ×2 (10:46→22:23)
[2019-07-06] MEDS: Polyethylene Glycol 3350 17 GM PACKET GT ×2 (10:46→22:24)
--- NOTE | 2019-07-06 12:05 | CASEMGMT ---
Addendum entered by Mulu Pineda 07/06/19 14:28: Pt is being transferred to [facility]. SHANELL placed a call to Isabel at [facility] and updated her that pt is being transferred. Addendum entered by Mulu Pineda 07/06/19 13:57: SW faxed updated clinicals to [facility]. Plan: [facility] once medically cleared Mulu ORTIZ, LAUREL Original Note: Social Work Note Pt now has bacteremia, not ready for discharge today. SHANELL placed a call to Isabel at [facility] and left message that pt is not ready for discharge today. Mulu ORTIZ, IGNITER CAPPER
[2019-07-06 12:26] LABS: Bedside Glucose 149 mg/dL (70-110)
[2019-07-06 14:06] LABS: Pathologist Review Reviewed
--- NOTE | 2019-07-06 14:21 | NS ---
Addendum to previous MNT document 07/06/19: MICHELLE spoke w/ Dr. Arnold who reports given current findings on CT of pt abdomen the plan is to discontinue TF and for TPN to be the sole source of nutrition. Rec TPN 2L 5% AA 20% dextrose at goal rate of 84 ml/hr w/ 250 ml of 20% lipids every other day on M,W,F to provide average daily calories of 1,974 romero, 100 g protein. TPN will meet 100% of estimated calorie needs and 118% estimated protein needs. Rec Daily wts. Will need daily baseline CMP, CBC w/ differential, lipid profile, liver panel, magnesium, prealbumin, and phosphorous. Pt possible transfer to another facility. Jagruti Han RDN, LD
--- NOTE | 2019-07-06 14:32 | PCM.DC.SUM ---
Discharge Date and Diagnosis - Problem List Patient Problems: Active and Suspected Problems (Last Reviewed 06/05/19 @ 02:[address] Chance Juarez MD) Nausea and vomiting (Acute) Intolerance to tube feeding Thrombosis, portal vein (Acute) Date of Admission: 07/01/19 Date of Discharge: 07/06/19 - Primary Discharge Diagnosis Active and Suspected Problems (Last Reviewed 06/05/19 @ 02:[address] Chance Juarez MD) Nausea and vomiting (Acute) Intolerance to tube feeding Thrombosis, portal vein (Acute) - Secondary Discharge Diagnosis Chronic Problems (Last Reviewed 06/05/19 @ 02:[address] Chance Juarez MD) Pancreatic cancer (Chronic) Low-grade neuroendocrine carcinoma; status post Whipple Chronic myelogenous leukemia (CML), [id number] (Chronic) Recently diagnosed Iron deficiency anemia due to dietary causes (Chronic) Blood loss from recent surgery Hyperlipidemia (Chronic) History of tobacco abuse (Chronic) Ischemic cardiomyopathy (Chronic) EF 35-40% per echo done @ [facility]07/11/2017; 50% per pre-op EFRAIN done @ [facility] 01/25/18 History of DE (myocardial infarction) (Chronic) Left ventricular scar, markie infart ischemia, left ventricular thrombus per echo 12/15/2017 @ [facility] Atherosclerotic heart disease of [place] coronary artery without angina pectoris (Chronic) MARTINES to LAD, free JANEEN to PDA, SVG to Diagonal, SVG to OM, SVG to right Posterior lateral per Dr. Augustin [facility] S/P CABG x 5 (Chronic 01/25/18) MARTINES to LAD, free JANEEN to PDA, SVG to Diagonal, SVG to OM, SVG to right Posterior lateral per Dr. Augustin [facility] Hospital Course and Treatment Imaging Results: 07/06/19 07:31 Abdomen/Pelvis WITH Contrast [CT] Urgent Operations: None Summary of Care Provided: [] This is a 64 year old M with past medical history of pancreatic cancer status post Whipple's procedure, severe malnutrition status post Dobhoff tube feeds, history of pancreatic neuroendocrine tumor status post Whipple surgery and CML and is stable for age as per oncologist was admitted with intractable nausea and vomiting. 1. Fever of unclear etiology with gram-negative qamar bacteremia with leukocytosis possible intra-abdominal infection/leukemia : Patient abdominal x-ray shows bowel gas pattern with no radiologic features of bowel obstruction or pneumoperitoneum. UA, chest x-ray are negative. 07/05: Blood cultures and urine cultures are pending for 24 hours. Respiratory panel is negative. 07/06: Patient continued to have fever, T-max 102.9 Fahrenheit last night. Blood cultures x2 growing gram-negative rods. Full culture pending. Respiratory panel negative. Urine culture shows mixed gram-positive organism. Stool for occult blood negative. CT abdomen was done and imagings independently reviewed. Shows a abnormal appearing loop of small bowel with wall thickening and edema. No evidence of abscess. Recent Whipple procedure with postsurgical changes. Portal vein thrombosis. Mild ascites in the abdomen and pelvis. Remainder for small large bowel normal. Keofeed is temporarily held. Patient has TPN through PICC line. Based on above findings and fever, patient is being transferred to [facility] under the care of Dr. Asaf Sanchez. Transfer line called and he accepted the patient. 2. Intractable nausea and vomiting, unclear etiology, status post recent Whipple procedure in May 2019, status post CorPak, improved Started on Reglan 5 mg every 6 hourly with tube feed Jevity. 200 mL every 4 hourly free water push. 07/04: As per the nurse, patient had vomiting 1 time yesterday. On Reglan through feeding tube and Zofran 8 mg IV every 8 hourly as needed. 07/05: Left arm PICC line. Discussed with pharmacist and ham trimmer to start on TPN, supplemental to 30 feet. Calculate the total calorie need 3. Debility related to #1 and concurrent comorbidities, discharge to [facility] facility pending 07/05: Discussed with the patient [id number] Chiquita and longtime friend, Leticia on 07/04 directed with DNR CC arrest. More emphasis on the ADL and nutrition. 5. 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 Leukocytosis improved to 20.5 thousand. 07/04: Discussed with oncologist. Similar CML is stable. 07/05: Leukocytosis worsened. Acute anemia of baseline anemia of chronic disease probably iron deficiency anemia and neoplastic in origin: Intact Venofer for last 2 days. Current hemoglobin 6.9. 1 unit of PRBC to keep hemoglobin more than 7. Oncology follow-up. 6. Pancreatic CA status post Whipple's procedure, outpatient follow-up with oncology. Patient is not in good general condition for chemotherapy. 7. 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 Iron profile shows low iron 18, TIBC 297, iron saturation 6.3%. Iron infusion ordered 07/04: Hemoglobin 7.2. On iron infusion. 8. DVT Prophylaxis on Lovenox subcu 9. Disposition: Discharge to SNF where TPN is accepted. Severe protein calorie malnutrition/cachexia secondary to pancreatic cancer and Whipple surgery: Admission Advanced directive: Overall, Ms. Porras and his friend, Mrs. Kelly does not want artificial life support including intubation, TPN, ventilator and/chest compression, BiPAP, vasopressor and central line insertion but okay with oxygen mask. Patient is DNR CC-arrest Total time of the visit including total time spent in counseling or coordination of care, (more than 50% of the total time, spent in obtaining medical information from nurses and other ancillary care providers), coordination of care with work and family life consultant, discussion with transfer line regarding transfer, review of labs and imaging is 35 minutes Patient Problems: Active and Suspected Problems (Last Reviewed 06/05/19 @ 02:[address] Chance Juarez MD) Nausea and vomiting (Acute) Intolerance to tube feeding Thrombosis, portal vein (Acute) Subjective: Seen and examined. Patient had high-grade temperature 102.9 yesterday midnight in the morning 101.3. Microbiology lab called for gram-negative rods in both aerobic and anaerobic bottles. CT abdomen and pelvis with oral and IV contrast ordered. Patient denies any abdominal pain. On tube feed which is held. - Physical Exam Vitals/I&O's: Vital Signs Temp Pulse Resp BP Pulse Ox 98.4 F 93 16 111/54 L 96 07/06/19 14:00 07/06/19 14:00 07/06/19 14:00 07/06/19 14:07/06/19 14:00 Oxygen Delivery Method Room Air Weight: 150 lb 9.211 oz Body Mass Index (BMI) 21.6 Intake and Output for Last 24 Hours 07/04/19 07/05/19 07/06/19 23:59 23:59 23:59 Intake Total 1741.75 / 1741.75 2837.25 / 4305.25 3685.12 / 3685.12 Output Total 200 / 200 Balance 1541.75 / 1541.75 2837.25 / 4305.25 3685.12 / 3685.12 General: Oriented x3, Cooperative, Lethargic HEENT: Atraumatic, PERRLA, EOMI, Normocephalic Oral: Dry Mucosa Neck: Supple, No JVD, Negative Carotid Bruits Lungs: Clear to auscultation, No rhonchi, No wheeze, No rales, Diminished Cardiovascular: Regular rate, Regular Rhythm, Normal S1, Normal S2, No murmurs Abdomen: Bowel Sounds Present, Soft, Non Tender, Non-Distended Extremities: No edema, Capillary Refill Less than 3 Seconds Skin: No rashes, No breakdown Musculoskeletal: No Tenderness to Palpation of Joints or Extremities, Cachexia, Muscle Wasting Neurological: Cranial nerves II-XII grossly intact, Deep Tendon Reflexes 2+/4 and Symmetrical, Neuro grossly intact Psych/Mental Status: Normal Affect, Appropriate Microbiology Past 72 Hours 07/04/19 Unknown Urine, Clean Catch Urine Culture - Final Mixed Gram Positive Organisms 07/04/19 02:49 Blood Culture (Wb) - Left Hand Blood Culture - Preliminary 07/04/19 02:41 Blood Culture (Wb) - Anticubital Right Blood Culture - Preliminary 07/05/19 11:10 Stool Stool Occult Blood (GARO) - Final 07/04/19 10:30 Mucosa - Nasopharyngeal Respiratory Panel (PCR) - Final Laboratory Results 07/05/19 08:52: Crossmatch See Detail 07/05/19 13:33: POC Glucose 136 H 07/05/19 18:05: POC Glucose 168 H 07/05/19 23:51: POC Glucose 171 H 07/06/19 05:18: POC Glucose 157 H 07/06/19 05:35: WBC 23.8 H, RBC 2.84 L, Hgb 8.1 L, Hct 24.5 L, MCV 86.3, MCH 28.5, MCHC 33.1, RDW Std Deviation 48.0 H, RDW Coeff of Jluis 15.3 H, Plt Count 173, MPV 9.4, Immature Gran % (Auto) 4.300 H, Neut % (Auto) 90.3 H, Lymph % (Auto) 3.0 L, [place] % (Auto) 2.3, Eos % (Auto) 0.0, Baso % (Auto) 0.1, Absolute Neuts (auto) 21.5 H, Absolute Lymphs (auto) 0.72 L, Nucleated RBC % 0.1, Differential Comment SCANNED, Diff Path Review Reviewed, Platelet Estimate ADEQUATE 07/06/19 05:35: Sodium 128 L, Potassium 4.1, Chloride 97 L, Carbon Dioxide 23.0, Anion Gap 8, BUN 11, Creatinine 0.58 L, Estim Creat Clear Calc 122.67, Est GFR (MDRD) Af Amer 179, Est GFR (MDRD) Non-Af 148, BUN/Creatinine Ratio 18.8, Glucose 191 H, Calcium 7.7 L, Total Bilirubin 0.90, Direct Bilirubin 0.73 H, AST 71 H, ALT 85 H, Alkaline Phosphatase 413 H, Total Protein 6.6, Albumin 1.8 L, Globulin 4.8 H 07/06/19 12:16: POC Glucose 149 H Current Medications Acetaminophen (Tylenol) 650 mg PO Q6H PRN PRN PRN Reason: Pain Score 1-10/Temp > 100.7 F Last Admin: 07/06/19 08:00 Dose: 650 mg Documented by: Acetaminophen (Tylenol) 650 mg RECTAL Q4H PRN PRN PRN Reason: Pain or Fever Albuterol Sulfate (Ventolin Aerosols) 2.5 mg INHALATION Q2H PRN PRN PRN Reason: Shortness of Breath/Wheezing Atorvastatin Calcium (Lipitor) 40 mg PO QHS [facility] Last Admin: 07/05/19 21:37 Dose: 40 mg Documented by: Enoxaparin Sodium (Lovenox) 80 mg SC BID [facility] Last Admin: 07/06/19 10:46 Dose: 80 mg Documented by: Glucagon () 1 mg IM .X1 PRN PRN Reason: Hypoglycemia Dextrose (Dextrose 10%-Water) 250 mls @ 999 mls/hr IV .Q16M PRN; Protocol PRN Reason: HYPOGLYCEMIA Sodium Chloride () 250 mls @ 15 mls/hr IV .[id number] PRN PRN Reason: Saline Flush Last Infusion: 07/06/19 05:22 Dose: 0 mls/hr Documented by: Sodium Chloride () 250 mls @ 15 mls/hr IV .[id number] PRN PRN Reason: Additional IVPB Infusion Multivitamins 10 ml/ Chromium/Copper/Manganese/Seleni/Zn 1 ml/ Folic Acid 1 mg/ Amino Acids/Electrolytes 2,011.2 mls @ 42 mls/hr IV .Q24H [facility] Stop: 07/07/19 15:52 Last Infusion: 07/06/19 10:50 Dose: 42 mls/hr Documented by: Piperacillin Sod/Tazobactam (Sod 3.375 gm/ Sodium Chloride) 50 mls @ 12.5 mls/hr IV Q8 [facility] Last Admin: 07/06/19 14:10 Dose: 12.5 mls/hr Documented by: Sodium Chloride () 1,000 mls @ 50 mls/hr IV .Q20H [facility] Last Infusion: 07/06/19 10:50 Dose: 50 mls/hr Documented by: Insulin Human Lispro (Humalog Kwikpen (Bkc)) 0 unit SC Q6 [facility]; Protocol Last Admin: 07/06/19 12:16 Dose: Not Given Documented by: Metoclopramide HCl (Reglan) 5 mg GT Q6 [facility] Last Admin: 07/06/19 12:17 Dose: 5 mg Documented by: Metoprolol Tartrate (Lopressor (Beta Alpesh)) 50 mg PO BID [facility] Last Admin: 07/06/19 10:45 Dose: 50 mg Documented by: Morphine Sulfate () 2 mg IV Q3H PRN PRN PRN Reason: Pain Score 6-10/10 Ondansetron HCl (Zofran) 8 mg IV Q8H PRN PRN PRN Reason: NAUSEA/VOMITING Polyethylene Glycol (Miralax) 17 gm GT BID [facility] Last Admin: 07/06/19 10:46 Dose: 17 gm Documented by: Prochlorperazine Edisylate (Compazine Iv) 5 mg IV Q6H PRN PRN PRN Reason: NAUSEA/VOMITING Last Admin: 07/03/19 19:32 Dose: 5 mg Documented by: Sodium Chloride () 10 - 40 ml IV UD PRN PRN Reason: SALINE FLUSH Last Admin: 07/06/19 10:46 Dose: 30 ml Documented by: Home Medications: Medications to take at Discharge metoprolol tartrate 50 mg tablet 50 mg PO BID #180 tab 03/29/18 aspirin 81 mg chewable tablet 81 mg PO DAILY tab 11/14/18 Acetaminophen [Tylenol Extra Strength] 650 mg PO Q4H PRN PRN 06/04/19 Lipase/Protease/Amylase [Creon Dr 36,000 Units Capsule] 2 ea PO TIDCM 06/04/19 Metformin HCl 500 mg PO BID 06/04/19 Ondansetron [Ondansetron Odt] 4 mg PO Q6H PRN PRN 06/13/19 Atorvastatin Calcium [Lipitor] 40 mg PO QHS 06/29/19 Dasatinib [Sprycel] 100 mg PO DAILY 06/29/19 Enoxaparin Sodium [Lovenox] 60 mg SQ BID 06/29/19 Famotidine [Pepcid] 20 mg PO DAILY 06/29/19 Nutritional Supplement [Nutren 1.5] 63 mls GT CONT 06/29/19 Promethazine HCl [Phenadoz] 12.5 mg RECTAL Q6H PRN PRN 07/01/19 Primary Care Physician: Hector Fong MD [Primary Care Provider] - Medical Necessity - Tobacco Use Smoking Status: Former smoker Tobacco Use: Non-smoker Meaningful Use Info Meaningful Use Diagnoses (Choose all that apply): None applicable Code Visit Inpatient E&M: 59176 Disch Hosp
[2019-07-06 17:50] LABS: Bedside Glucose 123 mg/dL (70-110)
[2019-07-06] MEDS: Atorvastatin Calcium 40 MG Tablet PO (22:24)
[2019-07-06 23:31] LABS: Bedside Glucose 151 mg/dL (70-110)
[2019-07-07 00:11] VITALS: PULSE 83
[2019-07-07] MEDS: Metoclopramide 10 MG/10 ML UDC 5 MG GT (00:44)
[2019-07-07 00:48] VITALS: TEMP 37.1
--- NOTE | 2019-07-07 01:03 | NURSING ---
Bed now available for this pt at [facility], H71, bed 1. Number to call for report is [phone]. This RN called radiology to ask for a disc for this pt. They are able to transfer it electronically to [facility] and will do so.
--- NOTE | 2019-07-07 02:12 | NURSING ---
Chiquita Franco, next of kin, notified of bed availability at [facility] per her request.
[2019-07-07] MEDS: 0.9% Saline Lock 10 ML Syringe IV (02:17)
[2019-07-07] MEDS: Ondansetron 4 MG/2 ML Vial 8 MG IV (02:22)
[2019-07-07 02:25] VITALS: BP 99/63; PULSE 78; RESP 16; TEMP 36.6; O2SAT 96
[2019-07-07 02:40] LABS: Bedside Glucose 153 mg/dL (70-110)
--- NOTE | 2019-07-07 02:47 | NURSING ---
report called to [facility] main [id number] [facility]. Pt aware transport will be here in next 15-30min
--- NOTE | 2019-07-07 03:22 | NURSING ---
report given to ambulance company. pt transferred to [facility].
== END 2019-07-07 03:25 | disposition short-term general hospital (02) | DRG 391 ==
LOC: ED 10:09 → MS3 12:58
PROVIDERS: Family Medicine; Admitting Provider Internal Medicine; Emergency Provider Emergency Medicine; PCP Family Medicine; Referring Provider Internal Medicine; Visit Provider Internal Medicine
DX: R11.2 Nausea with vomiting, unspecified (principal); I81 Portal vein thrombosis; E43 Unspecified severe protein-calorie malnutrition; C25.9 Malignant neoplasm of pancreas, unspecified; R18.8 Other ascites; C92.10 Chronic myeloid leukemia, BCR/ABL-positive, not having achieved remission; C7A.8 Other malignant neuroendocrine tumors; R78.81 Bacteremia; I25.5 Ischemic cardiomyopathy; D63.0 Anemia in neoplastic disease; D50.9 Iron deficiency anemia, unspecified; R50.9 Fever, unspecified; E86.0 Dehydration; E78.5 Hyperlipidemia, unspecified; I25.10 Atherosclerotic heart disease of native coronary artery without angina pectoris; Z95.1 Presence of aortocoronary bypass graft; I25.2 Old myocardial infarction; Z66 Do not resuscitate; Z68.21 Body mass index [BMI] 21.0-21.9, adult; Z90.49 Acquired absence of other specified parts of digestive tract; Z87.891 Personal history of nicotine dependence
CPT/HCPCS: 36415; 36569; 71045; 74018; 74019; 74176; 74177; 80048; 80053; 80076; 81001; 82274; 82962; 83540; 83550; 83605; 83690; 83735; 84100; 84134; 84484; 85025; 86850; 86900; 86901; 86920; 86922; 87040; 87077; 87086; 87088; 87633; 93005; 96361; 96374; 96375; 97110; 97116; 97162; 97165; 97530; 97535; 97802; 99251; 99283; 99284; 99406; J1756; J7030; J7040; J7050; P9016; Q9967; A4216; G0463; J2405

== ENCOUNTER 2019-09-06 06:59 | Day surgery (SDC) | payer MEDICARE, MEDICAID, SELFPAY ==
[2019-07-06 09:47] VITALS: BMI 21.6
--- NOTE | 2019-09-05 17:49 | PCM.HP.BLA ---
History and Physical Date of Admission: 09/06/19 Chief Complaint - diarrhea, blood in stools, anemia, nausea and emesis History of Present Illness The patient is a 64 year old WM with past medical history of pancreatic neuroendocrine cancer; status post Whipple's procedure, severe malnutrition status post CorPak tube feeds since discharge from the [facility]. He was also newly diagnosed with chronic myelogenous leukemia. He has had episode of nausea and emesis. He complains of diarrhea, he notes blood in his stools. He has anemia. His oncologist has recommended evaluation with upper and lower endoscopy prior to continuing chemotherapy. Past Medical History Pancreatic cancer (Chronic) Hyperlipidemia (Chronic) History of tobacco abuse (Chronic) Ischemic cardiomyopathy (Chronic) EF 35-40% per echo done @ [facility]07/11/2017; 50% per pre-op EFRAIN done @ [facility] 01/25/18 History of PR (myocardial infarction) (Chronic) Left ventricular scar, markie infart ischemia, left ventricular thrombus per echo 12/15/2017 @ [facility] Atherosclerotic heart disease of [place] coronary artery without angina pectoris (Chronic) MARTINES to LAD, free JANEEN to PDA, SVG to Diagonal, SVG to OM, SVG to right Posterior lateral per Dr. Augustin [facility] S/P CABG x 5 (Chronic 01/25/18) MARTINES to LAD, free JANEEN to PDA, SVG to Diagonal, SVG to OM, SVG to right Posterior lateral per Dr. Augustin [facility] Surgical History: S/P CABG x 5 (Chronic) Onset Date: 01/25/18 Z95.1 History of colonoscopy with polypectomy History of right inguinal hernia repair Whipple procedure Facial surgery left finger amputation Home Medications: metoprolol tartrate 50 mg tablet 50 mg PO BID #180 tab aspirin 81 mg chewable tablet 81 mg PO DAILY tab Acetaminophen [Tylenol Extra 650 mg PO Q4H PRN PRN Lipase/Protease/Amylase [Creon Dr 2 ea PO TIDCM Metformin HCl 500 mg PO BID Pantoprazole Sodium 40 mg PO DAILY Ondansetron [Ondansetron Odt] 4 mg PO Q6H PRN PRN Atorvastatin Calcium [Lipitor] 40 mg PO QHS Dasatinib [Sprycel] 100 mg PO DAILY Enoxaparin Sodium [Lovenox] 80 mg SQ BID Famotidine [Pepcid] 20 mg PO DAILY Nutritional Supplement [Nutren 1.5] 63 mls GT CONT Allergies No Known Allergies Allergy Social history: Lives: Spouse/ Significant Other Smoking Status: Former smoker Tobacco Use: Non-smoker Alcohol: None Drugs: None Family History Brother CAD (coronary artery disease) Brother CAD (coronary artery disease) Mother Cancer Father Cancer Sister Cancer Review of Systems Constitutional: Reports: Anorexia, Malaise, Weakness, Fatigue. Denies: Chills, Fever, Weight Change Eyes: Denies: Blurred vision, Cataracts, Pain, Redness, Vision Change HEENT: Denies: Difficulty Hearing, Head Aches, Hearing Changes, Sinus Congestion, Sinus Drainage Cardiovascular: Denies: Chest Pain, Claudication, Orthopnea, Palpitations, Paroxysmal Noc. Dyspnea Respiratory: Denies: Cough, Shortness of breath at rest, Shortness of breath upon exertion, Sputum production Gastrointestinal: Reports: Abdominal Pain, Dyspepsia, Nausea, Vomiting. Denies: Hematemesis, Hematochezia Genitourinary: Denies: Dysuria, Frequency, Incontinence, Nocturia Musculoskeletal: Denies: Joint Pain, Joint stiffness, Joint swelling, Joint Tenderness Skin: Denies: Rash, Wounds Neurological: Denies: Difficulty swallowing, Focal weakness, Numbness, Tingling Psychiatric: Denies: Anxiety, Depression, Homicidal Ideations, Suicidal Ideations Hematologic/ Lymphatic: Denies: Easy Bruising, Easy Bleeding - Physical Exam Temp 98 F Pulse 91 Resp 18 BP 111/67 Pulse Ox 96 General: Alert, Oriented x3, Cooperative, No apparent distress, - - s/p Corpak tube; severe malnutrition & cachexia HEENT: Atraumatic, PERRLA, EOMI, Normocephalic Oral: Moist Mucosa Neck: Supple Lungs: Clear to auscultation, Normal air movement Cardiovascular: Regular rate, Regular Rhythm, Normal S1, Normal S2, No murmurs Abdomen: Bowel Sounds Present, Soft, Non Tender, Non-Distended, No Hepato-splenomegaly Extremities: No edema Skin: No rashes, No breakdown Musculoskeletal: No Tenderness to Palpation of Joints or Extremities Lymphatic: No Cervical, Supraclavicular, or Inguinal Adenopathy Neurological: Cranial nerves II-XII grossly intact, Neuro grossly intact Psych/Mental Status: Normal Affect, Appropriate Impression: episodes of nausea and emesis blood in stools diarrhea Chronic myelogenous leukemia (chronic) Low-grade neuroendocrine carcinoma of the pancreas; status post Whipple (chronic) Portal vein thrombosis (chronic) Recommendations: Plan for upper and lower endoscopy. Risks /benefits of procedure explained to patient - including but not limited to: infection, bleeding, perforation of the GI tract, inability to complete the procedure, complications of anesthesia, injury to any internal organ such as liver/spleen, etc. - patient understands. He agrees to proceed. Essential Procedure Criteria Procedure Essential: Yes Criteria Note: On 07/25/2019 the [facility] of Health ([facility]) Public Order signed by [facility] Director Viry Moore M.D., regarding the Management of Non-Essential Surgeries and Procedures for the purpose of preserving Personal Protective Equipment (PPE) and critical hospital capacity and resources within [place] went into effect as of 07/26/2019 at 5:00PM. According to the [facility] Public Order: This action will remain in full force and effect until the State of Emergency declared by the Governor no longer exists or the Director of the [facility] rescinds or modifies this Order.. This [facility] order stated all non-essential or elective surgeries and procedures that utilize PPE should be delayed unless there is undue risk to the current or future health of a patient. After reviewing the aforementioned [facility] Public Order and the patients clinical case, I have determined that the scheduled procedure meets the criteria to go forward. Risk to Patient if Procedure Delayed: Risk of rapidly worsening to severe symptoms Essential Procedure Criteria Procedure Essential: Yes Criteria Note: see above Risk to Patient if Procedure Delayed: Risk of rapidly worsening to severe symptoms if delayed
[2019-09-06] VITALS (7 sets, daily range): BP systolic 100–122; BP diastolic 61–71; PULSE 74–78; RESP 15–18; TEMP 36.2–36.6; O2SAT 96–100; BMI 19.8
--- NOTE | 2019-09-06 | GASB_PTH ---
PATIENT: JANE KIM LOC: EN U#:[id number] AGE/SX: 64/M ROOM: RE09/06/[address]: Dr. Clarita Randall MD : 1955 BED: DIS: 09/06/2019 SPEC #: [id number] RECD: 09/06/19 12:18 STATUS: PRIYA GRZEGORZ #: [id number] MEAGAN: 09/06/19 00:[address]: Clarita Randall DEPT: SURGICAL PATHOLOGY RECD BY: Ryan Stover ENTERED: 09/06/19 12:18 SP TYPE: Gastric Bx OTHR DR: Dr. Hector Fong MD Tissues: A - Gastric mucous membrane B - COLON BIOPSY Procedures: Surgery Specimen Level IV HEADER OPERATION: [place] [place] DIAGNOSIS: Diarrhea, blood in stool, anemia TISSUE SUBMITTED: A - Antrum biopsy for histo and H. pylori, B - Random colonic biopsy MICROSCOPIC DIAGNOSIS A. Gastric antrum, biopsy: Chronic gastritis. B. Colon, random biopsy: Fragment of tubular adenoma. Focal acute colitis. See comment. AM:alysha 09/07/19 COMMENT A. The results of immunohistochemistry for Helicobacter pylori will be reported separately ([id number]). B. There is a single fragment with adenomatous change. One other benign fragment of colonic mucosa contains focal crypt abscesses. No glandular distortion is identified. No transmural lymphoid aggregates are seen and no ulcers are present. Clinical correlation is suggested. Case has been reviewed in consultation with Dr. Almaguer who concurs with the above diagnosis. IDC:[id number] MICROSCOPIC DESCRIPTION Slides are reviewed. GROSS DESCRIPTION A - Received in fixative is one container labeled with the patient's name and designated antrum biopsy. The specimen consists of one irregular fragment of light rosenberg soft tissue that measures 0.2 x 0.2 x 0.1 cm. The specimen is totally submitted in one cassette. B - Received in fixative is one container labeled with the patient's name and designated random colonic biopsy. The specimen consists of multiple irregular fragments of light rosenberg soft tissue that in aggregate measure 1.5 x 1 x 0.1 cm. The specimen is totally submitted in one cassette. / LEON:alysha 09/06/19 TC:2 CPT: 41837 x2
[2019-09-06] MEDS: Lactated Ringers 1,000 ML 75 ML IV (07:25)
[2019-09-06 07:35] LABS: Bedside Glucose 109 mg/dL (70-110)
--- NOTE | 2019-09-06 08:00 | IMM_PTH ---
PATIENT: JANE KIM LOC: EN U#:[id number] AGE/SX: 64/M ROOM: RE09/06/[address]: Dr. Clarita Randall MD : 1955 BED: DIS: 09/06/2019 SPEC #: [id number] RECD: 09/06/19 12:19 STATUS: PRIYA REQ #: [id number] MEAGAN: 09/06/19 08:[address]: Clarita Randall DEPT: IMMUNOHISTOCHEMISTRY RECD BY: Shannan Selby ENTERED: 09/06/19 12:19 SP TYPE: IMMUNO OTHR DR: Dr. Hector Fong MD Tissues: A - Stomach, NOS Procedures: H Pylori (initial) PHYSICIAN & INSTITUTION [place] [id number] SPECIMEN INFORMATION: Tissue Source: A - Antrum biopsy Clinical Info: Diarrhea, blood in stools, anemia Specimen Number: [id number] CPT code: 42514 METHODOLOGY: Deparaffinized sections of prefer/formalin-fixed tissue or PAP/DQ stained slides are incubated with monoclonal/polyclonal antibodies/oligonucleotide probes. Localization is made via biotin free immunoperoxidase method. Appropriate controls are performed and reacted as expected. Results on target cell population are indicated in the following table: RESULTS: ANTIBODY / CLONE RESULT Block A H Pylori (polyclonal) negative These tests were developed and their performance characteristics determined by [facility]. They may not have been cleared or approved by the U.S. Food and Drug Administration. The FDA has determined that such clearance or approval is not necessary. INTERPRETATION: A. Antrum biopsy: Negative for Helicobacter pylori organisms. AM:alysha 09/08/19
[2019-09-06] MEDS: Epinephrine (1 mg/ml) 1 MG/ML VIAL (08:35)
--- NOTE | 2019-09-06 09:25 | EKG12_ITS ---
Test Reason : POST OP Blood Pressure : / mmHG Vent. Rate : 075 BPM Atrial Rate : 075 BPM P-R Int : 170 ms QRS Dur : 086 ms QT Int : 408 ms P-R-T Axes : 004 -03 042 degrees QTc Int : 455 ms Sinus rhythm with frequent Premature ventricular complexes Low voltage QRS (limb leads) Borderline ECG Confirmed by EMILINAO PALMER, DMITRI ([id number]), editor continuity and script HELADIO ROWE ([id number]) on 09/11/2019 3:39:34 PM Referred By: Clarita Randall Confirmed By:DMITRI CUMMINGS MD
--- NOTE | 2019-09-06 12:30 | OP.EGD_ITS ---
Patient Name: Amador Franco Procedure Date: 09/06/2019 7:35 AM Date of : 1955 Age: 64 Procedure: Upper GI endoscopy Indications: Iron deficiency anemia, Malnutrition, Nausea with vomiting Providers: Clarita Randall MD Referring MD: Clarita Randall MD Medicines: See the Anesthesia note for documentation of the administered medications Patient Profile: Refer to note in patient chart for documentation of history and physical. Patient has symptoms. Complications: No immediate complications. Procedure: Pre-Anesthesia Assessment: - see anesthesia note After obtaining informed consent, the endoscope was passed under direct vision. Throughout the procedure, the patient's blood pressure, pulse, and oxygen saturations were monitored continuously. The gastroscope was introduced through the mouth, and advanced to the afferent and efferent jejunal loops. The upper GI endoscopy was accomplished without difficulty. The patient tolerated the procedure well. Scope In: 8:18:28 AM Scope Out: 8:35:33 AM Total Procedure Duration Time 0 hours 17 minutes 5 seconds Findings: The anastomosis was normal. Diffuse friable mucosa with contact bleeding was found in the entire examined stomach. Biopsies for histology were taken with a cold forceps for evaluation of H pylori, bleeding was noted after biopsy which required injection of epinephrine. Verification of patient identification for the specimen was done by the nurse. Area was successfully injected with 1 mL of a 1:10,000 solution of epinephrine for hemostasis of bleeding caused by the procedure. Estimated blood loss was minimal. A medium-sized hiatal hernia was present. Impression: - Normal anastomosis. - Friable gastric mucosa. Biopsied for H pylori. - Medium-sized hiatal hernia. Recommendation: - Discharge patient to home (ambulatory). - Resume previous diet. - Continue present medications. - Await pathology results. - My office will telephone with pathology results in 1-2 weeks - Use sucralfate tablets 1 gram PO QID. Procedure Code(s): --- Professional --- 76386, Esophagogastroduodenoscopy, flexible, transoral; with biopsy, single or multiple Diagnosis Code(s): --- Professional --- K31.89, Other diseases of stomach and duodenum K44.9, Diaphragmatic hernia without obstruction or gangrene D50.9, Iron deficiency anemia, unspecified E46, Unspecified protein-calorie malnutrition R11.2, Nausea with vomiting, unspecified CPT copyright 2017 [employer]. All rights reserved. The codes documented in this report are preliminary and upon senior ui ux developer review may be revised to meet current compliance requirements. MD Clarita Olson MD 09/06/2019 9:32:24 AM This report has been signed electronically. Number of Addenda: 0 Note Initiated On: 09/06/2019 7:35 AM
--- NOTE | 2019-09-06 12:30 | OP.CCLET_ITS ---
09/06/2019 Hector Fong Re : Upper GI endoscopy procedure for Amador Fong This procedure was performed on Friday, September 06, 2019. My impressions and recommendations are as follows: Impressions : - Normal anastomosis. - Friable gastric mucosa. Biopsied for H pylori. - Medium-sized hiatal hernia. Recommendations : - Discharge patient to home (ambulatory). - Resume previous diet. - Continue present medications. - Await pathology results. - My office will telephone with pathology results in 1-2 weeks - Use sucralfate tablets 1 gram PO QID. My findings are described in the full procedure note, which is enclosed. If I can be of further assistance, please feel free to contact me at Doctor phone number(s): , Work: . Sincerely, MD Clarita Olson MD 09/06/2019 9:32:24 AM This report has been signed electronically.
--- NOTE | 2019-09-06 12:31 | OP.COLON_ITS ---
Patient Name: Amador Franco Procedure Date: 09/06/2019 8:37 AM Date of : 1955 Age: 64 Procedure: Colonoscopy Indications: Hematochezia, Iron deficiency anemia Providers: Clarita Randall MD Referring MD: Clarita Randall MD Medicines: See the Anesthesia note for documentation of the administered medications Patient Profile: Refer to note in patient chart for documentation of history and physical. Patient has symptoms. Last Colonoscopy: 2018. Complications: No immediate complications. Estimated blood loss: Minimal. Procedure: Pre-Anesthesia Assessment: - see anesthesia note After I obtained informed consent, the scope was passed under direct vision. Throughout the procedure, the patient's blood pressure, pulse, and oxygen saturations were monitored continuously. The Colonoscope was introduced through the anus and advanced to the cecum, identified by the appendiceal orifice, IC valve and transillumination. The colonoscopy was performed without difficulty. The patient tolerated the procedure well. The quality of the bowel preparation was good. Scope In: 8:38:53 AM Scope Withdrawal Time 0 hours 33 minutes 55 seconds Scope Out: 9:18:08 AM Total Procedure Duration Time 0 hours 39 minutes 15 seconds Findings: The perianal and digital rectal examinations were normal. Pertinent negatives include normal sphincter tone. Non-bleeding internal hemorrhoids were found. Multiple small-mouthed diverticula were found in the sigmoid colon. A diffuse mildly friable (with contact bleeding) mucosa was found in the entire colon. Also, slow to clot after biopsy taken. Biopsies for histology were taken with a cold forceps from the entire colon for evaluation of microscopic colitis. Verification of patient identification for the specimen was done by the nurse. Estimated blood loss was minimal. Impression: - Non-bleeding internal hemorrhoids. - Diverticulosis in the sigmoid colon. - Friable (with contact bleeding) mucosa in the entire examined colon. Also suspect clotting disorder. Biopsied. Recommendation: - Discharge patient to home (ambulatory). - Resume previous diet. - Continue present medications. - Await pathology results. - My office will telephone with pathology results in 1-2 weeks - Repeat colonoscopy in 10 years for screening purposes. Procedure Code(s): --- Professional --- 45584, Colonoscopy, flexible; with biopsy, single or multiple Diagnosis Code(s): --- Professional --- K64.8, Other hemorrhoids K92.2, Gastrointestinal hemorrhage, unspecified K92.1, Melena (includes Hematochezia) D50.9, Iron deficiency anemia, unspecified K57.30, Diverticulosis of large intestine without perforation or abscess without bleeding CPT copyright 2017 [employer]. All rights reserved. The codes documented in this report are preliminary and upon electrical prospecting supervisor review may be revised to meet current compliance requirements. MD Clarita Olson MD 09/06/2019 9:36:18 AM This report has been signed electronically. Number of Addenda: 0 Note Initiated On: 09/06/2019 8:37 AM
--- NOTE | 2019-09-06 12:31 | OP.CCLET_ITS ---
09/06/2019 Hector Fong Re : Colonoscopy procedure for Amador Fong This procedure was performed on Friday, September 06, 2019. My impressions and recommendations are as follows: Impressions : - Non-bleeding internal hemorrhoids. - Diverticulosis in the sigmoid colon. - Friable (with contact bleeding) mucosa in the entire examined colon. Also suspect clotting disorder. Biopsied. Recommendations : - Discharge patient to home (ambulatory). - Resume previous diet. - Continue present medications. - Await pathology results. - My office will telephone with pathology results in 1-2 weeks - Repeat colonoscopy in 10 years for screening purposes. My findings are described in the full procedure note, which is enclosed. If I can be of further assistance, please feel free to contact me at Doctor phone number(s): , Work: . Sincerely, MD Clarita Olson MD 09/06/2019 9:36:18 AM This report has been signed electronically.
== END 2019-09-06 10:35 | disposition home or self-care (01) ==
LOC: EN 07:00 → AC 07:01
PROVIDERS: PCP Family Medicine; Referring Provider Surgery; Visit Provider Surgery
PROC: 0DJD8ZZ Inspection of Lower Intestinal Tract, Via Natural or Artificial Opening Endoscopic (ICD-10-PCS; CPT 45378; principal; 2019-09-06 07:55)
DX: K29.51 Unspecified chronic gastritis with bleeding (principal); D12.6 Benign neoplasm of colon, unspecified; K21.9 Gastro-esophageal reflux disease without esophagitis; E43 Unspecified severe protein-calorie malnutrition; C92.10 Chronic myeloid leukemia, BCR/ABL-positive, not having achieved remission; E78.5 Hyperlipidemia, unspecified; I25.5 Ischemic cardiomyopathy; I25.10 Atherosclerotic heart disease of native coronary artery without angina pectoris; I25.2 Old myocardial infarction; D50.9 Iron deficiency anemia, unspecified; Z68.1 Body mass index [BMI] 19.9 or less, adult; K44.9 Diaphragmatic hernia without obstruction or gangrene; K31.89 Other diseases of stomach and duodenum; K64.8 Other hemorrhoids; K57.30 Diverticulosis of large intestine without perforation or abscess without bleeding; Z90.49 Acquired absence of other specified parts of digestive tract; Z90.411 Acquired partial absence of pancreas; Z85.07 Personal history of malignant neoplasm of pancreas; Z87.891 Personal history of nicotine dependence; Z95.1 Presence of aortocoronary bypass graft; E11.9 Type 2 diabetes mellitus without complications
CPT/HCPCS: 43239; 45380; 82962; 88305; 88342; 93005; J7050; J7120; J3490

== ENCOUNTER → 2020-01-05 10:44 | Outpatient (CLI) | payer MEDICARE, MEDICAID, SELFPAY ==
[2019-09-06 07:18] VITALS: BMI 19.8
--- NOTE | 2020-01-05 10:49 | US_ITS ---
STUDY: ABDOMINAL ULTRASOUND - 4 QUADRANTs REASON FOR VISIT: Male, 64 years old ASCITES SURVEY TECHNIQUE: Ultrasound evaluation of the 4 quadrants was performed with real-time and static nguyen-scale imaging. TECHNICAL QUALITY: Adequate. COMPARISON: None. FINDINGS: Small amounts of the ascitic fluid. Right pleural effusion. US/Abdomen Limited IMPRESSION: Small amount of ascites. Right pleural effusion. Electronically Signed: Haroon Watts, at 11:22 EDT , Service support ,
== END ==
PROVIDERS: PCP Family Medicine; Referring Provider Family Medicine; Visit Provider Family Medicine
DX: R14.0 Abdominal distension (gaseous) (principal)
CPT/HCPCS: 76705

== ENCOUNTER 2020-05-20 10:23 | Inpatient (IN) | payer MEDICARE, MEDICAID, SELFPAY ==
[2019-09-06 07:18] VITALS: BMI 19.8
[2020-05-20] VITALS (11 sets, daily range): BP systolic 94–118; BP diastolic 56–66; PULSE 75–87; RESP 18–27; TEMP 36.2–36.7; O2SAT 93–99; BMI 21.3
--- NOTE | 2020-05-20 10:44 | EKG12_ITS ---
Test Reason : SOB Blood Pressure : / mmHG Vent. Rate : 080 BPM Atrial Rate : 080 BPM P-R Int : 152 ms QRS Dur : 076 ms QT Int : 382 ms P-R-T Axes : 007 020 082 degrees QTc Int : 440 ms Normal sinus rhythm Low voltage QRS Septal infarct , age undetermined Abnormal ECG Confirmed by EMILIANO PALMER, DMITRI ([id number]), video effects editor MIKE ALATORRE ([id number]) on 05/22/2020 8:13:58 AM Referred By: NANCY Confirmed By:DMITRI CUMMINGS MD
--- NOTE | 2020-05-20 10:56 | ED.DCSUM_ITS ---
History of Present Illness Chief Complaint: Shortness of Breath Informant: Patient Narrative: 64-year-old male with past medical history of pancreatic cancer presents with concern for shortness of breath. Patient states that he recently has had left- sided pleural effusions with pericardial effusions. Denies any chest pain, nausea, vomiting, fever, chills, cough. States he is not receiving active chemotherapy. Patient did have surgical removal of his pancreatic mass 1 year ago. Patient is currently on Lasix and has been compliant with this medication. Past Medical History - Allergies and Home Meds Allergies/Adverse Reactions: Allergies No Known Allergies Allergy (Verified 05/20/20 10:24) Prior records reviewed: Yes Past Medical History: - - Pancreatic caner, CAD Surgical History: coronary bypass surgery, herniorrhaphy - right inguinal x 2, - - facial surgery summer, amputated left ring finger 1993 Lives: Alone Smoking Status: Former smoker Alcohol: None Drugs: None - Family History Maternal Family History: Family History (Last Reviewed 06/05/19 @ 02:[address] Chance Juarez MD) Brother CAD (coronary artery disease) Brother CAD (coronary artery disease) Mother Cancer Father Cancer Sister Cancer Family History: Reports: No pertinent history Paternal Family History: Family History (Last Reviewed 06/05/19 @ 02:[address] Chance Juarez MD) Brother CAD (coronary artery disease) Brother CAD (coronary artery disease) Mother Cancer Father Cancer Sister Cancer Family History: Reports: No pertinent history Review of Systems General: Denies: Chills, Fever, Sweats Eyes: Denies: Visual changes - bilaterally, Diplopia ENT: Denies: Rhinorrhea, Sore throat Cardiovascular: Denies: Chest pain, Palpitations Respiratory: Reports: Dyspnea. Denies: Cough, Dyspnea on exertion Gastrointestinal: Denies: Abdominal pain, Nausea, Vomiting, Diarrhea, Melena, Hematochezia Genitourinary: Denies: Dysuria, Hematuria, Frequency Musculoskeletal: Denies: Back pain, Extremity Pain Skin: Denies: Rash, Wounds Neurological: Denies: Headache, Weakness, Numbness Physical Exam Vital Signs/Narrative: Vital Signs Temp Pulse Resp BP Pulse Ox 05/20/20 10:24 97.1 F L 85 21 H 103/58 L 96 Inital Vital Signs reviewed: Yes General: Well nourished, Well developed, No Acute Distress Head: Normocephalic, Atraumatic Eyes: Perrl, EOMI ENT: Moist mucous membranes, No rhinorrhea Neck: Supple, Nontender Cardiovascular: Regular rate, Regular rhythm, No murmurs Respiratory: No distress, Chest nontender, Diminished Abdomen: Soft, Nontender, Normal bowel sounds, - - Mild distention. Back: Nontender, Normal Inspection Extremities: Nontender, No edema Skin: Normal color, No rash Neurological: Alert, Oriented x3, Cranial nerves II-XII grossly intact, Normal Strength, Normal Sensation Psychological: Normal affect, Normal Mood Diagnostic/Tx/Re-eval Chest X-Ray - ED: 1 View, Read by ED Physician, Read by Radiologist, Left Effusion Clinical Impression(s) from Imaging Studies Chest X-Ray 05/20/20 11:10 IMPRESSION: Interval development of large left pleural effusion as described. No acute finding. Electronically Signed: Jeremiah Garner MD at 11:23 EST , Service support , Laboratory Data 05/20/20 05/20/20 05/20/20 11:00 11:00 11:00 WBC 9.3 RBC 3.77 L Hgb 10.7 L Hct 32.9 L MCV 87.3 MCH 28.4 MCHC 32.5 RDW Std Deviation 53.6 H RDW Coeff of Jluis 16.8 H Plt Count 135 L MPV 9.3 Immature Gran % (Auto) 0.300 Neut % (Auto) 82.1 H Lymph % (Auto) 4.6 L [place] % (Auto) 12.7 H Eos % (Auto) 0.2 Baso % (Auto) 0.1 Absolute Neuts (auto) 7.6 Absolute Lymphs (auto) 0.43 L Nucleated RBC % 0 Differential Comment COMMENT Sodium 137 Potassium 3.7 Chloride 106 Carbon Dioxide 26.0 Anion Gap 5 BUN 15 Creatinine 0.77 Estim Creat Clear Calc 85.91 Est GFR (MDRD) Af Amer 130 Est GFR (MDRD) Non-Af 108 BUN/Creatinine Ratio 19.5 Glucose 118 H Calcium 8.3 L Troponin I < 0.015 B-Natriuretic Peptide 31.0 - Rhythm Strip Rhythm Strip: Sinus Rhythm Rate: 80 Ectopy: None - EKG Initial EKG Interpretation: Sinus Rhythm - Sinus rhythm at 80 bpm. AK interval of 152 ms. QTC of [address] changes. No acute ischemia. - Medical Decision Making Patient appears well and nontoxic. Tachypneic on exam. No hypoxemia. Chest x-ray interpreted by myself shows significant left pleural effusion. Radiology concurs. Lab work within normal limits. EKG nonischemic. Troponin negative. Given the patient's increased shortness of breath as well as pleural effusion he will be admitted for thoracentesis and further management. Spoke with hospitalist who is agreeable to this plan and patient was admitted in stable condition. Impression: 1. Left pleural effusion 2. Dyspnea ED Disposition - Plan for ED Patient: Disposition: Acute Care Hospital [facility]
[2020-05-20 11:08] LABS: Absolute Lymphocyte Count 0.43 X10^3/uL (0.83-4.51); Absolute Neutrophil Count 7.6 X10^3/uL (2.0-7.7); Basophil# 0.01 X10^3/uL; Basophil% 0.1 % (0-1); Eosinophil# 0.02 X10^3/uL; Eosinophils% 0.2 % (0-5); Hematocrit 32.9 % (40-54); Hemoglobin 10.7 g/dL (13.0-16.5); Lymphocyte # 0.43 X10^3/ul (4.0); Lymphocyte % 4.6 % (19-41); Mean Corp Hgb Conc 32.5 g/dL (32-36); Mean Corpuscular Hgb 28.4 pg (27.0-32.0); Mean Corpuscular Volume 87.3 fL (80-94); Mean Platelet Vol. 9.3 fl (6.2-12.0); Monocyte# 1.18 X10^3/uL; Monocyte% 12.7 % (0-10); NRBC Flagged by Analyzer 0 % (0-5); Neutrophil # 7.59 X10^3/uL (2.7-7.7); Neutrophil % 82.1 % (47-70); POSITIVE DIFFERENTIAL YES; Platelet Count 135 K/mm3 (150-450); RBC Distribution Width CV 16.8 % (11.6-14.6); RBC Distribution Width SD 53.6 fl (35.1-43.9); Red Blood Count 3.77 M/mm3 (4.6-6.2); White Blood Count 9.3 K/mm3 (4.4-11.0)
[2020-05-20 11:09] LABS: Differential Indicated SCAN CRITERIA MET
--- NOTE | 2020-05-20 11:10 | RAD_ITS ---
STUDY: X-RAY CHEST REASON FOR EXAM: Male, 64 years old. Shortness of breath for one week. History of congestive failure. TECHNIQUE: Single frontal view of the chest. COMPARISON: 07/04/2019 FINDINGS: Low volume inspiration. Interval development of large left pleural effusion with compression atelectasis of the left lower lobe. Cardiomegaly with sternotomy wires relatively unchanged. Normal mediastinum and fredo. Normal visualized pulmonary arteries. Normal visualized aortic arch and descending thoracic aorta. Normal visualized thoracic spine. Normal visualized ribs, clavicles, and shoulders. There is no demonstrated abnormality of the visualized soft tissue structures of the upper abdomen. RAD/Chest 1 View (Portable) IMPRESSION: Interval development of large left pleural effusion as described. No acute finding. Electronically Signed: Jeremiah Garner MD at 11:23 EST , Service support ,
[2020-05-20 11:29] LABS: Anion Gap 5 (5-15); BUN 15 mg/dL (7-18); BUN/Creat Ratio 19.5 RATIO (10-20); Calcium,Total 8.3 mg/dL (8.5-10.1); Chloride 106 mmol/L (98-107); Creatinine, Serum 0.77 mg/dL (0.70-1.30); EST Glomerular Filtration Rate 108 mL/min (>60); Est Glom Filt Rate - Afr Amer 130 mL/min (>60); Estimated Creatinine Clearance 85.91 ml/min; Glucose 118 mg/dL (74-106); Potassium 3.7 mmol/L (3.5-5.1); Sodium Level 137 mmol/L (136-145)
--- NOTE | 2020-05-20 11:52 | HP.PCM_ITS ---
Problem List (1) Pancreatic cancer Status: Chronic Qualifiers: Pancreatic malignancy location: head of pancreas Qualified Code(s): C25.0 - Malignant neoplasm of head of pancreas Comment: Low-grade neuroendocrine carcinoma; status post Whipple (2) Fever Status: Resolved (3) Leukocytosis Status: Resolved (4) Nausea and vomiting Status: Resolved Qualifiers: Vomiting type: unspecified Vomiting Intractability: intractable Qualified Code(s): R11.2 - Nausea with vomiting, unspecified Comment: Intolerance to tube feeding (5) Chronic myelogenous leukemia (CML), [id number] Status: Chronic Qualifiers: Leukemia Active/Remission status: without remission Qualified Code(s): C92.10 - Chronic myeloid leukemia, BCR/ABL-positive, not having achieved remission Comment: Recently diagnosed (6) Iron deficiency anemia due to dietary causes Status: Chronic Comment: Blood loss from recent surgery (7) Thrombosis, portal vein Status: Resolved (8) Hyperlipidemia Status: Chronic Qualifiers: Hyperlipidemia type: unspecified Qualified Code(s): E78.5 - Hyperlipidemia, unspecified (9) History of tobacco abuse Status: Chronic (10) Ischemic cardiomyopathy Status: Chronic Comment: EF 35-40% per echo done @ [facility]07/11/2017; 50% per pre-op EFRAIN done @ [facility] 01/25/18 (11) History of NC (myocardial infarction) Status: Chronic Comment: Left ventricular scar, markie infart ischemia, left ventricular thrombus per echo 12/15/2017 @ [facility] (12) Atherosclerotic heart disease of [place] coronary artery without angina pectoris Status: Chronic Qualifiers: [place] vs. transplanted heart: unspecified whether [place] or transplanted h eart Qualified Code(s): I25.10 - Atherosclerotic heart disease of [place] coronary artery without angina pectoris Comment: MARTINES to LAD, free JANEEN to PDA, SVG to Diagonal, SVG to OM, SVG to right Posterior lateral per Dr. Augustin [facility] (13) S/P CABG x 5 Status: Chronic Comment: MARTIENS to LAD, free JANEEN to PDA, SVG to Diagonal, SVG to OM, SVG to right Posterior lateral per Dr. Augustin [facility] (14) Pleural effusion Status: Acute (15) Dyspnea Status: Acute History of Present Illness Date of Admission: 05/20/20 Chief Complaint: Shortness of breath The patient is a 64 year old M with past medical history significant for pancreatic CA status post Whipple's procedure, chronic myeloid leukemia who presented with shortness of breath. Symptoms started about a week prior to his admission. Patient shortness of breath has gotten progressively worse with minimal activity. Addition to patient shortness of breath he also did notice increasing bloating of his abdomen. He elected to present to the emergency department as a result. Imaging studies obtained in the ED demonstrated Interval development of large left pleural effusion. Admitted to monitored bed for subsequent inpatient evaluation and management. Past Medical History Past Medical History (Chronic Problems): Chronic Problems (Last Reviewed 05/20/20 @ 13:[address] Aquilino Marinelli MD) Pancreatic cancer (Chronic) Low-grade neuroendocrine carcinoma; status post Whipple Chronic myelogenous leukemia (CML), [id number] (Chronic) Recently diagnosed Iron deficiency anemia due to dietary causes (Chronic) Blood loss from recent surgery Hyperlipidemia (Chronic) History of tobacco abuse (Chronic) Ischemic cardiomyopathy (Chronic) EF 35-40% per echo done @ [facility]07/11/2017; 50% per pre-op EFRAIN done @ [facility] 01/25/18 History of NC (myocardial infarction) (Chronic) Left ventricular scar, markie infart ischemia, left ventricular thrombus per echo 12/15/2017 @ [facility] Atherosclerotic heart disease of [place] coronary artery without angina pectoris (Chronic) MARTINES to LAD, free JANEEN to PDA, SVG to Diagonal, SVG to OM, SVG to right Posterior lateral per Dr. Augustin [facility] S/P CABG x 5 (Chronic 01/25/18) MARTINES to LAD, free JANEEN to PDA, SVG to Diagonal, SVG to OM, SVG to right Posterior lateral per Dr. Augustin [facility] Medical History: Medical History (Last Reviewed 05/20/20 @ 13:[address] Aquilino Marinelli MD) Hyperlipidemia (Chronic) E78.5 History of tobacco abuse (Chronic) Z87.891 Ischemic cardiomyopathy (Chronic) I25.5 EF 35-40% per echo done @ [facility]07/11/2017; 50% per pre-op EFRAIN done @ [facility] 01/25/18 History of NC (myocardial infarction) (Chronic) I25.2 Left ventricular scar, markie infart ischemia, left ventricular thrombus per echo 12/15/2017 @ [facility] Atherosclerotic heart disease of [place] coronary artery without angina pectoris (Chronic) I25.10 MARTINES to LAD, free JANEEN to PDA, SVG to Diagonal, SVG to OM, SVG to right Posterior lateral per Dr. Augustin NINA Allergies No Known Allergies Allergy (Verified 05/20/20 10:24) Home Medications: Ambulatory Orders Medication Instructions Recorded aspirin 81 mg chewable tablet 81 mg PO DAILY tab 11/14/18 Lipase/Protease/Amylase [Creon Dr 2 ea PO TIDCM 06/04/19 36,000 Units Capsule] Atorvastatin Calcium [Lipitor] 40 mg PO QHS 06/29/19 Dasatinib [Sprycel] 100 mg PO DAILY 06/29/19 Famotidine [Pepcid] 20 mg PO DAILY PRN 06/29/19 Albuterol Inhaler [Ventolin Hfa 1 - 2 puff INHALATION Q4H PRN PRN 09/04/19 (SP)] Metoprolol Tartrate [Lopressor 12.5 mg PO BID 09/04/19 (Beta Alpesh)] Potassium Chloride [Klor-Con M20] 20 meq PO BID 09/04/19 Furosemide [Lasix] 40 mg PO DAILY 05/20/20 Surgical History: Surgical History (Last Reviewed 05/20/20 @ 13:[address] Aquilino Marinelli MD) S/P CABG x 5 (Chronic) Onset Date: 01/25/18 Z95.1 MARTINES to LAD, free JANEEN to PDA, SVG to Diagonal, SVG to OM, SVG to right Posterior lateral per Dr. Augustin NINA History of colonoscopy with polypectomy Onset Date: 05/15/03 Z98.890, Z86.[address] Dillon History of right inguinal hernia repair Onset Date: 03/23/16 Z98.890, Z87.[address] Dillon Incarcerated right inguinal hernia (Inactive) K40.30 Surgical History: coronary bypass surgery, herniorrhaphy - right inguinal x 2, - - facial surgery summer, amputated left ring finger 1993 Psychiatric History: No pertinent psych hx Lives: Alone Smoking Status: Former smoker Alcohol: None Drugs: None - *Family History Maternal Family History: Family History (Last Reviewed 05/20/20 @ 13:[address] Aquilino Marinelli MD) Brother CAD (coronary artery disease) Brother CAD (coronary artery disease) Mother Cancer Father Cancer Sister Cancer History Items: No pertinent history Paternal Family History: Family History (Last Reviewed 05/20/20 @ 13:[address] Aquilino Marinelli MD) Brother CAD (coronary artery disease) Brother CAD (coronary artery disease) Mother Cancer Father Cancer Sister Cancer History Items: No pertinent history Review of Systems Constitutional: Denies: Anorexia, Chills, Fever, Night Sweats, Weight Change HEENT: Denies: Head Aches, Sinus Congestion, Sinus Drainage Cardiovascular: Denies: Chest Pain, Orthopnea, Palpitations, Paroxysmal Noc. Dyspnea Respiratory: Reports: Shortness of Breath. Denies: Cough Gastrointestinal: Denies: Abdominal Pain, Hematemesis, Hematochezia, Nausea, Melena, Vomiting Genitourinary: Denies: Dysuria, Frequency, Hematuria, Urgency Musculoskeletal: Denies: Joint Pain, Joint Tenderness Skin: Denies: Rash Neurological: Denies: Focal weakness, Numbness, Tingling Psychiatric: Denies: Homicidal Ideations, Suicidal Ideations Hematologic/ Lymphatic: Denies: Easy Bruising, Easy Bleeding VTE Information - Inpt Only VTE Present on Admission: No VTE Mechan Device Prophylaxis: None VTE Pharm Prophylaxis ordered?: Yes Patient Problems: Active and Suspected Problems (Last Reviewed 05/20/20 @ 13:[address] Aquilino Marinelli MD) Pleural effusion (Acute) Dyspnea (Acute) Objective: GENERAL: cooperative HEENT: Atraumatic; EYES; Anicteric, Normal Conjunctiva NECK; supple, normal thyroid, RESPIRATORY: Diminished to auscultation CARDIOVASCULAR: Regular S1 S2, GI: soft, normoactive bowel sounds, : No Renal angle tenderness; EXTREMITIES: No edema, no clubbing, MUSCULOSKELETAL: no muscle waisting NEURO: Awake; no lateralizing signs. SKIN: No Rash PSYCH; Flat affect - Physical Exam Vitals/I&O's: Vital Signs Temp Pulse Resp BP Pulse Ox 97.1 F L 77 27 H 98/64 95 05/20/20 10:24 05/20/20 11:28 05/20/20 11:28 05/20/20 11:28 05/20/20 11:28 Oxygen Delivery Method Room Air Weight: 63.503 kg Body Mass Index (BMI) 20.0 Laboratory Results 05/20/20 11:00: WBC 9.3, RBC 3.77 L, Hgb 10.7 L, Hct 32.9 L, MCV 87.3, MCH 28.4, MCHC 32.5, RDW Std Deviation 53.6 H, RDW Coeff of Jluis 16.8 H, Plt Count 135 L, MPV 9.3, Immature Gran % (Auto) 0.300, Neut % (Auto) 82.1 H, Lymph % (Auto) 4.6 L, [place] % (Auto) 12.7 H, Eos % (Auto) 0.2, Baso % (Auto) 0.1, Absolute Neuts (auto) 7.6, Absolute Lymphs (auto) 0.43 L, Nucleated RBC % 0, Differential Comment COMMENT 05/20/20 11:00: Sodium 137, Potassium 3.7, Chloride 106, Carbon Dioxide 26.0, Anion Gap 5, BUN 15, Creatinine 0.77, Estim Creat Clear Calc 85.91, Est GFR (MDRD) Af Amer 130, Est GFR (MDRD) Non-Af 108, BUN/Creatinine Ratio 19.5, Glucose 118 H, Calcium 8.3 L, Troponin I < 0.015 05/20/20 11:00: B-Natriuretic Peptide 31.0 Assessment/Plan All Active Problems (Last Reviewed 05/20/20 @ 13:[address] Aquilino Marinelli MD) Fever (Resolved) Leukocytosis (Resolved) Nausea and vomiting (Resolved) Thrombosis, portal vein (Resolved) Pleural effusion (Acute) Dyspnea (Acute) The patient is a 64 year old M with past medical history significant for pancreatic CA status post Whipple's procedure, chronic myeloid leukemia who presented with shortness of breath. Imaging studies obtained in the ED demonstrated Interval development of large left pleural effusion. Admitted to monitored bed for subsequent inpatient evaluation and management. 1. Acute dyspnea ?Secondary to large left-sided pleural effusion. Admitted to monitored bed placed on supplemental oxygen as well as aerosol treatment. Requested for ultrasound-guided thoracocentesis with pleural fluid studies ordered 2. Acute on chronic congestive heart failure with reduced ejection fraction ?Patient was being managed with Lasix as outpatient. Did continue with Lasix on admission. Echo ordered for EF assessment 3. Ascites ?Patient ascites related to patient large left-sided pleural effusion. Plan is for patient to undergo paracentesis at the same time office ordered ultrasound- guided thoracocentesis 3. Coronary artery disease ?Status post CABG 4. Pancreatic CA -status post Whipple's procedure 5. History of CML -diagnosed in 2019 patient is followed by Dr. Reyes as outpatient. 6. Dyslipidemia -Patient is on statin therapy, continued at home dose 7. Anemia - Secondary to chronic disorder monitoring H&H and transfuse if patient becomes symptomatic or hemoglobin falls below 7 8. DVT prophylaxis ?SC Lovenox Advance planning; did discuss with the patient regarding advanced directives as well as CODE STATUS. Did explain the various scenarios involved ( FULL CODE, DNR CCA, DNR CCA with no intubation, and DNR CC and what each meant) patient elected full code with CPR and intubation if warranted. Order was placed. Time spent on discussion 18 minutes. Inpatient E&M: 40087 Init Hosp L3 Procedures: 47801 Advncd Care Plan 30 Min
--- NOTE | 2020-05-20 13:56 | US_ITS ---
HISTORY: ascites TECHNIQUE: [place]allero scale to assess for ascites. 4 images. Findings: Ascites is present within the left lower quadrant. Gas makes visualization of the upper quadrants not possible. No right lower quadrant significant ascites is perceived. US/Abdomen Limited IMPRESSION: Left lower quadrant ascites at 0233 Reported and signed by: John Johnson MD Electronically Signed: John Johnson MD at 2:32 EST Tel , Service support ,
--- NOTE | 2020-05-20 13:56 | US_ITS ---
PROCEDURE: ULTRASOUND GUIDED THORACENTESIS. DATE: 05/20/2020. INDICATION: Male, 64 years old. Left pleural effusion PHYSICIAN: Haroon Watts M.D. PROCEDURE: The risks, benefits, and alternatives to the procedure were explained to the patient. The specific risks of bleeding, infection, and pneumothorax requiring chest tube insertion were discussed and accepted. Written informed consent was obtained. Ultrasonographic evaluation of the left lower pleural space was carried out. An adequate pocket was identified. The patient was placed in the sitting, upright position. The overlying skin was prepped and draped in sterile fashion. 1% lidocaine was administered subcutaneously for local anesthesia. Under ultrasound guidance, a 5 Nepali thoracentesis needle/catheter system was advanced into the left posterior lower pleural fluid collection. Approximately 1600 mL of wyatt-colored fluid was drained. The catheter was removed, and a sterile dressing was applied. A specimen was collected and sent to the laboratory for analysis, as requested by the referring clinician. The patient tolerated the procedure well. A chest x-ray was ordered. US/Thoracentesis W US IMPRESSION: Ultrasound-guided left thoracentesis. Electronically Signed: Haroon Watts, at 15:25 EST , Service support ,
--- NOTE | 2020-05-20 14:25 | NURSING ---
PT TO RADIOLOGY VIA W/C FOR THORACENTESIS.
[2020-05-20 14:27] LABS: LDH 223 U/L (87-241)
--- NOTE | 2020-05-20 14:45 | FLU_PTH ---
PATIENT: JANE KIM LOC: [facility] U#:[id number] AGE/SX: 65/M ROOM: [facility] RE05/20/[address]: Dr. Aquilino Marinelli MD : 1955 BED: 1 DIS: 05/22/2020 SPEC #: [id number] RECD: 05/21/20 08:08 STATUS: PRIYA REQ #: [id number] MEAGAN: 05/20/20 14:[address]: Aquilino Marinelli DEPT: CYTOLOGY RECD BY: Karina Escobar ENTERED: 05/21/20 08:09 SP TYPE: Fluid OTHR DR: Dr. Hector Fong MD Tissues: Pleural fluid, NOS Procedures: Special Stain Group II Surgery Specimen Level IV Cytospin Fluid HEADER OPERATION: Ultrasound thoracentesis PRE-OP DIAGNOSIS: Left pleural effusion TISSUE SUBMITTED: Thoracentesis fluid for cytology DIAGNOSIS CYTOLOGY Thoracentesis fluid for cytology (cytospin and cell block): Negative for malignant cells. See Cytology Study. AM:alysha 05/22/2020 CYTOLOGY STUDY Slides are reviewed. The specimen contains reactive mesothelial cells, macrophages and chronic inflammatory cells. CYTOLOGY GROSS Received is 85 ml of yellow cloudy fluid labeled with the patient's name and and designated per the requisition as thoracentesis. Submitted for cytology preparation including cell block. / alysha 05/21/2020 TC:5 CPT: 50956, 48895
--- NOTE | 2020-05-20 14:48 | CASEMGMT ---
Upon review of patient's chart SW noted a referral was made to Palliative Care during one of his past visits to [facility]. SW called [facility] to see if he is still active. SHANELL was told they spoke with patient about services, but he never signed up. Dolly ORTIZ
--- NOTE | 2020-05-20 14:55 | RAD_ITS ---
STUDY: X-RAY CHEST REASON FOR EXAM: Male, 64 years old. Immediate post thora, left side TECHNIQUE: AP inspiration and expiration views COMPARISON: Comparison is made with prior examination done earlier today. FINDINGS: The patient is status post left thoracentesis. Mild residual pleural-parenchymal changes are seen. No evidence of pneumothorax. RAD/Chest Insp/Exp 2 View IMPRESSION: No evidence of pneumothorax on the post left thoracentesis. Electronically Signed: Haroon Watts, at 15:19 EST , Service support ,
[2020-05-20 15:36] LABS: International Normalized Ratio 1.4; Prothrombin Time (Protime)PT. 16.3 SECONDS (11.7-14.9)
[2020-05-20 15:38] LABS: Partial Thromboplast Time 34.9 Seconds (24.1-36.2)
[2020-05-20 16:10] LABS: Body Fluid Mononuclear WBC # 0.431 10^3/uL; Body Fluid Mononuclear WBC % 93.7 %; Body Fluid Polynuclear WBC # 0.029 10^3/uL; Body Fluid Polynuclear WBC % 6.3 %
[2020-05-20 16:20] LABS: Auto B Fluid Analyzer BKGD Ct COUNTS W/IN LIMITS (W/IN LIMITS); Color/Body Fluid YELLOW; Source- Body Fluid PLEURAL FLUID
[2020-05-20 16:21] LABS: Appearance/Body Fluid CLEAR
[2020-05-20 16:25] LABS: Glucose, Body Fluid 108 mg/dL (40-70); LDH,Body Fluid 105 Units/l (Not Establ.)
[2020-05-20 16:43] LABS: Red Cell Count/Body Fluid 245 /mm3
[2020-05-20] MEDS: Creon 24,000 unit DR Capsule 3 CAP PO (16:53)
[2020-05-20 17:22] LABS: Lymphocytes 47 %; Macrophages 23 %; Mesothelial Cells 9 %; Monocytes 4 %; Neutrophil (Segs) 17 %
[2020-05-20 17:25] LABS: Body Fluid QC Type(s) BF1Q
--- NOTE | 2020-05-20 19:00 | PCS.PANDOC ---
PANDEMIC DOCUMENTATION INITIATED: Date: 05/20/20 Time: 13:58
[2020-05-20] MEDS: Atorvastatin Calcium 40 MG Tablet PO (21:21)
[2020-05-20] MEDS: Metoprolol Tartrate 25 MG Tablet 12.5 MG PO (21:21)
[2020-05-20] MEDS: MELATONIN 3 MG TABLET PO (21:22)
[2020-05-21] VITALS (12 sets, daily range): BP systolic 99–125; BP diastolic 59–75; PULSE 76–93; RESP 18; TEMP 36.7–36.9; O2SAT 95–96
[2020-05-21 06:34] LABS: Absolute Lymphocyte Count 0.41 X10^3/uL (0.83-4.51); Absolute Neutrophil Count 2.6 X10^3/uL (2.0-7.7); Eosinophil# 0.12 X10^3/uL; Eosinophils% 3.2 % (0-5); Hematocrit 30.2 % (40-54); Hemoglobin 9.4 g/dL (13.0-16.5); Lymphocyte # 0.41 X10^3/ul (4.0); Lymphocyte % 10.8 % (19-41); Mean Corp Hgb Conc 31.1 g/dL (32-36); Mean Corpuscular Hgb 27.3 pg (27.0-32.0); Mean Corpuscular Volume 87.8 fL (80-94); Mean Platelet Vol. 9.7 fl (6.2-12.0); Monocyte# 0.65 X10^3/uL; Monocyte% 17.2 % (0-10); NRBC Flagged by Analyzer 0 % (0-5); Neutrophil # 2.59 X10^3/uL (2.7-7.7); Neutrophil % 68.5 % (47-70); POSITIVE DIFFERENTIAL YES; Platelet Count 110 K/mm3 (150-450); RBC Distribution Width CV 16.9 % (11.6-14.6); RBC Distribution Width SD 54.4 fl (35.1-43.9); Red Blood Count 3.44 M/mm3 (4.6-6.2); White Blood Count 3.8 K/mm3 (4.4-11.0)
[2020-05-21 06:37] LABS: Differential Indicated SCAN CRITERIA MET
[2020-05-21 06:43] LABS: Prothrombin Time (Protime)PT. 15.3 SECONDS (11.7-14.9)
[2020-05-21 06:44] LABS: International Normalized Ratio 1.3
[2020-05-21 07:05] LABS: AST(SGOT) 45 U/L (15-37); Alanine Aminotransfer ALT/SGPT 38 U/L (16-61); Albumin, Serum 2.2 g/dL (3.2-5.0); Alkaline Phosphatase 248 U/L (45-117); Anion Gap 5 (5-15); BUN 20 mg/dL (7-18); BUN/Creat Ratio 36.4 RATIO (10-20); Bilirubin, Direct 0.16 mg/dL (0.00-0.30); Chloride 105 mmol/L (98-107); Creatinine, Serum 0.55 mg/dL (0.70-1.30); EST Glomerular Filtration Rate 158 mL/min (>60); Est Glom Filt Rate - Afr Amer 192 mL/min (>60); Estimated Creatinine Clearance 69.27 ml/min; Globulin 3.2 g/dL (2.2-4.2); Glucose 107 mg/dL (74-106); Magnesium 1.7 mg/dL (1.6-2.6); Potassium 3.8 mmol/L (3.5-5.1); Protein, Total 5.4 g/dL (6.4-8.2); Sodium Level 136 mmol/L (136-145)
[2020-05-21 08:01] LABS: Anisocytosis 2+
[2020-05-21] MEDS: Metoprolol Tartrate 25 MG Tablet 12.5 MG PO ×2 (08:36→21:07)
[2020-05-21] MEDS: Creon 24,000 unit DR Capsule 3 CAP PO ×3 (08:36→16:19)
[2020-05-21] MEDS: Furosemide 40 MG Tablet PO (08:37)
--- NOTE | 2020-05-21 08:40 | PCM.PN.HOSP ---
Patient Problems: Active and Suspected Problems (Last Reviewed 05/20/20 @ 13:[address] Aquilino Marinelli MD) Pleural effusion (Acute) Dyspnea (Acute) Reason for Visit: Acute dyspnea Left-sided pleural effusion Ascites Subjective: The patient is a 64 year old M with past medical history significant for pancreatic CA status post Whipple's procedure, chronic myeloid leukemia who presented with shortness of breath. Imaging studies obtained in the ED demonstrated Interval development of large left pleural effusion. Admitted to monitored bed for subsequent inpatient evaluation and management. Patient underwent ultrasound-guided thoracocentesis with almost 2 L of pleural fluid taking of consistent with exudate (met Lights criteria with Fluid protein/ serum protein being greater than 0.5). This was attributed to patient's underlying malignancy. Did send for cytology awaiting results Objective: GENERAL: cooperative HEENT: Atraumatic; EYES; Anicteric, Normal Conjunctiva NECK; supple, normal thyroid, RESPIRATORY: Diminished to auscultation CARDIOVASCULAR: Regular S1 S2, GI: soft, normoactive bowel sounds, abdomen distended : No Renal angle tenderness; EXTREMITIES: edema, no clubbing, MUSCULOSKELETAL: no muscle waisting NEURO: Awake; no lateralizing signs. SKIN: No Rash PSYCH; Flat affect Vitals/I&O's: Vital Signs Temp Pulse Resp BP Pulse Ox 98.0 F 84 18 99/59 L 95 05/21/20 03:15 05/21/20 07:00 05/21/20 03:15 05/21/20 03:15 05/21/20 03:15 Oxygen Delivery Method [2] Room Air Oxygen Delivery Method [1 ( Room Air Initial Baseline)] Oxygen Delivery Method Room Air Weight: 67.4 kg Body Mass Index (BMI) 21.3 Intake and Output for Last 24 Hours 05/19/20 05/20/20 05/21/20 23:59 23:59 23:59 Intake Total 240 / 240 240 / 240 Output Total 3200 / 3200 Balance -2960 / -2960 240 / 240 Microbiology Past 72 Hours 05/20/20 12:30 Mucosa - Nose SARS-CoV-2 Antigen (Rapid) - Final Laboratory Results 05/20/20 11:00: WBC 9.3, RBC 3.77 L, Hgb 10.7 L, Hct 32.9 L, MCV 87.3, MCH 28.4, MCHC 32.5, RDW Std Deviation 53.6 H, RDW Coeff of Jluis 16.8 H, Plt Count 135 L, MPV 9.3, Immature Gran % (Auto) 0.300, Neut % (Auto) 82.1 H, Lymph % (Auto) 4.6 L, Fleming % (Auto) 12.7 H, Eos % (Auto) 0.2, Baso % (Auto) 0.1, Absolute Neuts (auto) 7.6, Absolute Lymphs (auto) 0.43 L, Nucleated RBC % 0, Differential Comment COMMENT 05/20/20 11:00: Sodium 137, Potassium 3.7, Chloride 106, Carbon Dioxide 26.0, Anion Gap 5, BUN 15, Creatinine 0.77, Estim Creat Clear Calc 85.91, Est GFR (MDRD) Af Amer 130, Est GFR (MDRD) Non-Af 108, BUN/Creatinine Ratio 19.5, Glucose 118 H, Calcium 8.3 L, Troponin I < 0.015 05/20/20 11:00: B-Natriuretic Peptide 31.0 05/20/20 11:00: Lactate Dehydrogenase 223 05/20/20 14:45: Fluid Glucose 108 H, Fluid Total Protein 3.0, Fluid LDH 105 05/20/20 14:45: Fluid Source PLEURAL FLUID, Fluid Color YELLOW, Fluid Appearance CLEAR, Fluid WBC 0.460, Fluid RBC 245, Fluid Tot Cell Count 0.570, Fld Polynuclear WBCs # 0.029, Fld Polynuclear WBCs % 6.3, Fluid Mononuclear WBCs 0.431, Fld Mononuclear WBCs % 93.7, Fluid Neutrophils 17, Fluid Lymphocytes 47, Fluid Monocytes 4, Fluid Macrophages 23, Fld Mesothelial Cells 9, Fl Pathologist Comment May follow, Fluid Comment 2 SEE COMMENT 05/20/20 14:45: Miscellaneous Cytology Cancelled 05/20/20 14:45: Miscellaneous Cytology Cancelled 05/20/20 15:13: PT 16.3 H, INR 1.4, APTT 34.9 05/20/20 15:13: Troponin I < 0.015 05/20/20 17:34: Troponin I < 0.015 05/21/20 05:54: WBC 3.8 L, RBC 3.44 L, Hgb 9.4 L, Hct 30.2 L, MCV 87.8, MCH 27.3, MCHC 31.1 L, RDW Std Deviation 54.4 H, RDW Coeff of Jluis 16.9 H, Plt Count 110 L, MPV 9.7, Immature Gran % (Auto) 0.300, Neut % (Auto) 68.5, Lymph % (Auto) 10.8 L, Fleming % (Auto) 17.2 H, Eos % (Auto) 3.2, Baso % (Auto) 0.0, Absolute Neuts (auto) 2.6, Absolute Lymphs (auto) 0.41 L, Nucleated RBC % 0, Diff Path Review September foll, Anisocytosis 2+ 05/21/20 05:54: PT 15.3 H, INR 1.3 05/21/20 05:54: Sodium 136, Potassium 3.8, Chloride 105, Carbon Dioxide 26.0, Anion Gap 5, BUN 20 H, Creatinine 0.55 L, Estim Creat Clear Calc 69.27, Est GFR (MDRD) Af Amer 192, Est GFR (MDRD) Non-Af 158, BUN/Creatinine Ratio 36.4 H, Glucose 107 H, Calcium 8.0 L, Magnesium 1.7, Total Bilirubin 0.50, Direct Bilirubin 0.16, AST 45 H, ALT 38, Alkaline Phosphatase 248 H, Total Protein 5.4 L, Albumin 2.2 L, Globulin 3.2 Current Medications Acetaminophen (Acetaminophen 325 Mg Tablet) 650 mg PO Q6H PRN PRN PRN Reason: Pain Score 1-10/Temp > 100.7 F Al Hydroxide/Mg Hydroxide (Mag Hydrox/Al Hydrox/Simeth 30 Ml Udc) 30 ml PO Q6H PRN PRN PRN Reason: Gastric Burning Albuterol Sulfate (Albuterol 2.5 Mg/3 Ml Vial.Neb.) 2.5 mg INHALATION Q2H PRN PRN PRN Reason: SOB/Wheezing Aspirin (Aspirin 81 Mg Tab.Chew) 81 mg PO DAILY@0800 COUNT INCLUDES THE [facility] Atorvastatin Calcium (Atorvastatin Calcium 40 Mg Tablet) 40 mg PO QHS COUNT INCLUDES THE [facility] Last Admin: 05/20/20 21:21 Dose: 40 mg Documented by: Enoxaparin Sodium (Enoxaparin 40 Mg/0.4 Ml Syringe) 40 mg SC DAILY COUNT INCLUDES THE [facility] Famotidine (Famotidine 20 Mg Tablet) 20 mg PO DAILY PRN PRN Reason: INDIGESTION Furosemide (Furosemide 40 Mg Tablet) 40 mg PO DAILY COUNT INCLUDES THE [facility] Guaifenesin (Guaifenesin 10 Ml Udc (200mg/10ml)) 20 ml PO Q4H PRN PRN PRN Reason: COUGH Magnesium Hydroxide (Magnesium Hydroxide 30 Ml Udc) 30 ml PO DAILY PRN PRN PRN Reason: Constipation Melatonin (Melatonin 3 Mg Tablet) 3 mg PO QHS PRN PRN PRN Reason: INSOMNIA Last Admin: 05/20/20 21:22 Dose: 3 mg Documented by: Metoprolol Tartrate (Metoprolol Tartrate 25 Mg Tablet) 12.5 mg PO BID COUNT INCLUDES THE [facility] Last Admin: 05/20/20 21:21 Dose: 12.5 mg Documented by: Nitroglycerin (Nitroglycerin (Inpatient Use) 0.4 Mg Tab.Subl) 0.4 mg SUBLINGUAL Q5M PRN PRN Reason: CARDIAC/CHEST PAIN Non-Formulary Medication (Dasatinib) 100 mg PO DAILY COUNT INCLUDES THE [facility] Ondansetron HCl (Ondansetron 4 Mg/2 Ml Vial) 4 mg IV Q8H PRN PRN PRN Reason: NAUSEA/VOMITING Oxycodone HCl (Oxycodone 5 Mg Tablet) 5 mg PO Q4H PRN PRN PRN Reason: Pain Score 4-5 Oxycodone HCl (Oxycodone 5 Mg Tablet) 10 mg PO Q4H PRN PRN PRN Reason: Pain Score 6-10 Pancrelipase (Creon 24,[address] Capsule) 3 capsule PO TIDCM COUNT INCLUDES THE [facility] Last Admin: 05/20/20 16:53 Dose: 3 capsule Documented by: Potassium Chloride (Potassium Chloride 20 Meq Tablet) 20 meq PO BIDCM COUNT INCLUDES THE [facility] Last Admin: 05/20/20 16:53 Dose: 20 meq Documented by: Promethazine HCl (Promethazine 25 Mg/Ml Syringe) 25 mg IM Q6H PRN PRN PRN Reason: Breakthrough Nausea/Vomiting Sodium Chloride (0.9% Saline Lock 10 Ml Syringe) 10 - 40 ml IV UD PRN PRN Reason: SALINE FLUSH STROKE Vital Signs/Narrative: Vital Signs Pulse 05/21/20 07:00 84 Medical Necessity - Tobacco Use Smoking Status: Former smoker Tobacco Use: Cigarettes Assessment/Plan All Active Problems (Last Reviewed 05/20/20 @ 13:[address] Aquilino Marinelli MD) Fever (Resolved) Leukocytosis (Resolved) Nausea and vomiting (Resolved) Thrombosis, portal vein (Resolved) Pleural effusion (Acute) Dyspnea (Acute) The patient is a 64 year old M with past medical history significant for pancreatic CA status post Whipple's procedure, chronic myeloid leukemia who presented with shortness of breath. Imaging studies obtained in the ED demonstrated Interval development of large left pleural effusion. Admitted to monitored bed for subsequent inpatient evaluation and management. 1. Acute dyspnea ?Secondary to large left-sided pleural effusion. Admitted to monitored bed placed on supplemental oxygen as well as aerosol treatment. Requested for ultrasound-guided thoracocentesis with pleural fluid studies ordered 05/21/2020 Patient underwent ultrasound-guided thoracocentesis with almost 2 L of pleural fluid taking of consistent with exudate (met Lights criteria with Fluid protein/ serum protein being greater than 0.5). This was attributed to patient's underlying malignancy. Did send for cytology awaiting results 2. Acute on chronic congestive heart failure with reduced ejection fraction ?Patient was being managed with Lasix as outpatient. Did continue with Lasix on admission. Echo ordered for EF assessment 3. Ascites ?Patient ascites related to patient large left-sided pleural effusion. 3. Coronary artery disease ?Status post CABG 4. Pancreatic CA -status post Whipple's procedure 5. History of CML -diagnosed in 2019 patient is followed by Dr. Reyes as outpatient. 6. Dyslipidemia -Patient is on statin therapy, continued at home dose 7. Anemia - Secondary to chronic disorder monitoring H&H and transfuse if patient becomes symptomatic or hemoglobin falls below 7 8. DVT prophylaxis ?FL Lovenox Inpatient E&M: [id number] [facility] L3
--- NOTE | 2020-05-21 10:23 | CASEMGMT ---
UZAIR RUBI assessment: Face to Face with patient for initial transition planning/care coordination assessment. UZAIR RUBI introduced self and role at [facility], pt voices understanding and consents to assessment at this time. Pt is sitting up in bed in no distress at this time. Pt is A/Ox4 at this time and answers all questions appropriately at this time. Pt is currently on room air at this time. Care providers, pharmacy, and demographics verified at this time. Presentation: SOB x1 week, hx CHF, reports worsening sx's Admitting dx: Pleural effusion PCP: [facility]etal Specialists: Masci, onc; [facility] Preferred Pharmacy: [facility] Insurance: [facility] A/B, [facility] Prescription Benefit: Yes Living Will/HPOA: Pt states has HPOA and is aware that it's on file at [facility] at this time. Pt states his abrcea-vo-cuo, Chiquita Franco, is HPOA. Pt does not have LW on file at this time. LNOK: Chiquita Franco, sis-in-law/HPOA; Aidan Franco, nephew Living Arrangements: Pt states lives with friend in 2 story home and states no concerns at home at this time. Pt states is independent with ADL's. Transportation: Pt states drives self and states no transportation concerns at this time. DME/HHC: Pt states has the following DME: crutches, cane, and walker. Pt states no need for any further DME at this time. Pt states no hx of HHC but has been to [facility] in the past. Pt states no concerns with going home at time of discharge. Pt states is retired. Pt states does not smoke cigarettes or drink ETOH. Pt states no further concerns/needs at this time. CM to follow for home oxygen testing and any further discharge planning/needs. Advised pt to ask for CM if any further questions/concerns/needs arise, voices understanding. Pt Goal: Home Plan[place] UZAIR RUBI
[2020-05-21 12:20] LABS: Pathologist Comment/Body Fluid Reviewed
[2020-05-21] MEDS: MELATONIN 3 MG TABLET PO (21:07)
[2020-05-21] MEDS: Atorvastatin Calcium 40 MG Tablet PO (21:07)
[2020-05-22 03:00] VITALS: BP 106/67; PULSE 76; PULSE 84; RESP 16; TEMP 36.7; O2SAT 95
[2020-05-22 05:23] LABS: Absolute Lymphocyte Count 0.76 X10^3/uL (0.83-4.51); Absolute Neutrophil Count 2.6 X10^3/uL (2.0-7.7); Eosinophil# 0.18 X10^3/uL; Hematocrit 31.9 % (40-54); Lymphocyte # 0.76 X10^3/ul (4.0); Mean Corp Hgb Conc 31.3 g/dL (32-36); Mean Corpuscular Hgb 27.5 pg (27.0-32.0); Mean Corpuscular Volume 87.6 fL (80-94); Mean Platelet Vol. 9.6 fl (6.2-12.0); Monocyte# 0.86 X10^3/uL; Monocyte% 19.3 % (0-10); NRBC Flagged by Analyzer 0 % (0-5); Neutrophil # 2.64 X10^3/uL (2.7-7.7); Neutrophil % 59.3 % (47-70); Platelet Count 132 K/mm3 (150-450); RBC Distribution Width CV 16.7 % (11.6-14.6); RBC Distribution Width SD 53.9 fl (35.1-43.9); Red Blood Count 3.64 M/mm3 (4.6-6.2); White Blood Count 4.5 K/mm3 (4.4-11.0)
[2020-05-22 05:41] LABS: Anion Gap 5 (5-15); BUN 17 mg/dL (7-18); BUN/Creat Ratio 33.9 RATIO (10-20); Calcium,Total 8.2 mg/dL (8.5-10.1); Chloride 105 mmol/L (98-107); EST Glomerular Filtration Rate 176 mL/min (>60); Est Glom Filt Rate - Afr Amer 213 mL/min (>60); Estimated Creatinine Clearance 69.27 ml/min; Glucose 113 mg/dL (74-106); Potassium 4.1 mmol/L (3.5-5.1); Sodium Level 136 mmol/L (136-145)
[2020-05-22 07:26] VITALS: PULSE 84
[2020-05-22 07:50] VITALS: BP 112/73; PULSE 83; RESP 18; TEMP 36.7; O2SAT 95
[2020-05-22] MEDS: Creon 24,000 unit DR Capsule 3 CAP PO (07:59)
[2020-05-22 08:00] VITALS: PULSE 83
[2020-05-22] MEDS: Metoprolol Tartrate 25 MG Tablet 12.5 MG PO (08:00)
[2020-05-22] MEDS: Aspirin 81 MG TAB.CHEW PO (08:00)
[2020-05-22] MEDS: Furosemide 40 MG Tablet PO (08:01)
--- NOTE | 2020-05-22 10:11 | CASEMGMT ---
Patient has a Healthcare Power of Denture Laboratory Technician on file at [facility]. He does not have a Healthcare Living Will. His Healthcare Power of Denture Laboratory Technician is his sister in law, Chiquita. Dolly ORTIZ
--- NOTE | 2020-05-22 11:03 | PCM.DC ---
- Discharge Diagnoses Current Active Problems: Current Active and Chronic Problems (Last Reviewed 05/20/20 @ 13:[address] Aquilino Marinelli MD) Pancreatic cancer (Chronic) Low-grade neuroendocrine carcinoma; status post Whipple Chronic myelogenous leukemia (CML), MME-[id number]-tioemyic (Chronic) Recently diagnosed Iron deficiency anemia due to dietary causes (Chronic) Blood loss from recent surgery Pleural effusion (Acute) Dyspnea (Acute) Hyperlipidemia (Chronic) History of tobacco abuse (Chronic) Ischemic cardiomyopathy (Chronic) EF 35-40% per echo done @ [facility]07/11/2017; 50% per pre-op EFRAIN done @ [facility] 01/25/18 History of DC (myocardial infarction) (Chronic) Left ventricular scar, markie infart ischemia, left ventricular thrombus per echo 12/15/2017 @ [facility] Atherosclerotic heart disease of [place] coronary artery without angina pectoris (Chronic) MARTINES to LAD, free JANEEN to PDA, SVG to Diagonal, SVG to OM, SVG to right Posterior lateral per Dr. Augustin [facility] S/P CABG x 5 (Chronic 01/25/18) MARTINES to LAD, free JANEEN to PDA, SVG to Diagonal, SVG to OM, SVG to right Posterior lateral per Dr. Augustin [facility] You will use the following diet at home:: Cardiac, Fluid restricted (specify 2000 mls, 1500 mls) - 1500 Your food should be the consistency of: Regular Discharge Activity: Return to Normal Activity, May not drive while taking narcotic pain medications. Instructions: Thoracentesis Allergies/Adverse Reactions: Allergies No Known Allergies Allergy (Verified 05/20/20 10:24) Medications to take at Discharge Lipase/Protease/Amylase [Krunal Alanis 36,000 Units Capsule] 2 ea PO TIDCM 06/04/19 Atorvastatin Calcium [Lipitor] 40 mg PO QHS 06/29/19 Famotidine [Pepcid] 20 mg PO DAILY PRN 06/29/19 Albuterol Inhaler [Ventolin Hfa] 1 - 2 puff INHALATION Q4H PRN PRN 09/04/19 Metoprolol Tartrate [Lopressor (beta yun)] 12.5 mg PO BID 09/04/19 Potassium Chloride [Klor-Con M20] 20 meq PO BID 09/04/19 Fluticasone Propionate 2 sprays NASAL DAILY 05/20/20 Furosemide [Lasix] 40 mg PO DAILY 05/20/20 Lipase/Protease/Amylase [Creon Dr 36,000 Units Capsule] 1 ea PO BID PRN 05/20/20 Pantoprazole Sodium [Protonix] 40 mg PO DAILY 05/20/20 Dasatinib 100 mg PO DAILY 05/22/20 Primary Care Physician: Hector Fong MD [Primary Care Provider] - Please follow up with your Primary Care Physician in: IN 1 WEEK Test Results: Test results from this visit will be discussed in further detail at your follow-up appointment, if applicable. Proposed Discharge Date: 05/22/20
--- NOTE | 2020-05-22 11:14 | DS.PCM_ITS ---
Discharge Date and Diagnosis - Problem List Patient Problems: Active and Suspected Problems (Last Reviewed 05/20/20 @ 13:[address] Aquilino Marinelli MD) Pleural effusion (Acute) Dyspnea (Acute) Date of Admission: 05/20/20 Date of Discharge: 05/22/20 - Primary Discharge Diagnosis Acute Problems: Active Problems (Last Reviewed 05/20/20 @ 13:[address] Aquilino Marinelli MD) Pleural effusion (Acute) Dyspnea (Acute) - Secondary Discharge Diagnosis Chronic Problems: Chronic Problems (Last Reviewed 05/20/20 @ 13:[address] Aquilino Marinelli MD) Pancreatic cancer (Chronic) Low-grade neuroendocrine carcinoma; status post Whipple Chronic myelogenous leukemia (CML), [id number] (Chronic) Recently diagnosed Iron deficiency anemia due to dietary causes (Chronic) Blood loss from recent surgery Hyperlipidemia (Chronic) History of tobacco abuse (Chronic) Ischemic cardiomyopathy (Chronic) EF 35-40% per echo done @ [facility]07/11/2017; 50% per pre-op EFRAIN done @ [facility] 01/25/18 History of [place] (myocardial infarction) (Chronic) Left ventricular scar, markie infart ischemia, left ventricular thrombus per echo 12/15/2017 @ [facility] Atherosclerotic heart disease of [place] coronary artery without angina pectoris (Chronic) MARTINES to LAD, free JANEEN to PDA, SVG to Diagonal, SVG to OM, SVG to right Posterior lateral per Dr. Augustin [facility] S/P CABG x 5 (Chronic 01/25/18) MARTINES to LAD, free JANEEN to PDA, SVG to Diagonal, SVG to OM, SVG to right Posterior lateral per Dr. Augustin [facility] Hospital Course and Treatment Imaging Results: Clinical Impression(s) from Imaging Studies Chest X-Ray 05/20/20 11:10 IMPRESSION: Interval development of large left pleural effusion as described. No acute finding. Electronically Signed: Jeremiah Garner MD at 11:23 EST , Service support , Abdomen Ultrasound 05/20/20 13:56 IMPRESSION: Left lower quadrant ascites at 0233 Reported and signed by: John Johnson MD Electronically Signed: John Johnson MD at 2:32 EST Tel , Service support , Chest X-Ray 05/20/20 14:55 IMPRESSION: No evidence of pneumothorax on the post left thoracentesis. Electronically Signed: Haroon Watts, at 15:19 EST , Service support , Operations: None Summary of Care Provided: The patient is a 64 year old M with past medical history significant for pancreatic CA status post Whipple's procedure, chronic myeloid leukemia who presented with shortness of breath. Imaging studies obtained in the ED demonstrated Interval development of large left pleural effusion. Admitted to monitored bed for subsequent inpatient evaluation and management. 1. Acute dyspnea ?Secondary to large left-sided pleural effusion. Admitted to monitored bed placed on supplemental oxygen as well as aerosol treatment. Requested for ultrasound-guided thoracocentesis with pleural fluid studies ordered 05/21/2020 Patient underwent ultrasound-guided thoracocentesis with almost 2 L of pleural fluid taking of consistent with exudate (met Lights criteria with Fluid protein/ serum protein being greater than 0.5). This was attributed to patient's underlying malignancy. Did send for cytology awaiting results -05/22/2020; patient was deemed stable for discharge. Patient fluid cytology was not back. He was instructed to follow-up with his primary care physician for the results 2. Acute on chronic congestive heart failure with reduced ejection fraction ?Patient was being managed with Lasix as outpatient. Did continue with Lasix on admission. ?Patient did respond to Lasix 3. Ascites ?Patient ascites related to patient large left-sided pleural effusion. 3. Coronary artery disease ?Status post CABG 4. Pancreatic CA -status post Whipple's procedure 5. History of CML -diagnosed in 2019 patient is followed by Dr. Reyes as outpatient. 6. Dyslipidemia -Patient is on statin therapy, continued at home dose 7. Anemia - Secondary to chronic disorder monitoring H&H and transfuse if patient becomes symptomatic or hemoglobin falls below 7 8. DVT prophylaxis ?SC Lovenox 9. Severe protein calorie malnutrition As a result of patient multiple underlying comorbidities and evidenced by low BMI muscle wasting and decreased energy level seen in consultation by dietitian Patient Problems: Active and Suspected Problems (Last Reviewed 05/20/20 @ 13:[address] Aquilino Marinelli MD) Pleural effusion (Acute) Dyspnea (Acute) Objective: GENERAL: cooperative HEENT: Atraumatic; EYES; Anicteric, Normal Conjunctiva NECK; supple, normal thyroid, RESPIRATORY: Diminished to auscultation CARDIOVASCULAR: Regular S1 S2, GI: soft, normoactive bowel sounds, abdomen distended : No Renal angle tenderness; EXTREMITIES: edema, no clubbing, MUSCULOSKELETAL: no muscle waisting NEURO: Awake; no lateralizing signs. SKIN: No Rash PSYCH; Flat affect - Physical Exam Vitals/I&O's: Vital Signs Temp Pulse Resp BP Pulse Ox 98.0 F 83 18 112/73 95 05/22/20 07:50 05/22/20 08:00 05/22/20 07:50 05/22/20 07:50 05/22/20 07:50 Oxygen Delivery Method [2] Room Air Oxygen Delivery Method [1 ( Room Air Initial Baseline)] Oxygen Delivery Method Room Air Weight: 67.4 kg Body Mass Index (BMI) 21.3 Intake and Output for Last 24 Hours 05/20/20 05/21/20 05/22/20 23:59 23:59 23:59 Intake Total 240 / 240 1780 / 1780 240 / 240 Output Total 3200 / 3200 Balance -2960 / -2960 1780 / 1780 240 / 240 Microbiology Past 72 Hours 05/20/20 12:30 Mucosa - Nose SARS-CoV-2 Antigen (Rapid) - Final Laboratory Results 05/20/20 14:45: Fl Pathologist Comment Reviewed 05/22/20 05:04: WBC 4.5, RBC 3.64 L, Hgb 10.0 L, Hct 31.9 L, MCV 87.6, MCH 27.5, MCHC 31.3 L, RDW Std Deviation 53.9 H, RDW Coeff of Jluis 16.7 H, Plt Count 132 L, MPV 9.6, Immature Gran % (Auto) 0.400, Neut % (Auto) 59.3, Lymph % (Auto) 17.0 L , [place] % (Auto) 19.3 H, Eos % (Auto) 4.0, Baso % (Auto) 0.0, Absolute Neuts (auto) 2.6, Absolute Lymphs (auto) 0.76 L, Nucleated RBC % 0 05/22/20 05:04: Sodium 136, Potassium 4.1, Chloride 105, Carbon Dioxide 26.0, Anion Gap 5, BUN 17, Creatinine 0.50 L, Estim Creat Clear Calc 69.27, Est GFR (MDRD) Af Amer 213, Est GFR (MDRD) Non-Af 176, BUN/Creatinine Ratio 33.9 H, Glucose 113 H, Calcium 8.2 L Current Medications Acetaminophen (Acetaminophen 325 Mg Tablet) 650 mg PO Q6H PRN PRN PRN Reason: Pain Score 1-10/Temp > 100.7 F Al Hydroxide/Mg Hydroxide (Mag Hydrox/Al Hydrox/Simeth 30 Ml Udc) 30 ml PO Q6H PRN PRN PRN Reason: Gastric Burning Albuterol Sulfate (Albuterol 2.5 Mg/3 Ml Vial.Neb.) 2.5 mg INHALATION Q2H PRN PRN PRN Reason: SOB/Wheezing Aspirin (Aspirin 81 Mg Tab.Chew) 81 mg PO DAILY@0800 [facility] Last Admin: 05/22/20 08:00 Dose: 81 mg Documented by: Atorvastatin Calcium (Atorvastatin Calcium 40 Mg Tablet) 40 mg PO QHS [facility] Last Admin: 05/21/20 21:07 Dose: 40 mg Documented by: Enoxaparin Sodium (Enoxaparin 40 Mg/0.4 Ml Syringe) 40 mg SC DAILY [facility] Last Admin: 05/22/20 07:54 Dose: Not Given Documented by: Famotidine (Famotidine 20 Mg Tablet) 20 mg PO DAILY PRN PRN Reason: INDIGESTION Furosemide (Furosemide 40 Mg Tablet) 40 mg PO DAILY [facility] Last Admin: 05/22/20 08:01 Dose: 40 mg Documented by: Guaifenesin (Guaifenesin 10 Ml Udc (200mg/10ml)) 20 ml PO Q4H PRN PRN PRN Reason: COUGH Magnesium Hydroxide (Magnesium Hydroxide 30 Ml Udc) 30 ml PO DAILY PRN PRN PRN Reason: Constipation Melatonin (Melatonin 3 Mg Tablet) 3 mg PO QHS PRN PRN PRN Reason: INSOMNIA Last Admin: 05/21/20 21:07 Dose: 3 mg Documented by: Metoprolol Tartrate (Metoprolol Tartrate 25 Mg Tablet) 12.5 mg PO BID [facility] Last Admin: 05/22/20 08:00 Dose: 12.5 mg Documented by: Nitroglycerin (Nitroglycerin (Inpatient Use) 0.4 Mg Tab.Subl) 0.4 mg SUBLINGUAL Q5M PRN PRN Reason: CARDIAC/CHEST PAIN Non-Formulary Medication (Dasatinib) 100 mg PO DAILY [facility] Nutritional Formula (Lactose Free) (Ensure Enlive 120 Ml Liquid) 120 ml PO 4X/DAY [facility] Last Admin: 05/22/20 08:02 Dose: 120 ml Documented by: Ondansetron HCl (Ondansetron 4 Mg/2 Ml Vial) 4 mg IV Q8H PRN PRN PRN Reason: NAUSEA/VOMITING Oxycodone HCl (Oxycodone 5 Mg Tablet) 5 mg PO Q4H PRN PRN PRN Reason: Pain Score 4-5 Oxycodone HCl (Oxycodone 5 Mg Tablet) 10 mg PO Q4H PRN PRN PRN Reason: Pain Score 6-10 Pancrelipase (Creon 24,[address] Capsule) 3 capsule PO TIDCM [facility] Last Admin: 05/22/20 07:59 Dose: 3 capsule Documented by: Potassium Chloride (Potassium Chloride 20 Meq Tablet) 20 meq PO BIDCM [facility] Last Admin: 05/22/20 08:01 Dose: 20 meq Documented by: Promethazine HCl (Promethazine 25 Mg/Ml Syringe) 25 mg IM Q6H PRN PRN PRN Reason: Breakthrough Nausea/Vomiting Sodium Chloride (0.9% Saline Lock 10 Ml Syringe) 10 - 40 ml IV UD PRN PRN Reason: SALINE FLUSH Discharge Activity: Return to Normal Activity, May not drive while taking narcotic pain medications. Home Medications: Medications to take at Discharge Lipase/Protease/Amylase [Creon Dr 36,000 Units Capsule] 2 ea PO TIDCM 06/04/19 Atorvastatin Calcium [Lipitor] 40 mg PO QHS 06/29/19 Famotidine [Pepcid] 20 mg PO DAILY PRN 06/29/19 Albuterol Inhaler [Ventolin Hfa] 1 - 2 puff INHALATION Q4H PRN PRN 09/04/19 Metoprolol Tartrate [Lopressor (beta yun)] 12.5 mg PO BID 09/04/19 Potassium Chloride [Klor-Con M20] 20 meq PO BID 09/04/19 Fluticasone Propionate 2 sprays NASAL DAILY 05/20/20 Furosemide [Lasix] 40 mg PO DAILY 05/20/20 Lipase/Protease/Amylase [Creon Dr 36,000 Units Capsule] 1 ea PO BID PRN 05/20/20 Pantoprazole Sodium [Protonix] 40 mg PO DAILY 05/20/20 Dasatinib 100 mg PO DAILY 05/22/20 Primary Care Physician: Hector Fong MD [Primary Care Provider] - Please follow up with your Primary Care Physician in: IN 1 WEEK Patient Instructions: Thoracentesis Disposition: Home Minutes spent on discharge:: 35 Patient Condition:: Stable Medical Necessity - Tobacco Use Smoking Status: Former smoker Tobacco Use: Cigarettes Meaningful Use Info Meaningful Use Diagnoses (Choose all that apply): None applicable Inpatient E&M: [id number] [facility]
--- NOTE | 2020-05-22 11:20 | PHA.DC.MR ---
Pharmacy Service has performed discharge medication reconciliation for this patient. The patient's discharge medication list was reviewed for discrepancies and discrepancies were resolved. Home Medications Lipase/Protease/Amylase [Krunal Alanis 36,000 Units Capsule] 2 ea PO TIDCM 06/04/19 Atorvastatin Calcium [Lipitor] 40 mg PO QHS 06/29/19 Famotidine [Pepcid] 20 mg PO DAILY PRN 06/29/19 Albuterol Inhaler [Ventolin Hfa] 1 - 2 puff INHALATION Q4H PRN PRN 09/04/19 Metoprolol Tartrate [Lopressor (beta yun)] 12.5 mg PO BID 09/04/19 Potassium Chloride [Klor-Con M20] 20 meq PO BID 09/04/19 Fluticasone Propionate 2 sprays NASAL DAILY 05/20/20 Furosemide [Lasix] 40 mg PO DAILY 05/20/20 Lipase/Protease/Amylase [Krunal Alanis 36,000 Units Capsule] 1 ea PO BID PRN 05/20/20 Pantoprazole Sodium [Protonix] 40 mg PO DAILY 05/20/20 Dasatinib 100 mg PO DAILY 05/22/20
[2020-05-22 11:57] VITALS: O2SAT 93; O2SAT 95
[2020-05-22 13:11] LABS: Pathologist Review Reviewed
--- NOTE | 2020-05-23 15:24 | CASEMGMT ---
UZAIR RUBI Discharge Follow-up Phone Call: ENRIQUE: Dylan Strata: 3 Call Date: 05/23/2020 Discharge Date: 05/22/2020 Time of Call: 1528 Duration: 3 min Admitting Diagnosis: Pleural effusion UZAIR RUBI completed follow-up phone call after recent hospitalization. 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 Patient had no questions or concerns at this time. Patient appts setup for follow-up. Patient had no further questions or concerns at this time.
== END 2020-05-22 12:40 | disposition home or self-care (01) | DRG 291 ==
LOC: ED 11:06 → PCU 11:59
PROVIDERS: Admitting Provider Internal Medicine; Emergency Provider Emergency Medicine; PCP Family Medicine; Visit Provider Internal Medicine
DX: I50.23 Acute on chronic systolic (congestive) heart failure (principal); E43 Unspecified severe protein-calorie malnutrition; R18.8 Other ascites; C25.0 Malignant neoplasm of head of pancreas; C92.10 Chronic myeloid leukemia, BCR/ABL-positive, not having achieved remission; I25.10 Atherosclerotic heart disease of native coronary artery without angina pectoris; I25.2 Old myocardial infarction; E78.5 Hyperlipidemia, unspecified; Z68.21 Body mass index [BMI] 21.0-21.9, adult; Z87.891 Personal history of nicotine dependence; D50.8 Other iron deficiency anemias; I25.5 Ischemic cardiomyopathy
CPT/HCPCS: 32555; 36415; 71045; 71046; 76705; 80048; 80076; 82945; 83615; 83735; 83880; 84157; 84484; 85025; 85610; 85730; 87426; 88108; 88305; 88313; 89050; 93005; 99285; A4216

== ENCOUNTER 2020-05-29 14:05 | Emergency (ER) | payer MEDICARE, MEDICAID, SELFPAY ==
[2020-05-20 15:17] VITALS: BMI 21.3
[2020-05-29 14:06] VITALS: BP 113/67; PULSE 82; RESP 18; TEMP 35.2; O2SAT 97; BMI 20.2
--- NOTE | 2020-05-29 14:19 | ECHOCS_ITS ---
Reason For Study: Pericardial effusion Procedure This was a 2D Doppler, Color Flow transthoracic echocardiogram. The study was technically difficult. Contrast injection was performed. Exam performed portable in ED. Left Ventricle Normal LV size. Left ventricular systolic function is normal. The estimated ejection fraction is 65 %. No regional wall motion abnormalities noted. Right Ventricle Normal RV size. Normal systolic function. Atria Normal left atrium. Normal right atrium. No doppler evidence for ASD. Mitral Valve There is no mitral annular calcification. Normal mitral valve. Trivial mitral valve insufficiency. Tricuspid Valve Normal tricuspid valve. Trivial tricuspid valve insufficiency. Aortic Valve Trisinus/trileaflet aortic valve. Mild focal aortic valve calcification. Pulmonic Valve The pulmonic valve is not well visualized. Mild (1+) pulmonic valve insufficiency. Great Vessels Normal sized aortic root. Pericardium/Pleural No pericardial effusion. Echo lucency compatible with a pleural effusion with 2D echocardiographic findings compatible with associated fibrinous type material. Medication Diluted definity 3ml given slow IV push to enhance endocardial definition. MMode/2D Measurements & Calculations LVIDd: 4.6 cm IVSd: 1.2 cm Ao root diam: 3.5 cm LVIDs: 2.6 cm LVPWd: 1.1 cm RVDd: 3.0 cm FS: 42.7 % LAV(MOD-bp): 33.3 ml LA A4 area: 10.9 cm2 LA dimension(2D): 3.9 cm LAV(MOD-bp) Indexed: 18.4 ml/m2 LAV(MOD-sp2): 45.3 ml LAV(MOD-sp4): 21.2 ml RA A4 area: 10.4 cm2 Doppler Measurements & Calculations MV E max junaid: 74.2 cm/sec Lat Peak E' Junaid: 7.7 cm/sec Med Peak E' Junaid: 6.0 cm/sec MV A max junaid: 86.5 cm/sec E/E' lat: 9.7 E/E' med: 12.4 MV E/A: 0.86 Ao V2 max: 91.9 cm/sec LV V1 max: 82.6 cm/sec PA V2 max: 69.6 cm/sec Ao max P.4 mmHg LV V1 max P.7 mmHg Ao V2 mean: 67.4 cm/sec Ao mean P.0 mmHg Ao V2 VTI: 19.0 cm Interpretation Summary The study was technically difficult. Contrast injection was performed. Left ventricular systolic function is normal. The estimated ejection fraction is 65 %. Trivial mitral valve insufficiency. Trivial tricuspid valve insufficiency. Mild focal aortic valve calcification. Mild (1+) pulmonic valve insufficiency. Echolucency compatible with a pleural effusion with 2D echocardiographic findings compatible with associated fibrinous type material. Ordering Physician: Roger Rosales Referring Physician: Michele Fong Performed By: Nathalie Kim, REBEKAH, RVT
--- NOTE | 2020-05-29 14:20 | ED.DCSUM_ITS ---
History of Present Illness Chief Complaint: Dizziness Informant: Patient Narrative: 65-year-old male tells me he does not know why he is here. He tells me I am tired of this shit and nobody tells me anything. They will not let my family and to see me. He tells me he went to his oncologist office today as a follow- up from her recent hospitalization. He cannot tell me what that hospitalization was for. I gleaned from the chart that he had a thoracentesis for pleural effusion that was negative for malignant cells. Apparently he was feeling fine at home. He states that he went to the office and was sitting for approximately 30 minutes and when he went to stand up he got dizzy. Dr. Reyes called our emergency department and informed him of partners that his blood pressure there was 82/40 and his EKG showed low voltage and he was concerned about pericardial effusion. 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 He is status post Whipple. Past Medical History - Allergies and Home Meds Allergies/Adverse Reactions: Allergies No Known Allergies Allergy (Verified 05/29/20 14:09) Primary Care Physician: Hector Fong MD [Primary Care Provider] - Surgical History: coronary bypass surgery, herniorrhaphy - right inguinal x 2, - - facial surgery summer, amputated left ring finger 1993 Smoking Status: Former smoker Drugs: None - Family History Maternal Family History: Family History (Last Reviewed 05/20/20 @ 13:[address] Aquilino Marinelli MD) Brother CAD (coronary artery disease) Brother CAD (coronary artery disease) Mother Cancer Father Cancer Sister Cancer Family History: Reports: No pertinent history Paternal Family History: Family History (Last Reviewed 05/20/20 @ 13:[address] Aquilino Marinelli MD) Brother CAD (coronary artery disease) Brother CAD (coronary artery disease) Mother Cancer Father Cancer Sister Cancer Family History: Reports: No pertinent history Review of Systems General: Reports: Malaise, - - Dizziness at oncologist office. Denies: Chills, Fever, Sweats Eyes: Denies: Visual changes - bilaterally, Diplopia ENT: Denies: Rhinorrhea, Sore throat Cardiovascular: Denies: Chest pain, Palpitations Respiratory: Denies: Dyspnea, Cough, Dyspnea on exertion Gastrointestinal: Denies: Abdominal pain, Nausea, Vomiting, Diarrhea, Melena, Hematochezia Genitourinary: Denies: Dysuria, Hematuria, Frequency Musculoskeletal: Denies: Back pain, Extremity Pain Skin: Denies: Rash, Wounds Neurological: Denies: Headache, Weakness, Numbness Physical Exam Vital Signs/Narrative: Vital Signs Temp Pulse Resp BP Pulse Ox 05/29/20 14:06 95.4 F L 82 18 113/67 97 Inital Vital Signs reviewed: Yes General: Well nourished, Well developed, No Acute Distress Head: Normocephalic, Atraumatic Eyes: Perrl, EOMI ENT: Moist mucous membranes, No rhinorrhea Neck: Supple, Nontender Cardiovascular: Regular rate, Regular rhythm, No murmurs Respiratory: No distress, CTA bilaterally, Chest nontender Abdomen: Soft, Nontender, Nondistended, Normal bowel sounds Back: Nontender, Normal Inspection Extremities: Nontender, No edema Skin: Normal color, No rash Neurological: Alert, Oriented x3, Cranial nerves II-XII grossly intact, Normal Strength, Normal Sensation Psychological: Normal affect, Normal Mood Diagnostic/Tx/Re-eval Laboratory Last Values WBC 5.9 K/mm3 (4.4-11.0) 05/29/20 14:42 RBC 4.26 M/mm3 (4.6-6.2) L 05/29/20 14:42 Hgb 11.7 g/dL (13.0-16.5) L 05/29/20 14:42 Hct 37.2 % (40-54) L 05/29/20 14:42 MCV 87.3 fL (80-94) 05/29/20 14:42 MCH 27.5 pg (27.0-32.0) 05/29/20 14:42 MCHC 31.5 g/dL (32-36) L 05/29/20 14:42 RDW Std Deviation 52.4 fl (35.1-43.9) H 05/29/20 14:42 RDW Coeff of Jluis 16.4 % (11.6-14.6) H 05/29/20 14:42 Plt Count 270 K/mm3 (150-450) 05/29/20 14:42 MPV 9.5 fl (6.2-12.0) 05/29/20 14:42 Immature Gran % (Auto) 0.300 % (0.0-0.9) 05/29/20 14:42 Neut % (Auto) 61.6 % (47-70) 05/29/20 14:42 Lymph % (Auto) 20.3 % (19-41) 05/29/20 14:42 [place] % (Auto) 13.4 % (0-10) H 05/29/20 14:42 Eos % (Auto) 4.2 % (0-5) 05/29/20 14:42 Baso % (Auto) 0.2 % (0-1) 05/29/20 14:42 Absolute Neuts (auto) 3.6 X10^3/uL (2.0-7.7) 05/29/20 14:42 Absolute Lymphs (auto) 1.20 X10^3/uL (0.83-4.51) 05/29/20 14:42 Nucleated RBC % 0 % (0-5) 05/29/20 14:42 Sodium 141 mmol/L (136-145) 05/29/20 14:42 Potassium 4.1 mmol/L (3.5-5.1) 05/29/20 14:42 Chloride 108 mmol/L (98-107) H 05/29/20 14:42 Carbon Dioxide 29.0 mmol/L (21.0-32.0) 05/29/20 14:42 Anion Gap 4 (5-15) L 05/29/20 14:42 BUN 16 mg/dL (7-18) 05/29/20 14:42 Creatinine 0.68 mg/dL (0.70-1.30) L 05/29/20 14:42 Estim Creat Clear Calc 65.57 ml/min 05/29/20 14:42 Est GFR (MDRD) Af Amer 149 mL/min (>60) 05/29/20 14:42 Est GFR (MDRD) Non-Af 123 mL/min (>60) 05/29/20 14:42 BUN/Creatinine Ratio 23.4 RATIO (10-20) H 05/29/20 14:42 Glucose 83 mg/dL (74-106) 05/29/20 14:42 Calcium 8.6 mg/dL (8.5-10.1) 05/29/20 14:42 Total Bilirubin 0.50 mg/dL (0.20-1.00) 05/29/20 14:42 AST 47 U/L (15-37) H 05/29/20 14:42 ALT 51 U/L (16-61) 05/29/20 14:42 Alkaline Phosphatase 371 U/L (45-117) H 05/29/20 14:42 Troponin I < 0.015 ng/mL (<0.045) 05/29/20 14:42 Total Protein 7.0 g/dL (6.4-8.2) 05/29/20 14:42 Albumin 2.6 g/dL (3.2-5.0) L 05/29/20 14:42 Globulin 4.4 g/dL (2.2-4.2) H 05/29/20 14:42 Albumin/Globulin Ratio 0.6 RATIO (0.9-2.4) L 05/29/20 14:42 Clinical Impression(s) from Imaging Studies Chest X-Ray 05/29/20 15:38 IMPRESSION: Mild increase in the left pleural effusion with left basilar infiltrate and/or atelectasis. Thickening of the left major fissure. Electronically Signed: Haroon Watts MD at 15:48 EST , Service support , Chest CT 05/29/20 16:13 IMPRESSION: Large free-flowing bilateral pleural effusions, left greater than right with bibasilar atelectasis Platelike atelectasis in the left upper lobe Remote CABG No suspicious adenopathy Fatty liver with nodular changes suggesting cirrhosis, and ascites seen around the periphery of the liver down the right paracolic gutter. Degenerative bony changes Electronically Signed: Herbert Garcia MD at 16:53 EST , Service support , - Medical Decision Making My interpretation of the single view portable chest x-ray is recurrent pleural effusion on the left. ASIC blood work negative. Patient underwent a echocardiogram which was technically difficult. After discussion with cardiology a CT of the chest was ordered which demonstrates left greater than right large pleural effusions. After reviewing the CT with cardiology no pericardial effusion seen. Patient has not had hypotension since he has been here. I spoke with his oncologist Dr. Reyes. He will work the patient to get him in with pulmonology for the recurrent effusion. This point patient had no further hypotension here in the department. He feels fine and would like to be discharged home. He has recently restarted his Lasix per Dr. Reyes and I confirmed with the patient that he is not taking. ED Disposition - Plan for ED Patient: Disposition: Home or Assisted Living Diagnosis: Pleural effusion, Orthostatic hypotension Instructions: ED Low Blood Pressure, All Causes Referrals: Guille Reyes, DO [STAFF PHYSICIAN] - As soon as possible
[2020-05-29 14:59] LABS: Absolute Neutrophil Count 3.6 X10^3/uL (2.0-7.7); Basophil# 0.01 X10^3/uL; Basophil% 0.2 % (0-1); Eosinophil# 0.25 X10^3/uL; Eosinophils% 4.2 % (0-5); Hematocrit 37.2 % (40-54); Hemoglobin 11.7 g/dL (13.0-16.5); Lymphocyte % 20.3 % (19-41); Mean Corp Hgb Conc 31.5 g/dL (32-36); Mean Corpuscular Hgb 27.5 pg (27.0-32.0); Mean Corpuscular Volume 87.3 fL (80-94); Mean Platelet Vol. 9.5 fl (6.2-12.0); Monocyte# 0.79 X10^3/uL; Monocyte% 13.4 % (0-10); NRBC Flagged by Analyzer 0 % (0-5); Neutrophil # 3.63 X10^3/uL (2.7-7.7); Neutrophil % 61.6 % (47-70); Platelet Count 270 K/mm3 (150-450); RBC Distribution Width CV 16.4 % (11.6-14.6); RBC Distribution Width SD 52.4 fl (35.1-43.9); Red Blood Count 4.26 M/mm3 (4.6-6.2); White Blood Count 5.9 K/mm3 (4.4-11.0)
[2020-05-29 15:04] VITALS: BP 91/59; PULSE 65; RESP 20; O2SAT 97
[2020-05-29 15:11] LABS: ALB/GLOB Ratio 0.6 RATIO (0.9-2.4); AST(SGOT) 47 U/L (15-37); Alanine Aminotransfer ALT/SGPT 51 U/L (16-61); Albumin, Serum 2.6 g/dL (3.2-5.0); Alkaline Phosphatase 371 U/L (45-117); Anion Gap 4 (5-15); BUN 16 mg/dL (7-18); BUN/Creat Ratio 23.4 RATIO (10-20); Calcium,Total 8.6 mg/dL (8.5-10.1); Chloride 108 mmol/L (98-107); Creatinine, Serum 0.68 mg/dL (0.70-1.30); EST Glomerular Filtration Rate 123 mL/min (>60); Est Glom Filt Rate - Afr Amer 149 mL/min (>60); Estimated Creatinine Clearance 65.57 ml/min; Globulin 4.4 g/dL (2.2-4.2); Glucose 83 mg/dL (74-106); Potassium 4.1 mmol/L (3.5-5.1); Sodium Level 141 mmol/L (136-145)
[2020-05-29 15:20] VITALS: BP 104/64
--- NOTE | 2020-05-29 15:38 | RAD_ITS ---
STUDY: X-RAY CHEST REASON FOR EXAM: Male, 65 years old[address] Sent by dr. prescott for possible fluid around his heart -- HX [facility], PANCREATIC CANCER, RECENT WHIPPLE, leukemia TECHNIQUE: Single AP portable view of the chest. COMPARISON: Comparison is made with prior examination dated 05/20/2020. FINDINGS: EKG electrodes are seen. Since prior study, there has been a mild degree of increased left pleural effusion with left basilar infiltrate and/or atelectasis. Thickening of the left major fissure. Sternal cerclage wires and vascular clips are present from a prior sternotomy and coronary artery bypass graft procedure (CABG). Normal mediastinum and fredo. Normal visualized pulmonary arteries. Normal visualized aortic arch and descending thoracic aorta. Normal visualized thoracic spine. Normal visualized ribs, clavicles, and shoulders. There is no demonstrated abnormality of the visualized soft tissue structures of the upper abdomen. RAD/Chest 1 View (Portable) IMPRESSION: Mild increase in the left pleural effusion with left basilar infiltrate and/or atelectasis. Thickening of the left major fissure. Electronically Signed: Haroon Watts MD at 15:48 EST , Service support ,
--- NOTE | 2020-05-29 16:13 | CT_ITS ---
STUDY: CT CHEST WITH CONTRAST REASON FOR EXAM: Male, 65 years old. Chest pain/pressure, history of pancreatic cancer and WHIPPLE RADIATION DOSAGE (If Supplied By Facility): CTDIvol = ( 11.97 ) mGy, DLP = ( 463.36 ) mGycm TECHNIQUE: Transaxial imaging was performed following intravenous administration of IV 100ML ISOVUE 300. Multiplanar coronal and sagittal images were reformatted. Individualized dose optimization techniques were used for this CT. COMPARISON: Previous plain films FINDINGS: Lung windows show the lungs to be normally expanded. There are free flowing bilateral pleural effusions, left greater than right and bibasilar atelectasis. Soft tissue windows show normal-appearing thyroid gland. No suspicious axillary, mediastinal or perihilar mass or adenopathy. There is a linear band of atelectasis in the left upper lobe. There is been a remote CABG. There is a hiatal hernia. Limited cuts through the upper abdomen show fatty infiltration of the liver with nodular border suggesting cirrhosis. There is a small amount of ascites around the periphery of the liver and down the right paracolic gutter. Changes in the right upper quadrant consistent with patient''s history of WHIPPLE procedure. No suspicious retroperitoneal or celiac axis adenopathy. There are multi-level degenerative changes of the thoracic spine. CT/Chest WITH Contrast IMPRESSION: Large free-flowing bilateral pleural effusions, left greater than right with bibasilar atelectasis Platelike atelectasis in the left upper lobe Remote CABG No suspicious adenopathy Fatty liver with nodular changes suggesting cirrhosis, and ascites seen around the periphery of the liver down the right paracolic gutter. Degenerative bony changes Electronically Signed: Herbert Garcia MD at 16:53 EST , Service support ,
[2020-05-29 16:47] VITALS: BP 114/65; PULSE 76; RESP 25; O2SAT 96
[2020-05-29 18:24] VITALS: BP 142/66; PULSE 71; RESP 15; O2SAT 96
== END 2020-05-29 18:26 | disposition home or self-care (01) ==
PROVIDERS: Emergency Provider Emergency Medicine; PCP Family Medicine
DX: J90 Pleural effusion, not elsewhere classified (principal); I95.1 Orthostatic hypotension; Z87.891 Personal history of nicotine dependence
CPT/HCPCS: 36415; 71045; 71260; 80053; 84484; 85025; 93306; 99284; Q9957; Q9967; A4216; C8929

== ENCOUNTER → 2020-06-05 14:05 | Outpatient (CLI) | payer MEDICARE, MEDICAID, SELFPAY ==
[2020-05-29 14:06] VITALS: BMI 20.2
--- NOTE | 2020-06-05 14:08 | US_ITS ---
PROCEDURE: ULTRASOUND GUIDED THORACENTESIS. DATE: 06/05/2020. INDICATION: Male, 65 years old. Left pleural effusion. PHYSICIAN: Haroon Watts M.D. PROCEDURE: The risks, benefits, and alternatives to the procedure were explained to the patient. The specific risks of bleeding, infection, and pneumothorax requiring chest tube insertion were discussed and accepted. Written informed consent was obtained. Ultrasonographic evaluation of the left lower pleural space was carried out. An adequate pocket was identified. The patient was placed in the sitting, upright position. The overlying skin was prepped and draped in sterile fashion. 1% lidocaine was administered subcutaneously for local anesthesia. Under ultrasound guidance, a 5 [place] thoracentesis needle/catheter system was advanced into the left posterior lower pleural fluid collection. Approximately 900 mL of wyatt-colored fluid fluid was drained. The catheter was removed, and a sterile dressing was applied. The patient tolerated the procedure well. A chest x-ray was ordered. US/Thoracentesis W US IMPRESSION: Ultrasound-guided left thoracentesis. Electronically Signed: Haroon Watts MD at 15:22 EST , Service support ,
--- NOTE | 2020-06-05 14:16 | RAD_ITS ---
STUDY: X-RAY CHEST REASON FOR EXAM: Male, 65 years old. Post thoracentesis TECHNIQUE: AP inspiration and expiration views. COMPARISON: Comparison is made with prior chest radiograph dated 05/29/2020. FINDINGS: The patient is status post left thoracentesis. Minimal left pleural parenchymal changes are present. No evidence of pneumothorax. RAD/Chest Insp/Exp 2 View IMPRESSION: Status post left thoracentesis with mild degree of pleural parenchymal changes at the left lung base. No evidence of pneumothorax. Electronically Signed: Haroon Watts MD at 14:52 EST , Service support ,
[2020-06-05 14:51] VITALS: BP 113/76; BP 118/72; PULSE 61; PULSE 70; RESP 16; TEMP 36.8; O2SAT 99
== END ==
PROVIDERS: PCP Family Medicine; Referring Provider Internal Medicine Hematology & Oncology; Visit Provider Internal Medicine Hematology & Oncology
DX: J90 Pleural effusion, not elsewhere classified (principal)
CPT/HCPCS: 32555; 71046

== ENCOUNTER 2020-11-04 18:19 | Emergency (ER) | payer MEDICARE, MEDICAID, SELFPAY ==
[2020-11-04 18:20] VITALS: BP 102/64; PULSE 94; RESP 18; TEMP 37; O2SAT 98; BMI 20.7
[2020-11-04 19:41] VITALS: BP 122/70; PULSE 85; RESP 16; O2SAT 92
--- NOTE | 2020-11-04 19:54 | EX.ED.DYSGE1 ---
HPI History of Present Illness Chief Complaint: Fever Detail of Chief Complaint: Fever that started today Informant: patient Narrative Narrative: Patient presents to the emergency department stating that he is not been feeling well today and he slept most of the day which is unusual. Patient then decided to take his temperature orally and it was 100.3. Patient states that every year he seems to get pneumonia and that is what he was concerned about. Patient does have a cough that is chronic related to his smoking and does not think it is much different than usual. Patient today did bring up some yellow phlegm. Patient has history of coronary artery disease, leukemia, pancreatic cancer, and high cholesterol. Patient denies urinary symptoms. He denies nausea or vomiting. Prior similar symptoms: Yes PFSH PFSH Medical History Atherosclerotic heart disease of [place] coronary artery without angina pectoris H/O splenomegaly History of [place] (myocardial infarction) History of tobacco abuse Hyperlipidemia Ischemic cardiomyopathy Leukemia Pancreatic cancer Pulmonary embolism Smoker Home Medications [id number] 2 ea PO TIDCM 06/04/19 [History Last Taken Unknown] atorvastatin 40 mg PO QHS 06/29/19 [History Last Taken Unknown] famotidine 20 mg PO DAILY PRN 06/29/19 [History Last Taken Unknown] albuterol sulfate 1 - 2 puff INHALATION Q4H PRN PRN 09/04/19 [History Last Taken 05/20/20] metoprolol tartrate 12.5 mg PO BID 09/04/19 [History Last Taken 05/20/20] fluticasone propionate 2 sprays NASAL DAILY 05/20/20 [History Last Taken 05/20/20] furosemide 40 mg PO DAILY 05/20/20 [History Last Taken 05/20/20] pantoprazole 40 mg PO DAILY 05/20/20 [History Last Taken 05/19/20] doxycycline monohydrate 100 mg PO BID #20 capsule 11/04/20 [Rx Last Taken Unknown] nilotinib [Tasigna] 300 mg PO Q12H 11/04/20 [History Last Taken Unknown] potassium chloride [K-Dur] 20 meq PO BID 11/04/20 [History Last Taken Unknown] prednisone 20 mg PO BID #7 tab 11/04/20 [Rx Last Taken Unknown] Allergy/AdvReac Type Severity Reaction Status Date / Time No Known Allergies Allergy Verified 11/04/20 18:21 Family History Brother CAD (coronary artery disease) Brother CAD (coronary artery disease) Mother Cancer Father Cancer Sister Cancer Surgical History History of colonoscopy with polypectomy (05/15/03) History of right inguinal hernia repair (03/23/16) Incarcerated right inguinal hernia 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) Social History (Updated 11/14/18 @ 14:[address] Roger Lyons MD) Smoking Status: Current some day smoker tobacco type: cigarettes ROS ROS ED Constitutional Constitutional ED: Reports systems reviewed and no addt'l complaints, except as documented and fever(s); Denies body ache(s), change in weight or chills Eyes Eyes: Denies acute decrease in peripheral vision, change in vision, double vision or loss of vision ENT ENT ED: Reports none; Denies ear pain, lip swelling, loss taste/smell, neck pain, otalgia or sore throat Cardiovascular Cardiovascular: Reports none; Denies abdominal pain, chest pain with activity, leg edema, lightheadedness, palpitations, rapid heart rate or syncope Respiratory/Chest Respiratory/Chest: Reports none, cough and sputum; Denies change in mental status, dry cough, dyspnea, hemoptysis, shortness of breath at rest or shortness of breath with exertion Gastrointestinal Gastrointestinal: Reports none; Denies abdominal pain, change in stool character, diarrhea, hematemesis, hematochezia, melena, rectal bleeding or vomiting Genitourinary Genitourinary ED: Reports none; Denies abdominal discomfort, anuria, dysuria, genital pain or polyuria Musculoskeletal Musculoskeletal: Reports none; Denies arthralgias, back pain, difficulty walking, extremity pain, muscle weakness or myalgias Integumentary Reports none; Denies abscess or rash Neurologic Neurologic: Reports none; Denies abnormal gait, confusion, focal weakness, frequent falls, headache(s), loss of vision, numbness, paresthesias, radicular pain, vertigo or weakness Psychiatric Psychiatric: Reports systems reviewed and no addt'l complaints, except as documented and none; Denies behavioral changes, confusion, difficulty concentrating, hallucinations, suicidal ideation, tactile hallucinations or visual hallucinations Endocrine Endocrinology: Denies none, cold intolerance, excessive sweating, fatigue or heat intolerance Hematologic/Lymphatic Hematologic/Lymphatic: Reports none; Denies anemia, easy bleeding or easy bruising Allergic/Immunologic Allergic/Immunologic ED: Denies as per HPI, none, lip swelling, mouth swelling, throat swelling, tongue swelling or hives EXAM Physical Exam Const Vital Signs: 11/04/20 18:20 11/04/20 19:41 11/04/20 21:11 Temperature 98.6 F Temperature Source Temporal Pulse Rate 94 85 79 Respiratory Rate 18 16 15 Respiratory Effort Normal Respiratory Pattern Normal Blood Pressure 102/64 122/70 H 122/64 H Blood Pressure Mean 76 87 83 Pulse Ox 98 92 97 Oxygen Delivery Method Room Air Room Air Nasal Cannula Fraction of Inspired Oxygen (FIO2) 2 Positive well nourished and well developed General Appearance ED: well developed and NAD HEENT Reports TM's clear and moist mucous membranes normocephalic and atraumatic; Negative for trauma or tenderness Tympanic Membrane ED: Yes TM's clear Eyes PERRL and EOMs intact bilaterally General Eye ED: Negative for pale conjunctiva or scleral icterus Neck no lymphadenopathy, supple and no JVD General: Negative for tenderness Chest Wall inspection of chest normal and palpation of chest normal Chest: Negative for tenderness Resp normal respiratory effort Effort and Inspection: Negative for respiratory distress or pain with movement Auscultation: rhonchi, wheezes and diminished lung sounds Cardio regular rate, regular rhythm, S1 normal heart sound, S2 normal heart sound and no murmurs Peripheral Pulses: pulses 2+ throughout GI normal to inspection, nondistended, normoactive bowel sounds, soft to palpation, non-tender, non-distended and no masses Back/Spine no CVA tenderness and no thoracic nor lumbar tenderness Extremity normal to inspection General Extremety ED: Negative for edema General Extremity: Negative for edema Neuro oriented x3, CN's II-XII intact bilaterally, no sensory deficits noted and gait normal Sensorium / Orientation: awake, alert, oriented to person, oriented to place and oriented to time Motor Exam: strength 5/5 throughout and strength abnormal Psych mental status grossly normal Skin no rashes or lesions noted and no wounds MDM MDM MDM Narrative Medical decision making narrative: Patient's work-up in the department unremarkable. He has had a worsening cough with some phlegm production therefore he will be started on doxycycline. Patient advised to follow-up with his primary care physician 3 to 5 days. He is advised to return if increasing shortness of breath or condition should worsen anyway. Lab Data Attestation: I reviewed the patient's lab results. Labs: Laboratory Results - last 24 hr 11/04/20 11/04/20 11/04/20 19:55 19:55 20:05 WBC 5.2 RBC 3.92 L Hgb 10.0 L Hct 32.0 L MCV 81.6 MCH 25.5 L MCHC 31.3 L RDW Std Deviation 48.2 H RDW Coeff of Jluis 16.3 H Plt Count 90 L MPV 10.4 Immature Gran % (Auto) 0.400 Neut % (Auto) 76.2 H Lymph % (Auto) 11.5 L Garvin % (Auto) 10.9 H Eos % (Auto) 0.8 Baso % (Auto) 0.2 Absolute Neuts (auto) 4.0 Absolute Lymphs (auto) 0.60 L Nucleated RBC % 0 Differential Comment SEE COMMENT Platelet Estimate MOD DEC RBC Morphology N CHROM Hypochromasia RARE Anisocytosis RARE Microcytosis RARE Sodium 135 L Potassium 3.5 Chloride 103 Carbon Dioxide 25.0 Anion Gap 7 BUN 13 Creatinine 0.68 L Estim Creat Clear Calc 67.60 Est GFR (MDRD) Af Amer 149 Est GFR (MDRD) Non-Af 123 BUN/Creatinine Ratio 19.0 Glucose 116 H Lactic Acid 1.2 Calcium 8.3 L Total Bilirubin 1.00 AST 44 H ALT 47 Alkaline Phosphatase 339 H Total Protein 6.8 Albumin 3.0 L Globulin 3.8 Albumin/Globulin Ratio 0.8 L Urine Color Urine Clarity Urine pH Ur Specific [place] Urine Protein Urine Glucose (UA) Urine Ketones Urine Occult Blood Urine Nitrite Urine Bilirubin Urine Urobilinogen Ur Leukocyte Esterase Urine RBC Urine WBC Ur Squamous Epith Cells Urine Bacteria Urine Mucus 11/04/20 21:17 WBC RBC Hgb Hct MCV MCH MCHC RDW Std Deviation RDW Coeff of Jluis Plt Count MPV Immature Gran % (Auto) Neut % (Auto) Lymph % (Auto) Garvin % (Auto) Eos % (Auto) Baso % (Auto) Absolute Neuts (auto) Absolute Lymphs (auto) Nucleated RBC % Differential Comment Platelet Estimate RBC Morphology Hypochromasia Anisocytosis Microcytosis Sodium Potassium Chloride Carbon Dioxide Anion Gap BUN Creatinine Estim Creat Clear Calc Est GFR (MDRD) Af Amer Est GFR (MDRD) Non-Af BUN/Creatinine Ratio Glucose Lactic Acid Calcium Total Bilirubin AST ALT Alkaline Phosphatase Total Protein Albumin Globulin Albumin/Globulin Ratio Urine Color Yellow Urine Clarity Clear Urine pH 5.0 Ur Specific [place] 1.020 Urine Protein 15 H Urine Glucose (UA) Normal Urine Ketones 5 H Urine Occult Blood 10 H Urine Nitrite Negative Urine Bilirubin 1 H Urine Urobilinogen 4 H Ur Leukocyte Esterase 25 H Urine RBC 0 SEEN Urine WBC 0-5 SEEN Ur Squamous Epith Cells 0-5 SEEN Urine Bacteria 1+ Urine Mucus 2+ Radiography Chest X-Ray - ED: 1 View Diagnostic Testing: Radiology Impression Chest X-Ray 11/04/20 20:18 IMPRESSION: No acute radiographic abnormalities. Electronically Signed: Michele House MD at 21:09 EDT Tel , Service support , 1 view chest x-ray obtained interpreted by myself as no acute disease process. Radiology in agreement. Discharge Plan Triage Chief Complaint: Fever ED Provider: Brenda Barlow Dx/Rx/DC Orders Clinical Impression: Acute asthmatic bronchitis Instructions: ED Bronchitis with Wheezing (Adult) Prescriptions: New doxycycline monohydrate 100 MG capsule 100 mg PO BID Qty: 20 RF: 0 prednisone 20 mg tablet 20 mg PO BID Qty: 7 RF: 0 No Action [id number] 1 EACH capsule,delayed release(DR/EC) 2 ea PO TIDCM RF: 0 atorvastatin 40 MG tablet 40 mg PO QHS RF: 0 famotidine 20 MG tablet 20 mg PO DAILY PRN (Reason: Indigestion) RF: 0 metoprolol tartrate 25 MG tablet 12.5 mg PO BID RF: 0 albuterol sulfate 1 INHALER inhaler 1 - 2 puff inhalation Q4H PRN PRN (Reason: Sob &/Or Wheezing) RF: 0 furosemide 40 MG tablet 40 mg PO DAILY RF: 0 pantoprazole 40 MG tablet 40 mg PO DAILY RF: 0 fluticasone propionate 16 GM spray,suspension 2 sprays NASAL DAILY RF: 0 potassium chloride [K-Dur] 20 mEq Tablet,Er Particles/Crystals 20 meq PO BID RF: 0 Tasigna 150 mg Capsule 300 mg PO Q12H RF: 0 Primary Care Provider: Hector Fong Referrals: Hector Fong MD [Primary Care Provider] - 3-5 Days Disposition Disposition: Home, Self Care
[2020-11-04 20:08] LABS: Basophil# 0.01 X10^3/uL; Basophil% 0.2 % (0-1); Eosinophil# 0.04 X10^3/uL; Eosinophils% 0.8 % (0-5); Lymphocyte % 11.5 % (19-41); Mean Corp Hgb Conc 31.3 g/dL (32-36); Mean Corpuscular Hgb 25.5 pg (27.0-32.0); Mean Corpuscular Volume 81.6 fL (80-94); Mean Platelet Vol. 10.4 fl (6.2-12.0); Monocyte# 0.57 X10^3/uL; Monocyte% 10.9 % (0-10); NRBC Flagged by Analyzer 0 % (0-5); Neutrophil # 3.99 X10^3/uL (2.7-7.7); Neutrophil % 76.2 % (47-70); POSITIVE COUNT YES; POSITIVE DIFFERENTIAL YES; Platelet Count 90 K/mm3 (150-450); RBC Distribution Width CV 16.3 % (11.6-14.6); RBC Distribution Width SD 48.2 fl (35.1-43.9); Red Blood Count 3.92 M/mm3 (4.6-6.2); White Blood Count 5.2 K/mm3 (4.4-11.0)
[2020-11-04 20:10] LABS: Differential Indicated SCAN CRITERIA MET
[2020-11-04] MEDS: 0.9% Normal Saline 1,000 ML 150 ML IV (20:14)
--- NOTE | 2020-11-04 20:18 | RAD_ITS ---
INDICATION: fever EXAMINATION/TECHNIQUE: X-RAY - XR Chest 1 View COMPARISON: 06/05/2020. FINDINGS: The lungs are clear. Sternal cerclage wires and vascular clips are present from a prior sternotomy and coronary artery bypass graft procedure (CABG). No pleural effusion or pneumothorax. No acute osseous abnormalities. RAD/Chest 1 View (Portable) IMPRESSION: No acute radiographic abnormalities. Electronically Signed: Michele House MD at 21:09 EDT Tel , Service support ,
[2020-11-04 20:23] LABS: ALB/GLOB Ratio 0.8 RATIO (0.9-2.4); AST(SGOT) 44 U/L (15-37); Alanine Aminotransfer ALT/SGPT 47 U/L (16-61); Alkaline Phosphatase 339 U/L (45-117); Anion Gap 7 (5-15); BUN 13 mg/dL (7-18); Calcium,Total 8.3 mg/dL (8.5-10.1); Chloride 103 mmol/L (98-107); Creatinine, Serum 0.68 mg/dL (0.70-1.30); EST Glomerular Filtration Rate 123 mL/min (>60); Est Glom Filt Rate - Afr Amer 149 mL/min (>60); Globulin 3.8 g/dL (2.2-4.2); Glucose 116 mg/dL (74-106); Potassium 3.5 mmol/L (3.5-5.1); Protein, Total 6.8 g/dL (6.4-8.2); Sodium Level 135 mmol/L (136-145)
[2020-11-04 20:30] LABS: Anisocytosis RARE; Hypochromasia RARE; Microcytosis RARE; Platelet Estimate MOD DEC (ADEQ); Red Cell Morphology N CHROM NORMAL (NORM C&C)
[2020-11-04 20:42] LABS: Lactic Acid 1.2 mmol/L (0.4-1.9)
[2020-11-04 21:11] VITALS: BP 122/64; PULSE 79; RESP 15; O2SAT 97
[2020-11-04 21:26] LABS: Red Blood Cells-Urine 0 SEEN /hpf (0-5)
[2020-11-04 21:30] LABS: Color, Urine Yellow (Yellow); Glucose, Dipstick Normal (Normal); Ketone-Dipstick 5 mg/dl (Negative); Leukocyte Esterase-Dipstick 25 /ul (Negative); Nitrite-Dipstick Negative (Negative); Occult Blood-Urine 10 /ul (Negative); Protein-Dipstick 15 mg/dl (Negative); Urine Clarity Clear (Clear); Urine Urobilinogen 4 mg/dl (Normal)
[2020-11-04 21:31] LABS: Urine Bilirubin Dipstick 1 mg/dL (Negative)
[2020-11-04 21:39] LABS: Bacteria 1+ /hpf (None Seen); Mucous, Urine 2+ /hpf (<or=2+); Squamous Epithelial Cells - UA 0-5 SEEN /hpf (0-5); White Blood Cells 0-5 SEEN /hpf (0-5)
[2020-11-04 22:01] VITALS: BP 134/68; PULSE 77; RESP 16; O2SAT 98
[2020-11-04] MEDS: predniSONE 20 MG Tablet 40 MG PO (22:09)
[2020-11-04] MEDS: Doxycycline 100 MG CAPSULE PO (22:09)
== END 2020-11-04 22:11 | disposition home or self-care (01) ==
PROVIDERS: Emergency Provider Emergency Medicine; PCP Family Medicine
DX: J45.909 Unspecified asthma, uncomplicated (principal); F17.210 Nicotine dependence, cigarettes, uncomplicated; I25.10 Atherosclerotic heart disease of native coronary artery without angina pectoris; E78.5 Hyperlipidemia, unspecified; E78.00 Pure hypercholesterolemia, unspecified; I25.2 Old myocardial infarction; I25.5 Ischemic cardiomyopathy; Z85.07 Personal history of malignant neoplasm of pancreas; Z86.711 Personal history of pulmonary embolism; Z79.899 Other long term (current) drug therapy; Z79.52 Long term (current) use of systemic steroids
CPT/HCPCS: 71045; 80053; 81001; 83605; 85025; 87040; 87426; 99284; J7030; A4216

== ENCOUNTER 2021-01-07 10:56 | Emergency (ER) | payer MEDICARE, MEDICAID, SELFPAY ==
[2021-01-07 10:56] VITALS: BP 128/76; PULSE 76; RESP 16; TEMP 36.2; O2SAT 99; BMI 21.2
--- NOTE | 2021-01-07 11:20 | RAD_ITS ---
STUDY: X-RAY CHEST REASON FOR EXAM: Male, 65 years old. Mid back pain after exercising TECHNIQUE: PA and lateral views of the chest. COMPARISON: 11/04/20 FINDINGS: The lungs are clear and expanded. There is no demonstrated pleural abnormality. Sternal cerclage wires and vascular clips are present from a prior sternotomy and coronary artery bypass graft procedure (CABG). Normal mediastinum and fredo. Normal visualized pulmonary arteries. Normal visualized aortic arch and descending thoracic aorta. Normal visualized thoracic spine. Normal visualized ribs, clavicles, and shoulders. There is no demonstrated abnormality of the visualized soft tissue structures of the upper abdomen. RAD/Chest PA and Lateral IMPRESSION: No acute pulmonary process Electronically Signed: Herbert Garcia MD at 11:32 EDT , Service support ,
--- NOTE | 2021-01-07 11:24 | EX.ED.UPPERE ---
HPI History of Present Illness Chief Complaint: Upper Extremity Injury Informant: patient Narrative Narrative: Patient is a 65-year-old male who presents to the emergency department for left mid back pain. This has been present over the past 2 days. He states it started after he was trying to lift a fish out of the water with a net with his left arm. He has not been taking anything for it. It hurts worse whenever he moves his right arm. He denies any chest pain or shortness of breath. While at rest he denies significant pain at all. No abdominal pain or nausea/vomiting. No neck pain. No weakness or loss of sensation going down his arms. He has never had this happen before. PFSH PFSH Medical History Atherosclerotic heart disease of [place] coronary artery without angina pectoris H/O splenomegaly History of [place] (myocardial infarction) History of tobacco abuse Hyperlipidemia Ischemic cardiomyopathy Leukemia Pancreatic cancer Pulmonary embolism Smoker Home Medications [id number] 2 ea PO TIDCM 06/04/19 [History Last Taken Unknown] atorvastatin 40 mg PO QHS 06/29/19 [History Last Taken Unknown] famotidine 20 mg PO DAILY PRN 06/29/19 [History Last Taken Unknown] metoprolol tartrate 25 mg PO BID 09/04/19 [History Last Taken 05/20/20] furosemide 20 mg PO DAILY 05/20/20 [History Last Taken 05/20/20] nilotinib [Tasigna] 300 mg PO Q12H 11/04/20 [History Last Taken Unknown] potassium chloride [K-Dur] 20 meq PO BID 11/04/20 [History Last Taken Unknown] lisinopril 5 mg PO DAILY 01/07/21 [History Last Taken Unknown] magnesium oxide 400 mg PO BID 01/07/21 [History Last Taken Unknown] metformin 1,000 mg PO BID 01/07/21 [History Last Taken Unknown] Allergy/AdvReac Type Severity Reaction Status Date / Time No Known Allergies Allergy Verified 01/07/21 10:58 Family History Brother CAD (coronary artery disease) Brother CAD (coronary artery disease) Mother Cancer Father Cancer Sister Cancer Surgical History History of colonoscopy with polypectomy (05/15/03) History of right inguinal hernia repair (03/23/16) Incarcerated right inguinal hernia 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) Social History Smoking Status: Current some day smoker tobacco type: cigarettes ROS ROS ED Constitutional Constitutional ED: Denies chills or fever(s) Eyes Eyes: Denies change in vision ENT ENT ED: Denies epistaxis or rhinorrhea Cardiovascular Cardiovascular: Denies chest pain or palpitations Respiratory/Chest Respiratory/Chest: Denies cough or dyspnea Gastrointestinal Gastrointestinal: Denies abdominal pain, nausea or vomiting Musculoskeletal Musculoskeletal: Reports back pain; Denies neck pain Integumentary Denies rash Neurologic Neurologic: Denies dizziness, headache(s) or weakness EXAM Physical Exam Const Vital Signs: 01/07/21 10:56 Temperature 97.2 F L Temperature Source Temporal Pulse Rate 76 Respiratory Rate 16 Blood Pressure 128/76 H Blood Pressure Mean 93 Pulse Ox 99 Oxygen Delivery Method Room Air Positive well nourished and well developed General Appearance ED: well developed and NAD HEENT Reports normocephalic and head/scalp atraumatic Eyes PERRL and EOMs intact bilaterally Neck supple General: Negative for tenderness Chest Wall inspection of chest normal Resp normal respiratory effort and clear to auscultation bilaterally Auscultation: Negative for rales, rhonchi or wheezes Cardio regular rate, regular rhythm and no murmurs GI normal to inspection, nondistended, normoactive bowel sounds and non-tender Palpation: soft Back/Spine no CVA tenderness Back/Spine Narrative: There is tenderness between the left scapula and thoracic region. Extremity normal to inspection Extremity Narrative: 5 out of 5 muscle strength of upper extremities. 2+ radial pulses bilateral. Sensation intact. General Extremety ED: Negative for edema or tenderness General Extremity: Negative for edema Neuro Sensorium / Orientation: alert Motor Exam: strength 5/5 throughout Psych mental status grossly normal Skin no rashes or lesions noted MDM MDM MDM Narrative Medical decision making narrative: Patient presents the ED for left mid back pain after lifting a few days prior. On arrival to the ED vital signs within normal limits. He is a benign physical exam. It is reproducible and worse with movement. I Believe that this is musculoskeletal. I have low concern for ACS, aortic catastrophe or thromboembolism. Will check x-ray and give a dose of Tylenol for symptomatic treatment. Patient's chest x-ray did not reveal acute bony abnormality. He does not have a wide mediastinum. I have low concern for ACS, aortic catastrophe. Patient's vital signs within normal limits. Recommend symptomatic treatment at home. He is feeling better after the Tylenol. He is to follow-up with his PCP. Return precautions are reviewed. Discharge Plan Triage Chief Complaint: Upper Extremity Injury ED Provider: Chance Taylor Dx/Rx/DC Orders Clinical Impression: Back pain Instructions: ED Back Pain (Acute or Chronic) Prescriptions: No Action [id number] 1 EACH capsule,delayed release(DR/EC) 2 ea PO TIDCM RF: 0 atorvastatin 40 MG tablet 40 mg PO QHS RF: 0 famotidine 20 MG tablet 20 mg PO DAILY PRN (Reason: Indigestion) RF: 0 metoprolol tartrate 25 MG tablet 25 mg PO BID RF: 0 furosemide 40 MG tablet 20 mg PO DAILY RF: 0 potassium chloride [K-Dur] 20 mEq Tablet,Er Particles/Crystals 20 meq PO BID RF: 0 Tasigna 150 mg Capsule 300 mg PO Q12H RF: 0 metformin 1,000 mg Tablet 1,000 mg PO BID RF: 0 lisinopril 5 mg Tablet 5 mg PO DAILY RF: 0 magnesium oxide 400 mg magnesium Tablet 400 mg PO BID RF: 0 Primary Care Provider: Hector Fong Referrals: Hector Fong MD [Primary Care Provider] - 3-5 Days if not improving Disposition Disposition: Home, Self Care Discharge Date/Time: 01/07/21 12:26
[2021-01-07] MEDS: Acetaminophen 325 MG Tablet 650 MG PO (11:31)
[2021-01-07 12:26] VITALS: PULSE 72; RESP 15; O2SAT 98
== END 2021-01-07 12:26 | disposition home or self-care (01) ==
PROVIDERS: Emergency Provider Emergency Medicine; PCP Family Medicine
DX: M54.6 Pain in thoracic spine (principal); I25.10 Atherosclerotic heart disease of native coronary artery without angina pectoris; I25.2 Old myocardial infarction; F17.210 Nicotine dependence, cigarettes, uncomplicated; E78.5 Hyperlipidemia, unspecified; I25.5 Ischemic cardiomyopathy; Z86.711 Personal history of pulmonary embolism; Z79.899 Other long term (current) drug therapy; Z79.84 Long term (current) use of oral hypoglycemic drugs
CPT/HCPCS: 71046; 99283

== ENCOUNTER 2021-03-22 06:01 | Emergency (ER) | payer MEDICARE, MEDICAID, SELFPAY ==
[2021-03-22 06:03] VITALS: BP 138/72; PULSE 70; RESP 16; TEMP 36.1; O2SAT 100; BMI 21.2
--- NOTE | 2021-03-22 06:17 | EDS_ITS ---
HPI History of Present Illness Chief Complaint: Allergic Reaction Informant: patient Onset/Context/Timing Onset: Today Context: Sudden Onset Timing: Continuous Quality: Swelling Location: Right upper and lower lip Worsened by: Nothing Relieved by: Nothing Narrative Narrative: Patient is with swelling to the right side of his mouth that began today. Patient states he woke up this morning with swelling of his right upper and lower lip. Patient denies any difficulty breathing. Patient states he feels like it may be difficult to swallow but he is able to swallow his own secretions. Patient denies any chest pain. Patient states nothing makes it better nothing makes it worse. Patient is on lisinopril for high blood pressure. PFSH PFSH Medical History Atherosclerotic heart disease of [place] coronary artery without angina pectoris H/O splenomegaly History of [place] (myocardial infarction) History of tobacco abuse Hyperlipidemia Ischemic cardiomyopathy Leukemia Pancreatic cancer Pulmonary embolism Smoker Home Medications [id number]-[id number] 2 ea PO TIDCM 06/04/19 [History Last Taken Unknown] atorvastatin 40 mg PO QHS 06/29/19 [History Last Taken Unknown] metoprolol tartrate 25 mg PO BID 09/04/19 [History Last Taken 05/20/20] furosemide 20 mg PO DAILY 05/20/20 [History Last Taken 05/20/20] nilotinib [Tasigna] 300 mg PO Q12H 11/04/20 [History Last Taken Unknown] lisinopril 5 mg PO DAILY 01/07/21 [History Last Taken Unknown] magnesium oxide 400 mg PO BID 01/07/21 [History Last Taken Unknown] metformin 1,000 mg PO BID 01/07/21 [History Last Taken Unknown] prednisone 60 mg PO DAILY #15 tablet 03/22/21 [Rx Last Taken Unknown] Allergy/AdvReac Type Severity Reaction Status Date / Time No Known Allergies Allergy Verified 03/22/21 06:04 Family History Brother CAD (coronary artery disease) Brother CAD (coronary artery disease) Mother Cancer Father Cancer Sister Cancer Surgical History History of colonoscopy with polypectomy (05/15/03) History of right inguinal hernia repair (03/23/16) Incarcerated right inguinal hernia 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) Social History Smoking Status: Current some day smoker tobacco type: cigarettes ROS ROS ED Constitutional Constitutional ED: Denies chills or fever(s) Eyes Eyes: Denies blurry vision or change in vision ENT ENT ED: Denies rhinorrhea or sore throat Cardiovascular Cardiovascular: Denies chest pain or palpitations Respiratory/Chest Respiratory/Chest: Denies cough or dyspnea Gastrointestinal Gastrointestinal: Denies nausea or vomiting Genitourinary Genitourinary ED: Denies dysuria or hematuria Musculoskeletal Musculoskeletal: Denies back pain or neck pain Integumentary Denies abscess or rash Neurologic Neurologic: Denies headache(s) or weakness Allergic/Immunologic Allergic/Immunologic ED: Denies mouth swelling or urticaria EXAM Physical Exam Const Vital Signs: 03/22/21 06:03 Temperature 97.0 F L Temperature Source Temporal Pulse Rate 70 Respiratory Rate 16 Blood Pressure 138/72 H Blood Pressure Mean 94 Pulse Ox 100 Oxygen Delivery Method Room Air Positive well nourished and well developed General Appearance ED: well developed HEENT Reports moist mucous membranes HEENT Narrative: There is edema of the right side of his upper and lower limbs. Oral mucosa is pink and moist. Oropharynx is clear. Airway is patent. There is no edema of the tongue. There is no sublingual edema or erythema. Neck supple and no JVD Resp normal respiratory effort and clear to auscultation bilaterally Cardio regular rate, regular rhythm and no murmurs GI normal to inspection, nondistended, normoactive bowel sounds and non-tender Palpation: soft Extremity normal to inspection General Extremety ED: Negative for edema or tenderness General Extremity: Negative for edema Neuro oriented x3, CN's II-XII intact bilaterally and no sensory deficits noted Sensorium / Orientation: alert Motor Exam: strength 5/5 throughout Psych mental status grossly normal Skin no rashes or lesions noted MDM MDM MDM Narrative Medical decision making narrative: Patient was given Solu-Medrol, Benadryl, and Pepcid. Patient will be observed in the emergency department. Care of the patient was turned over to the oncoming physician. Discharge Plan Triage Chief Complaint: Allergic Reaction Other Complaint: Dental ED Provider: Gerardo Hutchison Dx/Rx/DC Orders Clinical Impression: Angioedema Instructions: ED Angioedema Prescriptions: New prednisone 20 MG tablet 60 mg PO DAILY Qty: 15 RF: 0 No Action [id number] 1 EACH capsule,delayed release(DR/EC) 2 ea PO TIDCM RF: 0 atorvastatin 40 MG tablet 40 mg PO QHS RF: 0 metoprolol tartrate 25 MG tablet 25 mg PO BID RF: 0 furosemide 40 MG tablet 20 mg PO DAILY RF: 0 Tasigna 150 mg Capsule 300 mg PO Q12H RF: 0 metformin 1,000 mg Tablet 1,000 mg PO BID RF: 0 lisinopril 5 mg Tablet 5 mg PO DAILY RF: 0 magnesium oxide 400 mg magnesium Tablet 400 mg PO BID RF: 0 Primary Care Provider: Hectro Fong Referrals: Hector Fong MD [Primary Care Provider] - 3-5 Days Disposition Disposition: Home, Self Care
[2021-03-22] MEDS: MethylPREDNISolone 125 MG/2 ML Vial 60 MG IV (06:22)
[2021-03-22] MEDS: DiphenhydrAMINE 50 MG/ML Syringe 25 MG IV (06:23)
[2021-03-22] MEDS: Famotidine 200 MG/20 ML MDV 20 MG in 0.9% Normal Saline (Pres. free 8 ML 300 MG IV (06:34)
[2021-03-22 07:09] VITALS: BP 118/75; PULSE 66; RESP 19; O2SAT 98
[2021-03-22 08:53] VITALS: BP 125/77; PULSE 74; RESP 20; O2SAT 97
[2021-03-22 09:13] VITALS: BP 124/78; PULSE 73; RESP 16; O2SAT 97
== END 2021-03-22 09:18 | disposition home or self-care (01) ==
LOC: ED 06:39
PROVIDERS: Emergency Provider Emergency Medicine; PCP Family Medicine
DX: T78.3XXA Angioneurotic edema, initial encounter (principal); I25.2 Old myocardial infarction; I25.10 Atherosclerotic heart disease of native coronary artery without angina pectoris; F17.210 Nicotine dependence, cigarettes, uncomplicated; E78.5 Hyperlipidemia, unspecified; I25.5 Ischemic cardiomyopathy; Z79.84 Long term (current) use of oral hypoglycemic drugs; Z86.711 Personal history of pulmonary embolism; Z79.899 Other long term (current) drug therapy
CPT/HCPCS: 96374; 96375; 99284; A4216; J3490

== ENCOUNTER 2021-08-03 22:34 | Emergency (ER) | payer MEDICARE, MEDICAID, SELFPAY ==
[2021-08-03 22:35] VITALS: BP 129/75; PULSE 84; RESP 16; TEMP 35.8; O2SAT 100; BMI 20.7
--- NOTE | 2021-08-03 22:50 | EX.ED.DYSGE1 ---
HPI History of Present Illness Chief Complaint: Other, Pain/Inj Informant: patient Onset/Context/Timing Onset: Today Context: Gradual Onset Current Severity: Mild Maximum Severity: Mild Narrative Narrative: Patient presents with pain to the posterior left thigh with concern for blood clot. He does report a history of DVT and PE in the past. He was taken off of blood thinners approximately a year ago. Patient states he noted some slight pain in the posterior left thigh today and was concerned he may have another clot. He denies chest pain. He has not noted significant swelling in his leg. PFSH PFSH Medical History Atherosclerotic heart disease of [place] coronary artery without angina pectoris H/O splenomegaly History of [place] (myocardial infarction) History of tobacco abuse Hyperlipidemia Ischemic cardiomyopathy Leukemia Pancreatic cancer Pulmonary embolism Smoker Home Medications [id number]-[id number]-[id number] 2 ea PO TIDCM 06/04/19 [History Last Taken Unknown] atorvastatin 40 mg PO QHS 06/29/19 [History Last Taken Unknown] metoprolol tartrate 25 mg PO BID 09/04/19 [History Last Taken 05/20/20] furosemide 20 mg PO DAILY 05/20/20 [History Last Taken 05/20/20] nilotinib [Tasigna] 300 mg PO Q12H 11/04/20 [History Last Taken Unknown] lisinopril 5 mg PO DAILY 01/07/21 [History Last Taken Unknown] magnesium oxide 400 mg PO BID 01/07/21 [History Last Taken Unknown] metformin 1,000 mg PO BID 01/07/21 [History Last Taken Unknown] Allergy/AdvReac Type Severity Reaction Status Date / Time No Known Allergies Allergy Verified 03/22/21 06:04 Family History Brother CAD (coronary artery disease) Brother CAD (coronary artery disease) Mother Cancer Father Cancer Sister Cancer Surgical History History of colonoscopy with polypectomy (05/15/03) History of right inguinal hernia repair (03/23/16) Incarcerated right inguinal hernia 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) Social History Smoking Status: Current some day smoker tobacco type: cigarettes ROS ROS ED Constitutional Constitutional ED: Denies chills or fever(s) Eyes Eyes: Denies change in vision ENT ENT ED: Denies sore throat Cardiovascular Cardiovascular: Denies chest pain Respiratory/Chest Respiratory/Chest: Reports dyspnea; Denies cough Gastrointestinal Gastrointestinal: Denies abdominal pain, diarrhea, nausea or vomiting Genitourinary Genitourinary ED: Denies dysuria Musculoskeletal Musculoskeletal: Reports arthralgias and myalgias; Denies back pain Integumentary Denies rash Neurologic Neurologic: Denies headache(s), paresthesias or weakness Allergic/Immunologic Allergic/Immunologic ED: Denies urticaria EXAM Physical Exam Const Vital Signs: 08/03/21 22:35 08/03/21 22:47 Temperature 96.5 F L Temperature Source Temporal Pulse Rate 84 Respiratory Rate 16 Respiratory Effort Normal Non-Labored Respiratory Pattern Normal Blood Pressure 129/75 H Blood Pressure Mean 93 Pulse Ox 100 Oxygen Delivery Method Room Air Positive well nourished and well developed General Appearance ED: well developed HEENT Reports moist mucous membranes Eyes PERRL and EOMs intact bilaterally Neck supple Chest Wall inspection of chest normal and palpation of chest normal Resp normal respiratory effort and clear to auscultation bilaterally Cardio regular rate and regular rhythm GI non-tender Palpation: soft Extremity Extremity Narrative: Minimal tenderness to the posterior distal left thigh. No palpable cords. No significant edema noted. Strong distal pulses with normal cap refill. Neuro oriented x3 Sensorium / Orientation: alert Psych mental status grossly normal Skin no rashes or lesions noted MDM MDM Treatment and Re-Evaluation Narrative: Patient presents at nearly 11 PM for evaluation on a weekend. I do not have ultrasound available at this time. He will be given a dose of Lovenox tonight and order will be placed for patient to return tomorrow for DVT study. Patient voices understanding and agreement. Discharge Plan Triage Chief Complaint: Other, Pain/Inj ED Provider: Karina Solano Dx/Rx/DC Orders Clinical Impression: Left thigh pain Instructions: ED Myalgias Prescriptions: No Action [id number] 1 EACH capsule,delayed release(DR/EC) 2 ea PO TIDCM RF: 0 atorvastatin 40 MG tablet 40 mg PO QHS RF: 0 metoprolol tartrate 25 MG tablet 25 mg PO BID RF: 0 furosemide 40 MG tablet 20 mg PO DAILY RF: 0 Tasigna 150 mg Capsule 300 mg PO Q12H RF: 0 metformin 1,000 mg Tablet 1,000 mg PO BID RF: 0 lisinopril 5 mg Tablet 5 mg PO DAILY RF: 0 magnesium oxide 400 mg magnesium Tablet 400 mg PO BID RF: 0 Other Ambulatory Orders: ON-CALL NEEDED: Notify [facility] - Doppler Study Ordered (Stat) Location: None Selected Ordered By: Dr. Karina Solano Venous Duplex US, Unilateral (Routine) Facility: [facility] - Location: [facility] Ordered By: Dr. Karina Solano Primary Care Provider: Hector Fong Referrals: Hector Fong MD [Primary Care Provider] - 1 Week if not improving Activity Restrictions/Additional Instructions: As discussed, I do not have anyone available tonight to perform ultrasound of your leg to rule out blood clot. You will be covered with a dose of blood thinner. You will receive a phone call in the morning from the hospital to come back in for an ultrasound of your leg. Disposition Disposition: Home, Self Care
[2021-08-03] MEDS: Enoxaparin 60 MG/0.6 ML Syringe SC (23:02)
== END 2021-08-03 23:04 | disposition home or self-care (01) ==
LOC: ED 23:00
PROVIDERS: Emergency Provider Emergency Medicine; PCP Family Medicine; Visit Provider Emergency Medicine
DX: M79.652 Pain in left thigh (principal); I25.5 Ischemic cardiomyopathy; F17.210 Nicotine dependence, cigarettes, uncomplicated; E78.5 Hyperlipidemia, unspecified; I25.10 Atherosclerotic heart disease of native coronary artery without angina pectoris; I25.2 Old myocardial infarction; Z79.899 Other long term (current) drug therapy; Z79.84 Long term (current) use of oral hypoglycemic drugs; Z86.718 Personal history of other venous thrombosis and embolism; Z86.711 Personal history of pulmonary embolism
CPT/HCPCS: 96374; 99282

== ENCOUNTER 2021-08-04 10:28 | Outpatient (CLI) | payer MEDICARE, MEDICAID, SELFPAY ==
--- NOTE | 2021-08-04 10:31 | VDLE_ITS ---
Reason For Study: Pain Procedure LEFT This is a venous duplex using B-mode, color GSV is normal. flow and spectral Doppler. CFV is compressible, spontaneous, phasic, Exam performed in department. competent, and demonstrates normal A preliminary report was called and/or faxed augmentation. to PCP: Hetal. Seen in ED 08/03/2021. FV is compressible, spontaneous, phasic, competent and demonstrates normal augmentation. POP V is compressible, spontaneous, phasic, competent and demonstrates normal augmentation. T/P Trunk is compressible. PTV is compressible. LT PerV is compressible. VL/Venous Duplex US, Unilateral Interpretation Summary There is no evidence of left lower extremity deep vein thrombosis. Left great s aphenous vein appears patent and compressible segmentally. Ordering Physician: Karina Solano Referring Physician: Michele Fong Performed By: Mulu Nowak RVT
== END 2021-08-04 23:59 | disposition home or self-care (01) ==
LOC: CVS 10:29
PROVIDERS: PCP Family Medicine; Referring Provider Emergency Medicine; Visit Provider Emergency Medicine
DX: M79.605 Pain in left leg (principal)
CPT/HCPCS: 93971

== ENCOUNTER 2021-11-16 18:47 | Emergency (ER) | payer MEDICARE, MEDICAID, SELFPAY ==
[2021-11-16 18:48] VITALS: BP 127/76; PULSE 79; RESP 18; TEMP 36.8; O2SAT 99; BMI 21.5
--- NOTE | 2021-11-16 19:03 | RAD_ITS ---
STUDY: X-RAY - LEFT WRIST REASON FOR EXAM: Male, 66 years old. pain TECHNIQUE: 3 view(s) of the wrist were obtained. COMPARISON: None. FINDINGS: Please see the impression. RAD/Wrist min 3 Views IMPRESSION: No definite acute fracture or dislocation the left radius. Mild diffuse osteopenia. Polyarticular osteoarthritis, most severe in the radial scaphoid and first carpometacarpal joint. Tiny radiopaque foreign bodies in the soft tissues at the base of the first proximal phalanx. Electronically Signed: Jorge Noble MD at 19:48 EDT ,
--- NOTE | 2021-11-16 19:05 | EDS_ITS ---
HPI History of Present Illness Chief Complaint: Upper Extremity Injury Informant: patient Narrative Narrative: Patient states he has bad arthritis in his wrist. He has been waiting for an appointment for orthopedics for couple months. He states his left wrist hurts all the time. He has no specific injury. Its been going on for 2 or 3 months. He went fishing yesterday and that aggravated it. He did not fall on it. It is never gotten red. He has no numbness tingling weakness. He is not on any anticoagulation. Although he is on atorvastatin he has been on that for a long time and he has no other areas of pain. Rest makes it better and use makes it worse. No other joints are hurting. PFSH PFSH Medical History Atherosclerotic heart disease of [place] coronary artery without angina pectoris H/O splenomegaly History of [place] (myocardial infarction) History of tobacco abuse Hyperlipidemia Ischemic cardiomyopathy Leukemia Pancreatic cancer Pulmonary embolism Smoker Home Medications [id number] 36,000-114,000-180,000 unit capsule,delay rel 2 ea PO TIDCM STOMACH DIGESTION 06/04/19 [History Last Taken Unknown] atorvastatin 40 mg tablet 40 mg PO QHS cholesterol 06/29/19 [History Last Taken Unknown] metoprolol tartrate 25 mg tablet 25 mg PO BID heart/bp 09/04/19 [History Last Taken 05/20/20] furosemide 40 mg tablet 20 mg PO DAILY diuretic 05/20/20 [History Last Taken 05/20/20] nilotinib 150 mg capsule (Tasigna) 300 mg PO Q12H 11/04/20 [History Last Taken Unknown] lisinopril 5 mg tablet 5 mg PO DAILY 01/07/21 [History Last Taken Unknown] magnesium oxide 400 mg PO BID 01/07/21 [History Last Taken Unknown] metformin 1,000 mg tablet 1,000 mg PO BID 01/07/21 [History Last Taken Unknown] oxycodone-acetaminophen 5 mg-325 mg tablet (Percocet) 1 tab PO Q6H PRN pain 3 days #10 tabs 11/16/21 [Rx Last Taken Unknown] Allergy/AdvReac Type Severity Reaction Status Date / Time lisinopril Allergy Angioedema Verified 11/16/21 18:48 Family History Brother CAD (coronary artery disease) Brother CAD (coronary artery disease) Mother Cancer Father Cancer Sister Cancer Surgical History History of colonoscopy with polypectomy (05/15/03) History of right inguinal hernia repair (03/23/16) Incarcerated right inguinal hernia 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) Social History Smoking Status: Current some day smoker tobacco type: cigarettes ROS ROS ED Constitutional Constitutional ED: Denies chills, fever(s), subjective or sweats ENT ENT ED: Denies sore throat Cardiovascular Cardiovascular: Denies chest pain or palpitations Respiratory/Chest Respiratory/Chest: Denies cough or dyspnea Gastrointestinal Gastrointestinal: Denies nausea or vomiting Musculoskeletal Musculoskeletal: Reports other Details: See history of present illness ; Denies back pain or neck pain Neurologic Neurologic: Denies paresthesias or weakness Hematologic/Lymphatic Hematologic/Lymphatic: Denies easy bleeding or easy bruising Allergic/Immunologic Allergic/Immunologic ED: Denies urticaria EXAM Physical Exam Const Vital Signs: 11/16/21 18:48 Temperature 98.3 F Temperature Source Temporal Pulse Rate 79 Respiratory Rate 18 Blood Pressure 127/76 H Blood Pressure Mean 93 Pulse Ox 99 Oxygen Delivery Method Room Air Positive well nourished and well developed General Appearance ED: well developed and NAD HEENT Reports moist mucous membranes Neck full ROM Chest Wall inspection of chest normal Resp normal respiratory effort and clear to auscultation bilaterally Cardio regular rate and regular rhythm Back/Spine no CVA tenderness Cervical Spine: Negative for cervical spine tenderness Extremity Extremity Narrative: Patient holds his left wrist. He may have a little bit of fullness. I am able to passively move this without significant pain. It is not at all red. Its not at all warm. He has diffuse mild tenderness. But no proximal tenderness or distal tenderness. I see no indication at all of infected joint. Neuro oriented x3, moves all extremities, no focal motor deficits and no sensory deficits noted Sensorium / Orientation: alert Sensory Exam: No sensory level loss detected Psych mental status grossly normal MDM MDM MDM Narrative Medical decision making narrative: Three-view x-ray left wrist shows a lot of arthritic changes but no sign of fracture. Patient states he had problems like this with his right wrist in a splint help. I will write for a splint. We will write him for some meds for pain for short- term. It sounds like he has an appointment on the now. If he develops fevers redness worsening pain numbness or other concerns he should return. Discharge Plan Triage Chief Complaint: Upper Extremity Injury ED Provider: Zeferino Nair Dx/Rx/DC Orders Clinical Impression: Left wrist pain Instructions: ED Arthralgia Prescriptions: New oxycodone-acetaminophen [Percocet] 5-325 mg tablet 1 tab PO Q6H PRN (Reason: pain) 3 Days Qty: 10 0RF No Action [id number] 1 EACH capsule,delayed release(DR/EC) 2 ea PO TIDCM atorvastatin 40 MG tablet 40 mg PO QHS metoprolol tartrate 25 MG tablet 25 mg PO BID furosemide 40 MG tablet 20 mg PO DAILY Tasigna 150 mg Capsule 300 mg PO Q12H metformin 1,000 mg Tablet 1,000 mg PO BID lisinopril 5 mg Tablet 5 mg PO DAILY magnesium oxide 400 mg magnesium Tablet 400 mg PO BID Primary Care Provider: Hector Fong Referrals: Hector Fong MD [Primary Care Provider] - As soon as possible Disposition Disposition: Home, Self Care
== END 2021-11-16 20:09 | disposition home or self-care (01) ==
PROVIDERS: Emergency Provider Emergency Medicine; PCP Family Medicine; Visit Provider Emergency Medicine
DX: M25.532 Pain in left wrist (principal); I25.10 Atherosclerotic heart disease of native coronary artery without angina pectoris; I25.2 Old myocardial infarction; F17.210 Nicotine dependence, cigarettes, uncomplicated; Z86.711 Personal history of pulmonary embolism
CPT/HCPCS: 73110; 99283

== ENCOUNTER 2022-03-23 19:39 | Emergency (ER) | payer MEDICARE, MEDICAID, SELFPAY ==
[2022-03-23 19:40] VITALS: BP 134/72; PULSE 75; RESP 14; TEMP 37.1; O2SAT 100; BMI 21.9
--- NOTE | 2022-03-23 20:26 | EKG12_ITS ---
Test Reason : CP Blood Pressure : / mmHG Vent. Rate : 078 BPM Atrial Rate : 416 BPM P-R Int : 000 ms QRS Dur : 088 ms QT Int : 428 ms P-R-T Axes : 000 -07 044 degrees QTc Int : 487 ms Sinus rhythm Low voltage QRS (Limb Leads) Prolonged QT Septal SC, age undetermined Abnormal ECG Confirmed by EMILIANO PALMER, DMITRI ([id number]), photo editor MIKE ALATORRE ([id number]) on 03/24/2022 11:43:26 AM Referred By: RICH Confirmed By:DMITRI CUMMINGS MD
--- NOTE | 2022-03-23 20:28 | ED.VIS.CHEST ---
HPI History of Present Illness Chief Complaint: Chest Pain Narrative Narrative: Patient presents with left-sided chest pain and some exertional dyspnea for the past 3 to 4 hours. No fever chills he has no cough. He does have a history of CML, NE atherosclerotic disease status post CABG x5 in 2018, he continues to smoke. There is also history of pancreatic cancer. PFSH PFSH Medical History Atherosclerotic heart disease of [place] coronary artery without angina pectoris H/O splenomegaly History of [place] (myocardial infarction) History of tobacco abuse Hyperlipidemia Ischemic cardiomyopathy Leukemia Pancreatic cancer Pulmonary embolism Smoker Home Medications [id number] 36,000-114,000-180,000 unit capsule,delay rel 2 ea PO TIDCM STOMACH DIGESTION 06/04/19 [History Last Taken Unknown] atorvastatin 40 mg tablet 40 mg PO QHS cholesterol 06/29/19 [History Last Taken Unknown] metoprolol tartrate 25 mg tablet 25 mg PO BID heart/bp 09/04/19 [History Last Taken 05/20/20] furosemide 40 mg tablet 20 mg PO DAILY diuretic 05/20/20 [History Last Taken 05/20/20] nilotinib 150 mg capsule (Tasigna) 300 mg PO Q12H 11/04/20 [History Last Taken Unknown] lisinopril 5 mg tablet 5 mg PO DAILY 01/07/21 [History Last Taken Unknown] magnesium oxide 400 mg PO BID 01/07/21 [History Last Taken Unknown] metformin 1,000 mg tablet 1,000 mg PO BID 01/07/21 [History Last Taken Unknown] oxycodone-acetaminophen 5 mg-325 mg tablet (Percocet) 1 tab PO Q6H PRN pain 3 days #10 tabs 11/16/21 [Rx Last Taken Unknown] Allergy/AdvReac Type Severity Reaction Status Date / Time lisinopril Allergy Angioedema Verified 03/23/22 19:40 Family History Brother CAD (coronary artery disease) Brother CAD (coronary artery disease) Mother Cancer Father Cancer Sister Cancer Surgical History History of colonoscopy with polypectomy (05/15/03) History of right inguinal hernia repair (03/23/16) Incarcerated right inguinal hernia 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) Social History Smoking Status: Current some day smoker tobacco type: cigarettes ROS ROS ED ROS Narrative Past medical history: Reviewed as above Medications: Reviewed in [employer] Social history: Continues to smoke Review of systems: All systems negative except as indicated General: No fever Eyes: No visual changes ENT: No upper airway congestion, normal voice Neck: No neck pain Cardiovascular: Chest pain as in HPI Respiratory: Some exertional dyspnea no obvious cough other than occasional cough from smoking Gastrointestinal: No abdominal pain, nausea vomiting or diarrhea Genitourinary: No dysuria Musculoskeletal: Denies myalgias no difficulty with ambulation Skin: No rash Neurological: No memory loss, confusion or any focal weakness Psych: No recent behavioral changes Hematologic: No easy bleeding or easy bruising EXAM Physical Exam Narrative Exam Narrative: Physical exam General: Patient appears chronically ill Head: Normocephalic, Atraumatic Eyes: Conjunctiva not pale ENT: Moist mucous membranes Neck: Supple, Nontender, No lymphadenopathy Cardiovascular: Regular rate, Regular rhythm. He does have reproducible left-sided chest wall pain exactly where his pain is that he is complaining about. Respiratory: Coarse bilateral breath sounds no wheezing. He is speaking in full sentences. Abdomen: Soft, Nontender, Nondistended Back: Nontender, Normal Inspection. Negative for: CVA tenderness Extremities: Nontender, No edema Skin: Normal color, No rash Neurological: Alert, Normal Strength, Normal Sensation Psychological: Normal affect Const Vital Signs: 03/23/22 19:40 03/23/22 21:15 Temperature 98.7 F Temperature Source Temporal Pulse Rate 75 76 Respiratory Rate 14 20 H Blood Pressure 134/72 H Blood Pressure Mean 92 Pulse Ox 100 Oxygen Delivery Method Room Air MDM MDM MDM Narrative Medical decision making narrative: Patient has a normal work-up for PE no evidence of pulmonary embolism or NE. He has reproducible chest wall pain. I believe he stable for discharge with reassurance. Lab Data Labs: Laboratory Results - last 24 hr 03/23/22 03/23/22 03/23/22 20:10 20:10 20:10 WBC 5.3 RBC 3.89 L Hgb 10.5 L Hct 33.9 L MCV 87.1 MCH 27.0 MCHC 31.0 L RDW Std Deviation 51.4 H RDW Coeff of Jluis 16.2 H Plt Count 85 L MPV 10.7 Immature Gran % (Auto) 0.400 Neut % (Auto) 69.9 Lymph % (Auto) 12.5 L [place] % (Auto) 14.7 H Eos % (Auto) 2.3 Baso % (Auto) 0.2 Absolute Neuts (auto) 3.7 Absolute Lymphs (auto) 0.66 L Nucleated RBC % 0.8 Differential Comment SCANNED Sodium 139 Potassium 3.9 Chloride 106 Carbon Dioxide 27.0 Anion Gap 6 BUN 19 H Creatinine 0.64 L Estim Creat Clear Calc 70.36 Est GFR (MDRD) Af Amer 160 Est GFR (MDRD) Non-Af 132 BUN/Creatinine Ratio 29.7 H Glucose 100 Calcium 8.5 Total Bilirubin 0.60 AST 54 H ALT 81 H Alkaline Phosphatase 477 H Troponin I High Sens 8 B-Natriuretic Peptide 45.0 Total Protein 7.1 Albumin 3.1 L Globulin 4.0 Albumin/Globulin Ratio 0.8 L Radiography Diagnostic Testing: Clinical Impression(s) from Imaging Studies Chest CTA 03/23/22 21:36 IMPRESSION: 1. Limited opacification of the pulmonary arteries without obvious pulmonary embolus. 2. No aortic dissection or aneurysm. 3. No acute pulmonary disease. 4. Evidence of median sternotomy. 5. Hepatosplenomegaly. Electronically Signed: Alireza Gómez DO at 22:11 EST Reading Location ID and State: [address] [place] [address] Tel [phone], Service support , EKG Initial EKG: Comments: Sinus rhythm with a rate of 78. Normal MT nonspecific changes throughout otherwise unremarkable EKG. Interval. QTC is 487. Discharge Plan Triage Chief Complaint: Chest Pain ED Provider: Guille Wolfe Dx/Rx/DC Orders Clinical Impression: Chest pain, Acute chest wall pain Instructions: ED Chest Pain, Uncertain Cause Prescriptions: No Action [id number] 1 EACH capsule,delayed release(DR/EC) 2 ea PO TIDCM atorvastatin 40 MG tablet 40 mg PO QHS metoprolol tartrate 25 MG tablet 25 mg PO BID furosemide 40 MG tablet 20 mg PO DAILY Tasigna 150 mg Capsule 300 mg PO Q12H metformin 1,000 mg Tablet 1,000 mg PO BID lisinopril 5 mg Tablet 5 mg PO DAILY magnesium oxide 400 mg magnesium Tablet 400 mg PO BID oxycodone-acetaminophen [Percocet] 5-325 mg tablet 1 tab PO Q6H PRN (Reason: pain) 3 Days Qty: 10 0RF Primary Care Provider: Hector Fong Referrals: Hector Fong MD [Primary Care Provider] - 3-5 Days Disposition Disposition: Home, Self Care
[2022-03-23 21:09] LABS: Absolute Lymphocyte Count 0.66 X10^3/uL (0.83-4.51); Absolute Neutrophil Count 3.7 X10^3/uL (2.0-7.7); Basophil# 0.01 X10^3/uL; Basophil% 0.2 % (0-1); Eosinophil# 0.12 X10^3/uL; Eosinophils% 2.3 % (0-5); Hematocrit 33.9 % (40-54); Hemoglobin 10.5 g/dL (13.0-16.5); Lymphocyte # 0.66 X10^3/ul (0.83-4.51); Lymphocyte % 12.5 % (19-41); Mean Corpuscular Volume 87.1 fL (80-94); Mean Platelet Vol. 10.7 fl (6.2-12.0); Monocyte# 0.78 X10^3/uL; Monocyte% 14.7 % (0-10); NRBC Flagged by Analyzer 0.8 % (0-5); Neutrophil % 69.9 % (47-70); POSITIVE COUNT YES; Platelet Count 85 K/mm3 (150-450); RBC Distribution Width CV 16.2 % (11.6-14.6); RBC Distribution Width SD 51.4 fl (35.1-43.9); Red Blood Count 3.89 M/mm3 (4.6-6.2); White Blood Count 5.3 K/mm3 (4.4-11.0)
[2022-03-23 21:12] LABS: Differential Indicated SCAN CRITERIA MET
[2022-03-23 21:15] VITALS: PULSE 76; RESP 20
[2022-03-23 21:29] LABS: ALB/GLOB Ratio 0.8 RATIO (0.9-2.4); AST(SGOT) 54 U/L (15-37); Alanine Aminotransfer ALT/SGPT 81 U/L (16-61); Albumin, Serum 3.1 g/dL (3.2-5.0); Alkaline Phosphatase 477 U/L (45-117); Anion Gap 6 (5-15); BUN 19 mg/dL (7-18); BUN/Creat Ratio 29.7 RATIO (10-20); Calcium,Total 8.5 mg/dL (8.5-10.1); Chloride 106 mmol/L (98-107); Creatinine, Serum 0.64 mg/dL (0.70-1.30); EST Glomerular Filtration Rate 132 mL/min (>60); Est Glom Filt Rate - Afr Amer 160 mL/min (>60); Estimated Creatinine Clearance 70.36 ml/min; Glucose 100 mg/dL (74-106); Potassium 3.9 mmol/L (3.5-5.1); Protein, Total 7.1 g/dL (6.4-8.2); Sodium Level 139 mmol/L (136-145); Troponin-I HS 8 pg/mL (3.0-78.0)
[2022-03-23 21:30] LABS: Differential Comment SCANNED
--- NOTE | 2022-03-23 21:36 | CT_ITS ---
STUDY: CTA CHEST REASON FOR EXAM: Male, 66 years old. pe RADIATION DOSAGE (If Supplied By Facility): CTDIvol = ( 12.53 ) mGy, DLP = ( 308.26 ) mGycm TECHNIQUE: The examination was performed with the intravenous administration of IV 100mL Isovue-370. Post-processing of the angiographic images was performed, with multiplanar reformation and 3D reconstruction. Individualized dose optimization techniques were used for this CT. COMPARISON: Chest, January 07, 2021. CT of the chest, May 29, 2020. FINDINGS: The pulmonary arteries are suboptimally opacified. Is no large central pulmonary emboli. No definite peripheral emboli are seen. There is no demonstrated pulmonary embolism. Mild atherosclerotic tortuosity of the thoracic aorta without aneurysm. There is no demonstrated aortic dissection. Normal heart and pericardium. Sternal cerclage wires and vascular clips are present from a prior sternotomy and coronary artery bypass graft procedure (CABG). Normal mediastinum. Normal hilar regions. There is questionable thickening on the distal esophagus wall with small associated hiatal hernia. Normal visualized trachea and bronchi. The lungs are well expanded. Normal pulmonary parenchyma. Normal pleura. Evidence of median sternotomy. The chest wall is otherwise grossly normal There are degenerative changes of thoracic spine. Hepatosplenomegaly. Calcified granulomata are seen within the spleen and liver. CT/CTA Chest W/WO Contrast IMPRESSION: 1. Limited opacification of the pulmonary arteries without obvious pulmonary embolus. 2. No aortic dissection or aneurysm. 3. No acute pulmonary disease. 4. Evidence of median sternotomy. 5. Hepatosplenomegaly. Electronically Signed: Alireza Gómez DO at 22:11 EST ,
[2022-03-23 22:27] VITALS: BP 110/78; PULSE 71; RESP 15; O2SAT 98
== END 2022-03-23 22:29 | disposition home or self-care (01) ==
PROVIDERS: Emergency Provider Emergency Medicine; PCP Family Medicine; Visit Provider Emergency Medicine
DX: R07.89 Other chest pain (principal); I25.10 Atherosclerotic heart disease of native coronary artery without angina pectoris; I25.2 Old myocardial infarction; R06.00 Dyspnea, unspecified; F17.210 Nicotine dependence, cigarettes, uncomplicated; Z95.5 Presence of coronary angioplasty implant and graft
CPT/HCPCS: 71275; 80053; 83880; 84484; 85025; 87428; 93005; 99284; Q9967

== ENCOUNTER 2022-07-05 12:25 | Emergency (ER) | payer MEDICARE, MEDICAID, SELFPAY ==
[2022-07-05 12:26] VITALS: BP 138/78; PULSE 112; RESP 18; TEMP 36.5; O2SAT 96; BMI 21.5
[2022-07-05 12:41] VITALS: BP 124/74; PULSE 111; RESP 27; O2SAT 92
--- NOTE | 2022-07-05 12:52 | EKG12_ITS ---
Test Reason : GEN ILLNESS Blood Pressure : / mmHG Vent. Rate : 102 BPM Atrial Rate : 102 BPM P-R Int : 154 ms QRS Dur : 088 ms QT Int : 352 ms P-R-T Axes : 005 -11 019 degrees QTc Int : 458 ms Sinus tachycardia Otherwise normal ECG Confirmed by JORGE A PALMER, KASSANDRA ([id number]), order editor MIKE ALATORRE ([id number]) on 07/07/2022 9:36:57 AM Referred By: Confirmed By:KASSANDRA JULES MD
--- NOTE | 2022-07-05 12:53 | EX.ED.DYSGE1 ---
HPI History of Present Illness Chief Complaint: General Illness Informant: patient Onset/Context/Timing Onset: Weeks (1) Context: Gradual Onset Timing: Continuous Current Severity: Severe Maximum Severity: Severe Narrative Narrative: Patient states he is feeling very weak. He has had no appetite in the past week, so he has not really been eating but he states he has been drinking water. He is still urinating well, especially after he takes his Lasix. States he is on Lasix for the last couple years, once daily, due to a pleural effusion, he states that he had a thoracentesis, but that was long ago and has not had to have one since. Denies any worsening dyspnea, he chronically has dyspnea with exertion but it does not sound moderate or severe. He denies any cough or fevers lately. No nausea or vomiting or abdominal pain. He had pancreatic cancer and remotely had a Whipple procedure for that, but also has been diagnosed with carcinoid tumor as well as CML. He states he gets an injection once monthly for his cancer but does not think it is chemotherapy. States because of the cancer remotely, he did have a feeding tube but he removed it and does not want another one, but again this was not recent. He states this morning, he was so weak that he slid out of his bed to the floor but did not injure himself, this is what prompted him to come to the ED today on Wednesday. PFSH PFSH Medical History Atherosclerotic heart disease of [place] coronary artery without angina pectoris H/O splenomegaly History of [place] (myocardial infarction) History of tobacco abuse Hyperlipidemia Ischemic cardiomyopathy Leukemia Pancreatic cancer Pulmonary embolism Smoker Home Medications [id number]-ajdtctyt-[id number] 36,000-114,000-180,000 unit capsule,delay rel 2 ea PO TIDCM STOMACH DIGESTION 06/04/19 [History Last Taken Unknown] atorvastatin 40 mg tablet 40 mg PO QHS cholesterol 06/29/19 [History Last Taken Unknown] metoprolol tartrate 25 mg tablet 25 mg PO BID heart/bp 09/04/19 [History Last Taken 05/20/20] furosemide 40 mg tablet 20 mg PO DAILY diuretic 05/20/20 [History Last Taken 05/20/20] nilotinib 150 mg capsule (Tasigna) 300 mg PO Q12H 11/04/20 [History Last Taken Unknown] lisinopril 5 mg tablet 5 mg PO DAILY 01/07/21 [History Last Taken Unknown] magnesium oxide 400 mg PO BID 01/07/21 [History Last Taken Unknown] metformin 1,000 mg tablet 1,000 mg PO BID 01/07/21 [History Last Taken Unknown] oxycodone-acetaminophen 5 mg-325 mg tablet (Percocet) 1 tab PO Q6H PRN pain 3 days #10 tabs 11/16/21 [Rx Last Taken Unknown] Allergy/AdvReac Type Severity Reaction Status Date / Time lisinopril Allergy Angioedema Verified 07/05/22 12:33 Family History Brother CAD (coronary artery disease) Brother CAD (coronary artery disease) Mother Cancer Father Cancer Sister Cancer Surgical History History of colonoscopy with polypectomy (05/15/03) History of right inguinal hernia repair (03/23/16) Incarcerated right inguinal hernia 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) Social History Smoking Status: Current some day smoker tobacco type: cigarettes ROS ROS ED Constitutional Constitutional ED: Reports as per HPI, anorexia, fatigue and weakness; Denies chills or fever(s) Eyes Eyes: Denies change in vision or diplopia ENT ENT ED: Denies rhinorrhea or sore throat Cardiovascular Cardiovascular: Reports fatigue; Denies chest pain, flutter in chest, leg edema, lightheadedness, palpitations or syncope Respiratory/Chest Respiratory/Chest: Reports other Details: chronic dyspnea on exertion, no different/worse than usual ; Denies cough or dyspnea Gastrointestinal Gastrointestinal: Reports diarrhea; Denies abdominal pain, nausea or vomiting Genitourinary Genitourinary ED: Denies dysuria or hematuria Musculoskeletal Musculoskeletal: Denies back pain or neck pain Integumentary Denies abscess or rash Neurologic Neurologic: Denies headache(s), paresthesias or weakness Psychiatric Psychiatric: Denies anxiety or suicidal thoughts EXAM Physical Exam Const Vital Signs: 07/05/22 12:26 07/05/22 12:33 07/05/22 12:36 Temperature 97.7 F L Temperature Source Temporal Pulse Rate 112 H Respiratory Rate 18 Respiratory Effort Normal Labored Normal Non-Labored Respiratory Depth Normal Respiratory Pattern Normal Normal Blood Pressure 138/78 H Blood Pressure Mean 98 Pulse Ox 96 Oxygen Delivery Method Room Air Room Air 07/05/22 12:41 07/05/22 14:28 Temperature Temperature Source Pulse Rate 111 H 97 Respiratory Rate 27 H 25 H Respiratory Effort Respiratory Depth Respiratory Pattern Blood Pressure 124/74 H 125/74 H Blood Pressure Mean 90 91 Pulse Ox 92 94 Oxygen Delivery Method Room Air Room Air Positive well nourished and well developed Constitutional Narrative: thin. conversive, oriented, NAD. General Appearance ED: well developed and NAD HEENT Reports moist mucous membranes normocephalic and atraumatic Eyes PERRL and EOMs intact bilaterally Neck full ROM and supple Resp normal respiratory effort and clear to auscultation bilaterally Cardio regular rate, regular rhythm and no murmurs GI non-tender GI Narrative: mild abd distension, nml/stable per pt Auscultation: normoactive bowel sounds Palpation: soft Back/Spine no CVA tenderness General Back: other FROM Extremity normal to inspection General Extremety ED: Negative for edema, pulses abnormal or tenderness General Extremity: Negative for edema or pulses abnormal Neuro oriented x3, CN's II-XII intact bilaterally and no sensory deficits noted Sensorium / Orientation: awake and alert Motor Exam: strength 5/5 throughout Skin no rashes or lesions noted and no wounds MDM MDM MDM Narrative Medical decision making narrative: Work-up includes labs, two-view chest x-ray given his chronic symptoms and acute weakness, which is normal on my interpretation showing chronic changes but nothing acute, radiology in agreement, and an EKG which shows mild tachycardia no acute abnormality. Urinalysis also negative for any infection. He was treated with IV fluids and with that his tachycardia resolved. His work-up shows a mild nonspecific leukocytosis, and he is testing positive for COVID. He has been vaccinated, however the recent variants are not protected necessarily with the vaccines that have been available. Patient is doing well with normal vital signs at this time, he is not hypoxic, and he is doing well enough to be discharged home, he is in agreement with that. It is noted that his alkaline phosphatase is elevated this is chronically the case, and his total bilirubin is higher than the last 1, just mildly elevated at 1.2, he has been abnormal at 1.1 in the past. I do not think he needs any acute imaging since he has no GI symptoms, but he does need outpatient follow-up which I discussed with him. Lab Data Attestation: I reviewed the patient's lab results. Labs: Laboratory Results - last 24 hr 07/05/22 07/05/22 07/05/22 12:52 13:05 13:05 WBC 12.8 H RBC 4.29 L Hgb 11.4 L Hct 34.2 L MCV 79.7 L MCH 26.6 L MCHC 33.3 RDW Std Deviation 44.9 H RDW Coeff of Jluis 15.6 H Plt Count 148 L MPV 9.4 Immature Gran % (Auto) 0.400 Neut % (Auto) 83.7 H Lymph % (Auto) 3.4 L [place] % (Auto) 12.4 H Eos % (Auto) 0.0 Baso % (Auto) 0.1 Absolute Neuts (auto) 10.7 H Absolute Lymphs (auto) 0.43 L Nucleated RBC % 0 [address] Review May foll Sodium 129 L Potassium 3.6 Chloride 93 L Carbon Dioxide 24.0 Anion Gap 12 BUN 17 Creatinine 0.70 Estim Creat Clear Calc 68.04 Est GFR (MDRD) Af Amer 144 Est GFR (MDRD) Non-Af 119 BUN/Creatinine Ratio 24.2 H Glucose 171 H Calcium 8.4 L Total Bilirubin 1.20 H AST 45 H ALT 33 Alkaline Phosphatase 545 H Troponin I High Sens 7 Total Protein 7.2 Albumin 2.6 L Globulin 4.6 H Albumin/Globulin Ratio 0.6 L Urine Color Urine Clarity Urine pH Ur Specific [place] Urine Protein Urine Glucose (UA) Urine Ketones Urine Occult Blood Urine Nitrite Urine Bilirubin Urine Urobilinogen Ur Leukocyte Esterase Urine RBC Urine WBC Ur Squamous Epith Cells Urine Bacteria Urine Mucus POC Glucose 157 H 07/05/22 13:47 WBC RBC Hgb Hct MCV MCH MCHC RDW Std Deviation RDW Coeff of Jluis Plt Count MPV Immature Gran % (Auto) Neut % (Auto) Lymph % (Auto) [place] % (Auto) Eos % (Auto) Baso % (Auto) Absolute Neuts (auto) Absolute Lymphs (auto) Nucleated RBC % Diff Path Review Sodium Potassium Chloride Carbon Dioxide Anion Gap BUN Creatinine Estim Creat Clear Calc Est GFR (MDRD) Af Amer Est GFR (MDRD) Non-Af BUN/Creatinine Ratio Glucose Calcium Total Bilirubin AST ALT Alkaline Phosphatase Troponin I High Sens Total Protein Albumin Globulin Albumin/Globulin Ratio Urine Color Yellow Urine Clarity Clear Urine pH 5.0 Ur Specific [place] 1.015 Urine Protein 100 H Urine Glucose (UA) Normal Urine Ketones 15 H Urine Occult Blood 10 H Urine Nitrite Negative Urine Bilirubin 1 H Urine Urobilinogen 8 H Ur Leukocyte Esterase 25 H Urine RBC 0 SEEN Urine WBC 0-5 SEEN Ur Squamous Epith Cells 0 SEEN Urine Bacteria 0 SEEN Urine Mucus 0 SEEN POC Glucose Radiography Diagnostic Testing: Clinical Impression(s) from Imaging Studies Chest X-Ray 07/05/22 13:21 IMPRESSION: Lingular atelectasis or early infiltrate, no demonstrated effusion Electronically Signed: Herbert Garcia MD at 13:34 EST Reading Location ID and State: [facility] / [place] , Service support , Rhythm Strip Rhythm Strip: Sinus Tach Rate: 103 Ectopy: None EKG Initial EKG: Attestation: I personally reviewed and interpreted this EKG as follows: Interpretation: No Acute Injury Pattern and Sinus Tachycardia Discharge Plan Triage Chief Complaint: General Illness ED Provider: Braxton Sung Dx/Rx/DC Orders Clinical Impression: COVID-19, Mild dehydration Instructions: Coronavirus Disease 2019 (COVID-19): Caring for Yourself or Others Prescriptions: No Action [id number]-fstlwqfj-[id number] 1 EACH capsule,delayed release(DR/EC) 2 ea PO TIDCM atorvastatin 40 MG tablet 40 mg PO QHS metoprolol tartrate 25 MG tablet 25 mg PO BID furosemide 40 MG tablet 20 mg PO DAILY Tasigna 150 mg Capsule 300 mg PO Q12H metformin 1,000 mg Tablet 1,000 mg PO BID lisinopril 5 mg Tablet 5 mg PO DAILY magnesium oxide 400 mg magnesium Tablet 400 mg PO BID oxycodone-acetaminophen [Percocet] 5-325 mg tablet 1 tab PO Q6H PRN (Reason: pain) 3 Days Qty: 10 0RF Primary Care Provider: Hector Fong Referrals: Hector Fong MD [Primary Care Provider] - 3-5 Days if not improving Disposition Disposition: Home, Self Care
[2022-07-05] MEDS: 0.9% Normal Saline 1,000 ML 1000 ML IV (13:09)
[2022-07-05 13:11] LABS: Bedside Glucose 157 mg/dL (74-106)
[2022-07-05 13:12] LABS: Absolute Lymphocyte Count 0.43 X10^3/uL (0.83-4.51); Absolute Neutrophil Count 10.7 X10^3/uL (2.0-7.7); Basophil# 0.01 X10^3/uL; Basophil% 0.1 % (0-1); Differential Indicated SCAN CRITERIA MET; Hematocrit 34.2 % (40-54); Hemoglobin 11.4 g/dL (13.0-16.5); Lymphocyte # 0.43 X10^3/ul (0.83-4.51); Lymphocyte % 3.4 % (19-41); Mean Corp Hgb Conc 33.3 g/dL (32-36); Mean Corpuscular Hgb 26.6 pg (27.0-32.0); Mean Corpuscular Volume 79.7 fL (80-94); Mean Platelet Vol. 9.4 fl (6.2-12.0); Monocyte# 1.58 X10^3/uL; Monocyte% 12.4 % (0-10); NRBC Flagged by Analyzer 0 % (0-5); Neutrophil # 10.71 X10^3/uL (2.7-7.7); Neutrophil % 83.7 % (47-70); POSITIVE DIFFERENTIAL YES; Platelet Count 148 K/mm3 (150-450); RBC Distribution Width CV 15.6 % (11.6-14.6); RBC Distribution Width SD 44.9 fl (35.1-43.9); Red Blood Count 4.29 M/mm3 (4.6-6.2); White Blood Count 12.8 K/mm3 (4.4-11.0)
--- NOTE | 2022-07-05 13:21 | RAD_ITS ---
STUDY: X-RAY CHEST REASON FOR EXAM: Male, 67 years old. Cough, weakness TECHNIQUE: PA and lateral views of the chest. COMPARISON: 01/07/2021 FINDINGS: EKG leads overlie the chest The lungs are clear and expanded. There is lingular opacification, likely atelectasis or early infiltrate. Sternal cerclage wires and vascular clips are present from a prior sternotomy and coronary artery bypass graft procedure (CABG). Normal mediastinum and fredo. Normal visualized pulmonary arteries. Normal visualized aortic arch and descending thoracic aorta. Normal visualized thoracic spine. Normal visualized ribs, clavicles, and shoulders. There is no demonstrated abnormality of the visualized soft tissue structures of the upper abdomen. RAD/Chest PA and Lateral IMPRESSION: Lingular atelectasis or early infiltrate, no demonstrated effusion Electronically Signed: Herbert Garcia MD at 13:34 EST ,
[2022-07-05 13:29] LABS: ALB/GLOB Ratio 0.6 RATIO (0.9-2.4); AST(SGOT) 45 U/L (15-37); Alanine Aminotransfer ALT/SGPT 33 U/L (16-61); Albumin, Serum 2.6 g/dL (3.2-5.0); Alkaline Phosphatase 545 U/L (45-117); Anion Gap 12 (5-15); BUN 17 mg/dL (7-18); BUN/Creat Ratio 24.2 RATIO (10-20); Calcium,Total 8.4 mg/dL (8.5-10.1); Chloride 93 mmol/L (98-107); EST Glomerular Filtration Rate 119 mL/min (>60); Est Glom Filt Rate - Afr Amer 144 mL/min (>60); Estimated Creatinine Clearance 68.04 ml/min; Globulin 4.6 g/dL (2.2-4.2); Glucose 171 mg/dL (74-106); Potassium 3.6 mmol/L (3.5-5.1); Protein, Total 7.2 g/dL (6.4-8.2); Sodium Level 129 mmol/L (136-145); Troponin-I HS 7 pg/mL (3.0-78.0)
[2022-07-05 13:53] LABS: Bacteria 0 SEEN /hpf (None Seen); Color, Urine Yellow (Yellow); Glucose, Dipstick Normal (Normal); Ketone-Dipstick 15 mg/dl (Negative); Leukocyte Esterase-Dipstick 25 /ul (Negative); Mucous, Urine 0 SEEN /hpf (<or=2+); Nitrite-Dipstick Negative (Negative); Occult Blood-Urine 10 /ul (Negative); Protein-Dipstick 100 mg/dl (Negative); Red Blood Cells-Urine 0 SEEN /hpf (0-5); Specific Gravity, Urine 1.015 (1.002-1.030); Squamous Epithelial Cells - UA 0 SEEN /hpf (0-5); Urine Bilirubin Dipstick 1 mg/dL (Negative); Urine Clarity Clear (Clear); Urine Urobilinogen 8 mg/dl (Normal)
[2022-07-05 13:58] LABS: White Blood Cells 0-5 SEEN /hpf (0-5)
[2022-07-05 14:28] VITALS: BP 125/74; PULSE 97; RESP 25; O2SAT 94
[2022-07-05 15:00] VITALS: BP 127/73; PULSE 97; RESP 25; O2SAT 94
[2022-07-06 14:26] LABS: Pathologist Review Reviewed
== END 2022-07-05 15:09 | disposition home or self-care (01) ==
PROVIDERS: Emergency Provider Emergency Medicine; PCP Family Medicine; Visit Provider Emergency Medicine
DX: U07.1 COVID-19 (principal); E86.0 Dehydration; I25.10 Atherosclerotic heart disease of native coronary artery without angina pectoris; I25.2 Old myocardial infarction; F17.210 Nicotine dependence, cigarettes, uncomplicated; Z86.711 Personal history of pulmonary embolism; Z95.1 Presence of aortocoronary bypass graft
CPT/HCPCS: 71046; 80053; 81001; 82962; 84484; 85025; 87428; 93005; 96360; 96361; 99284; J7030; A4216

== ENCOUNTER 2022-07-08 15:46 | Emergency (ER) | payer MEDICARE, MEDICAID, SELFPAY ==
[2022-07-08 15:47] VITALS: BP 113/66; PULSE 95; RESP 18; TEMP 37.5; O2SAT 95
[2022-07-08 15:51] VITALS: BMI 22.5
--- NOTE | 2022-07-08 16:26 | EX.ED.DYSGE1 ---
HPI History of Present Illness Chief Complaint: Fall Informant: patient Narrative Narrative: Patient present here by private vehicle for fall with leg weakness bilaterally. Seen 3 days ago diagnosed with COVID for the first time. He is symptomatic for 2 weeks of decreased and loss of appetite. No other symptoms. He is vaccinated with the booster. History of remote pancreatic cancer with Whipple's procedure 5 years ago. He is on chemo meds for history of CML. Denies fever or cough. Denies vomiting or diarrhea. She denies any urine symptoms. He states he was seen 3 days ago for his fatigue and loss of appetite with the work-up with the findings. He states he is going to the bathroom around 2 3 in the morning when he fell down he scraped his left lower back he unable to get up until his grandchildren got up 5 hours later. Denies any paresthesias. Does not walk with any assistance. Prior similar symptoms: No PFSH PFSH Medical History Atherosclerotic heart disease of [place] coronary artery without angina pectoris H/O splenomegaly History of IA (myocardial infarction) History of tobacco abuse Hyperlipidemia Ischemic cardiomyopathy Leukemia Pancreatic cancer Pulmonary embolism Smoker Home Medications [id number] 36,000-114,000-180,000 unit capsule,delay rel 2 ea PO TIDCM STOMACH DIGESTION 06/04/19 [History Last Taken Unknown] atorvastatin 40 mg tablet 40 mg PO QHS cholesterol 06/29/19 [History Last Taken Unknown] metoprolol tartrate 25 mg tablet 25 mg PO BID heart/bp 09/04/19 [History Last Taken 05/20/20] furosemide 40 mg tablet 20 mg PO DAILY diuretic 05/20/20 [History Last Taken 05/20/20] nilotinib 150 mg capsule (Tasigna) 300 mg PO Q12H 11/04/20 [History Last Taken Unknown] lisinopril 5 mg tablet 5 mg PO DAILY 01/07/21 [History Last Taken Unknown] magnesium oxide 400 mg PO BID 01/07/21 [History Last Taken Unknown] metformin 1,000 mg tablet 1,000 mg PO BID 01/07/21 [History Last Taken Unknown] oxycodone-acetaminophen 5 mg-325 mg tablet (Percocet) 1 tab PO Q6H PRN pain 3 days #10 tabs 11/16/21 [Rx Last Taken Unknown] Allergy/AdvReac Type Severity Reaction Status Date / Time lisinopril Allergy Angioedema Verified 07/08/22 15:51 Family History Brother CAD (coronary artery disease) Brother CAD (coronary artery disease) Mother Cancer Father Cancer Sister Cancer Surgical History History of colonoscopy with polypectomy (05/15/03) History of right inguinal hernia repair (03/23/16) Incarcerated right inguinal hernia 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) Social History Smoking Status: Current some day smoker tobacco type: cigarettes ROS ROS ED Constitutional Constitutional ED: Denies chills, fever(s) or sweats Eyes Eyes: Denies change in vision ENT ENT ED: Denies dysphagia or sore throat Cardiovascular Cardiovascular: Denies chest pain, leg edema, palpitations or racing heartbeat Respiratory/Chest Respiratory/Chest: Denies cough, dyspnea or dyspnea on exertion Gastrointestinal Gastrointestinal: Denies abdominal pain, diarrhea, nausea or vomiting Genitourinary Genitourinary ED: Denies dysuria, hematuria or urinary frequency Musculoskeletal Musculoskeletal: Reports back pain; Denies extremity pain or neck pain Integumentary Denies rash or wounds Neurologic Neurologic: Reports weakness; Denies headache(s) or paresthesias EXAM Physical Exam Const Vital Signs: 07/08/22 15:47 07/08/22 17:47 07/08/22 19:01 Temperature 99.5 F H Temperature Source Temporal Pulse Rate 95 Respiratory Rate 18 18 Respiratory Effort Short of Breath Respiratory Depth Normal Respiratory Pattern Normal Blood Pressure 113/66 Blood Pressure Mean 81 Pulse Ox 95 Oxygen Delivery Method Room Air Room Air Positive well nourished and well developed General Appearance ED: well developed and NAD HEENT Reports dry mucous membranes normocephalic and atraumatic Mouth ED: Yes dry mucous membranes Mouth: dry mucous membranes Eyes PERRL, EOMs intact bilaterally and conjunctivae normal General Eye ED: Yes normal appearance of both eyes Neck no lymphadenopathy and supple General: Negative for tenderness Chest Wall Chest: Negative for tenderness Resp normal respiratory effort and normal air movement Effort and Inspection: symmetric chest movement; Negative for respiratory distress Cardio regular rate, regular rhythm and no murmurs Peripheral Pulses: pulses 2+ throughout GI normal to inspection, nondistended, normoactive bowel sounds and non-tender Palpation: Negative for guarding or rebound tenderness present Back/Spine no CVA tenderness Back/Spine Narrative: No midline tenderness there is skin abrasion left lower flank region no ecchymosis or bleeding. Extremity normal to inspection General Extremety ED: Negative for edema or tenderness General Extremity: Negative for edema Neuro oriented x3, CN's II-XII intact bilaterally and no sensory deficits noted Sensorium / Orientation: awake and alert Skin no rashes or lesions noted and no wounds MDM MDM MDM Narrative Medical decision making narrative: Interventions / MDM: Differential diagnosis: COVID-19 infection, electrolyte abnormalities, TREY, lower extremity weakness secondary to COVID. Diagnosis considered but do not suspect: Cauda equina without any symptoms, spinal abscess, no fevers no midline back pain. My EKG interpretation: N/A Imaging independently reviewed and interpreted by myself: N/A External documents reviewed: N/A Test considered but not ordered:N/A ED course: Patient with leg weakness and fall he had dry mucosal membranes. Clinical dehydration given IV fluids. Recheck labs White count at 15.4 hemoglobin 10 and 8 sodium 131 potassium 3.3 creatinine 0.74 however BUN is 20 therefore ratio 121 for dehydration. Urine leukocytes he denies symptom. Review of his x-ray from 3 days ago question early pneumonia however likely COVID induced and viral in nature. From his fall his abrasion lumbar laterally. No bony tenderness or concerns for fracture. Re-evaluation: stable and improved after IV fluids he is tolerating oral fluids. He was replaced on his potassium orally. Discussed continue oral fluids at home. He is ambulating department with no difficulties. He is discharged with outpatient follow-up. Disposition discussed with patient/family/significant other: Patient and daughter Case discussed with consulting clinician: N/A History & Record Review Discussion w/independent historian: Patient Additional record(s) reviewed:: Prior ED visit and Prior labs Lab Data Attestation: I reviewed the patient's lab results. Labs: Laboratory Results - last 24 hr 07/08/22 07/08/22 07/08/22 16:10 16:30 16:30 WBC 15.4 H RBC 4.11 L Hgb 10.8 L Hct 33.0 L MCV 80.3 MCH 26.3 L MCHC 32.7 RDW Std Deviation 44.9 H RDW Coeff of Jluis 15.4 H Plt Count 209 MPV 10.3 Immature Gran % (Auto) 0.600 Neut % (Auto) 81.7 H Lymph % (Auto) 4.8 L Dawes % (Auto) 12.8 H Eos % (Auto) 0.0 Baso % (Auto) 0.1 Absolute Neuts (auto) 12.6 H Absolute Lymphs (auto) 0.74 L Nucleated RBC % 0 Differential Comment SCANNED Diff Path Review September foll Sodium 131 L Potassium 3.3 L Chloride 98 Carbon Dioxide 23.0 Anion Gap 10 BUN 20 H Creatinine 0.74 Est GFR (MDRD) Af Amer 136 Est GFR (MDRD) Non-Af 112 BUN/Creatinine Ratio 27.1 H Glucose 125 H Calcium 8.4 L Magnesium 2.1 Total Bilirubin 1.10 H AST 66 H ALT 44 Alkaline Phosphatase 490 H Total Creatine Kinase 318 H Total Protein 6.9 Albumin 2.3 L Globulin 4.6 H Albumin/Globulin Ratio 0.5 L Urine Color Uma Urine Clarity Clear Urine pH 6.0 Ur Specific Rowena 1.015 Urine Protein 30 H Urine Glucose (UA) Normal Urine Ketones 5 H Urine Occult Blood Negative Urine Nitrite Negative Urine Bilirubin 3 H Urine Urobilinogen 8 H Ur Leukocyte Esterase 25 H Urine RBC 0 SEEN Urine WBC 0-5 SEEN Ur Squamous Epith Cells 0-5 SEEN Urine Bacteria RARE Urine Mucus 2+ Discharge Plan Triage Chief Complaint: Fall ED Provider: Doug Mayfield Dx/Rx/DC Orders Clinical Impression: COVID-19 virus infection, Weakness, Acute hyponatremia, Acute hypokalemia, Fall, Abrasion, Dehydration Instructions: Coronavirus Disease 2019 (COVID-19): Caring for Yourself or Others, ED Dehydration (Adult), ED Hyponatremia, ED Hypokalemia Prescriptions: No Action [id number] 1 EACH capsule,delayed release(DR/EC) 2 ea PO TIDCM atorvastatin 40 MG tablet 40 mg PO QHS metoprolol tartrate 25 MG tablet 25 mg PO BID furosemide 40 MG tablet 20 mg PO DAILY Tasigna 150 mg Capsule 300 mg PO Q12H metformin 1,000 mg Tablet 1,000 mg PO BID lisinopril 5 mg Tablet 5 mg PO DAILY magnesium oxide 400 mg magnesium Tablet 400 mg PO BID oxycodone-acetaminophen [Percocet] 5-325 mg tablet 1 tab PO Q6H PRN (Reason: pain) 3 Days Qty: 10 0RF Primary Care Provider: Hector Fong Referrals: Hector Fong MD [Primary Care Provider] - 1 Week Disposition Disposition: Home, Self Care Discharge Date/Time: 07/08/22 20:19
[2022-07-08] MEDS: 0.9% Normal Saline 1,000 ML 999 ML IV (16:39)
[2022-07-08 16:40] LABS: Absolute Lymphocyte Count 0.74 X10^3/uL (0.83-4.51); Absolute Neutrophil Count 12.6 X10^3/uL (2.0-7.7); Basophil# 0.02 X10^3/uL; Basophil% 0.1 % (0-1); Hemoglobin 10.8 g/dL (13.0-16.5); Lymphocyte # 0.74 X10^3/ul (0.83-4.51); Lymphocyte % 4.8 % (19-41); Mean Corp Hgb Conc 32.7 g/dL (32-36); Mean Corpuscular Hgb 26.3 pg (27.0-32.0); Mean Corpuscular Volume 80.3 fL (80-94); Mean Platelet Vol. 10.3 fl (6.2-12.0); Monocyte# 1.97 X10^3/uL; Monocyte% 12.8 % (0-10); NRBC Flagged by Analyzer 0 % (0-5); Neutrophil # 12.61 X10^3/uL (2.7-7.7); Neutrophil % 81.7 % (47-70); POSITIVE DIFFERENTIAL YES; Platelet Count 209 K/mm3 (150-450); RBC Distribution Width CV 15.4 % (11.6-14.6); RBC Distribution Width SD 44.9 fl (35.1-43.9); Red Blood Count 4.11 M/mm3 (4.6-6.2); White Blood Count 15.4 K/mm3 (4.4-11.0)
[2022-07-08 16:42] LABS: Differential Indicated SCAN CRITERIA MET
[2022-07-08 17:06] LABS: ALB/GLOB Ratio 0.5 RATIO (0.9-2.4); AST(SGOT) 66 U/L (15-37); Alanine Aminotransfer ALT/SGPT 44 U/L (16-61); Albumin, Serum 2.3 g/dL (3.2-5.0); Alkaline Phosphatase 490 U/L (45-117); Anion Gap 10 (5-15); BUN 20 mg/dL (7-18); BUN/Creat Ratio 27.1 RATIO (10-20); CPK Total, Creatine Kinase 318 U/L (39-308); Calcium,Total 8.4 mg/dL (8.5-10.1); Chloride 98 mmol/L (98-107); Creatinine, Serum 0.74 mg/dL (0.70-1.30); EST Glomerular Filtration Rate 112 mL/min (>60); Est Glom Filt Rate - Afr Amer 136 mL/min (>60); Globulin 4.6 g/dL (2.2-4.2); Glucose 125 mg/dL (74-106); Magnesium 2.1 mg/dL (1.6-2.6); Potassium 3.3 mmol/L (3.5-5.1); Protein, Total 6.9 g/dL (6.4-8.2); Sodium Level 131 mmol/L (136-145)
[2022-07-08 17:47] VITALS: RESP 18
[2022-07-08 17:52] LABS: Differential Comment SCANNED
[2022-07-08 18:17] LABS: Red Blood Cells-Urine 0 SEEN /hpf (0-5)
[2022-07-08 18:26] LABS: Color, Urine Amber (Yellow); Glucose, Dipstick Normal (Normal); Ketone-Dipstick 5 mg/dl (Negative); Leukocyte Esterase-Dipstick 25 /ul (Negative); Nitrite-Dipstick Negative (Negative); Occult Blood-Urine Negative /ul (Negative); Protein-Dipstick 30 mg/dl (Negative); Specific Gravity, Urine 1.015 (1.002-1.030); Urine Clarity Clear (Clear); Urine Urobilinogen 8 mg/dl (Normal)
[2022-07-08 18:34] LABS: Urine Bilirubin Dipstick 3 mg/dL (Negative)
[2022-07-08 18:44] LABS: Bacteria RARE /hpf (None Seen); Mucous, Urine 2+ /hpf (<or=2+); Squamous Epithelial Cells - UA 0-5 SEEN /hpf (0-5); White Blood Cells 0-5 SEEN /hpf (0-5)
[2022-07-08] MEDS: Potassium Chloride Oral Tablet 20 MEQ 40 MEQ PO (18:51)
[2022-07-09 12:59] LABS: Pathologist Review Reviewed
== END 2022-07-08 20:19 | disposition home or self-care (01) ==
PROVIDERS: Emergency Provider Emergency Medicine; PCP Family Medicine; Visit Provider Emergency Medicine
DX: U07.1 COVID-19 (principal); R53.1 Weakness; E87.1 Hypo-osmolality and hyponatremia; E86.0 Dehydration; E87.6 Hypokalemia; S30.811A Abrasion of abdominal wall, initial encounter; I25.10 Atherosclerotic heart disease of native coronary artery without angina pectoris; I25.2 Old myocardial infarction; F17.210 Nicotine dependence, cigarettes, uncomplicated; I25.5 Ischemic cardiomyopathy; E78.5 Hyperlipidemia, unspecified; Z95.1 Presence of aortocoronary bypass graft; Z86.711 Personal history of pulmonary embolism; Z79.899 Other long term (current) drug therapy; Z79.84 Long term (current) use of oral hypoglycemic drugs; W19.XXXA Unspecified fall, initial encounter
CPT/HCPCS: 80053; 81001; 82550; 83735; 85025; 87086; 87088; 99283; J7030; A4216